=== PATIENT | male | born 1975 | race African-American/Black ===

== ENCOUNTER 2023-02-14 12:12 | Emergency (ER) | payer OTHER, SELFPAY ==
--- NOTE | ~2023-02-14 | XR_ITS ---
STUDY: PA chest, left foot INDICATION: Shortness of breath and left foot pain TECHNIQUE: PA chest, 3 view left foot FINDINGS: Chest: Heart and mediastinum within normal limits. No vascular congestion, consolidations or effusions. Possible 4 mm lung nodule right midlung field. Bony structures are intact. Left foot: No fracture or dislocation. Alignment and articulations are maintained. No focal soft tissue swelling. XR/XR chest 1V IMPRESSION: No acute cardiopulmonary disease. 4 mm right midlung pulmonary nodule not excluded. Patient currently scheduled for CT angiography of the chest. No acute bony pathology left foot.
--- NOTE | ~2023-02-14 | XR_ITS ---
STUDY: PA chest, left foot INDICATION: Shortness of breath and left foot pain TECHNIQUE: PA chest, 3 view left foot FINDINGS: Chest: Heart and mediastinum within normal limits. No vascular congestion, consolidations or effusions. Possible 4 mm lung nodule right midlung field. Bony structures are intact. Left foot: No fracture or dislocation. Alignment and articulations are maintained. No focal soft tissue swelling. XR/XR foot LT 2V IMPRESSION: No acute cardiopulmonary disease. 4 mm right midlung pulmonary nodule not excluded. Patient currently scheduled for CT angiography of the chest. No acute bony pathology left foot.
--- NOTE | ~2023-02-14 | CT_ITS ---
EXAMINATION: CT ANGIOGRAM OF THE CHEST WITH AND WITHOUT CONTRAST (CT PULMONARY ANGIOGRAM FOR PE) CLINICAL INFORMATION: Positive D-dimer. Shortness of breath. COMPARISON: None available. TECHNIQUE: Prior to contrast administration, noncontrast localization images were obtained. Subsequently, multidetector volumetric imaging was performed from the thoracic inlet to below the diaphragms following the administration of 65 mL Omnipaque 350 intravenous contrast. No contrast reaction reported. Sagittal, coronal, and MIP oblique sagittal reformatted images were obtained on the CT workstation, uploaded to PACS, and reviewed. This CT examination was performed using dose optimization techniques as appropriate, variously including the following: *Automated exposure control *Adjustment of mA and/or kV according to patient size (this includes techniques or standardized protocols for targeted exams where dose is matched to indication/reason for exam; i.e. extremities or head) *Use of iterative reconstruction technique Total exam dose-length product 285 mGy-cm. FINDINGS: QUALITY OF STUDY/CONTRAST BOLUS: Satisfactory. PULMONARY ARTERIES: No pulmonary emboli. THORACIC AORTA: No aneurysm. LUNG: There are scattered calcific granulomata left lower lobe and right middle lobe. No focal consolidation, nodules or masses. PLEURA: No pleural effusion or pneumothorax. MEDIASTINUM: Normal heart size. No pericardial effusion. No hilar or mediastinal lymphadenopathy. No evidence of septal bowing or right heart strain. CORONARY ARTERY CALCIFICATION: None visualized on this study. CHEST WALL/AXILLA: No axillary or internal mammary lymphadenopathy. OSSEOUS STRUCTURES: No acute or suspicious osseous abnormality. UPPER ABDOMEN: Unremarkable. No reflux of contrast into the hepatic veins to suggest elevated right heart pressures. CT/CT angio chest PE protocol IMPRESSION: No evidence for pulmonary embolism. No active cardiopulmonary disease. VTE: Negative.
[2023-02-14 12:28] VITALS: BP 172/124; BP 210/110; PULSE 131; PULSE 132; RESP 20; TEMP 36.9; O2SAT 99; BMI 33.5
--- NOTE | 2023-02-14 12:38 | ECG_ITS ---
Test Reason : check for prolong QT Blood Pressure : / mmHG Vent. Rate : 130 BPM Atrial Rate : 130 BPM P-R Int : 160 ms QRS Dur : 076 ms QT Int : 294 ms P-R-T Axes : 054 012 053 degrees QTc Int : 432 ms Sinus tachycardia Septal infarct , age undetermined Abnormal ECG No previous ECGs available Referred By: Generic ED Physician Electronically Signed By:SHIVANI ZUNIGA
--- NOTE | 2023-02-14 13:02 | MHC.CARE ---
Pt was seen by [facility] at [facility], clinician reports he was not found to meet inpatient level of care, however he requested to go to [facility]. Pt was at [facility] for 22 days and then transferred to [facility] yesterday, he was reported by staff to be walking around outside bare foot. Pt has history of paranoia and audio hallucinations. [facility] can be called for additional information if needed or to request copy of assessment.
--- OUTSIDE RECORDS SUMMARY | 2023-02-14 13:18 | XMS_ITS | Continuity of Care Document ---
Author Name Unknown Organization [facility] Address [address] [place] [address]- Care Team Providers Care Counter Waiter Name Role Phone Nash HAND, Alice Primary Care Physician [phone] Encounter [facility] Date(s): 08/30/22 - 09/29/[address] [address]- Attending Physician: Gala Baum Admitting Physician: AdmtrGala Referring Physician: Admtr, ArKalyan Allergies, Adverse Reactions, Alerts No Known Allergies Immunizations Given and Recorded Vaccine Date Status Refusal Reason tetanus/diphtheria/pertussis, acel(Tdap) 02/22/22 Given SARS-CoV-2 mRNA (vddmoqf-opew-porus) vax 02/22/22 Given pneumococcal 20-valent conjugate vaccine 02/22/22 Given SARS-CoV-2 (COVID-19) mRNA BNT-162b2 vac 03/23/21 Recorded SARS-CoV-2 (COVID-19) mRNA BNT-162b2 vac 03/02/21 Recorded influenza virus vaccine, inactivated 09/20/15 Give n influenza virus vaccine, inactivated 05/18/14 Give n influenza virus vaccine, inactivated 1, 2 07/30/12 Given influenza virus vaccine, inactivated 3 05/31/12 Gi sejal tetanus-diphtheria toxoids (Td) 4 05/13/10 Given Influenza Inactive (IM) (oldterm) 5 05/13/10 Given Influenza Vaccine (oldterm) 6 03/17/09 Given Not Given Vaccine Date Status Refusal Reason pneumococcal 23-valent vaccine 12/02/13 Not Given Patient Refuses 1Result Comment: ENTERED IN ERROR 2Admin Note: VIS GIVEN 3Admin Note: VIS GIVEN 2011-05 4Admin Note: vis 07/12/07 5Admin Note: vis 6Admin Note: vis 02/02/09 Medications Alcohol Pads See Instructions, # 100 each, Refills 6, Tot. Refills 6, Maintenance, Rx: To check blood sugar 1 x per day Dx: Type 2 DM, 250.00, 07/12/22 9:25:00 EST, Compound, 177.8, cm, 07/12/22 8:41:00 EST, Height Start Date: 07/12/22 Status: Ordered atorvastatin 20 mg oral tablet 1 tablet = 20 mg, By Mouth, Daily, # 30 tablet, 5 Refills, Maintenance, 07/11/22 17:25:00 EST, Tablet, [facility] #[id number], Partial fill upon patient request if the prescription is for a schedule II opioid drug., 177.8, cm, 05/01/22 9:49:00 EST, Height Start Date: 07/11/22 Status: Ordered Blood pressure monitor and cuff Blood pressure monitor and cuff, See Instructions, # 1 units, Refills 6, Tot. Refills 6, Maintenance, Rx: To check blood pressure daily Dx: Hypertension, 12/29/13 16:52:50, Compound Start Date: 12/29/13 Status: Ordered CPAP CPAP, See Instructions, # 1 units, Refills 0, Tot. Refills 0, Maintenance, Rx: Auto CPAP 10-15 witha heated humidifier. Recommend ordering a machine with compliance data tracking capabilities and following residual AHI. Dx: Obstructive Sleep Apne... Start Date: 07/29/14 Status: Ordered CPAP equipment Mask, Headgear, Tubiing, Filters CPAP equipment Mask, Headgear, Tubiing, Filters, See Instructions, # 1 units, Refills 0, Tot. Refills 0, Maintenance, Dx: TARUN 327.23, 04/01/14 10:02:39, Compound Start Date: 04/01/14 Status: Ordered diclofenac 1% topical gel 1 application, Topically, 4 times a day, # 100 Gm, 0 Refills, Maintenance, 07/20/22 8:43:00 EST, Gel, [facility] #[id number], Partial fill upon patient request if the prescription is for a schedule II opioid drug., 177.8, cm, 07/20/22 8:31:00 EST... Start Date: 07/20/22 Status: Ordered docusate sodium 100 mg oral capsule 1 capsule = 100 mg, By Mouth, 2 times a day, PRN as needed for constipation, # 60 capsule, 0 Refills, Maintenance, 02/22/22 10:02:00 EDT, Capsule, [facility] #[id number], Partial fill upon patient request if the prescription is for a schedule II... Start Date: 02/22/22 Stop Date: 03/24/22 Status: Ordered Eucerin Plus topical lotion 1 application, Topically, 2 times a day, PRN for dry skin, # 354 mL, 3 Refills, Maintenance, 03/06/22 10:02:00 EDT, Lotion, [facility] #[id number], Partial fill upon patient request if the prescription is for a schedule II opioid drug., 1 applica... Start Date: 03/06/22 Status: Ordered Freestyle Lite Lancets See Instructions, # 100 each, Refills 6, Tot. Refills 6, Maintenance, Rx: To check blood sugar 1 x per day Dx: Type 2 DM, 250.00, 07/12/22 10:48:00 EST, Compound, 177.8, cm, 07/12/22 8:41:00 EST, Height Start Date: 07/12/22 Status: Ordered Freestyle Lite Monitor See Instructions, # 1 each, Refills 0, Tot. Refills 0, Maintenance, Rx: To check blood sugar 1 x per day Dx: Type 2 DM, 250.00, 07/12/22 9:22:00 EST, Compound, 177.8, cm, 07/12/22 8:41:00 EST, Height Start Date: 07/12/22 Status: Ordered Freestyle Lite Test Strips See Instructions, # 100 each, Refills 3, Tot. Refills 3, Maintenance, Rx: To check blood sugar 1 x per day Dx: Type 2 DM, E11.9, 07/12/22 9:22:00 EST, Compound, 177.8, cm, 07/12/22 8:41:00 EST, Height Start Date: 07/12/22 Status: Ordered metFORMIN 1000 mg oral tablet 1 tablet = 1,000 mg, By Mouth, 2 times a day, # 60 tablet, 5 Refills, Maintenance, 10/09/22 17:25:00 EDT, Tablet, [id number], 177.8, cm, 07/12/22 8:41:00 EST, Height Start Date: 10/09/22 Stop Date: 04/07/23 Status: Ordered Pen [place], 31 G x 8 mm BD Ultra Fine III See Instructions, # 100 each, Refills 3, Tot. Refills 3, Maintenance, Inject Trulicity QD, 239:23:00 EST, Supply, 177.8, cm, 07/12/22 8:41:00 EST, Height Start Date: 07/12/22 Status: Ordered Trulicity Pen 0.75 mg/0.5 mL subcutaneous solution 0.5 mL = 0.75 mg, Subcutaneous Injection, Every week, rotate injection sites, # 2 mL, 5 Refills, Maintenance, 07/12/22 9:23:00 EST, Solution, [id number], Partial fill upon patient request if the prescription is for a schedule II opioid drug.,... Start Date: 07/12/22 Status: Ordered Problem List Condition Confirmation Course Effective Dates Status H ealth Status Informant History of Alcohol abuse Confirmed Active Benign essential hypertension Confirmed Active Cannabis abuse Confirmed Active Chronic back pain greater than 3 months duration Confirmed Active Type II Diabetes (Uncontrolled) Confirmed Active Obese class I Confirmed Active TARUN (obstructive sleep apnea) Confirmed Active [facility] [place] [phone] Confirmed Active Schizophrenia Confirmed Active Social History Social History Type Response Smoking Status Former smoker entered on: 11/23/14 Sex Patient Care team information Care Team Personnel Name: Esteban Donohue RN Position: S RN Member Role: Primary Care Nurse Name: Robin Recio RN Position: S RN Member Role: Primary Care Nurse Name: Alice Cao MD Position: [facility] Primary Care Physician Member Role: PCP Address: Address: [address] [place] [address]- Care Team Related Persons Name: MONICA JULIEN Address: [place] [address]
--- OUTSIDE RECORDS SUMMARY | 2023-02-14 13:18 | XMS_ITS | Continuity of Care Document ---
Author Name Unknown Organization [facility] Address [address] [place] [address]- Care Team Providers Care Structural Steel Worker Apprentice Name Role Phone Nash HAND, Alice Primary Care Physician Encounter [facility] Date(s): 03/06/22 - 04/08/[address] [address]- Attending Physician: Not on Staff, Attending MD Allergies, Adverse Reactions, Alerts No Known Allergies Immunizations Given and Recorded Vaccine Date Status Refusal Reason tetanus/diphtheria/pertussis, acel(Tdap) 02/22/22 Given SARS-CoV-2 mRNA (vrzluuk-vzgh-qknxa) vax 02/22/22 Given pneumococcal 20-valent conjugate vaccine [...] Note: vis 6Admin Note: vis 02/02/09 Medications acetaminophen 500 mg oral tablet 2 tablet = 1,000 mg, By Mouth, Every 8 hours, for 30 days, PRN Pain, # 180 tablet, 1 Refills, Acute05/05/22 10:02:00 EST, 03/06/22 10:02:00 EDT, [facility] #[id number], Partial fill upon patient request if the prescription is for a schedule II o... Start Date: 03/06/22 Stop Date: 05/05/22 Status: Ordered Alcohol Pads See Instructions, # 100 each, Refills 6, Tot. Refills 6, Maintenance, Rx: To check blood sugar 1 x per day Dx: Type 2 DM, 250.00, 02/22/22 9:55:00 EDT, Compound, 177.8, cm, 02/22/22 9:41:00 EDT, Height Start Date: 02/22/22 Status: Ordered atorvastatin 20 mg oral tablet 1 tablet = 20 mg, By Mouth, Daily, # 30 tablet, 5 Refills, Maintenance, 03/06/22 10:12:00 EDT, Tablet, [facility] #[id number], Partial fill upon patient request if the prescription is for a schedule II opioid drug., 177.8, cm, 03/06/22 9:49:00 ED... Start Date: 03/06/22 Status: Ordered Blood pressure monitor and cuff [...] 10:02:39, Compound Start Date: 04/01/14 Status: Ordered docusate sodium 100 mg oral capsule 1 capsule = 100 mg, By Mouth, 2 times a day, PRN as needed for constipation, # 60 capsule, 0 Refills, Maintenance, 02/22/22 10:02:00 EDT, Capsule, [facility] #[id number], Partial fill upon patient request if the prescription is for a schedule II... Start Date: 02/22/22 Stop Date: 03/24/22 Status: Ordered Eucerin Plus topical lotion 1 application, Topically, 2 times a day, PRN for dry skin, # 354 mL, 3 Refills, Maintenance, 03/06/22 10:02:00 EDT, Lotion, [facility] #[id number], Partial fill upon patient request if the prescription is for a schedule II opioid drug., 1 applica... Start Date: 03/06/22 Status: Ordered Freestyle Lite Lancets See Instructions, # 100 each, Refills 6, Tot. Refills 6, Maintenance, Rx: To check blood sugar 1 x per day Dx: Type 2 DM, 250.00, 02/22/22 9:55:00 EDT, Compound, 177.8, cm, 02/22/22 9:41:00 EDT, Height Start Date: 02/22/22 Status: Ordered Freestyle Lite Monitor See Instructions, # 100 each, Refills 6, Tot. Refills 6, Maintenance, Rx: To check blood sugar 1 x per day Dx: Type 2 DM, 250.00, 02/22/22 9:55:00 EDT, Compound, 177.8, cm, 02/22/22 9:41:00 EDT, Height Start Date: 02/22/22 Status: Ordered Freestyle Lite Test Strips See Instructions, # 100 each, Refills 3, Tot. Refills 3, Maintenance, Rx: To check blood sugar 1 x per day Dx: Type 2 DM, E11.9, 02/22/22 9:55:00 EDT, Compound, 177.8, cm, 02/22/22 9:41:00 EDT, Height Start Date: 02/22/22 Status: Ordered metFORMIN 1000 mg oral tablet 1 tablet = 1,000 mg, By Mouth, 2 times a day, # 60 tablet, 2 Refills, Maintenance, 02/22/22 9:56:00EDT, Tablet, [facility] #[id number], 177.8, cm, 02/22/22 9:41:00 EDT, Height Start Date: 02/22/22 Stop Date: 05/23/22 Status: Ordered Pen [place], 31 G x 8 mm BD Ultra Fine III See Instructions, # 100 each, Refills 3, Tot. Refills 3, Maintenance, Inject Trulicity QD, 03/06/2210:11:00 EDT, Supply, 177.8, cm, 03/06/22 9:49:00 EDT, Height Start Date: 03/06/22 Status: Ordered Trulicity Pen 0.75 mg/0.5 mL subcutaneous solution 0.5 mL = 0.75 mg, Subcutaneous Injection, Every week, rotate injection sites, # 2 mL, 5 Refills, Maintenance, 04/03/22 17:25:00 EDT, Solution, [facility] #[id number], Partial fill upon patient request if the prescription is for a schedule II opio... Start Date: 04/03/22 Status: Ordered Problem List Condition Confirmation Course Effective Dates Status H ealth Status Informant History of Alcohol abuse Confirmed Active Benign essential hypertension Confirmed Active Cannabis abuse Confirmed Active Chronic back pain greater than 3 months duration Confirmed Active Type II Diabetes (Uncontrolled) Confirmed Active Obese class II Confirmed Active TARUN (obstructive sleep apnea) Confirmed Active [facility] Care [facility] [phone] Confirmed Active Schizophrenia Confirmed Active Social History Social History Type Response Smoking Status Former smoker entered on: 11/23/14 Sex Patient Care team information Personnel Name: Alice Cao MD Address: Address: [address] [place] [address]
--- OUTSIDE RECORDS SUMMARY | 2023-02-14 13:18 | XMS_ITS | Continuity of Care Document ---
Author Name Unknown Organization [facility] Address [address] [place] [address]- Care Team Providers Care Director Of Corporate Real Estate Name Role Phone Nash HAND, Alice Primary Care Physician [phone] Encounter [facility] Date(s): 05/01/22 - 05/31/[address] [address]- Attending Physician: Admbabatunde, Madhu8 Admitting Physician: Admtr, Ar8 Referring Physician: Admtr, Ar8 Allergies, Adverse Reactions, Alerts No Known Allergies Immunizations Given and Recorded Vaccine Date Status Refusal Reason tetanus/diphtheria/pertussis, acel(Tdap) 02/22/22 Given SARS-CoV-2 mRNA (drrrnrl-juvn-tdhkp) vax 02/22/22 Given pneumococcal 20-valent conjugate vaccine [...] 5 Refills, Maintenance, 03/06/22 10:12:00 EDT, Tablet, [facility][id number], Partial fill upon patient request if the [...] 0 Refills, Maintenance, 02/22/22 10:02:00 EDT, Capsule, [facility] #[id number], Partial fill upon patient request if the prescription is for a schedule II... Start Date: 02/22/22 Stop Date: 03/24/22 Status: Ordered Eucerin Plus topical lotion 1 application, Topically, 2 times a day, PRN for dry skin, # 354 mL, 3 Refills, Maintenance, 03/06/22 10:02:00 EDT, Lotion, [facility] #[id number], Partial fill upon patient request if the [...] tablet, 2 Refills, Maintenance, 02/22/22 9:56:00EDT, Tablet, [facility] #[id number], 177.8, cm, 02/22/22 9:41:00 EDT, Height Start Date: 02/22/22 Stop Date: 05/23/22 Status: Ordered Pen [place], 31 G x 8 mm BD Ultra [...] 5 Refills, Maintenance, 04/03/22 17:25:00 EDT, Solution, [facility] #[id number], Partial fill upon patient request if the [...] TARUN (obstructive sleep apnea) Confirmed Active [facility] [phone] Confirmed Active Schizophrenia Confirmed Active Social History Social History Type Response Smoking Status Former smoker entered on: 11/23/14 Sex Patient Care team information Care Team Personnel Name: Esteban Donohue RN Position: [facility] RN Member Role: Primary Care Nurse Name: Robin Recio RN Position: S RN Member Role: Primary Care Nurse Name: Alice Cao MD Position: [facility] Primary Care Physician Member Role: PCP Address: Address: [address] [place] [address] Care Team Related Persons Name: MONICA JULIEN Address: [place] [address]
--- OUTSIDE RECORDS SUMMARY | 2023-02-14 13:18 | XMS_ITS | Continuity of Care Document ---
Author Name Unknown Organization [facility] Address [address] [place] [address]- Care Team Providers Care Buncher Machine Name Role Phone Nash HAND, Alice Primary Care Physician Encounter [facility] Date(s): 04/17/22 - 05/17/[address] [address]- Allergies, Adverse Reactions, Alerts No Known Allergies Immunizations Given and Recorded Vaccine Date Status Refusal Reason tetanus/diphtheria/pertussis, acel(Tdap) 02/22/22 Given SARS-CoV-2 mRNA (alpcwgb-uece-irbsz) vax 02/22/22 Given pneumococcal 20-valent conjugate vaccine [...] 5 Refills, Maintenance, 03/06/22 10:12:00 EDT, Tablet, [facility] #[id number], Partial fill upon patient request if the [...] 0 Refills, Maintenance, 02/22/22 10:02:00 EDT, Capsule, [facility] #[id number], Partial fill upon patient request if the prescription is for a schedule II... Start Date: 02/22/22 Stop Date: 03/24/22 Status: Ordered Eucerin Plus topical lotion 1 application, Topically, 2 times a day, PRN for dry skin, # 354 mL, 3 Refills, Maintenance, 03/06/22 10:02:00 EDT, Lotion, [facility] #[id number], Partial fill upon patient request if the [...] tablet, 2 Refills, Maintenance, 02/22/22 9:56:00EDT, Tablet, [facility] #[id number], 177.8, cm, 02/22/22 9:41:00 EDT, Height Start Date: 02/22/22 Stop Date: 05/23/22 Status: Ordered Pen [place], 31 G x 8 mm BD Ultra [...] 5 Refills, Maintenance, 04/03/22 17:25:00 EDT, Solution, [facility] #[id number], Partial fill upon patient request if the [...] Active TARUN (obstructive sleep apnea) Confirmed Active [facility] Care Management [facility] [place] [phone] Confirmed Active Schizophrenia Confirmed Active Social History Social History Type Response Smoking Status Former smoker entered on: 11/23/14 Sex Patient Care team information Care Team Personnel Name: Esteabn Donohue RN Position: [facility] RN Member Role: Primary Care Nurse Name: Robin Recio RN Position: S RN Member Role: Primary Care Nurse Name: Alcie Cao MD Position: [facility] Primary Care Physician Member Role: PCP Address: Address: [address] [place] [address] Care Team Related Persons Name: WILY MONICA Address: [place] [address]
--- OUTSIDE RECORDS SUMMARY | 2023-02-14 13:18 | XMS_ITS | Continuity of Care Document ---
Author Name Unknown Organization [facility] Address [address] [place] [address]- Care Team Providers Care Director Of Contracts Name Role Phone Alice Cao MD Primary Care Physician Encounter [facility] Date(s): 02/22/22 - 03/31/[address] [address]- Attending Physician: Alice Cao MD Admitting Physician: Alice Cao MD Allergies, Adverse Reactions, Alerts No Known Allergies Immunizations Given and Recorded Vaccine Date Status Refusal Reason tetanus/diphtheria/pertussis, acel(Tdap) 02/22/22 Given SARS-CoV-2 mRNA (nadxfqq-[id number]-[id number]) vax 02/22/22 Given pneumococcal 20-valent conjugate vaccine [...] Refills, Acute05/05/22 10:02:00 EST, 03/06/22 10:02:00 EDT, [facility] #[id number], Partial fill upon patient request if the [...] 5 Refills, Maintenance, 03/06/22 10:12:00 EDT, Tablet, [facility] #[id number], Partial fill upon patient request if the [...] 0 Refills, Maintenance, 02/22/22 10:02:00 EDT, Capsule, [facility] #[id number], Partial fill upon patient request if the prescription is for a schedule II... Start Date: 02/22/22 Stop Date: 03/24/22 Status: Ordered Eucerin Plus topical lotion 1 application, Topically, 2 times a day, PRN for dry skin, # 354 mL, 3 Refills, Maintenance, 03/06/22 10:02:00 EDT, Lotion, [facility] #[id number], Partial fill upon patient request if the [...] tablet, 2 Refills, Maintenance, 02/22/22 9:56:00EDT, Tablet, [facility] #[id number], 177.8, cm, 02/22/22 9:41:00 EDT, Height Start Date: 02/22/22 Stop Date: 05/23/22 Status: Ordered Pen [place], 31 G x 8 mm BD Ultra Fine III See Instructions, # 100 each, Refills 3, Tot. Refills 3, Maintenance, Inject Trulicity QD, 03/06/2210:11:00 EDT, Supply, 177.8, cm, 03/06/22 9:49:00 EDT, Height Start Date: 03/06/22 Status: Ordered triamcinolone 0.1% topical cream 1 application, Topically, 2 times a day, for 14 days, # 60 Gm, 1 Refills, Acute 04/03/22 10:02:00 EDT, 03/06/22 10:02:00 EDT, Cream, [facility] #[id number], Partial fill upon patient request if the prescription is for a schedule II opioid drug.,... Start Date: 03/06/22 Stop Date: 04/03/22 Status: Ordered Trulicity Pen 0.75 mg/0.5 mL subcutaneous solution 0.5 mL = 0.75 mg, Subcutaneous Injection, Every week, rotate injection sites, # 2 mL, 0 Refills, Maintenance, 03/06/22 10:11:00 EDT, Solution, [facility] #[id number], Partial fill upon patient request if the prescription is for a schedule II opio... Start Date: 03/06/22 Status: Ordered Problem List Condition Confirmation Course Effective Dates Status H ealth Status Informant History of Alcohol abuse Confirmed Active Benign essential hypertension Confirmed Active Cannabis abuse Confirmed Active Chronic back pain greater than 3 months duration Confirmed Active Type II Diabetes (Uncontrolled) Confirmed Active Obese class II Confirmed Active TARUN (obstructive sleep apnea) Confirmed Active [facility] [phone] Confirmed Active Schizophrenia Confirmed Active Social History Social History Type Response Smoking Status Former smoker entered on: 11/23/14 Sex Patient Care team information Personnel Name: Alice Cao MD Address: Address: [address] [place] [id number]
--- OUTSIDE RECORDS SUMMARY | 2023-02-14 13:18 | XMS_ITS | Continuity of Care Document ---
Author Name Unknown Organization [facility] Address [address] [place] [address]- Care Team Providers Care Smoking Tobacco Packer Hand Name Role Phone Nash HAND, Alice Primary Care Physician Encounter [facility] Date(s): 02/10/21 - 03/12/[address] [address]- Allergies, Adverse Reactions, Alerts Substance Reaction Severity Status NKA Active Immunizations Given and Recorded Vaccine Date Status Refusal Reason influenza virus vaccine, inactivated 09/20/15 Give n [...] ENTERED IN ERROR 2Admin Note: VIS GIVEN 2011- 3Admin Note: VIS GIVEN 2010- 4Admin Note: vis 07/12/07 5Admin Note: vis 6Admin Note: vis 02/02/09 Medications Adustable Quad Cane Adustable Quad Cane, See Instructions, # 1 each, Refills 0, Tot. Refills 0, Maintenance, Use to prevent fall. Diagnosis: Osteoarthritis, ICD10 M19. Fax to [facility], 03/15/17 16:48:50, Compound Start Date: 03/15/17 Status: Ordered Alcohol Pads See Instructions, # 100 units, Refills 6, Tot. Refills 6, Maintenance, Rx: To check blood sugar 1 Dx: Type 2 DM, 250.00, 08/14/16 13:31:48, Compound Start Date: 08/14/16 Status: Ordered amLODIPine 5 mg oral tablet 1 tablet, By Mouth, Daily, # 30 tablet, 5 Refills, Maintenance, 10/28/19 16:44:00 EDT, [facility] #[id number], 177.8, cm, 03/25/19 15:29:00 EDT, Height Start Date: 10/28/19 Status: Ordered benztropine 0.5 mg oral tablet See Instructions, TAKE 1 TABLET BY MOUTH EVERY NIGHT AT BEDTIME, # 30 tablet, Refills 5, Tot. Refills 5, Soft Stop, 10/22/20 11:51:00 EDT, Instructions Replace Required Details, Route to Pharmacy Electronically, [facility] #[id number], 177.8, cm,... Start Date: 10/22/20 Status: Ordered Blood pressure monitor and cuff [...] 10:02:39, Compound Start Date: 04/01/14 Status: Ordered divalproex sodium 500 mg oral enteric coated tablet See Instructions, # 120 tablet, Refills 6 Tot. Refills 6, TAKE 2 TABLETS BY MOUTH TWICE DAILY, [facility] #[id number] Start Date: 05/12/19 Status: Ordered Freestyle Lite Lancets See Instructions, # 100 units, Refills 6, Tot. Refills 6, Maintenance, Rx: To check blood sugar 1 xper day Dx: Type 2 DM, 250.00, 03/21/18 9:52:39 EDT, Compound Start Date: 03/21/18 Status: Ordered Freestyle Lite Monitor See Instructions, # 1 units, Refills 6, Tot. Refills 6, Maintenance, Rx: To check blood sugar 1 x per day Dx: Type 2 DM, 250.00, 12/29/13 16:53:03, Compound Start Date: 12/29/13 Status: Ordered Freestyle Lite Test Strips See Instructions, # 100 each, Refills 3, Tot. Refills 3, Maintenance, Rx: To check blood sugar 1 x per day Dx: Type 2 DM, E11.9, 10/09/19 9:33:00 EDT, [facility], 177.8, cm, 03/25/19 15:29:00 EDT, Height Start Date: 10/09/19 Status: Ordered glipiZIDE 5 mg oral tablet 5 mg, 1, tablet, By Mouth, Daily, # 30 tablet, Refills 5, Tot. Refills 5, Maintenance, 08/07/19 8:49:00 EST, Route to Pharmacy Electronically, [facility] #[id number], 177.8, cm, 03/25/19 15:29:00 EDT, Height Start Date: 08/07/19 Status: Ordered hydrochlorothiazide 25 mg oral tablet 25 mg, 1, tablet, By Mouth, Daily, # 90 tablet, Refills 3, Tot. Refills 3, Soft Stop, 03/25/20 13:09:00 EDT, Route to Pharmacy Electronically, [facility] #[id number], 177.8, cm, 03/25/19 15:29:00 EDT, Height Start Date: 03/25/20 Stop Date: 03/20/21 Status: Ordered Lac-Hydrin 12% lotion 1 application, Topically, Daily, # 400 Gm, 3 Refills, Maintenance, 07/05/16 15:02:17, Lotion, 1 application Topically Daily,x30 days Start Date: 07/05/16 Stop Date: 11/02/16 Status: Ordered lisinopril 40 mg oral tablet 1 tablet = 40 mg, By Mouth, Daily, # 90 tablet, 1 Refills, Maintenance, 07/07/19 10:35:00 EST, Tablet, [facility] #[id number], 177.8, cm, 03/25/19 15:29:00 EDT, Height Start Date: 07/07/19 Status: Ordered Medication Change Medication Change, See Instructions, # 1 each, Refills 0, Tot. Refills 0, Maintenance, Discontinue Metformin, 11/09/16 10:48:56, Compound Start Date: 11/09/16 Status: Ordered metFORMIN 1000 mg oral tablet 1 tablet = 1,000 mg, By Mouth, 2 times a day, # 60 tablet, 2 Refills, Maintenance, 11/26/19 15:35:00 EDT, Tablet, [facility] #[id number], 177.8, cm, 03/25/19 15:29:00 EDT, Height Start Date: 11/26/19 Stop Date: 02/24/20 Status: Ordered pantoprazole 40 mg oral delayed release tablet 1 tablet = 40 mg, By Mouth, Daily, # 30 tablet, 2 Refills, Soft Stop, 08/07/19 8:50:00 EST, 177.8, cm, 03/25/19 15:29:00 EDT, Height Start Date: 08/07/19 Status: Ordered risperiDONE 2 mg oral tablet 1, tablet, By Mouth, Daily, # 30 tablet, Refills 5, Tot. Refills 0, Maintenance, 07/24/19 11:03:00 EST, Route to Pharmacy Electronically, [facility] #[id number], 177.8, cm, 03/25/19 15:29:00 EDT, Height Start Date: 07/24/19 Status: Ordered Problem List Condition Effective Dates Status Health Status Inform ant History of Alcohol abuse(Confirmed) Active Benign essential hypertension(Confirmed) Active Cannabis abuse(Confirmed) Active Chronic back pain greater th an 3 months duration(Confirmed) Active Type II Diabetes (Uncontrolled)(Confirmed) Active TARUN (obstructive sleep apnea)(Confirmed) Active [facility] Care Management [facility] Desirae [phone](Confirmed) Active Schizophrenia(Confirmed) Active Social History Social History Type Response Smoking Status Former smoker entered on: 11/23/14 Sex
--- OUTSIDE RECORDS SUMMARY | 2023-02-14 13:18 | XMS_ITS | Continuity of Care Document ---
Author Name Unknown Organization [facility] Address [address] [place] [address]- Care Team Providers Care Administrator Name Role Phone Alice Cao MD Primary Care Physician [phone] [id number] Date(s): 10/19/22 - 01/03/[address] [address]- Attending Physician: Alice Cao MD Admitting Physician: Alice Cao MD Allergies, Adverse Reactions, Alerts No Known Allergies Immunizations Given and Recorded Vaccine Date Status Refusal Reason tetanus/diphtheria/pertussis, acel(Tdap) 02/22/22 Given SARS-CoV-2 mRNA ([id number]) vax 02/22/22 Given pneumococcal 20-valent conjugate vaccine [...] VIS GIVEN 2011- 3Admin Note: VIS GIVEN 2011-05 4Admin Note: [...] 5 Refills, Maintenance, 07/11/22 17:25:00 EST, Tablet, [facility]/pharmacy #[id number], Partial fill upon patient request if the [...] 0 Refills, Maintenance, 07/20/22 8:43:00 EST, Gel, [facility] #[id number], Partial fill upon patient request if the prescription is for a schedule II opioid drug., 177.8, cm, 07/20/22 8:31:00 EST... Start Date: 07/20/22 Status: Ordered docusate sodium 100 mg oral capsule 1 capsule = 100 mg, By Mouth, 2 times a day, PRN as needed for constipation, # 60 capsule, 0 Refills, Maintenance, 02/22/22 10:02:00 EDT, Capsule, [facility] #[id number], Partial fill upon patient request if the prescription is for a schedule II... Start Date: 02/22/22 Stop Date: 03/24/22 Status: Ordered Eucerin Plus topical lotion 1 application, Topically, 2 times a day, PRN for dry skin, # 354 mL, 3 Refills, Maintenance, 03/06/22 10:02:00 EDT, Lotion, [facility] #[id number], Partial fill upon patient request if the [...] 5 Refills, Maintenance, 10/09/22 17:25:00 EDT, Tablet, [facility]/pharmacy #[id number], 177.8, cm, 07/12/22 8:41:00 EST, Height Start Date: 10/09/22 Stop Date: 04/07/23 Status: Ordered Pen [place], 31 G x 8 mm BD Ultra [...] 5 Refills, Maintenance, 07/12/22 9:23:00 EST, Solution, [facility]/pharmacy #[id number], Partial fill upon patient request if [...] Active TARUN (obstructive sleep apnea) Confirmed Active [facility] [phone] Confirmed Active Schizophrenia Confirmed Active Social History Social History Type Response Smoking Status Former smoker entered on: 11/23/14 Sex Patient Care team information Care Team Personnel Name: Esteban Donohue RN Position: S RN Member Role: Primary Care Nurse Name: Robin Recio RN Position: S RN Member Role: Primary Care Nurse Name: Alice Cao MD Position: S Physician - Primary Care Member Role: PCP Address: Address: [address] [place] [address]- Care Team Related Persons Name: MONICA JULIEN Address: [place] [address]
--- OUTSIDE RECORDS SUMMARY | 2023-02-14 13:18 | XMS_ITS | Continuity of Care Document ---
Author Name Unknown Organization [facility] Address [address] [place] [address]- Care Team Providers Care Improvement Advisor Name Role Phone Nash HAND, Alice Primary Care Physician [phone] [place] [facility] [place]/21/22 - 09/29/[address] [address] Attending Physician: Mariah Justice NP Admitting Physician: Mariah Justice NP Referring Physician: Mariah Justice NP Allergies, Adverse Reactions, Alerts No Known Allergies Immunizations Given and Recorded Vaccine Date Status Refusal Reason tetanus/diphtheria/pertussis, acel(Tdap) 02/22/22 Given SARS-CoV-2 mRNA ([id number]-ulol-gszaa) vax 02/22/22 Given pneumococcal 20-valent conjugate vaccine [...] Refills, Maintenance, 07/11/22 17:25:00 EST, Tablet, [facility]/pharmacy #[id number], Partial fill upon patient request if the [...] 0 Refills, Maintenance, 07/20/22 8:43:00 EST, Gel, [facility] #[id number], Partial fill upon patient request if the prescription is for a schedule II opioid drug., 177.8, cm, 07/20/22 8:31:00 EST... Start Date: 07/20/22 Status: Ordered docusate sodium 100 mg oral capsule 1 capsule = 100 mg, By Mouth, 2 times a day, PRN as needed for constipation, # 60 capsule, 0 Refills, Maintenance, 02/22/22 10:02:00 EDT, Capsule, [facility] #[id number], Partial fill upon patient request if the prescription is for a schedule II... Start Date: 02/22/22 Stop Date: 03/24/22 Status: Ordered Eucerin Plus topical lotion 1 application, Topically, 2 times a day, PRN for dry skin, # 354 mL, 3 Refills, Maintenance, 03/06/22 10:02:00 EDT, Lotion, [facility] #[id number], Partial fill upon patient request if the [...] 10/09/22 Stop Date: 04/07/23 Status: Ordered Pen [place], 31 G x 8 mm BD Ultra [...] Active TARUN (obstructive sleep apnea) Confirmed Active [facility] [phone] Confirmed Active Schizophrenia Confirmed Active Social History Social History Type Response Smoking Status Former smoker entered on: 11/23/14 Sex Patient Care team information Care Team Personnel Name: Esteban Donohue RN Position: [facility] RN Member Role: Primary Care Nurse Name: Robin Recio RN Position: S RN Member Role: Primary Care Nurse Name: Alice Cao MD Position: [facility] Primary Care Physician Member Role: PCP Address: Address: [address] [place] [address]- Care Team Related Persons Name: MONICA JULIEN Address: [place] [address]
--- OUTSIDE RECORDS SUMMARY | 2023-02-14 13:18 | XMS_ITS | Continuity of Care Document ---
Author Name Unknown Organization [facility] Address [address] [place] [address]- Care Team Providers Care First Assistant Manager Name Role Phone Nash HAND, Alice Primary Care Physician [phone] [place] [facility] [place] Date(s): 07/20/22 - 08/19/[address] [address]- Attending Physician: Admbabatunde, Gala Admitting Physician: Admtr, Ar8 Referring Physician: Admtr, Ar8 Allergies, Adverse Reactions, Alerts No Known Allergies Immunizations Given and Recorded Vaccine Date Status Refusal Reason tetanus/diphtheria/pertussis, acel(Tdap) 02/22/22 Given SARS-CoV-2 mRNA ([id number]-ekfe-lxvik) vax 02/22/22 Given pneumococcal 20-valent conjugate vaccine [...] 5 Refills, Maintenance, 07/11/22 17:25:00 EST, Tablet, [facility]/pharmacy #[id number], Partial fill upon patient request if the [...] 0 Refills, Maintenance, 07/20/22 8:43:00 EST, Gel, [facility] #[id number], Partial fill upon patient request if the prescription is for a schedule II opioid drug., 177.8, cm, 07/20/22 8:31:00 EST... Start Date: 07/20/22 Status: Ordered docusate sodium 100 mg oral capsule 1 capsule = 100 mg, By Mouth, 2 times a day, PRN as needed for constipation, # 60 capsule, 0 Refills, Maintenance, 02/22/22 10:02:00 EDT, Capsule, [facility] #[id number], Partial fill upon patient request if the prescription is for a schedule II... Start Date: 02/22/22 Stop Date: 03/24/22 Status: Ordered Eucerin Plus topical lotion 1 application, Topically, 2 times a day, PRN for dry skin, # 354 mL, 3 Refills, Maintenance, 03/06/22 10:02:00 EDT, Lotion, [facility] #[id number], Partial fill upon patient request if the [...] 10/09/22 Stop Date: 04/07/23 Status: Ordered Pen [place], 31 G x 8 mm BD Ultra Fine III See Instructions, # 100 each, Refills 3, Tot. Refills 3, Maintenance, Inject Trulicity QD, :23:00 EST, Supply, 177.8, cm, 07/12/22 8:41:00 EST, [...] Active TARUN (obstructive sleep apnea) Confirmed Active [facility]z [phone] Confirmed Active Schizophrenia Confirmed Active Social History Social History Type Response Smoking Status Former smoker entered on: 11/23/14 Sex Patient Care team information Care Team Personnel Name: Esteban Donohue RN Position: [facility] RN Member Role: Primary Care Nurse Name: Robin Recio RN Position: S RN Member Role: Primary Care Nurse Name: Alice Cao MD Position: [facility] Primary Care Physician Member Role: PCP Address: Address: [address] [place] [address]- Care Team Related Persons Name: BERNADETTE JULIENENE Address: [place] [address]
--- OUTSIDE RECORDS SUMMARY | 2023-02-14 13:18 | XMS_ITS | Continuity of Care Document ---
Author Name Unknown Organization [facility] Address [address] [place] [address]- Care Team Providers Care Wharf Hand Name Role Phone Nash HAND, Alice Primary Care Physician [phone] En[place] [facility] [place] [facility] [place] [id number] Date(s): 03/09/22 - 04/08/[address] [address]- Attending Physician: Gala Baum Admitting Physician: Gala Baum Referring Physician: AdmtrGala Allergies, Adverse Reactions, Alerts No Known Allergies Immunizations Given and Recorded Vaccine Date Status Refusal Reason tetanus/diphtheria/pertussis, acel(Tdap) 02/22/22 Given SARS-CoV-2 mRNA ([id number]-[id number]-iowiy) vax 02/22/22 Given pneumococcal 20-valent conjugate vaccine [...] ENTERED IN ERROR 2Admin Note: VIS GIVEN 2012-13 3Admin Note: VIS GIVEN 2011-05 4Admin Note: vis 07/12/07 5Admin Note: vis 6Admin Note: vis 02/02/09 Medications acetaminophen 500 mg oral tablet 2 tablet = 1,000 mg, By Mouth, Every 8 hours, for 30 days, PRN Pain, # 180 tablet, 1 Refills, Acute05/05/22 10:02:00 EST, 03/06/22 10:02:00 EDT, [facility] #[id number], Partial fill upon patient request if the [...] 5 Refills, Maintenance, 03/06/22 10:12:00 EDT, Tablet, [facility] #[id number], Partial fill upon patient request if the [...] 0 Refills, Maintenance, 02/22/22 10:02:00 EDT, Capsule, [facility] #[id number], Partial fill upon patient request if the prescription is for a schedule II... Start Date: 02/22/22 Stop Date: 03/24/22 Status: Ordered Eucerin Plus topical lotion 1 application, Topically, 2 times a day, PRN for dry skin, # 354 mL, 3 Refills, Maintenance, 03/06/22 10:02:00 EDT, Lotion, [facility] #[id number], Partial fill upon patient request if the [...] tablet, 2 Refills, Maintenance, 02/22/22 9:56:00EDT, Tablet, [facility] #[id number], 177.8, cm, 02/22/22 9:41:00 EDT, Height Start Date: 02/22/22 Stop Date: 05/23/22 Status: Ordered Pen [place], 31 G x 8 mm BD Ultra [...] 5 Refills, Maintenance, 04/03/22 17:25:00 EDT, Solution, [facility] #[id number], Partial fill upon patient request if the [...] Active TARUN (obstructive sleep apnea) Confirmed Active [facility] [phone] Confirmed Active Schizophrenia Confirmed Active Social History Social History Type Response Smoking Status Former smoker entered on: 11/23/14 Sex Patient Care team information Personnel Name: Alice Cao MD Address: Address: [address] [place] [address]
--- OUTSIDE RECORDS SUMMARY | 2023-02-14 13:18 | XMS_ITS | Continuity of Care Document ---
Author Name Unknown Organization [facility] Address [address] [place] [address]- Care Team Providers Care Director Agricultural Services Name Role Phone Nash HAND, Alice Primary Care Physician [phone] Encounter [facility] Date(s): 05/01/22 - 05/31/[address] [address]- Allergies, Adverse Reactions, Alerts No Known Allergies Immunizations Given and Recorded Vaccine Date Status Refusal Reason tetanus/diphtheria/pertussis, acel(Tdap) 02/22/22 Given SARS-CoV-2 mRNA ([id number]-niovy) vax 02/22/22 Given pneumococcal 20-valent conjugate vaccine 02/22/22 Given SARS-CoV-2 (COVID-19) mRNA BNT-162b2 vac 03/23/21 Recorded SARS-CoV-2 (COVID-19) mRNA BNT-162b2 vac 03/02/21 Recorded influenza virus vaccine, inactivated 09/20/15 Give n influenza virus vaccine, inactivated 05/18/14 Give n influenza virus vaccine, inactivated 1, 2 07/30/12 Given influenza virus vaccine, inactivated 3 05/31/12 Gi seajl tetanus-diphtheria toxoids (Td) 4 05/13/10 Given Influenza [...] 5 Refills, Maintenance, 03/06/22 10:12:00 EDT, Tablet, [facility] #[id number], Partial fill upon patient request if the [...] 0 Refills, Maintenance, 02/22/22 10:02:00 EDT, Capsule, [facility] #[id number], Partial fill upon patient request if the prescription is for a schedule II... Start Date: 02/22/22 Stop Date: 03/24/22 Status: Ordered Eucerin Plus topical lotion 1 application, Topically, 2 times a day, PRN for dry skin, # 354 mL, 3 Refills, Maintenance, 03/06/22 10:02:00 EDT, Lotion, [facility] #[id number], Partial fill upon patient request if the [...] tablet, 2 Refills, Maintenance, 02/22/22 9:56:00EDT, Tablet, [facility] #[id number], 177.8, cm, 02/22/22 9:41:00 EDT, Height Start Date: 02/22/22 Stop Date: 05/23/22 Status: Ordered Pen [place], 31 G x 8 mm BD Ultra [...] 5 Refills, Maintenance, 04/03/22 17:25:00 EDT, Solution, [facility] #[id number], Partial fill upon patient request if the [...] Active TARUN (obstructive sleep apnea) Confirmed Active [facility] Care Management [facility] Jesusflorencio Benz [phone] Confirmed Active Schizophrenia Confirmed Active Social History Social History Type Response Smoking Status Former smoker entered on: 11/23/14 Sex Patient Care team information Care Team Personnel Name: Esteban Donohue RN Position: [facility] RN Member Role: Primary Care Nurse Name: Robin Recio RN Position: S RN Member Role: Primary Care Nurse Name: Alice Cao MD Position: [facility] Primary Care Physician Member Role: PCP Address: Address: [address] [place] [address] Care Team Related Persons Name: WILY MONICA Address: [place] [address]
--- OUTSIDE RECORDS SUMMARY | 2023-02-14 13:18 | XMS_ITS | Continuity of Care Document ---
Author Name Unknown Organization [facility] Address [address] [place] [address]- Care Team Providers Care Sales Process Manager Name Role Phone Alice Cao MD Primary Care Physician Encounter [facility] [place] [place] Date(s): 11/21/22 - 11/21/[address] [address]- Encounter Diagnosis Suicidal ideation(Final) - 11/21/22 Discharge Disposition: A-D/C Home Attending Physician: Brian Curtis MD Admitting Physician: Brian Curtis MD Referring Physician: Not on Staff, Referring MD Allergies, Adverse Reactions, Alerts No Known Allergies Immunizations Given and Recorded Vaccine Date Status Refusal Reason tetanus/diphtheria/pertussis, acel(Tdap) 02/22/22 Given SARS-CoV-2 mRNA (lmllvkf-dwrq-xrmvu) vax 02/22/22 Given pneumococcal 20-valent conjugate vaccine [...] Note: VIS GIVEN 2011-05 4Admin Note: vis 1/18/08 5Admin Note: vis 6Admin Note: vis 02/02/09 [...] 5 Refills, Maintenance, 07/11/22 17:25:00 EST, Tablet, [facility]/pharmacy #[id number], Partial fill upon patient request if the [...] 0 Refills, Maintenance, 07/20/22 8:43:00 EST, Gel, [facility] #[id number], Partial fill upon patient request if the prescription is for a schedule II opioid drug., 177.8, cm, 07/20/22 8:31:00 EST... Start Date: 07/20/22 Status: Ordered docusate sodium 100 mg oral capsule 1 capsule = 100 mg, By Mouth, 2 times a day, PRN as needed for constipation, # 60 capsule, 0 Refills, Maintenance, 02/22/22 10:02:00 EDT, Capsule, [facility] #[id number], Partial fill upon patient request if the prescription is for a schedule II... Start Date: 02/22/22 Stop Date: 03/24/22 Status: Ordered Eucerin Plus topical lotion 1 application, Topically, 2 times a day, PRN for dry skin, # 354 mL, 3 Refills, Maintenance, 03/06/22 10:02:00 EDT, Lotion, [facility] #[id number], Partial fill upon patient request if the [...] 10/09/22 Stop Date: 04/07/23 Status: Ordered Pen [place], 31 G x 8 mm BD Ultra [...] sleep apnea) Confirmed Active [facility] [phone] Confirmed Active Schizophrenia Confirmed Active Vital Signs Most recent to oldest [Reference Range]: 1 2 3 Height 180 cm (11/21/22 5:25 PM) 180 cm (11/21/22 1:38 PM) 180 cm (11/21/22 5:56 AM) Weight 109 kg (11/21/22 5:25 PM) 109 kg (11/21/22 1:38 PM) 109 kg (11/21/22 5:56 AM) Oxygen Saturation [94-100 %] 100 % (11/21/22 5:25 PM) 99 % (11/21/22 1:38 PM) 99 % (11/21/22 9:08 AM) Pulse Rate [55-90 bpm] 71 bpm (11/21/22 5:25 PM) 65 bpm (11/21/22 1:38 PM) 72 bpm (11/21/22 9:08 AM) Body Mass Index [18.5-24.99 kg/m2] 33.64 kg/m2 *>HHI* (11/21/22 5:25 PM) 33.64 kg/m2 *>HHI* (11/21/22 1:38 PM) 33.64 kg/m2 *>HHI* (11/21/22 5:56 AM) Blood Pressure [90-138/55-84 mm Hg] 165/104mm Hg *H* (11/21/22 5:25 PM) 158/100mm Hg *H* (11/21/22 1:38 PM) 153/102mm Hg *H* (11/21/22 9:08 AM) Respiratory Rate [16-30 br/min] 16 br/min (11/21/22 5:25 PM) 18 br/min (11/21/22 1:38 PM) 18 br/min (11/21/22 9:08 AM) Temperature [96.8-100.4 DegF] 99.4 DegF (11/21/22 5:25 PM) 99.4 DegF (11/21/22 1:38 PM) 99 DegF (11/21/22 9:08 AM) Mode of Delivery (Oxygen) Room air (11/21/22 5:25 PM) Room air (11/21/22 1:38 PM) Room air (11/21/22 9:08 AM) Blood pressure sites Arm, left (11/21/22 5:25 PM) Arm, left (11/21/22 1:38 PM) Arm, right (11/21/22 2:26 AM) Temperature Route Oral (11/21/22 5:25 PM) Oral (11/21/22 1:38 PM) Oral (11/21/22 9:08 AM) Dry Weight 109 kg (11/21/22 5:25 PM) 109 kg (11/21/22 1:38 PM) 109 kg (11/21/22 5:56 AM) Social History Social History Type Response Smoking Status Former smoker entered on: 11/23/14 Sex Patient Care team information Care Team Personnel Name: Esteban Donohue RN Position: [facility] RN Member Role: Primary Care Nurse Name: Robin Recio RN Position: [facility] RN Member Role: Primary Care Nurse Name: Alice Cao MD Position: [facility] Physician - Primary Care Member Role: PCP Address: Address: [address] [place] [address]- Name: *[facility], ED Attending Position: [facility] ED Attendings Patient Name: Brian Curtis MD Position: [facility] ED Medicine MD Member Role: Admitting Physician Address: Address: [address] [place] [address]- Name: Aspen Mario RN Position: [facility] ED RN W/OE and Tasks Member Role: Patient Care Provider Name: Radha Cormier Position: [facility] ED TA [facility] Care Team Related Persons Name: MONICA JULIEN Address: [address] [address]
--- OUTSIDE RECORDS SUMMARY | 2023-02-14 13:18 | XMS_ITS | Continuity of Care Document ---
Author Name Unknown Organization [facility] ter Address [address] [place] [address]- Care Team Providers Care Adoption Counselor Name Role Phone Alice Cao MD Primary Care Physician Encounter [facility] Date(s): 06/27/22 - 06/27/[address] [address]- Encounter Diagnosis Obstructive sleep apnea(Final) - 06/27/22 Drowsy(Final) - 06/27/22 Lethargy(Final) - 06/27/22 Discharge Disposition: A-D/C Home Attending Physician: Og Pompa MD Admitting Physician: Og Pompa MD Referring Physician: Not on Staff, Referring MD Allergies, Adverse Reactions, Alerts No Known Allergies Immunizations Given and Recorded Vaccine Date Status Refusal Reason tetanus/diphtheria/pertussis, acel(Tdap) 02/22/22 Given SARS-CoV-2 mRNA ([id number]) vax 02/22/22 Given pneumococcal 20-valent conjugate vaccine [...] Note: VIS GIVEN 3Admin Note: VIS GIVEN 2010- 4Admin Note: [...] 5 Refills, Maintenance, 03/06/22 10:12:00 EDT, Tablet, [facility] #[id number], Partial fill upon patient request if the [...] 0 Refills, Maintenance, 02/22/22 10:02:00 EDT, Capsule, [facility] #[id number], Partial fill upon patient request if the prescription is for a schedule II... Start Date: 02/22/22 Stop Date: 03/24/22 Status: Ordered Eucerin Plus topical lotion 1 application, Topically, 2 times a day, PRN for dry skin, # 354 mL, 3 Refills, Maintenance, 03/06/22 10:02:00 EDT, Lotion, [facility] #[id number], Partial fill upon patient request if the [...] tablet, 2 Refills, Maintenance, 02/22/22 9:56:00EDT, Tablet, [facility] #[id number], 177.8, cm, 02/22/22 9:41:00 EDT, Height Start Date: 02/22/22 Stop Date: 05/23/22 Status: Ordered Pen [place], 31 G x 8 mm BD Ultra [...] 5 Refills, Maintenance, 04/03/22 17:25:00 EDT, Solution, [facility] #[id number], Partial fill upon patient request if the [...] Active TARUN (obstructive sleep apnea) Confirmed Active [facility] Care Management [facility], Katlin Benz [phone] Confirmed Active Schizophrenia Confirmed Active Results Radiology Reports * Exam Date Time Procedure Performing Provider Status 06/27/22 4:[address] Head/Brain W/O Contrast Dmitry Hilliard (Verified) Notes: (CT Head/Brain W/O Contrast) Reason For Exam: AMS;Other: RESULT: CT Head/Brain W/O Contrast CT Head/Brain W/O Contrast Hx of Present Illness: complaints of dizziness feeling faint. Denies alcohol drug use; Reason: Other:; AMS; Clinical Question(s): Hematoma; Order Comment: TECHNIQUE: Noncontrast head CT using axial technique and reconstructed in axial and coronal planes.Iterative reconstruction techniques are used to optimize dose and image quality. CTDIvol Head: 48.10 mGy, DLP Head: 772 mGy*cm. COMPARISON: None. FINDINGS: Veneer Department Manager view findings, lines and tubes: None. BRAIN AND EXTRA-AXIAL SPACES: No parenchymal hemorrhage, midline shift, or mass effect. Sanders-white matter differentiation is wellpreserved. No acute infarct. Negative insular ribbon sign. Atherosclerotic vascular calcification of the carotid arteries but negative hyperdense vessel sign. Ventricles, sulci, and basilar cisterns are normal. No white matter lesions. No subarachnoid hemorrhage. No subdural or epidural collection. CALVARIUM, SKULL BASE, AND SOFT TISSUES: No fractures or suspicious bony lesions. Mild mucosal thickening of the paranasal sinuses. The mastoid air cells are clear. Visualized orbits and globes are intact. The extracranial soft tissues are unremarkable. IMPRESSION: No acute intracranial pathology. I have personally reviewed the images and I agree with this report. WSN: [id number] Ordering Physician: Radha Ag Dictated By: Ruddy[Radiology] Marcia HAND Dictated Date/Time: 06/27/22 6:08 am Reviewed By: Hemalatha Saha MD Signed By: Hemalatha Saha MD Signed Date/Time: 06/27/22 6:13 am Transcribed By: GEORG[place] Transcribed Date/Time: 06/27/22 5:15 am Vital Signs Most recent to oldest [Reference Range]: 1 2 3 Oxygen Saturation [94-100 %] 100 % (06/27/22 5:38 AM) 84 % *L* (06/27/22 4:07 AM) 93 % *L* (06/27/22 3:18 AM) Pulse Rate [55-90 bpm] 80 bpm (06/27/22 5:38 AM) 36 bpm *L* (06/27/22 4:07 AM) 62 bpm (06/27/22 3:18 AM) Blood Pressure [90-138/55-84 mm Hg] 131/90mm Hg (06/27/22 5:38 AM) 140/73mm Hg *H* (06/27/22 4:07 AM) 118/59mm Hg (06/27/22 3:18 AM) Respiratory Rate [16-30 br/min] 11 br/min *L* (06/27/22 5:38 AM) 17 br/min (06/27/22 4:07 AM) 20 br/min (06/27/22 3:18 AM) Temperature [96.8-100.4 DegF] 98.1 DegF (06/27/22 5:38 AM) 98.1 DegF (06/27/22 3:18 AM) Liters per Minute 4 L/min (06/27/22 4:07 AM) 2 L/min (06/27/22 3:18 AM) Mode of Delivery (Oxygen) Room air (06/27/22 5:38 AM) Nasal cannula (06/27/22 4:07 AM) Nasal cannula (06/27/22 3:18 AM) Blood pressure sites Arm, right (06/27/22 5:38 AM) Arm, right (06/27/22 4:07 AM) Arm, right (06/27/22 3:18 AM) Temperature Route Oral (06/27/22 5:38 AM) Oral (06/27/22 3:18 AM) Social History Social History Type Response Smoking Status Former smoker entered on: 11/23/14 Sex Note * Radha Ag DO: PERFORM Event Display: Patient Education Leaflets Authored Date: [id number] Continuous Positive Airway Pressure (CPAP) ?? Continuous Positive Airway Pressure (CPAP) - Video Continuous positive airway pressure is a common treatment for obstructive sleep apnea. This video shows how CPAP works and how it helps you breathe better. To view the video go to this web address: [email or web address] Or, scan this QR code with your smart phone Last Reviewed Date: 2020 ?? 5199-0313 [employer]. All rights reserved. This information is not intended as a substitute for professional medical care. Always follow your healthcare professional's instructions. ?? CT Head WO contrast * BHSPowerscribe , CIS S: TRANSCRIBE Yifan HAND, Hemalatha M: VERIFY Ruddy[Radiology] , inder: SIGN Event Display: Result: Authored Date: [id number] CT Head/Brain W/O Contrast Hx of Present Illness: complaints of dizziness feeling faint. Denies alcohol drug use; Reason: Other:; AMS; Clinical Question(s): Hematoma; Order Comment: TECHNIQUE: Noncontrast head CT using axial technique and reconstructed in axial and coronal planes.Iterative reconstruction techniques are used to optimize dose and image quality. CTDIvol Head: 48.10 mGy, DLP Head: 772 mGy*cm. COMPARISON: None. FINDINGS: Veneer Department Manager view findings, lines and tubes: None. BRAIN AND EXTRA-AXIAL SPACES: No parenchymal hemorrhage, midline shift, or mass effect. Sanders-white matter differentiation is wellpreserved. No acute infarct. Negative insular ribbon sign. Atherosclerotic vascular calcification of the carotid arteries but negative hyperdense vessel sign. Ventricles, sulci, and basilar cisterns are normal. No white matter lesions. No subarachnoid hemorrhage. No subdural or epidural collection. CALVARIUM, SKULL BASE, AND SOFT TISSUES: No fractures or suspicious bony lesions. Mild mucosal thickening of the paranasal sinuses. The mastoid air cells are clear. Visualized orbits and globes are intact. The extracranial soft tissues are unremarkable. IMPRESSION: No acute intracranial pathology. I have personally reviewed the images and I agree with this report. WSN: [id number] Ordering Physician: Radha Ag Dictated By: Ruddy[Radiology] Marcia HAND Dictated Date/Time: 06/27/22 6:08 am Reviewed By: Hemalatha Saha MD Signed By: Hemalatha Saha MD Signed Date/Time: 06/27/22 6:13 am Transcribed By: GEORGIA Transcribed Date/Time: 06/27/22 5:15 am Patient Care team information Care Team Personnel Name: Esteban Donohue RN Position: [facility] RN Member Role: Primary Care Nurse Name: Robin Recio RN Position: [facility] RN Member Role: Primary Care Nurse Name: Alice Cao MD Position: [facility] Primary Care Physician Member Role: PCP Address: Address: [address] [place] [address] Name: Og Pompa MD Position: [facility] Resident Member Role: Admitting Physician Address: Address: [address] [place] [address]- Name: Kimberlee Hills RN Position: [facility] ED RN W/OE and Tasks Member Role: Patient Care Provider Name: Radha Ag DO Position: [facility] Resident Member Role: ED Resident Address: Address: [address] [place] [address]- Care Team Related Persons Name: MONICA JULIEN Address: [place] [address]
--- OUTSIDE RECORDS SUMMARY | 2023-02-14 13:18 | XMS_ITS | Continuity of Care Document ---
Author Name Unknown Organization [facility] Address [address] [place] [address]- Care Team Providers Care Hairspring Cutter Name Role Phone Alice Cao MD Primary Care Physician [phone] Encounter [id number] Date(s): 12/04/22 - 01/03/[address] [address]- Attending Physician: Gala Baum Admitting Physician: Gala Baum Referring Physician: AdmtrGala Allergies, Adverse Reactions, Alerts No Known Allergies Immunizations Given and Recorded Vaccine Date Status Refusal Reason tetanus/diphtheria/pertussis, acel(Tdap) 02/22/22 Given SARS-CoV-2 mRNA ([id number]-[id number]) vax 02/22/22 Given pneumococcal 20-valent conjugate vaccine [...] 5 Refills, Maintenance, 07/11/22 17:25:00 EST, Tablet, [facility]/pharmacy #[id number], Partial fill upon patient request if the [...] 0 Refills, Maintenance, 07/20/22 8:43:00 EST, Gel, [facility] #[id number], Partial fill upon patient request if the prescription is for a schedule II opioid drug., 177.8, cm, 07/20/22 8:31:00 EST... Start Date: 07/20/22 Status: Ordered docusate sodium 100 mg oral capsule 1 capsule = 100 mg, By Mouth, 2 times a day, PRN as needed for constipation, # 60 capsule, 0 Refills, Maintenance, 02/22/22 10:02:00 EDT, Capsule, [facility] #[id number], Partial fill upon patient request if the prescription is for a schedule II... Start Date: 02/22/22 Stop Date: 03/24/22 Status: Ordered Eucerin Plus topical lotion 1 application, Topically, 2 times a day, PRN for dry skin, # 354 mL, 3 Refills, Maintenance, 03/06/22 10:02:00 EDT, Lotion, [facility] #[id number], Partial fill upon patient request if the [...] 5 Refills, Maintenance, 10/09/22 17:25:00 EDT, Tablet, [facility]/pharmacy #[id number], 177.8, cm, 07/12/22 8:41:00 EST, Height Start Date: 10/09/22 Stop Date: 04/07/23 Status: Ordered Pen [place], 31 G x 8 mm BD Ultra [...] 5 Refills, Maintenance, 07/12/22 9:23:00 EST, Solution, [facility]/pharmacy #[id number], Partial fill upon patient request if [...] Active TARUN (obstructive sleep apnea) Confirmed Active [facility] Care Management [facility] [phone] Confirmed Active Schizophrenia Confirmed Active Social History Social History Type Response Smoking Status Former smoker entered on: 11/23/14 Sex Patient Care team information Care Team Personnel Name: Esteban Donohue RN Position: S RN Member Role: Primary Care Nurse Name: Robin Recio RN Position: S RN Member Role: Primary Care Nurse Name: Alice Cao MD Position: [facility] Physician - Primary Care Member Role: PCP Address: Address: [address] [place] [address]- Care Team Related Persons Name: MONICA JULIEN Address: [place] [address]
--- OUTSIDE RECORDS SUMMARY | 2023-02-14 13:18 | XMS_ITS | Continuity of Care Document ---
Author Name Unknown Organization [facility] ter Address [address] [place] [address]- Care Team Providers Care Sewing Machine Operator Zipper Name Role Phone Alice Cao MD Primary Care Physician En[place] [facility] Date(s): 07/13/22 - 08/13/[address] [address] Attending Physician: Alice Cao MD Admitting Physician: Alice Cao MD Referring Physician: Alice Cao MD Allergies, Adverse Reactions, Alerts No Known Allergies Immunizations Given and Recorded Vaccine Date Status Refusal Reason tetanus/diphtheria/pertussis, acel(Tdap) 02/22/22 Given SARS-CoV-2 mRNA ([id number]) vax 02/22/22 Given pneumococcal 20-valent conjugate vaccine [...] 5 Refills, Maintenance, 07/11/22 17:25:00 EST, Tablet, [facility]/pharmacy #[id number], Partial fill upon patient request if the [...] 0 Refills, Maintenance, 07/20/22 8:43:00 EST, Gel, [facility] #[id number], Partial fill upon patient request if the prescription is for a schedule II opioid drug., 177.8, cm, 07/20/22 8:31:00 EST... Start Date: 07/20/22 Status: Ordered docusate sodium 100 mg oral capsule 1 capsule = 100 mg, By Mouth, 2 times a day, PRN as needed for constipation, # 60 capsule, 0 Refills, Maintenance, 02/22/22 10:02:00 EDT, Capsule, [facility] #[id number], Partial fill upon patient request if the prescription is for a schedule II... Start Date: 02/22/22 Stop Date: 03/24/22 Status: Ordered Eucerin Plus topical lotion 1 application, Topically, 2 times a day, PRN for dry skin, # 354 mL, 3 Refills, Maintenance, 03/06/22 10:02:00 EDT, Lotion, [facility] #[id number], Partial fill upon patient request if the [...] 10/09/22 Stop Date: 04/07/23 Status: Ordered Pen [place], 31 G x 8 mm BD Ultra [...] Active TARUN (obstructive sleep apnea) Confirmed Active [facility] [phone] Confirmed Active Schizophrenia Confirmed Active Social History Social History Type Response Smoking Status Former smoker entered on: 11/23/14 Sex Patient Care team information Care Team Personnel Name: Esteban Donohue RN Position: [facility] RN Member Role: Primary Care Nurse Name: Robin Recio RN Position: S RN Member Role: Primary Care Nurse Name: Alice Cao MD Position: [facility] Primary Care Physician Member Role: PCP Address: Address: [address] [place] [address]- Care Team Related Persons Name: MONICA JULIEN Address: [place] [address]
--- OUTSIDE RECORDS SUMMARY | 2023-02-14 13:18 | XMS_ITS | Continuity of Care Document ---
Author Name Unknown Organization [facility] Address [address] [place] [address]- Care Team Providers Care Fancy Needleworker Name Role Phone Alice Cao MD Primary Care Physician Encounter [facility] Date(s): 05/01/22 - 07/01/[address] [address]- Attending Physician: Alice Cao MD Admitting Physician: Alice Cao MD Allergies, Adverse Reactions, Alerts No Known Allergies Immunizations Given and Recorded Vaccine Date Status Refusal Reason tetanus/diphtheria/pertussis, acel(Tdap) 02/22/22 Given SARS-CoV-2 mRNA ([id number]-[id number]-[id number]) vax 02/22/22 Given pneumococcal 20-valent conjugate vaccine [...] 5 Refills, Maintenance, 03/06/22 10:12:00 EDT, Tablet, [facility] #[id number], Partial fill upon patient request if the [...] 0 Refills, Maintenance, 02/22/22 10:02:00 EDT, Capsule, [facility] #[id number], Partial fill upon patient request if the prescription is for a schedule II... Start Date: 02/22/22 Stop Date: 03/24/22 Status: Ordered Eucerin Plus topical lotion 1 application, Topically, 2 times a day, PRN for dry skin, # 354 mL, 3 Refills, Maintenance, 03/06/22 10:02:00 EDT, Lotion, [facility] #[id number], Partial fill upon patient request if the [...] tablet, 2 Refills, Maintenance, 02/22/22 9:56:00EDT, Tablet, [facility] #[id number], 177.8, cm, 02/22/22 9:41:00 EDT, Height Start Date: 02/22/22 Stop Date: 05/23/22 Status: Ordered Pen [place], 31 G x 8 mm BD Ultra [...] 5 Refills, Maintenance, 04/03/22 17:25:00 EDT, Solution, [facility] #[id number], Partial fill upon patient request if the [...] Active TARUN (obstructive sleep apnea) Confirmed Active [facility] [phone] Confirmed Active Schizophrenia Confirmed Active Social History Social History Type Response Smoking Status Former smoker entered on: 11/23/14 Sex Patient Care team information Care Team Personnel Name: Esteban Donohue RN Position: S RN Member Role: Primary Care Nurse Name: Robin Recio RN Position: S RN Member Role: Primary Care Nurse Name: Alice Cao MD Position: [facility] Primary Care Physician Member Role: PCP Address: Address: [address] [place] [address]- Care Team Related Persons Name: MONICA JULIEN Address: [place] [address]
--- OUTSIDE RECORDS SUMMARY | 2023-02-14 13:18 | XMS_ITS | Continuity of Care Document ---
Author Name Unknown Organization [facility] Address [address] [place] [address]- Care Team Providers Care Owner/Photographer Name Role Phone Nash HAND, Alice Primary Care Physician Encounter [facility] Date(s): 05/08/22 - 06/07/[address] [address]- Allergies, Adverse Reactions, Alerts No Known Allergies Immunizations Given and Recorded Vaccine Date Status Refusal Reason tetanus/diphtheria/pertussis, acel(Tdap) 02/22/22 Given SARS-CoV-2 mRNA ([id number]) vax 02/22/22 Given pneumococcal 20-valent conjugate vaccine [...] 5 Refills, Maintenance, 03/06/22 10:12:00 EDT, Tablet, [facility] #[id number], Partial fill upon patient request if the [...] 0 Refills, Maintenance, 02/22/22 10:02:00 EDT, Capsule, [facility] #[id number], Partial fill upon patient request if the prescription is for a schedule II... Start Date: 02/22/22 Stop Date: 03/24/22 Status: Ordered Eucerin Plus topical lotion 1 application, Topically, 2 times a day, PRN for dry skin, # 354 mL, 3 Refills, Maintenance, 03/06/22 10:02:00 EDT, Lotion, [facility] #[id number], Partial fill upon patient request if the [...] tablet, 2 Refills, Maintenance, 02/22/22 9:56:00EDT, Tablet, [facility] #[id number], 177.8, cm, 02/22/22 9:41:00 EDT, Height Start Date: 02/22/22 Stop Date: 05/23/22 Status: Ordered Pen [place], 31 G x 8 mm BD Ultra [...] 5 Refills, Maintenance, 04/03/22 17:25:00 EDT, Solution, [facility] #[id number], Partial fill upon patient request if the [...] Active TARUN (obstructive sleep apnea) Confirmed Active [facility] [phone] Confirmed Active Schizophrenia Confirmed Active Social History Social History Type Response Smoking Status Former smoker entered on: 11/23/14 Sex Patient Care team information Care Team Personnel Name: Esteban Donohue RN Position: [facility] RN Member Role: Primary Care Nurse Name: Robin Recio RN Position: S RN Member Role: Primary Care Nurse Name: Alice Cao MD Position: [facility] Primary Care Physician Member Role: PCP Address: Address: [address] [place] [address] Care Team Related Persons Name: MONICA JULIEN Address: [place] [address]
[2023-02-14 13:36] LABS: Appearance Urine Clear; Color Urine Yellow; Glucose Urine UA Negative (Negative); Leukocyte Esterase Urine Small (1+) (Negative); Nitrite Urine Negative (Negative); Specific Gravity - Urine 1.025 (1.005-1.025); UMIC TRIGGER UACC YES; Urine Blood Negative (Negative); Urine Ketones Trace mg/dL (Negative); Urine Protein 100 (2+) mg/dL (Neg-Trace)
[2023-02-14 13:42] LABS: Amphetamine Screen Urine Not Detected (Not Detect); Barbiturates, Urine Not Detected (Not Detect); Benzodiazepines Screen Urine Not Detected (Not Detect); Cannabinoid Screen Urine Not Detected (Not Detect); Cocaine Screen Urine Not Detected (Not Detect); Fentanyl, urine Not Detected (Not Detect); Opiate Screen Urine Not Detected (Not Detect); Phencyclidine Screen Urine Not Detected (Not Detect)
[2023-02-14 13:48] LABS: MANUAL DIFF FLAG NO
[2023-02-14 13:49] LABS: Bacteria Urine None Seen (None Seen); Hyaline Casts Urine >20 /LPF (0-2); UACC Culture Trigger YES; WBC Urine 21-50 /HPF (0-5)
[2023-02-14 13:50] LABS: Basophils Percent Auto 0.4 % (0-2); Hematocrit 45.4 % (42.0-52.0); Hemoglobin 15.2 g/dl (14.0-18.0); Imm Gran Abs Auto 0.02 X10*3/uL (0.00-0.03); Imm Gran Pct Auto 0.3 % (0.0-0.4); Lymphocytes Absolute Auto 1.4 X10*3/uL (1.2-4.9); Lymphocytes Percent Auto 18.9 % (20-40); Mean Corpuscular HGB Conc 33.5 g/dl (31.0-36.0); Mean Corpuscular Hemoglobin 27.3 pg (27.0-33.0); Mean Corpuscular Volume 81.5 fL (80.0-98.0); Mean Platelet Volume 9.1 fL (9.4-12.4); Monocytes Absolute Auto 0.4 X10*3/uL (0.1-1.2); Monocytes Percent Auto 5.3 % (2-11); Neutrophils Absolute Auto 5.4 x10*3/uL (2.0-8.3); Neutrophils Percent Auto 75.1 % (45-73); Platelet Count 290 X10*3/uL (160-400); Red Blood Count 5.57 X10*6/uL (4.60-5.80); Red Cell Distribution Width 13.1 % (11.0-16.0); White Blood Count 7.2 X10*3/uL (4.8-10.8)
--- NOTE | 2023-02-14 14:03 | ED_ITS ---
HPI - General Adult General Chief complaint: Altered Mental Status Stated complaint: CRISIS FROM [facility],-SI/-HI PER EMS Time Seen by Provider: 02/14/23 12:28 Source: patient Mode of arrival: EMS Limitations: other (poor historian) History of Present Illness HPI narrative: Patient is a 47 year old male who presented from [facility] by EMS with concerns of auditory hallucinations. Patient denies auditory, visual or tactile hallucinations at this time. The only medical complaint endorsed was a painful left foot. Patient denies recent trauma or injury. Patient unable to expand on the details of his left foot pain, poor historian. Denies drug or alcohol use. Patient denies auditory or visual hallucinations. Denies CP, SOB, nausea, vomiting, abd pain, PERKINS, vision changes Related Data Home Medications Medication Instructions Recorded Confirmed amlodipine 5 mg tablet 5 mg PO DAILY 02/14/23 02/14/23 atorvastatin 20 mg tablet 20 mg PO DAILY 02/14/23 02/14/23 divalproex 500 mg tablet,extended 1,000 mg PO BEDTIME 02/14/23 02/14/23 release 24 hr dulaglutide 0.75 mg/0.5 mL 0.75 mg subcut QWEEK 02/14/23 02/14/23 subcutaneous pen injector (Trulicity) hydroxyzine HCl 50 mg tablet 50 mg PO BID PRN Anxiety 02/14/23 02/14/23 ibuprofen 600 mg tablet 600 mg PO BID PRN Pain (Scale 02/14/23 02/14/23 Score 4-6) metformin 1,000 mg tablet 1,000 mg PO BID 02/14/23 02/14/23 trazodone 50 mg tablet 50 mg PO BEDTIME 02/14/23 02/14/23 Allergies Allergy/AdvReac Type Severity Reaction Status Date / Time No Known Allergies Allergy Verified 02/14/23 12:37 Review of Systems Review of Systems: Constitutional : No Fever, No Chills ENT/Mouth : No Ear Pain, No Nasal Congestion, No sore throat Eyes: No Eye Pain, No Swelling, No Redness Cardiovascular : No Chest Pain, No SOB Respiratory : No Cough, No Sputum, No Dyspnea Gastrointestinal : No Nausea, No Vomiting, No Diarrhea, No Hematochezia, No Melena Genitourinary : No Dysuria, No Urinary Frequency, No Hematuria Musculoskeletal : +pain in the left foot Skin : No Skin Lesions, No rash Neuro : No Weakness, No Numbness, No Paresthesias, No Dizziness, No Headache Psych : No Anxiety, No Depression, No SI/HI All other systems reviewed and are negative Yes all other systems are reviewed and are negative [facility] Past Medical History Attestation statement: The following information was validated with the patient. Source: old records reviewed and nursing notes reviewed Social History Social History Alcohol intake: former Smoked in Last 30 Days: No Use of substances other than those prescribed or required for medical reasons: No Advance Directives: No Physical Exam ED Vital Signs: Vital Signs - 24 hr 02/14/23 12:28 02/14/23 15:31 02/14/23 16:22 Temperature 98.4 F 98.4 F Pulse Rate 131 H 132 H 119 H Respiratory Rate 20 22 H 14 Blood Pressure 172/124 H 189/131 H 155/103 H Pulse Oximetry 99 98 Oxygen Delivery Method Room Air Room Air 02/14/23 17:45 02/14/23 18:36 02/15/23 00:44 Temperature 98.1 F 97.1 F Pulse Rate 119 H 110 H 97 Respiratory Rate 20 20 18 Blood Pressure 152/85 H 118/79 176/105 H Pulse Oximetry 99 100 100 Oxygen Delivery Method Room Air Room Air Room Air BMI result Body Mass Index 33.5 VSS Appearance: Alert.? Oriented X3.? No acute distress.? Head: Normocephalic, atraumatic, no step-offs or deformities Eyes: Pupils equal, round and reactive to light.? CVS: Normal heart rate and rhythm.? Pulses normal.? Respiratory: No respiratory distress.? Breath sounds normal.? Abdomen: Soft and nontender.? Skin: Skin warm and dry.? Normal skin color.? Normal skin turgor.? Extremities: Left foot is calloused on the heel. No open wound, no discharge or drainage. Pulses 2+ Dp,AT b/l & symmetric. Motor and sensory function intact. No lower extremity edema.? No calf ttp. 5/5 strength to bilateral upper and lower extremities. Back: No midline tenderness, no C-spine tenderness, full range of motion, no CV A tenderness bilaterally Neuro: Oriented X 3.? No motor deficit.? No sensory deficit. CN 2-12 intact Course Reevaluation(s) Reevaluation #1: CBC appears to be within normal limits. Chemistry unremarkable. UA without infection. Urine toxicology negative. Salicylates, acetaminophen and ethanol negative. Ordered amlodipine as repeat blood pressure still elevated. Time: 15:10 Reevaluation #2: Patient tells me that he just forgot to fill his amlodipine and has not been taking ever since November/november. Patient reports that he is having some shortness of breath however this is usually present in he thinks he may have asthma. He is a poor historian. Will obtain chest x-ray Time: 15:50 Reevaluation #3: Patient with shortness of breath, positive D-dimer, will bring him out for CTA. Time: 16:05 Additional Reevaluation(s): Sign out to [facility] Received sign-out from prior provider. Resolution of chest pain improvement in hypertension tachycardia after indicated amlodipine. Delta troponin is negative. CTA without acute abnormality, recurrent. Patient placed back to the [facility] for care team evaluation Consultations Consultation #1: Physician observation continued. BP has been up but otherwise stable and doing okay. no acute events overnight. likely back to nursing home today. will ask that they increase his amlodipine to 10mg daily. Consultation #2: Physician observation ended at 936am. Patient seen and cleared by CARE team. Plan is to follow up with nursing home. at baseline. Disposition is for home. Medications Administered Discontinued Medications Generic Name Dose Route Start Last Admin Trade Name Noah PRN Reason Stop Dose Admin Acetaminophen 975 mg 02/14/23 18:43 02/14/23 18:52 Acetaminophen 325 Mg Tablet PO 02/14/23 18:44 975 mg ONCE ONE Administration Amlodipine Besylate 5 mg 02/14/23 15:05 02/14/23 15:11 Amlodipine Besylate 5 Mg Tablet PO 02/14/23 15:06 5 mg ONCE ONE Administration Protocol Amlodipine Besylate 5 mg 02/15/23 06:33 02/15/23 06:37 Amlodipine Besylate 5 Mg Tablet PO 02/15/23 06:34 5 mg ONCE ONE Administration Protocol Iohexol 100 ml 02/14/23 17:05 02/14/23 17:05 Iohexol 350 Mg/Ml 100 Ml Infus..Btl IV 02/14/23 17:06 65 ml ONCE ONE Administration Lorazepam 2 mg 02/14/23 15:50 02/14/23 15:51 Lorazepam 1 Mg Tablet PO 02/14/23 15:51 2 mg ONCE ONE Administration Medical Decision Making Medical Decision Making [facility] Narrative: 47 year old male presented by EMS with complaint of auditory hallucinations. Exam significant for callousing of the left heal. HTN noted and tachy This is likely pain secondary to callousing vs overuse injury vs sprain or strain. Neurovascularly intact no threat to limb, no signs of osteomyelitis. No signs of gangrene or necrotizing infection. Ent likely schizophrenia versus bipolar disorder versus polysubstance abuse. Hypertension and tachycardia likely secondary to anxiety unlikely ACS or PE. Upon med reconciliation patient was noted to have amlodipine 5 mg prescribed daily, last filled in November, has not picked a prescription upper patient since then. Unclear why. Will repeat blood pressure and give amlodipine is needed Plan: imaging, medical clearance Differential Diagnosis Differential Diagnoses: The differential diagnosis associated with the presentation includes This is likely pain secondary to callousing vs overuse injury vs sprain or strain. Neurovascularly intact no threat to limb, no signs of osteomyelitis. No signs of gangrene or necrotizing infection. Ent likely schizophrenia versus bipolar disorder versus polysubstance abuse. Hypertension and tachycardia likely secondary to anxiety unlikely ACS or PE. Admission/Observation Consideration of admission/observation: Escalation of care including admission/observation considered Not indicated. Lab Data [facility] Lab Attestation statement: I reviewed the patient's lab results. CBC and CMP unremarkable. Urine is significant for 2+ protein, small leukocyte esterase, 3-5 RBC, 21-50 WBC but negative for nitrites and bacteria. Urine drug screen, salicylates, ethyanol negative. 02/14/23 13:43 02/14/23 13:43 Labs: Lab Results 02/14/23 02/14/23 02/14/23 Range/Units 13:26 13:26 13:43 WBC 7.2 (4.8-10.8) X10*3/uL RBC 5.57 (4.60-5.80) X10*6/uL Hgb 15.2 (14.0-18.0) g/dl Hct 45.4 (42.0-52.0) % MCV 81.5 (80.0-98.0) fL MCH 27.3 (27.0-33.0) pg MCHC 33.5 (31.0-36.0) g/dl RDW 13.1 (11.0-16.0) % Plt Count 290 (160-400) X10*3/uL MPV 9.1 L (9.4-12.4) fL Immature Gran % (Auto) 0.3 (0.0-0.4) % Neut % (Auto) 75.1 H (45-73) % Lymph % (Auto) 18.9 L (20-40) % [place] % (Auto) 5.3 (2-11) % Eos % (Auto) 0.0 (0-4) % Baso % (Auto) 0.4 (0-2) % Lymph # (Auto) 1.4 (1.2-4.9) X10*3/uL [place] # (Auto) 0.4 (0.1-1.2) X10*3/uL Eos # (Auto) 0.0 (0.0-0.4) X10*3/uL Baso # (Auto) 0.0 (0.0-0.2) X10*3/uL Abs Immat Gran (auto) 0.02 (0.00-0.03) X10*3/uL Absolute Neuts (auto) 5.4 (2.0-8.3) x10*3/uL Absolute Nucleated RBC 0.000 (0.0-0.012) X10*3/uL Nucleated RBC % (auto) 0.0 (0.0-0.2) /100WBC D-Dimer High Sensitivty NG/ML Sodium (135-145) mmol/L Potassium (3.3-5.1) mmol/L Chloride (96-108) mmol/L Carbon Dioxide (22-29) mmol/L Anion Gap (12-20) BUN (9-16) mg/dL Creatinine (0.5-1.4) mg/dL Estim Creat Clear Calc Estimated GFR POC Glucose (60-115) mg/dL Random Glucose (60-115) mg/dL Calcium (8.4-10.2) mg/dL Total Bilirubin (0.0-1.0) mg/dL AST (5-37) U/L ALT (0-40) U/L Alkaline Phosphatase (39-117) U/L Troponin I High Sens (<3.5-35.0) ng/L B-Natriuretic Peptide (<100) pg/mL Total Protein (6.5-8.0) g/dL Albumin (3.5-5.0) g/dL Urine Color Yellow Urine Appearance Clear Urine pH 6.0 (5.0-9.0) Ur Specific [place] 1.025 (1.005-1.025) Urine Protein 100 (2+) H (Neg-Trace) mg/dL Urine Glucose (UA) Negative (Negative) mg/dL Urine Ketones Trace (Negative) mg/dL Urine Blood Negative (Negative) Urine Nitrite Negative (Negative) Ur Leukocyte Esterase Small (1+) H (Negative) Urine RBC 3-5 H (0-2) /HPF Urine WBC 21-50 H (0-5) /HPF Ur Squamous Epith Cells 3-5 (0-2) /HPF Urine Bacteria None Seen (None Seen) Hyaline Casts >20 (0-2) /LPF Salicylates (15-30) mg/dL Urine Opiates Screen Not Detected (Not Detect) Urine Fentanyl Screen Not Detected (Not Detect) Acetaminophen (<30) mcg/mL Ur Barbiturates Screen Not Detected (Not Detect) Valproic Acid (50.0-100.0) mcg/mL Ur Phencyclidine Scrn Not Detected (Not Detect) Ur Amphetamines Screen Not Detected (Not Detect) U Benzodiazepines Scrn Not Detected (Not Detect) Urine Cocaine Screen Not Detected (Not Detect) U Marijuana (THC) Screen Not Detected (Not Detect) Ethyl Alcohol mg/dL COVID-19 (KENJI) (Negative) COVID-19 Clin Com 02/14/23 02/14/23 02/14/23 Range/Units 13:43 13:43 13:43 WBC (4.8-10.8) X10*3/uL RBC (4.60-5.80) X10*6/uL Hgb (14.0-18.0) g/dl Hct (42.0-52.0) % MCV (80.0-98.0) fL MCH (27.0-33.0) pg MCHC (31.0-36.0) g/dl RDW (11.0-16.0) % Plt Count (160-400) X10*3/uL MPV (9.4-12.4) fL Immature Gran % (Auto) (0.0-0.4) % Neut % (Auto) (45-73) % Lymph % (Auto) (20-40) % [place] % (Auto) (2-11) % Eos % (Auto) (0-4) % Baso % (Auto) (0-2) % Lymph # (Auto) (1.2-4.9) X10*3/uL [place] # (Auto) (0.1-1.2) X10*3/uL Eos # (Auto) (0.0-0.4) X10*3/uL Baso # (Auto) (0.0-0.2) X10*3/uL Abs Immat Gran (auto) (0.00-0.03) X10*3/uL Absolute Neuts (auto) (2.0-8.3) x10*3/uL Absolute Nucleated RBC (0.0-0.012) X10*3/uL Nucleated RBC % (auto) (0.0-0.2) /100WBC D-Dimer High Sensitivty NG/ML Sodium 139 (135-145) mmol/L Potassium 3.7 (3.3-5.1) mmol/L Chloride 104 (96-108) mmol/L Carbon Dioxide 24 (22-29) mmol/L Anion Gap 15 (12-20) BUN 11 (9-16) mg/dL Creatinine 0.99 (0.5-1.4) mg/dL Estim Creat Clear Calc 117.0 Estimated GFR > 60 POC Glucose (60-115) mg/dL Random Glucose 184 H (60-115) mg/dL Calcium 10.4 H (8.4-10.2) mg/dL Total Bilirubin 0.5 (0.0-1.0) mg/dL AST 22 (5-37) U/L ALT 9 (0-40) U/L Alkaline Phosphatase 46 (39-117) U/L Troponin I High Sens (<3.5-35.0) ng/L B-Natriuretic Peptide (<100) pg/mL Total Protein 9.0 H (6.5-8.0) g/dL Albumin 4.8 (3.5-5.0) g/dL Urine Color Urine Appearance Urine pH (5.0-9.0) Ur Specific [place] (1.005-1.025) Urine Protein (Neg-Trace) mg/dL Urine Glucose (UA) (Negative) mg/dL Urine Ketones (Negative) mg/dL Urine Blood (Negative) Urine Nitrite (Negative) Ur Leukocyte Esterase (Negative) Urine RBC (0-2) /HPF Urine WBC (0-5) /HPF Ur Squamous Epith Cells (0-2) /HPF Urine Bacteria (None Seen) Hyaline Casts (0-2) /LPF Salicylates < 5.0 L (15-30) mg/dL Urine Opiates Screen (Not Detect) Urine Fentanyl Screen (Not Detect) Acetaminophen < 17 (<30) mcg/mL Ur Barbiturates Screen (Not Detect) Valproic Acid (50.0-100.0) mcg/mL Ur Phencyclidine Scrn (Not Detect) Ur Amphetamines Screen (Not Detect) U Benzodiazepines Scrn (Not Detect) Urine Cocaine Screen (Not Detect) U Marijuana (THC) Screen (Not Detect) Ethyl Alcohol < 10 mg/dL COVID-19 (KENJI) (Negative) COVID-19 Clin Com 02/14/23 02/14/23 02/14/23 Range/Units 13:43 15:34 15:34 WBC (4.8-10.8) X10*3/uL RBC (4.60-5.80) X10*6/uL Hgb (14.0-18.0) g/dl Hct (42.0-52.0) % MCV (80.0-98.0) fL MCH (27.0-33.0) pg MCHC (31.0-36.0) g/dl RDW (11.0-16.0) % Plt Count (160-400) X10*3/uL MPV (9.4-12.4) fL Immature Gran % (Auto) (0.0-0.4) % Neut % (Auto) (45-73) % Lymph % (Auto) (20-40) % [place] % (Auto) (2-11) % Eos % (Auto) (0-4) % Baso % (Auto) (0-2) % Lymph # (Auto) (1.2-4.9) X10*3/uL [place] # (Auto) (0.1-1.2) X10*3/uL Eos # (Auto) (0.0-0.4) X10*3/uL Baso # (Auto) (0.0-0.2) X10*3/uL Abs Immat Gran (auto) (0.00-0.03) X10*3/uL Absolute Neuts (auto) (2.0-8.3) x10*3/uL Absolute Nucleated RBC (0.0-0.012) X10*3/uL Nucleated RBC % (auto) (0.0-0.2) /100WBC D-Dimer High Sensitivty 430 NG/ML Sodium (135-145) mmol/L Potassium (3.3-5.1) mmol/L Chloride (96-108) mmol/L Carbon Dioxide (22-29) mmol/L Anion Gap (12-20) BUN (9-16) mg/dL Creatinine (0.5-1.4) mg/dL Estim Creat Clear Calc Estimated GFR POC Glucose (60-115) mg/dL Random Glucose (60-115) mg/dL Calcium (8.4-10.2) mg/dL Total Bilirubin (0.0-1.0) mg/dL AST (5-37) U/L ALT (0-40) U/L Alkaline Phosphatase (39-117) U/L Troponin I High Sens (<3.5-35.0) ng/L B-Natriuretic Peptide < 10 (<100) pg/mL Total Protein (6.5-8.0) g/dL Albumin (3.5-5.0) g/dL Urine Color Urine Appearance Urine pH (5.0-9.0) Ur Specific [place] (1.005-1.025) Urine Protein (Neg-Trace) mg/dL Urine Glucose (UA) (Negative) mg/dL Urine Ketones (Negative) mg/dL Urine Blood (Negative) Urine Nitrite (Negative) Ur Leukocyte Esterase (Negative) Urine RBC (0-2) /HPF Urine WBC (0-5) /HPF Ur Squamous Epith Cells (0-2) /HPF Urine Bacteria (None Seen) Hyaline Casts (0-2) /LPF Salicylates (15-30) mg/dL Urine Opiates Screen (Not Detect) Urine Fentanyl Screen (Not Detect) Acetaminophen (<30) mcg/mL Ur Barbiturates Screen (Not Detect) Valproic Acid (50.0-100.0) mcg/mL Ur Phencyclidine Scrn (Not Detect) Ur Amphetamines Screen (Not Detect) U Benzodiazepines Scrn (Not Detect) Urine Cocaine Screen (Not Detect) U Marijuana (THC) Screen (Not Detect) Ethyl Alcohol mg/dL COVID-19 (KENJI) Negative (Negative) COVID-19 Clin Com See Note 02/14/23 02/14/23 02/14/23 Range/Units 15:34 18:05 19:22 WBC (4.8-10.8) X10*3/uL RBC (4.60-5.80) X10*6/uL Hgb (14.0-18.0) g/dl Hct (42.0-52.0) % MCV (80.0-98.0) fL MCH (27.0-33.0) pg MCHC (31.0-36.0) g/dl RDW (11.0-16.0) % Plt Count (160-400) X10*3/uL MPV (9.4-12.4) fL Immature Gran % (Auto) (0.0-0.4) % Neut % (Auto) (45-73) % Lymph % (Auto) (20-40) % [place] % (Auto) (2-11) % Eos % (Auto) (0-4) % Baso % (Auto) (0-2) % Lymph # (Auto) (1.2-4.9) X10*3/uL [place] # (Auto) (0.1-1.2) X10*3/uL Eos # (Auto) (0.0-0.4) X10*3/uL Baso # (Auto) (0.0-0.2) X10*3/uL Abs Immat Gran (auto) (0.00-0.03) X10*3/uL Absolute Neuts (auto) (2.0-8.3) x10*3/uL Absolute Nucleated RBC (0.0-0.012) X10*3/uL Nucleated RBC % (auto) (0.0-0.2) /100WBC D-Dimer High Sensitivty NG/ML Sodium (135-145) mmol/L Potassium (3.3-5.1) mmol/L Chloride (96-108) mmol/L Carbon Dioxide (22-29) mmol/L Anion Gap (12-20) BUN (9-16) mg/dL Creatinine (0.5-1.4) mg/dL Estim Creat Clear Calc Estimated GFR POC Glucose 96 (60-115) mg/dL Random Glucose (60-115) mg/dL Calcium (8.4-10.2) mg/dL Total Bilirubin (0.0-1.0) mg/dL AST (5-37) U/L ALT (0-40) U/L Alkaline Phosphatase (39-117) U/L Troponin I High Sens 9.2 12.1 (<3.5-35.0) ng/L B-Natriuretic Peptide (<100) pg/mL Total Protein (6.5-8.0) g/dL Albumin (3.5-5.0) g/dL Urine Color Urine Appearance Urine pH (5.0-9.0) Ur Specific [place] (1.005-1.025) Urine Protein (Neg-Trace) mg/dL Urine Glucose (UA) (Negative) mg/dL Urine Ketones (Negative) mg/dL Urine Blood (Negative) Urine Nitrite (Negative) Ur Leukocyte Esterase (Negative) Urine RBC (0-2) /HPF Urine WBC (0-5) /HPF Ur Squamous Epith Cells (0-2) /HPF Urine Bacteria (None Seen) Hyaline Casts (0-2) /LPF Salicylates (15-30) mg/dL Urine Opiates Screen (Not Detect) Urine Fentanyl Screen (Not Detect) Acetaminophen (<30) mcg/mL Ur Barbiturates Screen (Not Detect) Valproic Acid (50.0-100.0) mcg/mL Ur Phencyclidine Scrn (Not Detect) Ur Amphetamines Screen (Not Detect) U Benzodiazepines Scrn (Not Detect) Urine Cocaine Screen (Not Detect) U Marijuana (THC) Screen (Not Detect) Ethyl Alcohol mg/dL COVID-19 (KENJI) (Negative) COVID-19 Clin Com 02/15/23 Range/Units 00:29 WBC (4.8-10.8) X10*3/uL RBC (4.60-5.80) X10*6/uL Hgb (14.0-18.0) g/dl Hct (42.0-52.0) % MCV (80.0-98.0) fL MCH (27.0-33.0) pg MCHC (31.0-36.0) g/dl RDW (11.0-16.0) % Plt Count (160-400) X10*3/uL MPV (9.4-12.4) fL Immature Gran % (Auto) (0.0-0.4) % Neut % (Auto) (45-73) % Lymph % (Auto) (20-40) % [place] % (Auto) (2-11) % Eos % (Auto) (0-4) % Baso % (Auto) (0-2) % Lymph # (Auto) (1.2-4.9) X10*3/uL [place] # (Auto) (0.1-1.2) X10*3/uL Eos # (Auto) (0.0-0.4) X10*3/uL Baso # (Auto) (0.0-0.2) X10*3/uL Abs Immat Gran (auto) (0.00-0.03) X10*3/uL Absolute Neuts (auto) (2.0-8.3) x10*3/uL Absolute Nucleated RBC (0.0-0.012) X10*3/uL Nucleated RBC % (auto) (0.0-0.2) /100WBC D-Dimer High Sensitivty NG/ML Sodium (135-145) mmol/L Potassium (3.3-5.1) mmol/L Chloride (96-108) mmol/L Carbon Dioxide (22-29) mmol/L Anion Gap (12-20) BUN (9-16) mg/dL Creatinine (0.5-1.4) mg/dL Estim Creat Clear Calc Estimated GFR POC Glucose (60-115) mg/dL Random Glucose (60-115) mg/dL Calcium (8.4-10.2) mg/dL Total Bilirubin (0.0-1.0) mg/dL AST (5-37) U/L ALT (0-40) U/L Alkaline Phosphatase (39-117) U/L Troponin I High Sens (<3.5-35.0) ng/L B-Natriuretic Peptide (<100) pg/mL Total Protein (6.5-8.0) g/dL Albumin (3.5-5.0) g/dL Urine Color Urine Appearance Urine pH (5.0-9.0) Ur Specific [place] (1.005-1.025) Urine Protein (Neg-Trace) mg/dL Urine Glucose (UA) (Negative) mg/dL Urine Ketones (Negative) mg/dL Urine Blood (Negative) Urine Nitrite (Negative) Ur Leukocyte Esterase (Negative) Urine RBC (0-2) /HPF Urine WBC (0-5) /HPF Ur Squamous Epith Cells (0-2) /HPF Urine Bacteria (None Seen) Hyaline Casts (0-2) /LPF Salicylates (15-30) mg/dL Urine Opiates Screen (Not Detect) Urine Fentanyl Screen (Not Detect) Acetaminophen (<30) mcg/mL Ur Barbiturates Screen (Not Detect) Valproic Acid < 12.5 L (50.0-100.0) mcg/mL Ur Phencyclidine Scrn (Not Detect) Ur Amphetamines Screen (Not Detect) U Benzodiazepines Scrn (Not Detect) Urine Cocaine Screen (Not Detect) U Marijuana (THC) Screen (Not Detect) Ethyl Alcohol mg/dL COVID-19 (KENJI) (Negative) COVID-19 Clin Com Core Measures AMI core measures followed: Yes Measure exclusions: not indicated Critical Care Time Critical Care Time Critical Care Time: No Discharge Plan Discharge Clinical Impression: Callus of foot, Hypertension, Hallucinations Patient Disposition: Still a Patient Additional Instructions: Take your medications as prescribed. If you were prescribed antibiotics today, it is important that you take your medication to their entirety, do not skip any doses, do not finish them early. Follow-up with your primary care provider this week. Return to the emergency department with new or worsening symptoms. Such as fevers, chills, chest pain, shortness of breath, nausea, vomiting, dizziness, headache, vision changes, lethargy In case of emergency call 911 Prescriptions: No Action atorvastatin 20 mg tablet 20 mg PO DAILY trazodone 50 mg tablet 50 mg PO BEDTIME hydroxyzine HCl 50 mg tablet 50 mg PO BID PRN (Reason: Anxiety) amlodipine 5 mg tablet 5 mg PO DAILY metformin 1,000 mg tablet 1,000 mg PO BID divalproex 500 mg tablet extended release 24 hr 1,000 mg PO BEDTIME ibuprofen 600 mg tablet 600 mg PO BID PRN (Reason: Pain (Scale Score 4-6)) Trulicity 0.75 mg/0.5 mL pen injector 0.75 mg subcut QWEEK
[2023-02-14 14:05] LABS: Ethanol < 10 mg/dL
[2023-02-14 14:06] LABS: Alanine Aminotransferase 9 U/L (0-40); Albumin Level 4.8 g/dL (3.5-5.0); Alkaline Phosphatase 46 U/L (39-117); Anion Gap 15 (12-20); Aspartate Amino Transferase 22 U/L (5-37); Bilirubin Total 0.5 mg/dL (0.0-1.0); Blood Urea Nitrogen 11 mg/dL (9-16); Calcium 10.4 mg/dL (8.4-10.2); Carbon Dioxide 24 mmol/L (22-29); Chloride 104 mmol/L (96-108); Estimated Glomerular Filt Rate > 60; Glucose Random 184 mg/dL (60-115); Potassium 3.7 mmol/L (3.3-5.1); Sodium 139 mmol/L (135-145)
[2023-02-14 14:08] LABS: Acetaminophen LAB < 17 mcg/mL (<30); Salicylate < 5.0 mg/dL (15-30)
[2023-02-14] MEDS: amLODIPine Besylate 5 MG TABLET PO (15:11)
[2023-02-14 15:31] VITALS: BP 189/131; PULSE 132; RESP 22; TEMP 36.9; O2SAT 98
[2023-02-14] MEDS: LORazepam 1 MG TABLET 2 MG PO (15:51)
--- NOTE | 2023-02-14 15:52 | PC.NURSE ---
Pt to [facility] via EMS from [facility]. Per EMS the patient was being brought for auditory hallucinations and AMS. Pt denies auditory hallucinations upon initial assessment. EMS vitals unstable BP 210/110, HR 132. Provider/Charge notified. Repeat BP was 172/124. Pt poor historian, denies antihypertensive use. Pt denies N/V/SOB/CP/PERKINS at this time. Pt A&Ox3, RR even and unlabored bilaterally on RA. Currently calm & cooperative. Plan for basic labs, medical clearance, care team evaluation.
--- NOTE | 2023-02-14 15:55 | PC.NURSE ---
Pt remains hypertensive and tachycardic, slight perspiration and shakiness observed. EKG shows ST, provided to attending (German). Managing provider notified of patients physical presentation/abnormal VSS. Provider assessed patient at bedside; additional lab testing & medication ordered. Will VSS. Pt continues to appear in NAD. Pt to x-ray for imaging. Behavior remains unproblematic. WCTA
[2023-02-14 15:56] LABS: D Dimer High Sensitivity 430 NG/ML
--- NOTE | 2023-02-14 16:05 | PC.NURSE ---
Pt found to have elevated d-dimer, CTA ordered - pt transitioning to main ED.
[2023-02-14 16:06] LABS: Troponin-I High Sensitivity 9.2 ng/L (<3.5-35.0)
[2023-02-14 16:22] VITALS: BP 155/103; PULSE 119; RESP 14
[2023-02-14 16:34] LABS: COVID-19 Test Negative (Negative); IDNOW Serial# 9DB6401D
[2023-02-14 16:57] LABS: B Type Natriuretic Peptide < 10 pg/mL (<100)
[2023-02-14] MEDS: iohexoL 350 MG/ML 100 ML INFUS..BTL IV (17:05)
[2023-02-14 17:45] VITALS: BP 152/85; PULSE 119; RESP 20; O2SAT 99
[2023-02-14 18:31] LABS: Troponin-I High Sensitivity 12.1 ng/L (<3.5-35.0)
[2023-02-14 18:36] VITALS: BP 118/79; PULSE 110; RESP 20; TEMP 36.7; O2SAT 100
[2023-02-14] MEDS: Acetaminophen 325 MG TABLET 975 MG PO (18:52)
[2023-02-14 19:26] LABS: Glucose, Whole Blood 96 mg/dL (60-115)
--- NOTE | 2023-02-14 22:38 | PHA.MEDREC ---
Pharmacy Consult ? Medication Reconciliation Pharmacy has reviewed the medication reconciliation completed by [facility].
[2023-02-15 00:44] VITALS: BP 176/105; PULSE 97; RESP 18; TEMP 36.2; O2SAT 100
--- NOTE | 2023-02-15 05:55 | MHC.CARE ---
Pt was assessed by [facility] earlier in the day and found to not be at hospital level care. Pt requested to come to the ER anyway because he reported that he wasn't feeling right. Pt reported to T/W that he hadn't taken his blood pressure meds in a few days. Pt currently denies SI/HI/AH/VH . He is cleared by the CARE team to return to his [facility] facility.
[2023-02-15 06:14] LABS: Valproate < 12.5 mcg/mL (50.0-100.0)
[2023-02-15] MEDS: amLODIPine Besylate 5 MG TABLET PO (06:37)
--- NOTE | 2023-02-15 06:40 | PC.NURSE ---
Patient slept whole evening until midnight then up since wandering, snacking, no distress observed/reported, hypertensive AM /Amlodipine 5 mg PO administered at 0637, patient was assessed by care team disposition current provider, care team coordinating discharge back to halfway, patient aware of the plan, behavior non concerning, will continue to monitor.
== END 2023-02-15 10:16 | disposition home or self-care (01) ==
PROVIDERS: Internal Medicine; Nurse Practitioner Family; Physician Assistant; Emergency Provider Emergency Medicine
DX: R44.0 Auditory hallucinations (principal); R00.0 Tachycardia, unspecified; L84 Corns and callosities; M79.672 Pain in left foot; I10 Essential (primary) hypertension; R41.82 Altered mental status, unspecified; R06.02 Shortness of breath; F41.1 Generalized anxiety disorder; Z20.822 Contact with and (suspected) exposure to COVID-19; Z20.828 Contact with and (suspected) exposure to other viral communicable diseases; Z79.899 Other long term (current) drug therapy
CPT/HCPCS: 36415; 71045; 71275; 73620; 80053; 80143; 80164; 80179; 80307; 81001; 82947; 83880; 84484; 85025; 85379; 87086; 87635; 93005; 99285; Q9967

== ENCOUNTER 2023-03-04 13:02 | Emergency (ER) | payer OTHER, SELFPAY ==
[2023-03-04 13:15] VITALS: BP 154/98; PULSE 83; O2SAT 97
[2023-03-04 13:20] VITALS: BMI 30.5
--- NOTE | 2023-03-04 13:24 | PC.NURSE ---
Patient from [facility] on [address] with complaints of right great toe pain and swelling. Upon inspection patient with large blisters to right great toe with swelling. No drainage noted. Patient stating toe is infected but is denying trauma or previous wound to toe. aydee sharma at 03/04/
[2023-03-04 13:56] LABS: MANUAL DIFF FLAG NO
--- NOTE | 2023-03-04 14:00 | ED.GENADULT ---
HPI - General Adult General Chief complaint: Extremity Problem Stated complaint: BLISTER R FOOT X2 WEEKS,FROM [facility] PER EMS Time Seen by Provider: 03/04/23 13:21 Source: patient and EMS Mode of arrival: EMS Limitations: no limitations History of Present Illness HPI narrative: This is 47 years old male with history of alcohol abuse, diabetes, depression was sent here by [facility] because the blister in the right foot x2 weeks, he denies any fever chills vomiting he denies any systemic symptoms. Onset (ago): week(s) (2) Location: lower extremity (rt foot) Radiation: non-radiation Severity: moderate Quality: burning Exacerbating factors: none Related Data Home Medications Medication Instructions Recorded Confirmed amlodipine 5 mg tablet 5 mg PO DAILY 02/14/23 02/14/23 atorvastatin 20 mg tablet 20 mg PO DAILY 02/14/23 02/14/23 divalproex 500 mg tablet,extended 1,000 mg PO BEDTIME 02/14/23 02/14/23 release 24 hr dulaglutide 0.75 mg/0.5 mL 0.75 mg subcut QWEEK 02/14/23 02/14/23 subcutaneous pen injector (Trulicity) hydroxyzine HCl 50 mg tablet 50 mg PO BID PRN Anxiety 02/14/23 02/14/23 ibuprofen 600 mg tablet 600 mg PO BID PRN Pain (Scale 02/14/23 02/14/23 Score 4-6) metformin 1,000 mg tablet 1,000 mg PO BID 02/14/23 02/14/23 trazodone 50 mg tablet 50 mg PO BEDTIME 02/14/23 02/14/23 Previous Rx's Medication Instructions Recorded cephalexin 500 mg capsule 500 mg PO Q8H #21 caps 03/04/23 Allergies Allergy/AdvReac Type Severity Reaction Status Date / Time No Known Allergies Allergy Verified 02/14/23 12:37 Review of Systems Constitutional: Constitutional: Denies fever(s) ENT: Reports system reviewed and no additional complaints, except as documented Cardiovascular: Cardiovascular: Reports no additional cardiovascular complaints Respiratory: Respiratory: Reports no additional respiratory complaints [facility] Social History Social History Alcohol intake: current Alcohol intake frequency: a few times a week Smoked in Last 30 Days: Yes Use of substances other than those prescribed or required for medical reasons: No Advance Directives: No Advance Directives Information Provided: Yes Physical Exam ED Vital Signs: BMI result Body Mass Index 30.5 Const General: comfortable, no acute distress, well developed, alert, awake and Physically active Nutritional Appearance: average body habitus Orientation/consciousness: patient oriented x3 Limitations: no limitations HENMT Head: Yes normal to inspection Face and sinus: Yes normal facial exam Mouth: Normal oral and palatal mucosa present Neck Neck: Yes normal visual inspection Chest Chest palpation & inspection: normal inspection of the chest Resp Effort & Inspection: normal respiratory effort Cardio Jugular venous distension: no JVD Rate: regular rate Rhythm: regular rhythm GI Inspection: Yes normal to inspection Palpation (GI): Soft to palpation, not firm, nontender and no guarding Neuro General: patient oriented x3 Extrem Other: Patient has 2 blisters in the right foot one in the big toe to the other one in the lateral aspect of the foot. He has good capillary refill in the foot he has good pulses in the foot. Course Reevaluation(s) Reevaluation #1: I discussed the case with the director of the wound clinic Dr Pepper,she recommended to drain the blister with needle she will see the pt in follow up at the wound clinic,WBC is normal inflammatory markers normal Time: 14:08 Medical Decision Making Medical Decision Making [facility] Narrative: 47 years old diabetic patient presented with blisters in the right foot will check baseline blood work inflammatory markers and reassess Differential Diagnosis Differential Diagnoses: The differential diagnosis associated with the presentation includes Diabetic foot infection/pressure wound Admission/Observation Consideration of admission/observation: Escalation of care including admission/observation considered Consult Healthcare Provider Management of the patient was discussed with: Online Publisher Dr Bertha Koehler wound clinic Lab Data [facility] Lab Attestation statement: I reviewed the patient's lab results. 03/04/23 13:47 03/04/23 13:47 Labs: Lab Results 03/04/23 Range/Units 13:47 WBC 5.4 (4.8-10.8) X10*3/uL RBC 4.53 L (4.60-5.80) X10*6/uL Hgb 12.5 L (14.0-18.0) g/dl Hct 37.4 L (42.0-52.0) % MCV 82.6 (80.0-98.0) fL MCH 27.6 (27.0-33.0) pg MCHC 33.4 (31.0-36.0) g/dl RDW 12.6 (11.0-16.0) % Plt Count 288 (160-400) X10*3/uL MPV 8.9 L (9.4-12.4) fL Immature Gran % (Auto) 0.2 (0.0-0.4) % Neut % (Auto) 63.1 (45-73) % Lymph % (Auto) 29.3 (20-40) % [place] % (Auto) 6.3 (2-11) % Eos % (Auto) 0.7 (0-4) % Baso % (Auto) 0.4 (0-2) % Lymph # (Auto) 1.6 (1.2-4.9) X10*3/uL [place] # (Auto) 0.3 (0.1-1.2) X10*3/uL Eos # (Auto) 0.0 (0.0-0.4) X10*3/uL Baso # (Auto) 0.0 (0.0-0.2) X10*3/uL Abs Immat Gran (auto) 0.01 (0.00-0.03) X10*3/uL Absolute Neuts (auto) 3.4 (2.0-8.3) x10*3/uL Absolute Nucleated RBC 0.000 (0.0-0.012) X10*3/uL Nucleated RBC % (auto) 0.0 (0.0-0.2) /100WBC ESR 6 (0-15) MM/HR Sodium 138 (135-145) mmol/L Potassium 3.6 (3.3-5.1) mmol/L Chloride 103 (96-108) mmol/L Carbon Dioxide 27 (22-29) mmol/L Anion Gap 12 (12-20) BUN 7 L (9-16) mg/dL Creatinine 0.80 (0.5-1.4) mg/dL Estim Creat Clear Calc 138.5 Estimated GFR > 60 Random Glucose 85 (60-115) mg/dL Calcium 9.9 (8.4-10.2) mg/dL Total Bilirubin 0.4 (0.0-1.0) mg/dL AST 28 (5-37) U/L ALT 12 (0-40) U/L Alkaline Phosphatase 36 L (39-117) U/L C-Reactive Protein < 0.10 (< or = 0.50) mg/dL Total Protein 7.4 (6.5-8.0) g/dL Albumin 4.3 (3.5-5.0) g/dL Chronic Conditions Patient?s care impacted by: Diabetes Discharge Plan Discharge Clinical Impression: Blister of foot Patient Disposition: Home, Self-Care Instructions: Blister (ED) Additional Instructions: Follow-up with the wound clinic we spoke with the director of the wound clinic the telephone [phone] take antibiotic as directed keep the you wound dry Prescriptions: New cephalexin 500 mg capsule 500 mg PO Q8H Qty: 21 0RF No Action atorvastatin 20 mg tablet 20 mg PO DAILY trazodone 50 mg tablet 50 mg PO BEDTIME hydroxyzine HCl 50 mg tablet 50 mg PO BID PRN (Reason: Anxiety) amlodipine 5 mg tablet 5 mg PO DAILY metformin 1,000 mg tablet 1,000 mg PO BID divalproex 500 mg tablet extended release 24 hr 1,000 mg PO BEDTIME ibuprofen 600 mg tablet 600 mg PO BID PRN (Reason: Pain (Scale Score 4-6)) Trulicity 0.75 mg/0.5 mL pen injector 0.75 mg subcut QWEEK Referrals: Physician,Nonstaff [Primary Care Provider] - 2 days Interventions: ED Discharge Assessment Last Done: 03/04/23 18:05 Discharge Date/Time: 03/04/23 18:05
[2023-03-04 14:01] LABS: Basophils Percent Auto 0.4 % (0-2); Eosinophils Percent Auto 0.7 % (0-4); Hematocrit 37.4 % (42.0-52.0); Hemoglobin 12.5 g/dl (14.0-18.0); Imm Gran Abs Auto 0.01 X10*3/uL (0.00-0.03); Imm Gran Pct Auto 0.2 % (0.0-0.4); Lymphocytes Absolute Auto 1.6 X10*3/uL (1.2-4.9); Lymphocytes Percent Auto 29.3 % (20-40); Mean Corpuscular HGB Conc 33.4 g/dl (31.0-36.0); Mean Corpuscular Hemoglobin 27.6 pg (27.0-33.0); Mean Corpuscular Volume 82.6 fL (80.0-98.0); Mean Platelet Volume 8.9 fL (9.4-12.4); Monocytes Absolute Auto 0.3 X10*3/uL (0.1-1.2); Monocytes Percent Auto 6.3 % (2-11); Neutrophils Absolute Auto 3.4 x10*3/uL (2.0-8.3); Neutrophils Percent Auto 63.1 % (45-73); Platelet Count 288 X10*3/uL (160-400); Red Blood Count 4.53 X10*6/uL (4.60-5.80); Red Cell Distribution Width 12.6 % (11.0-16.0); White Blood Count 5.4 X10*3/uL (4.8-10.8)
--- OUTSIDE RECORDS SUMMARY | 2023-03-04 14:06 | XMS_ITS | Continuity of Care Document ---
Author Name Unknown Organization [facility] Address [address] [place] [address]- Care Team Providers Care Licensing Officer Name Role Phone Alice Cao MD Primary Care Physician [phone] Encounter [facility] Date(s): 01/17/23 - 02/16/[address] [address]- Attending Physician: AdmGala fine Admitting Physician: Admtr, Ar8 Referring Physician: Admtr, Ar8 Allergies, Adverse Reactions, Alerts No Known Allergies Immunizations Given and Recorded Vaccine Date Status Refusal Reason tetanus/diphtheria/pertussis, acel(Tdap) 02/22/22 Given SARS-CoV-2 mRNA ([id number]) vax 02/22/22 Given pneumococcal 20-valent conjugate vaccine 02/22/22 Given SARS-CoV-2 (COVID-19) mRNA BNT-162b2 vac 03/23/21 Recorded SARS-CoV-2 (COVID-19) mRNA BNT-162b2 vac 03/02/21 Recorded influenza virus vaccine, inactivated 09/20/15 Give n influenza virus vaccine, inactivated 05/18/14 Give n influenza virus vaccine, inactivated 1 05/31/12 Gi sejal tetanus-diphtheria toxoids (Td) 2 05/13/10 Given Influenza Inactive (IM) (oldterm) 3 05/13/10 Given Influenza Vaccine (oldterm) 4 03/17/09 Given 1Admin Note: VIS GIVEN 2011-05 2Admin Note: vis 07/12/07 3Admin Note: vis 4Admin Note: vis 02/02/09 Medications Alcohol Pads See [...] Refills, Maintenance, 07/11/22 17:25:00 EST, Tablet, [facility]/pharmacy #[id number], Partial fill upon patient request if the [...] 0 Refills, Maintenance, 07/20/22 8:43:00 EST, Gel, [facility] #[id number], Partial fill upon patient request if the prescription is for a schedule II opioid drug., 177.8, cm, 07/20/22 8:31:00 EST... Start Date: 07/20/22 Status: Ordered docusate sodium 100 mg oral capsule 1 capsule = 100 mg, By Mouth, 2 times a day, PRN as needed for constipation, # 60 capsule, 0 Refills, Maintenance, 02/22/22 10:02:00 EDT, Capsule, [facility] #[id number], Partial fill upon patient request if the prescription is for a schedule II... Start Date: 02/22/22 Stop Date: 03/24/22 Status: Ordered Eucerin Plus topical lotion 1 application, Topically, 2 times a day, PRN for dry skin, # 354 mL, 3 Refills, Maintenance, 03/06/22 10:02:00 EDT, Lotion, [facility] #[id number], Partial fill upon patient request if the [...] Refills, Maintenance, 10/09/22 17:25:00 EDT, Tablet, [facility]/pharmacy #[id number], 177.8, cm, 07/12/22 8:41:00 EST, Height Start Date: 10/09/22 Stop Date: 04/07/23 Status: Ordered Pen Gorman, 31 G x 8 mm BD Ultra Fine III See Instructions, # 100 each, Refills 3, Tot. Refills 3, Maintenance, Inject Trulicity QD, 239:23:00 EST, Supply, 177.8, cm, 07/12/22 8:41:00 EST, Height Start Date: 07/12/22 Status: Ordered risperiDONE 1 mg oral tablet 1 mg, 1, tablet, By Mouth, 2 times a day, # 60 tablet, Refills 0, Tot. Refills 0, Maintenance, 02/16/23 12:00:00 EDT, Route to Pharmacy Electronically, [facility]/pharmacy #[id number], Partial fill upon patient request if the prescription is for a schedule II opio... Start Date: 02/16/23 Status: Ordered Trulicity Pen 0.75 mg/0.5 mL subcutaneous solution 0.5 mL = 0.75 mg, Subcutaneous Injection, Every week, rotate injection sites, # 2 mL, 5 Refills, Maintenance, 07/12/22 9:23:00 EST, Solution, [facility]/pharmacy #[id number], Partial fill upon patient request if [...] Active TARUN (obstructive sleep apnea) Confirmed Active [facility] [place] [phone] Confirmed Active Schizophrenia Confirmed Active Social History [...] Primary Care Member Role: PCP Address: Address: [address] [place] [address]- Care Team Related Persons Name: MONICA JULIEN Address: [place] [address]
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
--- OUTSIDE RECORDS SUMMARY | 2023-03-04 14:06 | XMS_ITS | Continuity of Care Document ---
Author Name Unknown Organization [facility] Address [address] [place] [address]- Care Team Providers Care Disability Insurance Hearing Officer Name Role Phone Nash HAND, Alice Primary Care Physician Encounter [facility] Date(s): 01/08/23 - 02/16/[address] [address]- Attending Physician: Kimberlee Hernandes MD Admitting Physician: Kimberlee Hernandes MD Allergies, Adverse Reactions, Alerts No Known Allergies Immunizations Given and Recorded Vaccine Date Status Refusal Reason tetanus/diphtheria/pertussis, acel(Tdap) 02/22/22 Given SARS-CoV-2 mRNA ([id number]) vax 02/22/22 Given pneumococcal 20-valent conjugate vaccine [...] 5 Refills, Maintenance, 07/11/22 17:25:00 EST, Tablet, [facility]/pharmacy #[id number], Partial fill upon patient request if the [...] 0 Refills, Maintenance, 07/20/22 8:43:00 EST, Gel, [id number], Partial fill upon patient request if the prescription is for a schedule II opioid drug., 177.8, cm, 07/20/22 8:31:00 EST... Start Date: 07/20/22 Status: Ordered docusate sodium 100 mg oral capsule 1 capsule = 100 mg, By Mouth, 2 times a day, PRN as needed for constipation, # 60 capsule, 0 Refills, Maintenance, 02/22/22 10:02:00 EDT, Capsule, [facility] #[id number], Partial fill upon patient request if the prescription is for a schedule II... Start Date: 02/22/22 Stop Date: 03/24/22 Status: Ordered Eucerin Plus topical lotion 1 application, Topically, 2 times a day, PRN for dry skin, # 354 mL, 3 Refills, Maintenance, 03/06/22 10:02:00 EDT, Lotion, [facility] #[id number], Partial fill upon patient request if the [...] 5 Refills, Maintenance, 10/09/22 17:25:00 EDT, Tablet, [facility]/pharmacy #[id number], 177.8, cm, 07/12/22 8:41:00 EST, Height Start Date: 10/09/22 Stop Date: 04/07/23 Status: Ordered Pen [place], 31 G x 8 mm BD Ultra [...] 02/16/23 12:00:00 EDT, Route to Pharmacy Electronically, [facility]/pharmacy #[id number], Partial fill upon patient request if the prescription is for a schedule II opio... Start Date: 02/16/23 Status: Ordered Trulicity Pen 0.75 mg/0.5 mL subcutaneous solution 0.5 mL = 0.75 mg, Subcutaneous Injection, Every week, rotate injection sites, # 2 mL, 5 Refills, Maintenance, 07/12/22 9:23:00 EST, Solution, [facility]/pharmacy #[id number], Partial fill upon patient request if [...] Active TARUN (obstructive sleep apnea) Confirmed Active [facility] Care Management [facility] [phone] Confirmed Active Schizophrenia Confirmed Active Social History [...] Primary Care Member Role: PCP Address: Address: [address] [place] [address]- Care Team Related Persons Name: MONICA JULIEN Address: [place] [address]
[2023-03-04 14:17] LABS: Alanine Aminotransferase 12 U/L (0-40); Albumin Level 4.3 g/dL (3.5-5.0); Alkaline Phosphatase 36 U/L (39-117); Anion Gap 12 (12-20); Aspartate Amino Transferase 28 U/L (5-37); Bilirubin Total 0.4 mg/dL (0.0-1.0); Blood Urea Nitrogen 7 mg/dL (9-16); C Reactive Protein < 0.10 mg/dL (< or = 0.50); Calcium 9.9 mg/dL (8.4-10.2); Carbon Dioxide 27 mmol/L (22-29); Chloride 103 mmol/L (96-108); Creatinine Clr Calc Pharmacy 138.5; Estimated Glomerular Filt Rate > 60; Glucose Random 85 mg/dL (60-115); Potassium 3.6 mmol/L (3.3-5.1); Sodium 138 mmol/L (135-145); Total Protein 7.4 g/dL (6.5-8.0)
--- NOTE | 2023-03-04 14:20 | PC.NURSE ---
Patient with large blister noted to right outer ankle. Provider notified, provider drained ankle and great right toe. Patient tolerated well
[2023-03-04 14:48] LABS: Erythrocyte Sedimentation Rate 6 MM/HR (0-15)
--- NOTE | 2023-03-04 16:36 | PC.NURSE ---
Discharge plan reviewed with patient who verbalized understanding, paper script given to bring to [facility] pharmacy, ambulance transport booked to bring patient back to [facility]
--- NOTE | 2023-03-04 18:04 | PC.NURSE ---
Report given to EMS, transported back to [facility] on section 12
== END 2023-03-04 18:05 | disposition home or self-care (01) ==
PROVIDERS: Emergency Provider Emergency Medicine
DX: S90.821A Blister (nonthermal), right foot, initial encounter (principal); X58.XXXA Exposure to other specified factors, initial encounter; Y93.9 Activity, unspecified; Y92.9 Unspecified place or not applicable; Y99.9 Unspecified external cause status; Z79.899 Other long term (current) drug therapy
CPT/HCPCS: 36415; 80053; 85025; 85652; 86140; 87040; 99284

== ENCOUNTER 2023-03-09 10:44 | Emergency (ER) | payer OTHER, SELFPAY ==
[2023-03-09 10:49] VITALS: BP 156/80; PULSE 76; O2SAT 99
[2023-03-09 10:55] VITALS: BP 134/78; PULSE 56; RESP 18; TEMP 37; O2SAT 99; BMI 29.9
--- NOTE | 2023-03-09 11:15 | ED.LOWEXIN ---
HPI - Extremity Injury (Lower) General Chief Complaint: Extremity Injury, Lower Stated Complaint: BILATERAL FOOT PAIN/SWELLING Time Seen by Provider: 03/09/23 11:03 Source: patient, EMS, RN notes reviewed and old records reviewed Mode of arrival: EMS History of Present Illness HPI Narrative: 47-year-old male with past medical history ETOH abuse, DM, depression, presenting to the ED via EMS from [facility] complaining of continued bilateral LE painful blisters x1 week. Patient was seen and treated in our ED on 03/04 for similar symptoms, Wound Care was consulted at that time who recommended drainage of blisters and follow-up in their clinic, patient was discharged with Keflex however denies taking antibiotics and or following up with Wound Care. Denies injury injury, fever/ chills, numbness/tingling Related Data Home Medications Medication Instructions Recorded Confirmed amlodipine 5 mg tablet 5 mg PO DAILY 02/14/23 02/14/23 atorvastatin 20 mg tablet 20 mg PO DAILY 02/14/23 02/14/23 divalproex 500 mg tablet,extended 1,000 mg PO BEDTIME 02/14/23 02/14/23 release 24 hr dulaglutide 0.75 mg/0.5 mL 0.75 mg subcut QWEEK 02/14/23 02/14/23 subcutaneous pen injector (Trulicity) hydroxyzine HCl 50 mg tablet 50 mg PO BID PRN Anxiety 02/14/23 02/14/23 ibuprofen 600 mg tablet 600 mg PO BID PRN Pain (Scale 02/14/23 02/14/23 Score 4-6) metformin 1,000 mg tablet 1,000 mg PO BID 02/14/23 02/14/23 trazodone 50 mg tablet 50 mg PO BEDTIME 02/14/23 02/14/23 Previous Rx's Medication Instructions Recorded cephalexin 500 mg capsule 500 mg PO Q8H #21 caps 03/04/23 Allergies Allergy/AdvReac Type Severity Reaction Status Date / Time No Known Allergies Allergy Verified 03/09/23 10:58 Review of Systems Review of Systems: Constitutional: No Weight loss, No Fever, No Chills, No Night Sweats, No Fatigue, No Malaise Eyes: No Eye Pain, No Swelling, No Redness, No Vision Changes Cardiovascular: No Chest Pain, No SOB, No Edema, No Palpitations Respiratory: No Cough, No Sputum, No Dyspnea Gastrointestinal: No Nausea, No Vomiting, No Diarrhea, No Constipation, No Abdominal pain Musculoskeletal: No joint pain, No Myalgias, No Joint Swelling Skin: + Skin Lesions, No rash Neuro: No Weakness, No Numbness, No Paresthesias Yes all other systems are reviewed and are negative Constitutional: Constitutional: Reports as per [facility] Past Medical History Attestation statement: The following information was validated with the patient. Source: old records reviewed Social History Social History Alcohol intake: current Alcohol intake frequency: a few times a week Smoked in Last 30 Days: Yes Use of substances other than those prescribed or required for medical reasons: No Advance Directives: No Physical Exam Vital Signs: Vital Signs: Last Vital Signs Temp 98.6 F 03/09/23 10:55 Pulse 56 03/09/23 14:12 Resp 14 03/09/23 14:12 BP 121/70 03/09/23 14:12 Pulse Ox 100 03/09/23 14:12 O2 Del Method Room Air 03/09/23 14:12 BMI result Body Mass Index 29.9 Const: Other: lethargic however easily arousable, appears under the influence General: cooperative, healthy appearing and no acute distress Orientation/consciousness: patient oriented x3 Limitations: no limitations HEENT: Head: Yes normal to inspection and Yes atraumatic Ears: hearing grossly normal bilaterally General nose exam: Normal external nose present Face and sinus: Yes normal facial exam Eyes: General: appearance normal, both eyes and all related structures EOM: EOMs intact bilaterally Neck: Neck: Yes normal visual inspection and Yes no meningeal signs Resp: Effort & Inspection: normal respiratory effort and no respiratory distress Cardio: Rate: regular rate Skin: Rashes: no rashes Neuro: General: patient oriented x3, tone normal and no meningeal signs Cranial nerves: Yes CN's II-XII intact bilaterally Gait exam (Neuro): Normal gait present Extrem: Other: Please refer to images above of 2 healing blisters to bilateral lower extremities. Right great toe blister mildly recollected. There is no overlying erythema / warmth or active drainage. Neurovascularly intact. Mildly tender. No LE pitting edema. Cap refill WNL Course Course Course Narrative: Case discussed with wound care nurse, picture shared with wound care SOLANGE who recommended draining blisters with needle and keeping skin overlying wound. Recommended calcium alginate or zinc with a dressing and empiric antibiotics as well as wound care follow-up. -1353-- patient lethargic/sleeping, arousable to voice/touch. no leukocytosis. Inflammatory markers WNL > Patient never initiated previous Keflex, will re-prescribed. Zinc applied in the ED > remaining bottle will be discharged w/patient. Discussed at length with patient importance of compliance with antibiotics and follow-up with wound care Results discussed with patient including worrisome signs and symptoms and strict return precautions, and when to return to the emergency department. They verbalized understanding and feel safe for discharge at this time. Medications Administered Discontinued Medications Generic Name Dose Route Start Last Admin Trade Name Noah PRN Reason Stop Dose Admin Zinc Oxide 1 appl 03/09/23 13:52 03/09/23 14:28 Zinc Oxide (Triple Paste) 56.7 Gm Oint TOPICAL 03/09/23 13:53 1 appl ONCE ONE Administration Protocol Medical Decision Making Medical Decision Making [facility] Narrative: 47-year-old male with past medical history ETOH abuse, DM, depression, presenting to the ED via EMS from [facility] complaining of continued bilateral LE painful blisters x1 week. on exam lethargic however easily arousable, appears under the influence, physical exam as above, please refer to images. Blisters appear appropriately healing. No evidence of cellulitis. Low suspicion for osteomyelitis, septic joint/arthritis or DVT. Plan: Labs including inflammatory markers, wound care consult, reassess Please refer to course for remaining clinical decision making, interpretation of labs/imaging results, and discussions with consultants and/or family members. Differential Diagnosis Differential Diagnoses: The differential diagnosis associated with the presentation includes As above Admission/Observation Consideration of admission/observation: Escalation of care including admission/observation considered Lab Data [facility] Lab Attestation statement: I reviewed the patient's lab results. 03/09/23 11:53 03/09/23 11:53 Labs: Lab Results 03/09/23 03/09/23 Range/Units 11:53 14:15 WBC 5.1 (4.8-10.8) X10*3/uL RBC 4.15 L (4.60-5.80) X10*6/uL Hgb 11.5 L (14.0-18.0) g/dl Hct 34.7 L (42.0-52.0) % MCV 83.6 (80.0-98.0) fL MCH 27.7 (27.0-33.0) pg MCHC 33.1 (31.0-36.0) g/dl RDW 12.7 (11.0-16.0) % Plt Count 220 (160-400) X10*3/uL MPV 9.4 (9.4-12.4) fL Immature Gran % (Auto) 0.2 (0.0-0.4) % Neut % (Auto) 40.9 L (45-73) % Lymph % (Auto) 48.9 H (20-40) % Emery % (Auto) 8.0 (2-11) % Eos % (Auto) 1.4 (0-4) % Baso % (Auto) 0.6 (0-2) % Lymph # (Auto) 2.5 (1.2-4.9) X10*3/uL Emery # (Auto) 0.4 (0.1-1.2) X10*3/uL Eos # (Auto) 0.1 (0.0-0.4) X10*3/uL Baso # (Auto) 0.0 (0.0-0.2) X10*3/uL Abs Immat Gran (auto) 0.01 (0.00-0.03) X10*3/uL Absolute Neuts (auto) 2.1 (2.0-8.3) x10*3/uL Absolute Nucleated RBC 0.000 (0.0-0.012) X10*3/uL Nucleated RBC % (auto) 0.0 (0.0-0.2) /100WBC ESR 3 (0-15) MM/HR Sodium 137 (135-145) mmol/L Potassium 3.8 (3.3-5.1) mmol/L Chloride 101 (96-108) mmol/L Carbon Dioxide 29 (22-29) mmol/L Anion Gap 11 L (12-20) BUN 11 (9-16) mg/dL Creatinine 0.82 (0.5-1.4) mg/dL Estim Creat Clear Calc 134.7 Estimated GFR > 60 Random Glucose 85 (60-115) mg/dL Calcium 9.4 (8.4-10.2) mg/dL C-Reactive Protein < 0.04 (< or = 0.50) mg/dL Urine Opiates Screen Not Detected (Not Detect) Urine Fentanyl Screen Not Detected (Not Detect) Ur Barbiturates Screen POSITIVE H (Not Detect) Ur Phencyclidine Scrn Not Detected (Not Detect) Ur Amphetamines Screen Not Detected (Not Detect) U Benzodiazepines Scrn Not Detected (Not Detect) Urine Cocaine Screen Not Detected (Not Detect) U Marijuana (THC) Screen Not Detected (Not Detect) Radiology Impression Discussion of test interpretation with radiology: I have reviewed the radiologist's reading. Independent Historian Clinical information obtained from an independent historian. History obtained from or confirmed by: EMS External Record Review External record reviewed: Inpatient record, Office record, Outpatient record, Prior outpatient labs, Prior outpatient radiology, Primary care record and Outside ED record Tests considered The following testing was considered but not selected: As above Prescription Management I considered prescription management with: Pain Medication and Antibiotic Social Determinants Patient?s care significantly limited by Social Determinants of Health including: Low income and Alcoholism and drug addiction in family Discharge Plan Discharge Clinical Impression: Blister of foot without infection Patient Disposition: Xfer Inpatient Rehab Fac Transfer Details: [facility] Instructions: Blister (ED) Additional Instructions: your blood work was reassuring YOU NEED TO TAKE KEFLEX WHICH IS AN ANTIBIOTIC YOU NEED TO FOLLOW-UP WITH WOUND CARE, CALL TO MAKE AN APPOINTMENT TODAY PLEASE APPLY CALCIUM ALGINATE AND OR ZINC TO HER BLISTERS AND KEEP DRY AND CLEAN. KEEP SKIN INTACT if areas begins look infected, are red, have pus drainage of fever or increasing/ unremitting pain return to the ED Prescriptions: No Action atorvastatin 20 mg tablet 20 mg PO DAILY trazodone 50 mg tablet 50 mg PO BEDTIME hydroxyzine HCl 50 mg tablet 50 mg PO BID PRN (Reason: Anxiety) amlodipine 5 mg tablet 5 mg PO DAILY metformin 1,000 mg tablet 1,000 mg PO BID divalproex 500 mg tablet extended release 24 hr 1,000 mg PO BEDTIME ibuprofen 600 mg tablet 600 mg PO BID PRN (Reason: Pain (Scale Score 4-6)) Trulicity 0.75 mg/0.5 mL pen injector 0.75 mg subcut QWEEK cephalexin 500 mg capsule 500 mg PO Q8H Qty: 21 0RF Referrals: [facility] [Provider Group] - 3 days
[2023-03-09 11:20] VITALS: BP 139/77; PULSE 59; RESP 12
[2023-03-09 11:59] LABS: MANUAL DIFF FLAG NO
[2023-03-09 12:02] LABS: Basophils Percent Auto 0.6 % (0-2); Eosinophils Absolute Auto 0.1 X10*3/uL (0.0-0.4); Eosinophils Percent Auto 1.4 % (0-4); Hematocrit 34.7 % (42.0-52.0); Hemoglobin 11.5 g/dl (14.0-18.0); Imm Gran Abs Auto 0.01 X10*3/uL (0.00-0.03); Imm Gran Pct Auto 0.2 % (0.0-0.4); Lymphocytes Absolute Auto 2.5 X10*3/uL (1.2-4.9); Lymphocytes Percent Auto 48.9 % (20-40); Mean Corpuscular HGB Conc 33.1 g/dl (31.0-36.0); Mean Corpuscular Hemoglobin 27.7 pg (27.0-33.0); Mean Corpuscular Volume 83.6 fL (80.0-98.0); Mean Platelet Volume 9.4 fL (9.4-12.4); Monocytes Absolute Auto 0.4 X10*3/uL (0.1-1.2); Neutrophils Absolute Auto 2.1 x10*3/uL (2.0-8.3); Neutrophils Percent Auto 40.9 % (45-73); Platelet Count 220 X10*3/uL (160-400); Red Blood Count 4.15 X10*6/uL (4.60-5.80); Red Cell Distribution Width 12.7 % (11.0-16.0); White Blood Count 5.1 X10*3/uL (4.8-10.8)
[2023-03-09 12:21] LABS: Anion Gap 11 (12-20); Blood Urea Nitrogen 11 mg/dL (9-16); C Reactive Protein < 0.04 mg/dL (< or = 0.50); Calcium 9.4 mg/dL (8.4-10.2); Carbon Dioxide 29 mmol/L (22-29); Chloride 101 mmol/L (96-108); Creatinine Clr Calc Pharmacy 134.7; Estimated Glomerular Filt Rate > 60; Glucose Random 85 mg/dL (60-115); Potassium 3.8 mmol/L (3.3-5.1); Sodium 137 mmol/L (135-145)
[2023-03-09 12:43] LABS: Erythrocyte Sedimentation Rate 3 MM/HR (0-15)
[2023-03-09 14:12] VITALS: BP 121/70; PULSE 56; RESP 14; O2SAT 100
[2023-03-09] MEDS: Zinc Oxide (Triple Paste) 56.7 GM OINT 1 APPL TOPICAL (14:28)
[2023-03-09 14:38] LABS: Amphetamine Screen Urine Not Detected (Not Detect); Barbiturates, Urine POSITIVE (Not Detect); Benzodiazepines Screen Urine Not Detected (Not Detect); Cannabinoid Screen Urine Not Detected (Not Detect); Cocaine Screen Urine Not Detected (Not Detect); Fentanyl, urine Not Detected (Not Detect); Opiate Screen Urine Not Detected (Not Detect); Phencyclidine Screen Urine Not Detected (Not Detect)
--- NOTE | 2023-03-09 16:00 | PC.NURSE ---
attempted to give report multiple times but could not get through to anyone
--- NOTE | 2023-03-09 16:18 | PC.NURSE ---
spoke with candace ascencio call/switch board and still unable to get a hold of anybody to give report, the person took the [facility] [place] [place] phone number and will call me back for report
[2023-03-09 16:47] VITALS: BP 130/79; PULSE 50; RESP 15
== END 2023-03-09 18:11 ==
PROVIDERS: Physician Assistant; Emergency Provider Emergency Medicine Emergency Medical Services
DX: S90.822A Blister (nonthermal), left foot, initial encounter (principal); S90.821A Blister (nonthermal), right foot, initial encounter; X58.XXXA Exposure to other specified factors, initial encounter; F10.10 Alcohol abuse, uncomplicated; Y90.9 Presence of alcohol in blood, level not specified; F32.A Depression, unspecified; Y93.9 Activity, unspecified; Y92.9 Unspecified place or not applicable; Y99.9 Unspecified external cause status; Z79.899 Other long term (current) drug therapy
CPT/HCPCS: 36415; 80048; 80307; 85025; 85652; 86140; 99284

== ENCOUNTER 2024-11-16 06:46 | Emergency (ER) | payer OTHER, SELFPAY ==
[2024-11-16 07:06] VITALS: BP 196/105; PULSE 101; RESP 18; TEMP 36.2; O2SAT 97; BMI 27.4
[2024-11-16 07:08] VITALS: BP 176/102; PULSE 100; O2SAT 98
--- NOTE | 2024-11-16 07:09 | PC.NURSE ---
Pt cooperative with changeover. Large amount of Rx in plastic bag. None need to go to pharmacy.
--- OUTSIDE RECORDS SUMMARY | 2024-11-16 07:38 | XMS_ITS | Clinical Summary ---
Author Organization [facility] Address [address] [place] [address] Phone Care Team Providers Care Licensing Director Name Role Phone Physician, No Pcp Primary Care Provider Unavaila ble Allergies No known active allergies Medications amLODIPine (NORVASC) 10 mg tablet Take 1 tablet (10 mg total) by mouth 1 (one) time each day. 03/25/2024 Active atorvastatin (LIPITOR) 20 mg tablet Take 1 tablet (20 mg total) by mouth at bedtime. Active divalproex (DEPAKOTE ER) 500 mg 24 hr tablet Take 3 tablets (1,500 mg total) by mouth at bedtime. Active metFORMIN (GLUCOPHAGE) 500 mg tablet Take 1 tablet (500 mg total) by mouth 2 (two) times a day. Active OLANZapine (ZyPREXA) 5 mg tablet Take 1 tablet (5 mg total) by mouth 2 (two) times a day. 05/16/2024 Active pantoprazole (PROTONIX) 40 mg EC tablet Take 1 tablet (40 mg total) by mouth 1 (one) time each day. 05/16/2024 Active traZODone (DESYREL) 100 mg tablet Take 1 tablet (100 mg total) by mouth at bedtime. 05/16/2024 Active Medical History Medical History Date Comments Diabetes mellitus type 2, co ntrolled, with complications (CMS/HCC V24, CMS/HCC V28) DX:Diabetes mellitus type 2, controlled, with complications (HCC) Essential hypertension DX:Essent ial hypertension Anxiety state DX:Anxiety state Depressive disorder DX:Depressiv e disorder Bowel dysfunction DX:Bowel dysfu nction History of joint problems DX:His tory of joint problems Family History Medical History Relation Name Comments Diabetes Father Relation Name Status Comments Father Alive Mother Alive Social History Tobacco Use Types Packs/Day Years Used Date Smoking Tobacco: Never Smokeless Tobacco: Never Alcohol Use Standard Drinks/Week Comments Yes 0 (1 standard drink = 0.6 oz pur e alcohol) Sex and Gender Information Value Date Recorded Sex Assigned at Not on file Legal Sex Male 12:29 PM EST Gender Identity Not on file Sexual Orientation Not on file Obstetrics History Last Filed Vital Signs Vital Sign Reading Time Taken Comments Blood Pressure 156/97 07/30/2024 5:22 PM EST Pulse 104 07/30/2024 5:22 PM EST Temperature 36.8 ??C (98.2 ??F) 07/30/2024 5:22 PM ES T Respiratory Rate 18 07/30/2024 12:13 PM EST Oxygen Saturation 100% 07/30/2024 5:22 PM EST Inhaled Oxygen Concentration - - Weight 113 kg (250 lb) 07/30/2024 10:38 AM EST Height 182.9 cm (6') 07/30/2024 10:38 AM EST Body Mass Index 33.91 07/30/2024 10:38 AM EST Plan of Treatment Health Maintenance Due Date Last Done Comments Diabetes: Annual Foot Exam 1986 Diabetes: Annual Retina Eye Exam 1986 Hepatitis B Vaccines (1 of 3 - 19+ 3-dose series) 1995 Cholesterol Screening (Lipid Panel) 07/24/2023 Colorectal Cancer Screening: Colonoscopy 07/24/2023 Depression Screening 07/24/2023 Diabetes: Annual Urine Albumin-Creatinine Ratio (uACR) 07/24/2023 Diabetes: Blood Sugar Control Test (HGBA1C) 07/24/2023 HIV Screening 07/24/2023 Hepatitis C Screening 07/24/2023 Medicare Annual Wellness Visit 07/24/2023 Social Influencers of Health Screening 07/24/2023 Diabetes: Annual GFR (Glomerular Filtration Rate) 07/30/2025 07/30/2024, 05/04/2023 Hypertension/CHF/CAD Annual BMP Blood Test 07/30/2025 07/30/2024, 05/04/2023 DTaP,Tdap,and Td Vaccines (2 - Td or Tdap) 02/23/2032 02/22/2022 Pneumococcal Vaccine: Pediatrics (0 to 5 Years) and At-Risk Patients (6 to 64 Years) Aged Out 02/22/2022 No longer eligible based on patient's age to complete this topic COVID-19 Vaccine Completed 04/25/2024, , 02/22/2022, Additional history exists Influenza Vaccine Completed 04/25/2024, 03/29/2023 HIB Vaccines Aged Out No longer eligi ble based on patient's age to complete this topic HPV Vaccines Aged Out No longer eligi ble based on patient's age to complete this topic Hepatitis A Vaccines Aged Out No long er eligible based on patient's age to complete this topic IPV Vaccines Aged Out No longer eligi ble based on patient's age to complete this topic MMR Vaccines Aged Out No longer eligi ble based on patient's age to complete this topic Meningococcal ACWY Vaccine Aged Out N o longer eligible based on patient's age to complete this topic Meningococcal B Vaccine Aged Out No l onger eligible based on patient's age to complete this topic RSV Immunization Patients Under 20 months Aged Out No longer eligible based on patient's age to complete this topic Varicella Vaccines Aged Out No longer eligible based on patient's age to complete this topic Procedures Procedure Name Priority Date/Time Associated Diagnosis Comments COMPREHENSIVE METABOLIC PANEL STAT 07/30/2024 10:43 AM EST from Last 3 Months or Most Recently Relevant to Health Maintenance Results * (ABNORMAL) Comprehensive metabolic panel (07/30/2024 10:43 AM EST) Sodium 136 133 - 145 mmol/L LAB CHEMISTRY METHOD 07/30/2024 11:43 AM EST [facility] Potassium 3.3(L) 3.5 - 5.5 mmol/L LAB CHEMISTRY METHOD 07/30/2024 11:43 AM EST [facility] Chloride 102 96 - 110 mmol/L LAB CHEMISTRY METHOD 07/30/2024 11:43 AM EST [facility] CO2 28 21 - 32 mmol/L LAB CHEMISTRY METHOD 07/30/2024 11:43 AM EST [facility] Anion Gap 6 3 - 11 LAB CHEMISTRY METHOD 07/30/2024 11:43 AM [facility] Glucose 251(H) 70 - 100 mg/dL LAB CHEMISTRY METHOD 07/30/2024 11:43 AM [facility] BUN 15 5 - 25 mg/dL LAB CHEMISTRY METHOD 07/30/2024 11:43 AM [facility] Creatinine 1.17 0.70 - 1.30 mg/dL LAB CHEMISTRY METHOD 07/30/2024 11:43 AM [facility] eGFR 77 >=60 mL/min/1. 73m2 LAB CHEMISTRY METHOD 07/30/2024 11:43 AM [facility] Comment:Calculation based on the??Chronic Kidney Disease Epidemiology Collaboration (CKD-EPI) equation refit??without adjustment for race. BUN/Creatinine Ratio 12.8 LAB CHEMISTRY METHOD 07/30/2024 11:43 AM [facility] Calcium 9.0 8.5 - 10.5 mg/dL LAB CHEMISTRY METHOD 07/30/2024 11:43 AM [facility] AST (SGOT) 42 10 - 42 unit/L LAB CHEMISTRY METHOD 07/30/2024 11:43 AM [facility] ALT (SGPT) 31 10 - 60 unit/L LAB CHEMISTRY METHOD 07/30/2024 11:43 AM [facility] Alkaline Phosphatase 53 42 - 121 unit/L LAB CHEMISTRY METHOD 07/30/2024 11:43 AM [facility] Total Protein 7.8 6.0 - 8.0 g/dL LAB CHEMISTRY METHOD 07/30/2024 11:43 AM [facility] Albumin 3.9 3.2 - 5.0 g/dL LAB CHEMISTRY METHOD 07/30/2024 11:43 AM [facility] Total Bilirubin 0.7 0.0 - 1.4 mg/dL LAB CHEMISTRY METHOD 07/30/2024 11:43 AM [facility] Blood Venous blood specimen / Unknown Venipuncture / Unknown 07/30/2024 10:43 AM EST 07/30/2024 11:00 AM EST us Luis Fernando Broussard MD LAB BLOOD ORDERABLES Shaista dewey Result [facility] ([facility] [address] [place] [address], [place] [phone] from Last 3 Months or Most Recently Relevant to Health Maintenance Insurance [facility] MEDICARE Member Subscriber Plan / Payer (Ef fective 2015-Present) Name:Caryl Mccollum Relation to Subscriber:Self Name:Caryl Mccollum Payer ID:[id number] Group ID:[id number] Type:Not on file Address: [facility] [address] [id number] Care Teams Licensing Director Relationship Specialty Start Date End Date Physician, No Pcp PCP - General 07/30/24
--- NOTE | 2024-11-16 07:52 | PC.NURSE ---
RE: med rec This RN completed med rec with patient, med list obtained from medication reconciliation hx and verified verbally with patient
[2024-11-16 07:54] LABS: MANUAL DIFF FLAG NO
[2024-11-16 07:55] LABS: Basophils Percent Auto 0.8 % (0-2); Eosinophils Absolute Auto 0.1 X10*3/uL (0.0-0.4); Eosinophils Percent Auto 1.3 % (0-4); Hematocrit 41.2 % (42.0-52.0); Hemoglobin 14.1 g/dl (14.0-18.0); Imm Gran Abs Auto 0.01 X10*3/uL (0.00-0.03); Imm Gran Pct Auto 0.2 % (0.0-0.4); Lymphocytes Absolute Auto 2.4 X10*3/uL (1.2-4.9); Lymphocytes Percent Auto 45.8 % (20-40); Mean Corpuscular HGB Conc 34.2 g/dl (31.0-36.0); Mean Corpuscular Hemoglobin 27.3 pg (27.0-33.0); Mean Corpuscular Volume 79.8 fL (80.0-98.0); Mean Platelet Volume 9.6 fL (9.4-12.4); Monocytes Absolute Auto 0.4 X10*3/uL (0.1-1.2); Monocytes Percent Auto 7.5 % (2-11); Neutrophils Absolute Auto 2.4 x10*3/uL (2.0-8.3); Neutrophils Percent Auto 44.4 % (45-73); Platelet Count 244 X10*3/uL (160-400); Red Blood Count 5.16 X10*6/uL (4.60-5.80); Red Cell Distribution Width 12.1 % (11.0-16.0); White Blood Count 5.3 X10*3/uL (4.8-10.8)
[2024-11-16 08:06] LABS: Valproate < 12.5 mcg/mL (50.0-100.0)
[2024-11-16 08:08] LABS: Appearance Urine Clear; Color Urine Yellow; Glucose Urine UA >=1000 mg/dL (Negative); Leukocyte Esterase Urine Negative (Negative); Nitrite Urine Negative (Negative); PH 5.5 (5.0-9.0); Specific Gravity - Urine >= 1.030 (1.005-1.025); UMIC TRIGGER UACC YES; Urine Blood Trace (Negative); Urine Ketones Trace mg/dL (Negative); Urine Protein 100 (2+) mg/dL (Neg-Trace)
[2024-11-16 08:11] LABS: Bacteria Urine None Seen (None Seen); RBC Urine 0-2 /HPF (0-2); Squamous Epithelial Cell Urine 0-2 /HPF (0-2); WBC Urine 0-5 /HPF (0-5)
[2024-11-16 08:17] LABS: Amphetamine Screen Urine Not Detected (Not Detect); Barbiturates, Urine Not Detected (Not Detect); Benzodiazepines Screen Urine Not Detected (Not Detect); Buprenorphine Scr Not Detected (Not Detect); Cannabinoid Screen Urine Not Detected (Not Detect); Cocaine Screen Urine Not Detected (Not Detect); Fentanyl, urine Not Detected (Not Detect); Methadone Screen, Urine Not Detected (Not Detect); Opiate Screen Urine Not Detected (Not Detect); Oxycodone Screen Urine Not Detected (Not Detect); Phencyclidine Screen Urine Not Detected (Not Detect)
[2024-11-16 08:20] LABS: Alanine Aminotransferase 37 U/L (0-40); Albumin Level 4.3 g/dL (3.5-5.0); Alkaline Phosphatase 47 U/L (39-117); Anion Gap 15 (12-20); Aspartate Amino Transferase 35 U/L (5-37); Bilirubin Total 0.3 mg/dL (0.0-1.0); Blood Urea Nitrogen 16 mg/dL (9-16); Calcium 9.6 mg/dL (8.4-10.2); Carbon Dioxide 25 mmol/L (22-29); Chloride 102 mmol/L (96-108); Creatinine Clr Calc Pharmacy 89.1; Estimated Glomerular Filt Rate > 60; Ethanol < 10 mg/dL; Glucose Random 314 mg/dL (60-115); Potassium 3.5 mmol/L (3.3-5.1); Sodium 138 mmol/L (135-145); Total Protein 7.8 g/dL (6.5-8.0)
--- NOTE | 2024-11-16 08:50 | ED_ITS ---
HPI - Psych General Chief Complaint: Psychiatric Symptoms Stated Complaint: SI PER EMS Time Seen by Provider: 11/16/24 08:06 Source: patient, RN notes reviewed and old records reviewed Mode of arrival: ambulatory History of Present Illness ED Provider: Norah Dupree PA-C HPI Narrative: 49-year-old male with past medical history HTN, ETOH abuse, diabetes, depression, presenting to the ED via EMS complaining of SI without plan times a few days. Patient currently homeless. Denies ETOH/illicit substance use, HI, auditory or visual hallucinations. Reports compliance with prescribed medication. Denies CP/SOB, abdominal pain, nausea/vomiting. Related Data Home Medications ?Medication ?Instructions ?Recorded ?Confirmed acetaminophen 325 mg tablet 650 mg PO TID PRN pain 11/16/24 11/16/24 amlodipine 10 mg tablet 10 mg PO DAILY 11/16/24 11/16/24 atorvastatin 20 mg tablet 20 mg PO DAILY 11/16/24 11/16/24 benztropine 1 mg tablet 1 mg PO BEDTIME 11/16/24 11/16/24 clonidine HCl 0.1 mg tablet 0.1 mg PO TID PRN blood pressure 11/16/24 11/16/24 divalproex 500 mg tablet,delayed 500 mg PO BID depressive disorder 11/16/24 11/16/24 release escitalopram oxalate 10 mg tablet 10 mg PO DAILY depressive disorder 11/16/24 11/16/24 ferrous sulfate 325 mg (65 mg 325 mg PO DAILY 11/16/24 11/16/24 iron) tablet hydroxyzine pamoate 25 mg capsule 25 mg PO TID PRN anxiety 11/16/24 11/16/24 insulin glargine 100 unit/mL 15 unit subcut BEDTIME diabetes 11/16/24 11/16/24 subcutaneous solution (Lantus mellitus U-100 Insulin) lisinopril 10 mg tablet 10 mg PO DAILY blood pressure 11/16/24 11/16/24 metformin 500 mg tablet 500 mg PO BID 11/16/24 11/16/24 multivitamin with folic acid 400 1 tab PO DAILY 11/16/24 11/16/24 mcg tablet (Daily-Roxanne (with folic acid)) nicotine (polacrilex) 2 mg gum 2 mg PO QID PRN nicotine cravings 11/16/24 11/16/24 paliperidone 6 mg tablet,extended 6 mg PO DAILY psychosis 11/16/24 11/16/24 release 24 hr pantoprazole 40 mg tablet,delayed 40 mg PO DAILY 11/16/24 11/16/24 release trazodone 50 mg tablet 50 mg PO BEDTIME PRN insomnia 11/16/24 11/16/24 Allergies Allergy/AdvReac Type Severity Reaction Status Date / Time No Known Allergies Allergy Verified 11/16/24 07:23 Review of Systems 2 Review of Systems: Yes all other systems are reviewed and are negative Constitutional: Constitutional: Reports as per HPI Neurologic: Denies Abnormal speech present [facility] Past Medical History Attestation statement: The following information was validated with the patient. Source: old records reviewed Social History Social History Alcohol intake: current Alcohol intake frequency: a few times a week Smoked in Last 30 Days: Yes Use of substances other than those prescribed or required for medical reasons: No Advance Directives: Yes Advance Directives Information Provided: Yes Advance Directives on File: No Physical Exam 2 Vital Signs: Vital Signs: Last Vital Signs Temp 97.8 F 11/16/24 14:32 Pulse 104 H 11/16/24 14:32 Resp 14 11/16/24 14:32 BP 147/90 H 11/16/24 14:32 Pulse Ox 97 11/16/24 14:32 O2 Del Method Room Air 11/16/24 14:32 BMI result Body Mass Index 27.4 Const: General: cooperative, healthy appearing and no acute distress O rientation/consciousness: patient oriented x3 Limitations: no limitations HEENT: Head: Yes normal to inspection and Yes atraumatic Ears: hearing grossly normal bilaterally General nose exam: Normal external nose present Face and sinus: Yes normal facial exam Eyes: General: appearance normal, both eyes and all related structures EOM: EOMs intact bilaterally Neck: Neck: Yes normal visual inspection and Yes no meningeal signs Resp: Effort & Inspection: normal respiratory effort and no respiratory distress Cardio: Rate: regular rate Skin: Rashes: no rashes Wounds: no wounds Neuro: General: patient oriented x3, tone normal, no meningeal signs and CN's II-XI intact bilaterally Cranial nerves: Yes CN's II-XII intact bilaterally Cognition (Neuro): normal cognition Speech: No Abnormal speech present G ait exam (Neuro): Normal gait present Extrem: General: Yes normal to inspection Psych: Thought content: Suicidality present, no homicidality, no hallucinations and Depressive thoughts present Course Course Course Narrative: -08--labs reassuring. Glucose 314, no anion gap -UA not infected -tox screen negative. Valproic acid level low > patient medically cleared for CARE team evaluation. Physician observation initiated at 08:58 -1352--patient was cleared by CARE team for discharge. they will do 3 day [facility] follow-up Results discussed with patient including worrisome signs and symptoms and strict return precautions, and when to return to the emergency department. They verbalized understanding and feel safe for discharge at this time. Medications Administered Discontinued Medications Generic Name Dose Route Start Last Admin Trade Name Noah PRN Reason Stop Dose Admin Amlodipine Besylate 10 mg 11/16/24 08:53 11/16/24 09:30 Amlodipine Besylate 10 Mg Tablet PO 11/16/24 08:54 10 mg ONCE ONE Administration Protocol Atorvastatin Calcium 20 mg 11/16/24 09:00 11/16/24 09:30 Atorvastatin Calcium 20 Mg Tablet PO 20 mg DAILY YESSY Administration Divalproex Sodium 500 mg 11/16/24 09:00 11/16/24 09:30 Divalproex Sodium 500 Mg Tablet.Dr PO 500 mg BID YESSY Administration Escitalopram Oxalate 10 mg 11/16/24 09:00 11/16/24 09:30 Escitalopram Oxalate 10 Mg Tablet PO 10 mg DAILY YESSY Administration Lisinopril 10 mg 11/16/24 08:53 11/16/24 09:30 Lisinopril 10 Mg Tablet PO 11/16/24 08:54 10 mg ONCE ONE Administration Protocol Multivitamins/Vitamin C 1 tab 11/16/24 09:00 11/16/24 09:30 Multivitamin Tablet PO 1 tab DAILY YESSY Administration Paliperidone 6 mg 11/16/24 09:00 11/16/24 09:30 Paliperidone Er 6 Mg Tab.Er.24 PO 6 mg DAILY YESSY Administration Medical Decision Making Medical Decision Making [facility] Narrative: 49-year-old male with past medical history HTN, ETOH abuse, diabetes, depression, presenting to the ED via EMS complaining of SI without plan times a few days. Patient currently homeless. On exam hypertensive, mildly tachycardic, NAD, nontoxic appearing, depressed with suicidal ideations without plan. Denies taking blood pressure medications morning. Rule out organic causes. Lower suspicion for acute hypertensive urgency/emergency at this time Plan: Labs, tox screen, CARE team consult, home medication Please refer to course for remaining clinical decision making, interpretation of labs/imaging results, and discussions with consultants and/or family members. Differential Diagnosis Differential Diagnoses: The differential diagnosis associated with the presentation includes As above Admission/Observation Consideration of admission/observation: Escalation of care including admission/observation considered Consult Healthcare Provider Management of the patient was discussed with: Behavioral Health Provider Lab Data [facility] Lab Attestation statement: I reviewed the patient's lab results. 11/16/24 07:47 11/16/24 07:47 Labs: Lab Results 11/16/24 11/16/24 Range/Units 07:47 07:59 WBC 5.3 (4.8-10.8) X10*3/uL RBC 5.16 D (4.60-5.80) X10*6/uL Hgb 14.1 D (14.0-18.0) g/dl Hct 41.2 L (42.0-52.0) % MCV 79.8 L (80.0-98.0) fL MCH 27.3 (27.0-33.0) pg MCHC 34.2 (31.0-36.0) g/dl RDW 12.1 (11.0-16.0) % Plt Count 244 (160-400) X10*3/uL MPV 9.6 (9.4-12.4) fL Immature Gran % (Auto) 0.2 (0.0-0.4) % Neut % (Auto) 44.4 L (45-73) % Lymph % (Auto) 45.8 H (20-40) % Forrest % (Auto) 7.5 (2-11) % Eos % (Auto) 1.3 (0-4) % Baso % (Auto) 0.8 (0-2) % Lymph # (Auto) 2.4 (1.2-4.9) X10*3/uL Forrest # (Auto) 0.4 (0.1-1.2) X10*3/uL Eos # (Auto) 0.1 (0.0-0.4) X10*3/uL Baso # (Auto) 0.0 (0.0-0.2) X10*3/uL Abs Immat Gran (auto) 0.01 (0.00-0.03) X10*3/uL Absolute Neuts (auto) 2.4 (2.0-8.3) x10*3/uL Absolute Nucleated RBC 0.000 (0.0-0.012) X10*3/uL Nucleated RBC % (auto) 0.0 (0.0-0.2) /100WBC Sodium 138 (135-145) mmol/L Potassium 3.5 (3.3-5.1) mmol/L Chloride 102 (96-108) mmol/L Carbon Dioxide 25 (22-29) mmol/L Anion Gap 15 (12-20) BUN 16 (9-16) mg/dL Creatinine 0.98 (0.5-1.4) mg/dL Estim Creat Clear Calc 89.1 Estimated GFR > 60 Random Glucose 314 H (60-115) mg/dL Calcium 9.6 (8.4-10.2) mg/dL Total Bilirubin 0.3 (0.0-1.0) mg/dL AST 35 (5-37) U/L ALT 37 (0-40) U/L Alkaline Phosphatase 47 (39-117) U/L Total Protein 7.8 (6.5-8.0) g/dL Albumin 4.3 (3.5-5.0) g/dL Urine Color Yellow Urine Appearance Clear Urine pH 5.5 (5.0-9.0) Ur Specific Dumas >= 1.030 H (1.005-1.025) Urine Protein 100 (2+) H (Neg-Trace) mg/dL Urine Glucose (UA) >=1000 H (Negative) mg/dL Urine Ketones Trace (Negative) mg/dL Urine Blood Trace H (Negative) Urine Nitrite Negative (Negative) Ur Leukocyte Esterase Negative (Negative) Urine RBC 0-2 (0-2) /HPF Urine WBC 0-5 (0-5) /HPF Ur Squamous Epith Cells 0-2 (0-2) /HPF Urine Bacteria None Seen (None Seen) Hyaline Casts 3-5 (0-2) /LPF Urine Opiates Screen Not Detected (Not Detect) Ur Buprenorphine Scrn Not Detected (Not Detect) ng/mL Ur Oxycodone Screen Not Detected (Not Detect) ng/mL Urine Methadone Screen Not Detected (Not Detect) ng/mL Urine Fentanyl Screen Not Detected (Not Detect) Ur Barbiturates Screen Not Detected (Not Detect) Valproic Acid < 12.5 L (50.0-100.0) mcg/mL Ur Phencyclidine Scrn Not Detected (Not Detect) Ur Amphetamines Screen Not Detected (Not Detect) U Benzodiazepines Scrn Not Detected (Not Detect) Urine Cocaine Screen Not Detected (Not Detect) U Marijuana (THC) Screen Not Detected (Not Detect) Ethyl Alcohol < 10 mg/dL Independent Historian Clinical information obtained from an independent historian. History obtained from or confirmed by: EMS External Record Review External record reviewed: Inpatient record, Office record, Outpatient record, Prior outpatient labs, Prior outpatient radiology, Primary care record and Outside ED record Tests considered The following testing was considered but not selected: As above Prescription Management I considered prescription management with: Other Chronic Conditions Patient?s care impacted by: Diabetes and Hypertension Social Determinants Patient?s care significantly limited by Social Determinants of Health including: Inadequate housing, Low income, Alcoholism and drug addiction in family, Problems related to primary support group, Unemployment, Problems related to employment and Other Social Determinant of Health Discharge Plan Discharge Clinical Impression: Suicidal ideation Patient Disposition: Home, Self-Care Instructions: Suicide Prevention (ED) Additional Instructions: You were cleared by CARE team for discharge. You were seen in our Emergency Department today for treatment of a behavioral health issue. It is important after your visit that you follow up with either your behavioral health provider or a primary care doctor within 7 days.? If you have trouble finding a therapist you can reach out to [address] [phone] The National Suicide and Crisis Lifeline can be reached 7 days a week 24 hours a day.? Call 748 to speak with someone.? Return for any worsening symptoms or concerns such as thoughts of self harm or harm to others. Please call [phone] if you feel your mental health is worsening.? Prescriptions: No Action metformin 500 mg tablet 500 mg PO BID clonidine HCl 0.1 mg tablet 0.1 mg PO TID PRN (Reason: blood pressure) acetaminophen 325 mg tablet 650 mg PO TID PRN (Reason: pain) atorvastatin 20 mg tablet 20 mg PO DAILY insulin glargine [Lantus U-100 Insulin] 100 unit/mL solution 15 unit subcut BEDTIME trazodone 50 mg tablet 50 mg PO BEDTIME PRN (Reason: insomnia) nicotine (polacrilex) 2 mg gum 2 mg PO QID PRN (Reason: nicotine cravings) divalproex 500 mg tablet,delayed release (DR/EC) 500 mg PO BID amlodipine 10 mg tablet 10 mg PO DAILY pantoprazole 40 mg tablet,delayed release (DR/EC) 40 mg PO DAILY ferrous sulfate 325 mg (65 mg iron) tablet 325 mg PO DAILY lisinopril 10 mg tablet 10 mg PO DAILY benztropine 1 mg tablet 1 mg PO BEDTIME hydroxyzine pamoate 25 mg capsule 25 mg PO TID PRN (Reason: anxiety) escitalopram oxalate 10 mg tablet 10 mg PO DAILY paliperidone 6 mg tablet extended release 24 hr 6 mg PO DAILY multivitamin with folic acid [Daily-Roxanne (with folic acid)] 400 mcg tablet 1 tab PO DAILY [place] [facility] [place] [facility] [place]Provider Group] Alice Cao MD [Primary Care Provider] - Interventions: Barrett-Suicide Risk Severity Scale Last Done: 11/16/24 07:25 ED Discharge Assessment Last Done: 11/16/24 14:31 Discharge Date/Time: 11/16/24 14:50 Print Language: Swiss
--- NOTE | 2024-11-16 09:13 | PC.NURSE ---
Pt requesting to leave, LAMAR Almazan aware, talked with patient. Pt still pending CARE team
[2024-11-16] MEDS: Escitalopram Oxalate 10 MG TABLET PO (09:30)
[2024-11-16] MEDS: Multivitamin TABLET 1 TAB PO (09:30)
[2024-11-16] MEDS: lisinopriL 10 MG TABLET PO (09:30)
[2024-11-16] MEDS: amLODIPine Besylate 10 MG TABLET PO (09:30)
[2024-11-16] MEDS: Atorvastatin Calcium 20 MG TABLET PO (09:30)
[2024-11-16] MEDS: Paliperidone ER 6 MG TAB.ER.24 PO (09:30)
[2024-11-16] MEDS: Divalproex Sodium 500 MG TABLET.DR PO (09:30)
[2024-11-16 14:31] VITALS: BP 147/94; PULSE 94; RESP 16; TEMP 36.9; O2SAT 98
[2024-11-16 14:32] VITALS: BP 147/90; PULSE 104; RESP 14; TEMP 36.6; O2SAT 97
== END 2024-11-16 14:50 | disposition home or self-care (01) ==
PROVIDERS: Emergency Provider Emergency Medicine; PCP Pediatrics
DX: F33.1 Major depressive disorder, recurrent, moderate (principal); R45.851 Suicidal ideations; Z79.899 Other long term (current) drug therapy; Z59.00 Homelessness unspecified; Z51.81 Encounter for therapeutic drug level monitoring
CPT/HCPCS: 36415; 80053; 80164; 80307; 81001; 85025; 99284; 99285; S9485

== ENCOUNTER 2024-12-17 10:29 | Inpatient (IN) | payer OTHER, SELFPAY ==
--- NOTE | 2024-12-17 | ECG_ITS ---
Test Reason : HTN Blood Pressure : */* mmHG Vent. Rate : 84 BPM Atrial Rate : 84 BPM P-R Int : 154 ms QRS Dur : 84 ms QT Int : 380 ms P-R-T Axes : 33 9 11 degrees QTcB Int : 449 ms Normal sinus rhythm Normal ECG When compared with ECG of 14-Feb-2023 12:43, Vent. rate has decreased by 46 bpm Referred By: Generic ED Physician Electronically Signed By: JOAO LADD
[2024-12-17 10:36] VITALS: BP 172/98; PULSE 85; O2SAT 96
[2024-12-17 10:44] VITALS: BP 158/110; PULSE 89; RESP 18; O2SAT 97; BMI 35.9
--- NOTE | 2024-12-17 10:59 | ED_ITS ---
HPI - Psych General Chief Complaint: Psychiatric Symptoms Stated Complaint: SI PER EMS Time Seen by Provider: 12/17/24 10:58 Source: patient and EMS Mode of arrival: EMS Limitations: no limitations History of Present Illness ED Provider: YANDY BARONE PA-C HPI Narrative: 49 year old male with past medical history significant for depression, type 2 diabetes, GERD, hypertension, insomnia presents to the ED today via EMS for evaluation of depression and suicidal ideation. Admits to increasing depression x2-3 days secondary to increased life stressors. Does not wish to go into detail. He has had thoughts of harming himself however has no plan to do so. Denies history of prior attempts. Denies HI. Admits to increased EtOH consumption over the last few days secondary to depression. Can not quantify the amount. His last drink was 2 days ago. States he does not drink daily. No history of ETOH withdrawals or withdrawal seizures. Denies AH/VH/TH. He states he has not taken his Depakote or metformin in approximately 1 week. Can not provide me with a reason as to why he is not taking his medications. At present he endorses intermittent left-sided chest discomfort x days. Denies any injury or trauma to the chest. Not exertional, not relieved with rest, no radiation. Denies fever, chills, shortness of breath, wheezing, cough, hemoptysis, lower extremity pain or swelling. Related Data Home Medications ?Medication ?Instructions ?Recorded ?Confirmed acetaminophen 325 mg tablet 650 mg PO TID PRN pain 12/18/24 amlodipine 10 mg tablet 10 mg PO DAILY 11/16/2411/24 atorvastatin 20 mg tablet 20 mg PO DAILY 11/16/2411/24 benztropine 1 mg tablet 1 mg PO BEDTIME 11/16/24 clonidine HCl 0.1 mg tablet 0.1 mg PO TID PRN blood pr essure 11/16/24 12/18/24 divalproex 500 mg tablet,delayed 500 mg PO BID depress solo disorder 11/16/24 12/18/24 release escitalopram oxalate 10 mg tablet 10 mg PO DAILY depre ssive disorder 11/16/24 12/18/24 hydroxyzine pamoate 25 mg capsule 25 mg PO TID PRN anx iety 11/16/24 12/18/24 insulin glargine 100 unit/mL 15 unit subcut BEDTIME di abetes 11/16/24 12/18/24 subcutaneous solution (Lantus mellitus U-100 Insulin) lisinopril 10 mg tablet 10 mg PO DAILY blood pressur e 11/16/24 12/18/24 metformin 500 mg tablet 500 mg PO BID 11/16/2412/18 nicotine (polacrilex) 2 mg gum 2 mg PO QID PRN nicotin e cravings 11/16/24 12/18/24 paliperidone 6 mg tablet,extended 6 mg PO DAILY psycho sis 11/16/24 12/18/24 release 24 hr pantoprazole 40 mg tablet,delayed 40 mg PO DAILY 11/1612/18/24 release trazodone 50 mg tablet 50 mg PO BEDTIME PRN insomni a 11/16/24 12/18/24 Allergies Allergy/AdvReac Type Severity Reaction Status Date / Time No Known Allergies Allergy Verified 12/17/24 10:46 Review of Systems 2 Review of Systems: Constitutional: No fever, chills, fatigue, night sweats, weight changes ENT/Mouth: No ear pain, hearing loss, nasal congestion, sinus pain, rhinorrhea, sore throat Eyes: No eye pain, swelling, redness, vision changes, discharge Cardio: No palpitations, DU, orthopnea, peripheral edema, +chest pain Pulm: No SOB, cough, sputum, wheezing, dyspnea, hemoptysis GI: No nausea, vomiting, hematemesis, abdominal pain, diarrhea, constipation, hematochezia, melena : No irregular bleeding, dysuria, frequency, urgency, hesitancy, hematuria, flank pain, urinary flow changes, urinary incontinence or retention MSK: No back pain, neck pain, joint pain, myalgias Skin: No lesions, rashes Neuro: No weakness, numbness, paresthesias, LOC, dizziness, headache Psych: No anxiety/panic, HI, AH/VH, +SI, +depression All other systems reviewed and are negative. [facility], [facility] Past Medical History Attestation statement: The following information was validated with the patient. Source: old records reviewed and nursing notes reviewed Social History Social History Household Members: Family Housing: House Do you presently have visiting nurse or other home services: No Alcohol intake: current Alcohol intake frequency: a few times a week Patient Tobacco Use Status: Current someday Tobacco user Tobacco use type: Cigarette Smoked in Last 30 Days: Yes e-Cigarette/Vaping Use: Never Used Patient Interested in Nicotine Replacement: No Use of substances other than those prescribed or required for medical reasons: Yes Substance Use Type: Marijuana Last Used Substance: Unknown Advance Directives: No Advance Directives Information Provided: Yes Do you have a plan to hurt others: No Plan Recently lost weight without trying: No Nutrition Risks: No Nutritional Risk service: No Sexual orientation: Straight/Heterosexual Physical Exam 2 Vital Signs: Vital Signs: Last Vital Signs Temp 98.2 F 12/18/24 13:40 Pulse 106 H 12/18/24 13:40 Resp 18 12/18/24 13:40 BP 174/115 H 12/18/24 13:40 Pulse Ox 96 12/18/24 13:40 O2 Del Method Room Air 12/18/24 13:40 BMI result Body Mass Index 35.9 hypertensive, vitals are otherwise wnl General: in NAD. Skin: Warm, dry, intact. No rashes or lesions. Head: Normocephalic, atraumatic. EENT: Hearing is intact b/l. Conjunctiva clear. Sclera is anicteric. PERRLA. EOM intact. Moist mucous membranes.? Cardiac: Chest wall symmetric. RRR Lungs: Normal respiratory effort without accessory muscle use. CTA bilaterally. Abdomen: Soft, non-tender, non-distended. No rebound tenderness or guarding. Positive BS x4. Back: No midline spinous or paraspinal tenderness. No step off deformity. Ext: Upper and lower extremities atraumatic, without tenderness, deformity, swelling or erythema Neuro: AOx3. Normal speech. CN 2-12 grossly intact. Ambulating with steady gait. Psych: flat affect, avoids eye contact Course Course Course Narrative: 1424 -- CBC without leukocytosis or left shift. Normocytic anemia, H and H stable when compared to priors, above transfusion threshold. Chemistry without acute electrolyte abnormality requiring intervention. No ANALISA. Fasting glucose elevated to 303, treated with 1 L of IV fluids with improvement. Troponin undetectable. EKG showing normal sinus rhythm, rate of 84 beats per minute, no acute ischemic changes or ST elevations. Liver function WNL. Salicylates, acetaminophen undetectable. Ethanol 12. Patient does admit to drinking recently however reported that he last consumed alcohol 2-3 days ago. > at this time, patient is medically cleared. He will be brought over to the behavioral health pod. Pending care team evaluation. Placed in physician observation. Reevaluation(s) Reevaluation #1: DR. Jiménez's Progress note:12/18/2024 8;40. No events overnight, home medication reconciliation was done, VSS, no event reported by nursing overnight, inpatient bed search is underway, Continue with physician observation. Time: 08:40 Medications Administered Generic Name Dose Route Start Last Admin Trade Name Freq PRN Reason Stop Dose Admin Amlodipine Besylate 10 mg 12/18/24 09:00 12/18/24 12:04 Amlodipine Besylate 10 Mg Tablet PO Not Given DAILY YESSY Protocol Atorvastatin Calcium 20 mg 12/18/24 09:00 12/18/24 12:04 Atorvastatin Calcium 20 Mg Tablet PO 20 mg DAILY YESSY Administration Benztropine Mesylate 1 mg 12/18/24 09:00 12/18/24 12:05 Benztropine Mesylate 1 Mg Tablet PO 1 mg BEDTIME YESSY Administration Divalproex Sodium 500 mg 12/18/24 09:00 12/18/24 12:05 Divalproex Sodium 500 Mg Tablet.Dr PO 500 mg BID YESSY Administration Escitalopram Oxalate 10 mg 12/18/24 09:00 12/18/24 12:04 Escitalopram Oxalate 10 Mg Tablet PO 10 mg DAILY YESSY Administration Insulin Glargine 15 unit 12/18/24 09:00 12/18/24 11:41 Insulin Glargine,Hum.Rec.Anlog 100 Unit/Ml 10 Ml Vial SUBCUT Not Given BEDTIME YESSY Lisinopril 10 mg 12/18/24 09:00 12/18/24 12:05 Lisinopril 10 Mg Tablet PO 10 mg DAILY YESSY Administration Protocol Metformin HCl 500 mg 12/18/24 09:00 12/18/24 12:05 Metformin Hcl 500 Mg Tablet PO 500 mg BID YESSY Administration Paliperidone 6 mg 12/18/24 09:00 12/18/24 12:04 Paliperidone Er 6 Mg Tab.Er.24 PO 6 mg DAILY YESSY Administration Discontinued Medications Generic Name Dose Route Start Last Admin Trade Name Freq PRN Reason Stop Dose Admin Amlodipine Besylate 10 mg 12/18/24 06:24 12/18/24 06:27 Amlodipine Besylate 10 Mg Tablet PO 12/18/24 06:25 10 mg ONCE ONE Administration Protocol Sodium Chloride 1,000 mls @ 999 mls/hr 12/17/24 11:30 12/17/24 14:56 Ns IV 12/17/24 12:30 Infused .Q1H1M YESSY Infusion Ibuprofen 600 mg 12/17/24 11:10 12/17/24 13:18 Ibuprofen 600 Mg Tablet PO 12/17/24 11:11 600 mg ONCE ONE Administration Medical Decision Making Medical Decision Making [facility] Narrative: 49 year old male with past medical history significant for depression, type 2 diabetes, GERD, hypertension, insomnia presents to the ED today via EMS for evaluation of depression and suicidal ideation. Differential diagnosis includes anemia, electrolyte abnormality, mood disorder, anxiety, depression, SI, polysubstance abuse Presentation not consistent with acute organic causes to include delirium, dementia or drug induced disorders (acute ingestions or withdrawal; no evidence of toxidrome).? Given the H&P, I suspect this patient is suicidal and will require observation. Will consult care team to evaluate the patient. Will also obtain labs for medical clearance. Plan: labs, EKG, ASA/APAP levels, ETOH level, UDS, care team consultation, reassessment Differential Diagnosis Differential Diagnoses: The differential diagnosis associated with the presentation includes as above. Admission/Observation Consideration of admission/observation: Escalation of care including admission/observation considered Lab Data [facility] Lab Attestation statement: I reviewed the patient's lab results. as above. 12/17/24 11:02 12/17/24 11:02 Labs: Lab Results 12/17/24 12/17/24 12/17/24 Range/Units 11:02 11:44 13:30 WBC 5.1 (4.8-10.8) X10*3/uL RBC 4.71 (4.60-5.80) X10*6/uL Hgb 12.8 L (14.0-18.0) g/dl Hct 37.8 L (42.0-52.0) % MCV 80.3 (80.0-98.0) fL MCH 27.2 (27.0-33.0) pg MCHC 33.9 (31.0-36.0) g/dl RDW 12.2 (11.0-16.0) % Plt Count 214 (160-400) X10*3/uL MPV 9.6 (9.4-12.4) fL Immature Gran % (Auto) 0.2 (0.0-0.4) % Neut % (Auto) 49.7 (45-73) % Lymph % (Auto) 40.0 (20-40) % [place] % (Auto) 8.1 (2-11) % Eos % (Auto) 1.6 (0-4) % Baso % (Auto) 0.4 (0-2) % Lymph # (Auto) 2.0 (1.2-4.9) X10*3/uL [place] # (Auto) 0.4 (0.1-1.2) X10*3/uL Eos # (Auto) 0.1 (0.0-0.4) X10*3/uL Baso # (Auto) 0.0 (0.0-0.2) X10*3/uL Abs Immat Gran (auto) 0.01 (0.00-0.03) X10*3/uL Absolute Neuts (auto) 2.5 (2.0-8.3) x10*3/uL Absolute Nucleated RBC 0.000 (0.0-0.012) X10*3/uL Nucleated RBC % (auto) 0.0 (0.0-0.2) /100WBC Sodium 139 (135-145) mmol/L Potassium 3.6 (3.3-5.1) mmol/L Chloride 105 (96-108) mmol/L Carbon Dioxide 25 (22-29) mmol/L Anion Gap 13 (12-20) BUN 15 (9-16) mg/dL Creatinine 1.07 (0.5-1.4) mg/dL Estim Creat Clear Calc 106.4 Estimated GFR > 60 POC Glucose (60-115) mg/dL Fasting Glucose 303 H (60-99) mg/dL Calcium 9.1 (8.4-10.2) mg/dL Total Bilirubin 0.6 (0.0-1.0) mg/dL Direct Bilirubin 0.3 (0.0-0.5) mg/dL AST 36 (5-37) U/L ALT 30 (0-40) U/L Alkaline Phosphatase 44 (39-117) U/L Troponin I High Sens < 2.7 D (<3.5-35.0) ng/L Total Protein 7.1 (6.5-8.0) g/dL Albumin 4.2 (3.5-5.0) g/dL Urine Color Yellow Urine Appearance Clear Urine pH 6.0 (5.0-9.0) Ur Specific Mays 1.020 (1.005-1.025) Urine Protein Negative (Neg-Trace) mg/dL Urine Glucose (UA) >=1000 H (Negative) mg/dL Urine Ketones Trace (Negative) mg/dL Urine Blood Trace (Negative) Urine Nitrite Negative (Negative) Ur Leukocyte Esterase Negative (Negative) Urine RBC 0-2 (0-2) /HPF Urine WBC 0-5 (0-5) /HPF Ur Squamous Epith Cells 3-5 (0-2) /HPF Urine Bacteria None Seen (None Seen) Hyaline Casts 0-2 (0-2) /LPF Salicylates < 5.0 L (15-30) mg/dL Urine Opiates Screen Not Detected (Not Detect) Ur Buprenorphine Scrn Not Detected (Not Detect) ng/mL Ur Oxycodone Screen Not Detected (Not Detect) ng/mL Urine Methadone Screen Not Detected (Not Detect) ng/mL Urine Fentanyl Screen Not Detected (Not Detect) Acetaminophen < 3 (<30) mcg/mL Ur Barbiturates Screen Not Detected (Not Detect) Ur Phencyclidine Scrn Not Detected (Not Detect) Ur Amphetamines Screen Not Detected (Not Detect) U Benzodiazepines Scrn Not Detected (Not Detect) Urine Cocaine Screen Not Detected (Not Detect) U Marijuana (THC) Screen Not Detected (Not Detect) Ethyl Alcohol 12 mg/dL 12/17/24 Range/Units 14:17 WBC (4.8-10.8) X10*3/uL RBC (4.60-5.80) X10*6/uL Hgb (14.0-18.0) g/dl Hct (42.0-52.0) % MCV (80.0-98.0) fL MCH (27.0-33.0) pg MCHC (31.0-36.0) g/dl RDW (11.0-16.0) % Plt Count (160-400) X10*3/uL MPV (9.4-12.4) fL Immature Gran % (Auto) (0.0-0.4) % Neut % (Auto) (45-73) % Lymph % (Auto) (20-40) % [place] % (Auto) (2-11) % Eos % (Auto) (0-4) % Baso % (Auto) (0-2) % Lymph # (Auto) (1.2-4.9) X10*3/uL [place] # (Auto) (0.1-1.2) X10*3/uL Eos # (Auto) (0.0-0.4) X10*3/uL Baso # (Auto) (0.0-0.2) X10*3/uL Abs Immat Gran (auto) (0.00-0.03) X10*3/uL Absolute Neuts (auto) (2.0-8.3) x10*3/uL Absolute Nucleated RBC (0.0-0.012) X10*3/uL Nucleated RBC % (auto) (0.0-0.2) /100WBC Sodium (135-145) mmol/L Potassium (3.3-5.1) mmol/L Chloride (96-108) mmol/L Carbon Dioxide (22-29) mmol/L Anion Gap (12-20) BUN (9-16) mg/dL Creatinine (0.5-1.4) mg/dL Estim Creat Clear Calc Estimated GFR POC Glucose 247 H (60-115) mg/dL Fasting Glucose (60-99) mg/dL Calcium (8.4-10.2) mg/dL Total Bilirubin (0.0-1.0) mg/dL Direct Bilirubin (0.0-0.5) mg/dL AST (5-37) U/L ALT (0-40) U/L Alkaline Phosphatase (39-117) U/L Troponin I High Sens (<3.5-35.0) ng/L Total Protein (6.5-8.0) g/dL Albumin (3.5-5.0) g/dL Urine Color Urine Appearance Urine pH (5.0-9.0) Ur Specific Mays (1.005-1.025) Urine Protein (Neg-Trace) mg/dL Urine Glucose (UA) (Negative) mg/dL Urine Ketones (Negative) mg/dL Urine Blood (Negative) Urine Nitrite (Negative) Ur Leukocyte Esterase (Negative) Urine RBC (0-2) /HPF Urine WBC (0-5) /HPF Ur Squamous Epith Cells (0-2) /HPF Urine Bacteria (None Seen) Hyaline Casts (0-2) /LPF Salicylates (15-30) mg/dL Urine Opiates Screen (Not Detect) Ur Buprenorphine Scrn (Not Detect) ng/mL Ur Oxycodone Screen (Not Detect) ng/mL Urine Methadone Screen (Not Detect) ng/mL Urine Fentanyl Screen (Not Detect) Acetaminophen (<30) mcg/mL Ur Barbiturates Screen (Not Detect) Ur Phencyclidine Scrn (Not Detect) Ur Amphetamines Screen (Not Detect) U Benzodiazepines Scrn (Not Detect) Urine Cocaine Screen (Not Detect) U Marijuana (THC) Screen (Not Detect) Ethyl Alcohol mg/dL Independent Interpretation I performed an independent interpretation of an: EKG Interpretation: ekg showing NSR with rate of 84 bpm, QT 380, QTC 449, no acute ishemic change or st elevations Radiology Impression Discussion of test interpretation with radiology: I have reviewed the radiologist's reading. Radiologist Impression: Date of Service: 12/17/24 Procedure(s): ECG 12 lead EKG Accession Number(s): [id number] cc: ~ Test Reason : HTN Blood Pressure : */* mmHG Vent. Rate : 84 BPM Atrial Rate : 84 BPM P-R Int : 154 ms QRS Dur : 84 ms QT Int : 380 ms P-R-T Axes : 33 9 11 degrees QTcB Int : 449 ms Normal sinus rhythm Normal ECG When compared with ECG of 14-Feb-2023 12:43, Vent. rate has decreased by 46 bpm Referred By: Generic ED Physician Electronically Signed By: External Record Review External record reviewed: Inpatient record Chronic Conditions Patient?s care impacted by: Diabetes and Hypertension Social Determinants Patient?s care significantly limited by Social Determinants of Health including: Other Social Determinant of Health Critical Care Time Critical Care Time Critical Care Time: No Discharge Plan Discharge Clinical Impression: Depression, Suicidal ideation, Atypical chest pain Patient Disposition: Admitted As Inpatient Interventions: Admission Worksheet (ED) Last Done: 12/18/24 13:26 Discharge Date/Time: 12/18/24 13:26
[2024-12-17 11:07] LABS: MANUAL DIFF FLAG NO
[2024-12-17 11:08] LABS: Hematocrit 37.8 % (42.0-52.0); Hemoglobin 12.8 g/dl (14.0-18.0); Imm Gran Abs Auto 0.01 X10*3/uL (0.00-0.03); Imm Gran Pct Auto 0.2 % (0.0-0.4); Lymphocytes Absolute Auto 2.0 X10*3/uL (1.2-4.9); Mean Corpuscular HGB Conc 33.9 g/dl (31.0-36.0); Mean Corpuscular Hemoglobin 27.2 pg (27.0-33.0); Mean Corpuscular Volume 80.3 fL (80.0-98.0); NRBC Abs Auto 0.000 X10*3/uL (0.0-0.012); NRBC Pct Auto 0.0 /100WBC (0.0-0.2); Platelet Count 214 X10*3/uL (160-400); Red Blood Count 4.71 X10*6/uL (4.60-5.80); White Blood Count 5.1 X10*3/uL (4.8-10.8)
[2024-12-17 11:21] LABS: Anion Gap 13 (12-20); Blood Urea Nitrogen 15 mg/dL (9-16); Calcium 9.1 mg/dL (8.4-10.2); Carbon Dioxide 25 mmol/L (22-29); Chloride 105 mmol/L (96-108); Creatinine Clr Calc Pharmacy 106.4; Estimated Glomerular Filt Rate > 60; Potassium 3.6 mmol/L (3.3-5.1); Sodium 139 mmol/L (135-145)
[2024-12-17 11:32] LABS: Troponin-I High Sensitivity < 2.7 ng/L (<3.5-35.0)
[2024-12-17 12:10] LABS: Alanine Aminotransferase 30 U/L (0-40); Albumin Level 4.2 g/dL (3.5-5.0); Alkaline Phosphatase 44 U/L (39-117); Aspartate Amino Transferase 36 U/L (5-37); Total Protein 7.1 g/dL (6.5-8.0)
[2024-12-17 12:57] LABS: Acetaminophen LAB < 3 mcg/mL (<30); Salicylate < 5.0 mg/dL (15-30)
--- OUTSIDE RECORDS SUMMARY | 2024-12-17 13:01 | XMS_ITS | Clinical Summary ---
Author Organization [facility] Address [address] [place] [address] Phone Care Team Providers Care Senior Cost Estimator Name Role Phone Physician, No Pcp Primary [...] 104 07/30/2024 5:22 PM EST Temperature 36.8 C (98.2 F) 07/30/2024 5:22 PM EST Respiratory Rate 18 07/30/2024 12:13 PM EST [...] LAB CHEMISTRY METHOD 07/30/2024 11:43 AM EST [facility] Potassium 3.3(L) 3.5 - 5.5 mmol/L LAB CHEMISTRY METHOD 07/30/2024 11:43 AM EST [facility] Chloride 102 96 - 110 mmol/L LAB CHEMISTRY METHOD 07/30/2024 11:43 AM [facility] CO2 28 21 - 32 mmol/L LAB CHEMISTRY METHOD 07/30/2024 11:43 AM EST [facility] Anion Gap 6 3 - 11 LAB CHEMISTRY METHOD 07/30/2024 11:43 AM [facility] Glucose 251(H) 70 - 100 mg/dL LAB CHEMISTRY METHOD 07/30/2024 11:43 AM [facility] BUN 15 5 - 25 mg/dL LAB CHEMISTRY METHOD 07/30/2024 11:43 AM [facility] Creatinine 1.17 0.70 - 1.30 mg/dL LAB CHEMISTRY METHOD 07/30/2024 11:43 AM [facility] eGFR 77 >=60 mL/min/1. 73m2 LAB CHEMISTRY METHOD 07/30/2024 11:43 AM [facility] Comment:Calculation based on the Chronic Kidney Disease Epidemiology Collaboration (CKD-EPI) equation refit without adjustment for race. BUN/Creatinine Ratio 12.8 LAB CHEMISTRY METHOD 07/30/2024 11:43 AM [facility] Calcium 9.0 8.5 - 10.5 mg/dL LAB CHEMISTRY METHOD 07/30/2024 11:43 AM [facility] AST (SGOT) 42 10 - 42 unit/L LAB CHEMISTRY METHOD 07/30/2024 11:43 AM [facility] ALT (SGPT) 31 10 - 60 unit/L LAB CHEMISTRY METHOD 07/30/2024 11:43 AM [facility] Alkaline Phosphatase 53 42 - 121 unit/L LAB CHEMISTRY METHOD 07/30/2024 11:43 AM [facility] Total Protein 7.8 6.0 - 8.0 g/dL LAB CHEMISTRY METHOD 07/30/2024 11:43 AM [facility] Albumin 3.9 3.2 - 5.0 g/dL LAB CHEMISTRY METHOD 07/30/2024 11:43 AM [facility] Total Bilirubin 0.7 0.0 - 1.4 mg/dL LAB CHEMISTRY METHOD 07/30/2024 11:43 AM [facility] Blood Venous blood specimen / Unknown Venipuncture / Unknown 07/30/2024 10:43 AM EST 07/30/2024 11:00 AM EST us Luis Fernando Broussard MD LAB BLOOD ORDERABLES Shaista dewey Result [facility] [address] [place] [address], [place] [phone] from Last 3 Months or Most Recently Relevant to Health Maintenance Insurance [facility] MEDICARE Member Subscriber Plan / Payer (Ef fective 2015-Present) Name:Caryl Mccollum Relation to Subscriber:Self Name:Caryl Mccollum Payer ID:[id number] Group ID:[id number] Type:Not on file Address: [address] [id number] Care Teams Senior Cost Estimator Relationship Specialty Start Date End Date Physician, No Pcp PCP - General 07/30/24
[2024-12-17 13:40] LABS: Appearance Urine Clear; Glucose Urine UA >=1000 mg/dL (Negative); PH 6.0 (5.0-9.0); Specific Gravity - Urine 1.020 (1.005-1.025); UMIC TRIGGER UACC YES
[2024-12-17 13:51] LABS: Cannabinoid Screen Urine Not Detected (Not Detect)
[2024-12-17 14:21] LABS: Glucose, Whole Blood 247 mg/dL (60-115)
--- NOTE | 2024-12-17 14:21 | PC.NURSE ---
Pt calm, cooperative with care; pt with poor eye contact and one-word answers to questions at this time; IVF's infused per orders
--- NOTE | 2024-12-17 17:31 | PC.NURSE ---
Care Team staff at bedside for eval
[2024-12-17 18:17] VITALS: BP 142/88; PULSE 84; RESP 16; TEMP 36.7; O2SAT 97
[2024-12-18 06:27] VITALS: BP 185/106
[2024-12-18 06:29] VITALS: BP 185/106; PULSE 70; RESP 18; TEMP 36.7; O2SAT 100
--- NOTE | 2024-12-18 11:19 | PC.NURSE ---
patient appears to be sleeping with even and unlabored respirations. previously up to use restroom and promptly went back to sleep.
[2024-12-18 12:03] VITALS: BP 166/97; PULSE 90; RESP 16; TEMP 36.6; O2SAT 95
--- NOTE | 2024-12-18 12:17 | PHA.MEDREC ---
Addendum entered by Kilo Ballard RP 12/18/24 12:21: Reviewed by [facility] Original Note: Pharmacy Consult ? Medication Reconciliation Pharmacy reviewed med rec done by nursing. Spoke with pt and he confirmed he is not compliant with taking his medications but confirmed the medications he has been taking up until about 1 weeks ago. Pt confirmed he was taking Lantus at night (pt states he stopped ~1 week ago) but couldn't remember how many units he was injecting.
[2024-12-18 13:40] VITALS: BP 174/115; PULSE 106; RESP 18; TEMP 36.8; O2SAT 96
--- NOTE | 2024-12-18 13:56 | HO.PSYADMNOT ---
[facility] Date of Service: 12/18/24 Chief Complaint: SI Sources of Information: patient interviewed, chart reviewed and crisis/core team assessment reviewed HPI Subjective Notes: Dowell Warning and Conditional Voluntary Narrative: Patient is a 49-year-old male with history of schizoaffective disorder and alcohol use disorder who presented to ER via EMS due to suicidal ideation with no plan secondary to increased depression and alcohol use. Per crisis report, patient reports he has been noncompliant with his prescribed Depakote and metformin for the last week. Patient reports he was spending time with the son but when he returned to the hotel he did not feel safe. He also reports his sister recently. Patient reports vague SI with no plan, however he reports he would harm himself if discharged. Patient reports both visual and auditory hallucinations and declines to provide further details. Denies HI. Patient denies having outpatient psychiatric providers. He has a PCP who he obtains his medications from. History of multiple inpatient psychiatric hospitalizations. History of aggression, paranoia and hallucinations; history of decompensation secondary to medication noncompliance. No reported history of suicide attempts or SIB. During admission assessment, patient presents alert and oriented x3. Calm and cooperative. Patient reports feeling depressed; patient stated, I have not taken my Depakote in a month. It makes me feel too sedated. It makes me feel like I don't want to do anything. I feel like my high blood pressure and metformin are the only meds I need . Patient reports that he has been taking Depakote since 1996. pt educated regarding importance of medication compliance. Patient reports daily marijuana use and drinking a beer a day; however Utox only positive for alcohol. Patient reports he does not have outpatient psychiatric providers and receives his medications from his PCP. He reports sleep and appetite are good. Patient currently denies SI/HI/VH/AH. Patient reports he is interested in being referred to a substance abuse program for treatment for alcohol use. Past Psychiatric History: History of multiple inpatient psychiatric hospitalizations. He reports he does not have outpatient psychiatric providers at this time. History of detox admissions. Denies history of SA/SIB. Medical Evaluation Reviewed: Yes [facility] Family History: Mother and sister: Schizophrenia Social History: Patient reports he lives between his dad and living at [facility]. Single. One adult son. Disability. Highest level of education completed high school diploma. Substance History: Patient reports daily marijuana use. He reports drinking 1 beer a day for the last year. Denies any other substance use. Utox positive for alcohol BAL on arrival to ER was 12. Trauma History: Denies Diagnostics Vital Signs (24Hr): Vital Signs - 24 hr 12/17/24 18:17 12/18/24 06:27 12/18/24 06:29 Temperature 98.0 F 98.1 F Pulse Rate 84 70 Respiratory Rate 16 18 Blood Pressure 142/88 H 185/106 H 185/106 H Pulse Oximetry 97 100 Oxygen Delivery Method Room Air Room Air 12/18/24 12:03 Temperature 97.8 F Pulse Rate 90 Respiratory Rate 16 Blood Pressure 166/97 H Pulse Oximetry 95 Oxygen Delivery Method Room Air BMI result Body Mass Index 35.9 Labs 12/17/24 11:02 12/17/24 11:02 Labs: Laboratory Results - last 48 hr 12/17/24 12/17/24 12/17/24 11:02 11:44 13:30 WBC 5.1 RBC 4.71 Hgb 12.8 L Hct 37.8 L MCV 80.3 MCH 27.2 MCHC 33.9 RDW 12.2 Plt Count 214 MPV 9.6 Immature Gran % (Auto) 0.2 Neut % (Auto) 49.7 Lymph % (Auto) 40.0 [place] % (Auto) 8.1 Eos % (Auto) 1.6 Baso % (Auto) 0.4 Lymph # (Auto) 2.0 [place] # (Auto) 0.4 Eos # (Auto) 0.1 Baso # (Auto) 0.0 Abs Immat Gran (auto) 0.01 Absolute Neuts (auto) 2.5 Absolute Nucleated RBC 0.000 Nucleated RBC % (auto) 0.0 Sodium 139 Potassium 3.6 Chloride 105 Carbon Dioxide 25 Anion Gap 13 BUN 15 Creatinine 1.07 Estim Creat Clear Calc 106.4 Estimated GFR > 60 POC Glucose Fasting Glucose 303 H Calcium 9.1 Total Bilirubin 0.6 Direct Bilirubin 0.3 AST 36 ALT 30 Alkaline Phosphatase 44 Troponin I High Sens < 2.7 D Total Protein 7.1 Albumin 4.2 Urine Color Yellow Urine Appearance Clear Urine pH 6.0 Ur Specific [place] 1.020 Urine Protein Negative Urine Glucose (UA) >=1000 H Urine Ketones Trace Urine Blood Trace Urine Nitrite Negative Ur Leukocyte Esterase Negative Urine RBC 0-2 Urine WBC 0-5 Ur Squamous Epith Cells 3-5 Urine Bacteria None Seen Hyaline Casts 0-2 Salicylates < 5.0 L Urine Opiates Screen Not Detected Ur Buprenorphine Scrn Not Detected Ur Oxycodone Screen Not Detected Urine Methadone Screen Not Detected Urine Fentanyl Screen Not Detected Acetaminophen < 3 Ur Barbiturates Screen Not Detected Ur Phencyclidine Scrn Not Detected Ur Amphetamines Screen Not Detected U Benzodiazepines Scrn Not Detected Urine Cocaine Screen Not Detected U Marijuana (THC) Screen Not Detected Ethyl Alcohol 12 12/17/24 14:17 WBC RBC Hgb Hct MCV MCH MCHC RDW Plt Count MPV Immature Gran % (Auto) Neut % (Auto) Lymph % (Auto) [place] % (Auto) Eos % (Auto) Baso % (Auto) Lymph # (Auto) [place] # (Auto) Eos # (Auto) Baso # (Auto) Abs Immat Gran (auto) Absolute Neuts (auto) Absolute Nucleated RBC Nucleated RBC % (auto) Sodium Potassium Chloride Carbon Dioxide Anion Gap BUN Creatinine Estim Creat Clear Calc Estimated GFR POC Glucose 247 H Fasting Glucose Calcium Total Bilirubin Direct Bilirubin AST ALT Alkaline Phosphatase Troponin I High Sens Total Protein Albumin Urine Color Urine Appearance Urine pH Ur Specific [place] Urine Protein Urine Glucose (UA) Urine Ketones Urine Blood Urine Nitrite Ur Leukocyte Esterase Urine RBC Urine WBC Ur Squamous Epith Cells Urine Bacteria Hyaline Casts Salicylates Urine Opiates Screen Ur Buprenorphine Scrn Ur Oxycodone Screen Urine Methadone Screen Urine Fentanyl Screen Acetaminophen Ur Barbiturates Screen Ur Phencyclidine Scrn Ur Amphetamines Screen U Benzodiazepines Scrn Urine Cocaine Screen U Marijuana (THC) Screen Ethyl Alcohol Meds/Allergies Meds Home Medications ?Medication ?Instructions ?Recorded ?Confirmed ?Type acetaminophen 325 mg tablet 650 mg PO TID PRN pain 11/16/24 12/18/24 History amlodipine 10 mg tablet 10 mg PO DAILY 11/16/24 12/17/24 History atorvastatin 20 mg tablet 20 mg PO DAILY 11/16/24 12/17/24 History benztropine 1 mg tablet 1 mg PO BEDTIME 11/16/24 12/18/24 History clonidine HCl 0.1 mg tablet 0.1 mg PO TID PRN blood pressure 11/16/24 12/18/24 History divalproex 500 mg tablet,delayed 500 mg PO BID depressive disorder 11/16/24 12/18/24 History release escitalopram oxalate 10 mg tablet 10 mg PO DAILY depressive disorder 11/16/24 12/18/24 History hydroxyzine pamoate 25 mg capsule 25 mg PO TID PRN anxiety 11/16/24 12/18/24 History insulin glargine 100 unit/mL 15 unit subcut BEDTIME diabetes 11/16/24 12/18/24 History subcutaneous solution (Lantus mellitus U-100 Insulin) lisinopril 10 mg tablet 10 mg PO DAILY blood pressure 11/16/24 12/18/24 History metformin 500 mg tablet 500 mg PO BID 11/16/24 12/18/24 History nicotine (polacrilex) 2 mg gum 2 mg PO QID PRN nicotine cravings 11/16/24 12/18/24 History paliperidone 6 mg tablet,extended 6 mg PO DAILY psychosis 11/16/24 12/18/24 History release 24 hr pantoprazole 40 mg tablet,delayed 40 mg PO DAILY 11/16/24 12/18/24 History release trazodone 50 mg tablet 50 mg PO BEDTIME PRN insomnia 11/16/24 12/18/24 History Allergies Allergies Allergy/AdvReac Type Severity Reaction Status Date / Time No Known Allergies Allergy Verified 12/17/24 10:46 Mental Status Exam Mental Status Exam Patient Appearance: Appropriate Patient Orientation: Person, Place, Time and Situation Level of Consciousness: Awake and Alert Patient Behavior: Appropriate, Guarded and Cooperative Mood Description: Depressed Affect Description: Depressed Ability to Follow Directions: Good Speech Pattern: Clear Memory Description: Intact Hallucinations: None Delusions: Not Present Thought Process: Intact and Goal Oriented Thought Content: positive for Intact Assessment & Plan Assessment & Plan (1) Schizoaffective disorder: Status: Acute Code(s): F25.9 - Schizoaffective disorder, unspecified (2) Alcohol use disorder: Status: Acute Code(s): F10.90 - Alcohol use, unspecified, uncomplicated Plan Patient is a 49-year-old male with history of schizoaffective disorder and alcohol use disorder who presented to ER via EMS due to suicidal ideation with no plan secondary to increased depression and alcohol use. Plan: CV 15 minute safety checks Continue home medications [facility] protocol Obtain collateral Referral to outpatient psychiatric providers Referral to substance abuse program Encourage groups Discharge planning Patient educated on: diagnosis and medication risk/benefits Reason for continued inpatient stay Substantial Risk for: med/psych decompensation Statement Statement: I have reviewed the history and physical and performed a pertinent examination on my patient. No changes have occurred unless specified. If the History and Physical was not performed prior to admission, the Hospitalist's service will be consulted for completing the admission physical. Time Spent With Patient Time: Total time managing care of this patient today _60___ minutes.
[2024-12-18 14:03] VITALS: BMI 38.5
--- NOTE | 2024-12-18 14:47 | PC.ADMIT ---
49 y/o male admitted to at 1328 from [facility] for depression, SI, and ETOH use. Pt reported he stopped taking Depakote about a month ago because It makes me feel too sedated. It makes me feel like I don't want to do anything.? I feel like my high blood pressure and Metformin are the only meds I need , however pt reported to ED that he had not taken any of his medications for the past week. Pt noted to have elevated BP and POCs in ED.? Pt reported hx of multiple psych admissions, as well as past substance use treatment programs. Pt reported daily longstanding ETOH use, estimated around 1-2 beers per day, as well as daily marijuana use. Pt reported past Cocaine use, but denied recent use. Utox positive for alcohol only, with BAL 12. Pt denied outpatient psychiatric providers, and stated his PCP currently prescribes all of his medications. Pt denied active thoughts to hurt self or others, and denied AVH. However pt endorsed high depression. Pt calm and cooperative with admission process. Pt reported he technically lives with his father, but ?we don?t get along? and stated that he alternates staying at his son?s home or at a hotel. Pt reported a desire to stop drinking alcohol and requested a consult with Addictions Medicine. Pt also reported interest in substance abuse treatment, and reported past admissions to [facility], and [facility]. Pt is an occasional nicotine user but declined NRT. Pt reported he was interested in meeting with the hospital quality assurance qa lab analyst this admission. Pt oriented to the unit, placed on CIWA protocol and 15 minute checks for safety.
[2024-12-18 17:26] LABS: Glucose, Whole Blood 242 mg/dL (60-115)
[2024-12-18 20:00] VITALS: BP 161/96; PULSE 88; TEMP 37.1; O2SAT 97
[2024-12-18 21:30] LABS: Glucose, Whole Blood 293 mg/dL (60-115)
[2024-12-18] MEDS: Insulin Glargine,Hum.rec.anlog 100 UNIT/ML 10 ML VIAL 15 UNIT SUBCUT (21:49)
[2024-12-18 21:55] VITALS: BP 161/96
[2024-12-19 08:10] LABS: Glucose, Whole Blood 214 mg/dL (60-115)
[2024-12-19 08:12] VITALS: BP 136/80; PULSE 103; RESP 16; TEMP 36.4; O2SAT 97
[2024-12-19 08:32] LABS: Hemoglobin A1C 361.1694 umol/L; Total Hemoglobin (HGBA1C) 3434.5383 umol/L
[2024-12-19 08:41] LABS: Alanine Aminotransferase 21 U/L (0-40); Albumin Level 3.9 g/dL (3.5-5.0); Alkaline Phosphatase 40 U/L (39-117); Anion Gap 14 (12-20); Aspartate Amino Transferase 26 U/L (5-37); Blood Urea Nitrogen 13 mg/dL (9-16); Calcium 9.1 mg/dL (8.4-10.2); Carbon Dioxide 24 mmol/L (22-29); Chloride 105 mmol/L (96-108); Cholesterol 156 mg/dL (<200); Creatinine Clr Calc Pharmacy 135.8; Estimated Glomerular Filt Rate > 60; HDL Cholesterol 35 mg/dL (>40); Potassium 3.7 mmol/L (3.3-5.1); Sodium 139 mmol/L (135-145); Total Protein 6.9 g/dL (6.5-8.0); Triglycerides 101 mg/dL (<150)
--- NOTE | 2024-12-19 10:55 | HO.PSYADMNOT ---
HPI Date of Service: 12/19/24 Chief Complaint: SI Sources of Information: patient interviewed, chart reviewed and crisis/core team assessment reviewed HPI Subjective Notes: Dowell Warning and Conditional Voluntary Healthcare Proxy: No Guardianship: No Medical Problems Affecting Mental Status: No Narrative: 49 yo male, hx of schizoaffective disorder, homeless, to ER with EMS, reporting increase in depression, alcohol abuse and SI. Reports non compliance with medication for a few weeks he reports to tw and a week to ER. Pt reports he is living with his 29 yo son in a hotel- I did not feel really safe there. As a result, he called for help. Reports the passing of his sister recently and other family members which has been on his mind as well. Pt reports his son will be his [employer]PERVIS[employer]. Pt reports I have got to get stable, I want to be there for my son. We need to find secure housing. Something always happens when I am in the intermediate, it just never goes OK. I can and want to work, whatever is available. Past Psychiatric History: History of multiple inpatient psychiatric hospitalizations. He reports he does not have outpatient psychiatric providers at this time. History of detox admissions. Denies history of SA/SIB. Medical Evaluation Reviewed: Yes [facility] Family History: Mother and sister: Schizophrenia Social History: Patient reports he lives between his dad and living at [facility]. Single. One adult son. Disability. Highest level of education completed high school diploma. Substance History: alcohol, BAL 12 Reports 2 nips and a beer, daily Trauma History: Denies Diagnostics Vital Signs (24Hr): Vital Signs - 24 hr 12/18/24 12:03 12/18/24 13:40 12/18/24 20:00 Temperature 97.8 F 98.2 F 98.8 F Pulse Rate 90 106 H 88 Respiratory Rate 16 18 Blood Pressure 166/97 H 174/115 H 161/96 H Pulse Oximetry 95 96 97 Oxygen Delivery Method Room Air Room Air Room Air 12/18/24 21:55 12/19/24 08:12 Temperature 97.6 F Pulse Rate 103 H Respiratory Rate 16 Blood Pressure 161/96 H 136/80 Pulse Oximetry 97 Oxygen Delivery Method Room Air BMI result Body Mass Index 38.5 Labs 12/17/24 11:02 12/19/24 08:02 Labs: Laboratory Results - last 48 hr 12/17/24 12/17/24 12/17/24 11:02 11:44 13:30 WBC 5.1 RBC 4.71 Hgb 12.8 L Hct 37.8 L MCV 80.3 MCH 27.2 MCHC 33.9 RDW 12.2 Plt Count 214 MPV 9.6 Immature Gran % (Auto) 0.2 Neut % (Auto) 49.7 Lymph % (Auto) 40.0 [place] % (Auto) 8.1 Eos % (Auto) 1.6 Baso % (Auto) 0.4 Lymph # (Auto) 2.0 [place] # (Auto) 0.4 Eos # (Auto) 0.1 Baso # (Auto) 0.0 Abs Immat Gran (auto) 0.01 Absolute Neuts (auto) 2.5 Absolute Nucleated RBC 0.000 Nucleated RBC % (auto) 0.0 Sodium 139 Potassium 3.6 Chloride 105 Carbon Dioxide 25 Anion Gap 13 BUN 15 Creatinine 1.07 Estim Creat Clear Calc 106.4 Estimated GFR > 60 POC Glucose Random Glucose Fasting Glucose 303 H Estimat Average Glucose Hemoglobin A1c % Calcium 9.1 Total Bilirubin 0.6 Direct Bilirubin 0.3 AST 36 ALT 30 Alkaline Phosphatase 44 Troponin I High Sens < 2.7 D Total Protein 7.1 Albumin 4.2 Triglycerides Cholesterol LDL Cholesterol, Calc HDL Cholesterol Urine Color Yellow Urine Appearance Clear Urine pH 6.0 Ur Specific [place] 1.020 Urine Protein Negative Urine Glucose (UA) >=1000 H Urine Ketones Trace Urine Blood Trace Urine Nitrite Negative Ur Leukocyte Esterase Negative Urine RBC 0-2 Urine WBC 0-5 Ur Squamous Epith Cells 3-5 Urine Bacteria None Seen Hyaline Casts 0-2 Salicylates < 5.0 L Urine Opiates Screen Not Detected Ur Buprenorphine Scrn Not Detected Ur Oxycodone Screen Not Detected Urine Methadone Screen Not Detected Urine Fentanyl Screen Not Detected Acetaminophen < 3 Ur Barbiturates Screen Not Detected Ur Phencyclidine Scrn Not Detected Ur Amphetamines Screen Not Detected U Benzodiazepines Scrn Not Detected Urine Cocaine Screen Not Detected U Marijuana (THC) Screen Not Detected Ethyl Alcohol 12 12/17/24 12/18/24 12/18/24 14:17 17:19 21:11 WBC RBC Hgb Hct MCV MCH MCHC RDW Plt Count MPV Immature Gran % (Auto) Neut % (Auto) Lymph % (Auto) [place] % (Auto) Eos % (Auto) Baso % (Auto) Lymph # (Auto) [place] # (Auto) Eos # (Auto) Baso # (Auto) Abs Immat Gran (auto) Absolute Neuts (auto) Absolute Nucleated RBC Nucleated RBC % (auto) Sodium Potassium Chloride Carbon Dioxide Anion Gap BUN Creatinine Estim Creat Clear Calc Estimated GFR POC Glucose 247 H 242 H 293 H Random Glucose Fasting Glucose Estimat Average Glucose Hemoglobin A1c % Calcium Total Bilirubin Direct Bilirubin AST ALT Alkaline Phosphatase Troponin I High Sens Total Protein Albumin Triglycerides Cholesterol LDL Cholesterol, Calc HDL Cholesterol Urine Color Urine Appearance Urine pH Ur Specific [place] Urine Protein Urine Glucose (UA) Urine Ketones Urine Blood Urine Nitrite Ur Leukocyte Esterase Urine RBC Urine WBC Ur Squamous Epith Cells Urine Bacteria Hyaline Casts Salicylates Urine Opiates Screen Ur Buprenorphine Scrn Ur Oxycodone Screen Urine Methadone Screen Urine Fentanyl Screen Acetaminophen Ur Barbiturates Screen Ur Phencyclidine Scrn Ur Amphetamines Screen U Benzodiazepines Scrn Urine Cocaine Screen U Marijuana (THC) Screen Ethyl Alcohol 12/19/24 12/19/24 08:02 08:07 WBC RBC Hgb Hct MCV MCH MCHC RDW Plt Count MPV Immature Gran % (Auto) Neut % (Auto) Lymph % (Auto) [place] % (Auto) Eos % (Auto) Baso % (Auto) Lymph # (Auto) [place] # (Auto) Eos # (Auto) Baso # (Auto) Abs Immat Gran (auto) Absolute Neuts (auto) Absolute Nucleated RBC Nucleated RBC % (auto) Sodium 139 Potassium 3.7 Chloride 105 Carbon Dioxide 24 Anion Gap 14 BUN 13 Creatinine 0.87 Estim Creat Clear Calc 135.8 Estimated GFR > 60 POC Glucose 214 H Random Glucose 240 H Fasting Glucose Estimat Average Glucose 292 Hemoglobin A1c % 11.8 H Calcium 9.1 Total Bilirubin 0.5 Direct Bilirubin AST 26 ALT 21 Alkaline Phosphatase 40 Troponin I High Sens Total Protein 6.9 Albumin 3.9 Triglycerides 101 Cholesterol 156 LDL Cholesterol, Calc 101 H HDL Cholesterol 35 L Urine Color Urine Appearance Urine pH Ur Specific [place] Urine Protein Urine Glucose (UA) Urine Ketones Urine Blood Urine Nitrite Ur Leukocyte Esterase Urine RBC Urine WBC Ur Squamous Epith Cells Urine Bacteria Hyaline Casts Salicylates Urine Opiates Screen Ur Buprenorphine Scrn Ur Oxycodone Screen Urine Methadone Screen Urine Fentanyl Screen Acetaminophen Ur Barbiturates Screen Ur Phencyclidine Scrn Ur Amphetamines Screen U Benzodiazepines Scrn Urine Cocaine Screen U Marijuana (THC) Screen Ethyl Alcohol Meds/Allergies Meds Home Medications ?Medication ?Instructions ?Recorded ?Confirmed ?Type acetaminophen 325 mg tablet 650 mg PO TID PRN pain 11/16/24 12/18/24 History amlodipine 10 mg tablet 10 mg PO DAILY 11/16/24 12/17/24 History atorvastatin 20 mg tablet 20 mg PO DAILY 11/16/24 12/17/24 History benztropine 1 mg tablet 1 mg PO BEDTIME 11/16/24 12/18/24 History clonidine HCl 0.1 mg tablet 0.1 mg PO TID PRN blood pressure 11/16/24 12/18/24 History divalproex 500 mg tablet,delayed 500 mg PO BID depressive disorder 11/16/24 12/18/24 History release escitalopram oxalate 10 mg tablet 10 mg PO DAILY depressive disorder 11/16/24 12/18/24 History hydroxyzine pamoate 25 mg capsule 25 mg PO TID PRN anxiety 11/16/24 12/18/24 History insulin glargine 100 unit/mL 15 unit subcut BEDTIME diabetes 11/16/24 12/18/24 History subcutaneous solution (Lantus mellitus U-100 Insulin) lisinopril 10 mg tablet 10 mg PO DAILY blood pressure 11/16/24 12/18/24 History metformin 500 mg tablet 500 mg PO BID 11/16/24 12/18/24 History nicotine (polacrilex) 2 mg gum 2 mg PO QID PRN nicotine cravings 11/16/24 12/18/24 History paliperidone 6 mg tablet,extended 6 mg PO DAILY psychosis 11/16/24 12/18/24 History release 24 hr pantoprazole 40 mg tablet,delayed 40 mg PO DAILY 11/16/24 12/18/24 History release trazodone 50 mg tablet 50 mg PO BEDTIME PRN insomnia 11/16/24 12/18/24 History Allergies Allergies Allergy/AdvReac Type Severity Reaction Status Date / Time No Known Allergies Allergy Verified 12/17/24 10:46 Mental Status Exam Mental Status Exam Patient Appearance: Fatigued and Appropriate Patient Orientation: Person, Place, Time and Situation Level of Consciousness: Alert Patient Behavior: Talkative Mood Description: Withdrawn and Depressed Affect Description: Withdrawn and Flat Patient Cognition Impaired: No Ability to Follow Directions: Good Speech Pattern: Spontaneous Speech Hallucinations: None Delusions: Not Present Thought Process: Rumination and Goal Oriented Thought Content: positive for Preoccupation, positive for Thought Blocking and positive for Suicidal Ideation (Denies, wants help to get back on track) Judgement: Fair Assessment & Plan Assessment & Plan (1) Schizoaffective disorder: Status: Acute Code(s): F25.9 - Schizoaffective disorder, unspecified (2) Alcohol use disorder: Status: Acute Code(s): F10.90 - Alcohol use, unspecified, uncomplicated (3) Suicidal ideation: Status: Acute Code(s): R45.851 - Suicidal ideations (4) Depression: Status: Acute Code(s): F32.A - Depression, unspecified Plan Admit, CV, 15 minute checks Collateral contacts Diagnostics as needed Re-start previous regime, pt reports it to be effective and he wants to restabilize Encourage full milieu DC planning Pt is interested in [facility], Out pt referrals, and community resources that could help him look for housing Patient educated on: medication risk/benefits, substance abuse, therapeutic strategies and medical condition Reason for continued inpatient stay Substantial Risk for: rapid decompensation Statement Statement: I have reviewed the history and physical and performed a pertinent examination on my patient. No changes have occurred unless specified. If the History and Physical was not performed prior to admission, the Hospitalist's service will be consulted for completing the admission physical. Time Spent With Patient Time: Total time managing care of this patient today ____ minutes.
[2024-12-19 12:33] LABS: Glucose, Whole Blood 252 mg/dL (60-115)
[2024-12-19 17:06] LABS: Glucose, Whole Blood 229 mg/dL (60-115)
[2024-12-19 20:00] VITALS: BP 155/85; PULSE 87; RESP 16; TEMP 37.4; O2SAT 98
[2024-12-19 20:38] LABS: Glucose, Whole Blood 247 mg/dL (60-115)
[2024-12-19] MEDS: Insulin Glargine,Hum.rec.anlog 100 UNIT/ML 10 ML VIAL 15 UNIT SUBCUT (22:13)
[2024-12-20 08:00] VITALS: BP 172/98; PULSE 76; TEMP 36.9; O2SAT 99
[2024-12-20 08:16] LABS: Glucose, Whole Blood 219 mg/dL (60-115)
[2024-12-20] MEDS: Nicotine 21 MG PATCH.TD24 TRANSDERMA (08:24)
[2024-12-20 11:46] VITALS: BP 145/95; PULSE 91
[2024-12-20 12:04] LABS: Glucose, Whole Blood 289 mg/dL (60-115)
[2024-12-20 16:00] VITALS: BP 174/92; PULSE 91; RESP 18; TEMP 36.6; O2SAT 97
[2024-12-20 17:08] LABS: Glucose, Whole Blood 250 mg/dL (60-115)
--- NOTE | 2024-12-20 17:24 | HO.PSYCHPN ---
Subjective Subjective Date of Service: 12/20/24 Reason For Visit: SI Interim History: Patient is calm and cooperative. He is adherent to medications and is tolerating them well. He denies any side effects. He is somewhat guarded. Denies AVH. Denies SI. Review of Systems Review of Systems Pt denies sx of detox Mental Status Exam Mental Status Exam Patient Appearance: Fatigued and Appropriate Patient Orientation: Person, Place, Time and Situation Level of Consciousness: Alert Patient Behavior: Talkative Mood Description: Withdrawn and Depressed Affect Description: Withdrawn and Flat Patient Cognition Impaired: No Ability to Follow Directions: Good Speech Pattern: Spontaneous Speech Memory Description: Intact Diagnostics Vital Signs (24Hr): Vital Signs - 24 hr 12/19/24 20:00 12/20/24 08:00 12/20/24 11:46 Temperature 99.3 F 98.4 F Pulse Rate 87 76 91 Respiratory Rate 16 Blood Pressure 155/85 H 172/98 H 145/95 H Pulse Oximetry 98 99 Oxygen Delivery Method Room Air Room Air 12/20/24 16:00 Temperature 98 F Pulse Rate 91 Respiratory Rate 18 Blood Pressure 174/92 H Pulse Oximetry 97 Oxygen Delivery Method Room Air BMI result Body Mass Index 38.5 Labs 12/17/24 11:02 12/19/24 08:02 Labs: Laboratory Results - last 48 hr 12/18/24 12/18/24 12/19/24 17:19 21:11 08:02 Sodium 139 Potassium 3.7 Chloride 105 Carbon Dioxide 24 Anion Gap 14 BUN 13 Creatinine 0.87 Estim Creat Clear Calc 135.8 Estimated GFR > 60 POC Glucose 242 H 293 H Random Glucose 240 H Estimat Average Glucose 292 Hemoglobin A1c % 11.8 H Calcium 9.1 Total Bilirubin 0.5 AST 26 ALT 21 Alkaline Phosphatase 40 Total Protein 6.9 Albumin 3.9 Triglycerides 101 Cholesterol 156 LDL Cholesterol, Calc 101 H HDL Cholesterol 35 L 12/19/24 12/19/24 12/19/24 08:07 12:29 17:01 Sodium Potassium Chloride Carbon Dioxide Anion Gap BUN Creatinine Estim Creat Clear Calc Estimated GFR POC Glucose 214 H 252 H 229 H Random Glucose Estimat Average Glucose Hemoglobin A1c % Calcium Total Bilirubin AST ALT Alkaline Phosphatase Total Protein Albumin Triglycerides Cholesterol LDL Cholesterol, Calc HDL Cholesterol 12/19/24 12/20/24 12/20/24 20:33 08:10 12:00 Sodium Potassium Chloride Carbon Dioxide Anion Gap BUN Creatinine Estim Creat Clear Calc Estimated GFR POC Glucose 247 H 219 H 289 H Random Glucose Estimat Average Glucose Hemoglobin A1c % Calcium Total Bilirubin AST ALT Alkaline Phosphatase Total Protein Albumin Triglycerides Cholesterol LDL Cholesterol, Calc HDL Cholesterol 12/20/24 17:04 Sodium Potassium Chloride Carbon Dioxide Anion Gap BUN Creatinine Estim Creat Clear Calc Estimated GFR POC Glucose 250 H Random Glucose Estimat Average Glucose Hemoglobin A1c % Calcium Total Bilirubin AST ALT Alkaline Phosphatase Total Protein Albumin Triglycerides Cholesterol LDL Cholesterol, Calc HDL Cholesterol Medications Medications Current Medications Acetaminophen (Acetaminophen 325 Mg Tablet) 650 mg PO Q6H PRN PRN Reason: Headache/Pain, Scale 1-10 Last Admin: 12/20/24 11:41 Dose: 650 mg Al Hydroxide/Mg Hydroxide (Magnesium Hydrox/Alum Hydrox 30 Ml Oral.Susp) 30 ml PO Q6H PRN PRN Reason: Heartburn/Nausea Amlodipine Besylate (Amlodipine Besylate 10 Mg Tablet) 10 mg PO DAILY [facility]; Protocol Last Admin: 12/20/24 08:25 Dose: 10 mg Atorvastatin Calcium (Atorvastatin Calcium 20 Mg Tablet) 20 mg PO DAILY [facility] Last Admin: 12/20/24 08:25 Dose: 20 mg Benztropine Mesylate (Benztropine Mesylate 1 Mg Tablet) 1 mg PO BEDTIME [facility] Last Admin: 12/19/24 22:12 Dose: 1 mg Clonidine HCl (Clonidine Hcl 0.1 Mg Tablet) 0.1 mg PO TID PRN; Protocol PRN Reason: blood pressure Last Admin: 12/18/24 21:55 Dose: 0.1 mg Dextrose (Dextrose 50 % 25 Gm/50 Ml Syringe) 25 gm IVPUSH Q15M PRN; Protocol PRN Reason: per Hypoglycemia Standing Ord. Divalproex Sodium (Divalproex Sodium 500 Mg Tablet.Dr) 500 mg PO BID [facility] Last Admin: 12/20/24 08:26 Dose: 500 mg Escitalopram Oxalate (Escitalopram Oxalate 10 Mg Tablet) 10 mg PO DAILY [facility] Last Admin: 12/20/24 08:26 Dose: 10 mg Folic Acid (Folic Acid 1 Mg Tablet) 1 mg PO DAILY [facility] Last Admin: 12/20/24 08:26 Dose: 1 mg Glucose (Glucose Gel 15 Gm Gel..Gram.) 15 gm PO Q15M PRN; Protocol PRN Reason: per Hypoglycemia Standing Ord. Hydroxyzine HCl (Hydroxyzine Hcl 25 Mg Tablet) 25 mg PO TID PRN PRN Reason: Anxiety Insulin Glargine (Insulin Glargine,Hum.Rec.Anlog 100 Unit/Ml 10 Ml Vial) 15 unit SUBCUT BEDTIME [facility] Last Admin: 12/19/24 22:13 Dose: 15 unit Insulin Human Lispro (Insulin Lispro 100 Unit/Ml 3 Ml Vial) 0 unit SUBCUT QIDACHS [facility]; Protocol Last Admin: 12/20/24 12:22 Dose: 6 unit Lisinopril (Lisinopril 10 Mg Tablet) 10 mg PO DAILY [facility]; Protocol Last Admin: 12/20/24 08:25 Dose: 10 mg Lorazepam (Lorazepam 1 Mg Tablet) 1 mg PO Q2H PRN PRN Reason: CIWA 8-11 Lorazepam (Lorazepam 1 Mg Tablet) 2 mg PO Q2H PRN PRN Reason: CIWA 12-15 Lorazepam (Lorazepam 1 Mg Tablet) 3 mg PO Q2H PRN PRN Reason: CIWA > 15, and call MD Magnesium Hydroxide (Milk Of Magnesia 30 Ml Oral.Susp) 30 ml PO DAILY PRN PRN Reason: Constipation Metformin HCl (Metformin Hcl 500 Mg Tablet) 500 mg PO BID [facility] Last Admin: 12/20/24 08:26 Dose: 500 mg Multivitamins/Vitamin C (Multivitamin Tablet) 1 tab PO DAILY [facility] Last Admin: 12/20/24 08:26 Dose: 1 tab Nicotine (Nicotine 21 Mg Patch.Td24) 21 mg TRANSDERMA DAILY [facility] Last Admin: 12/20/24 08:24 Dose: 21 mg Nicotine Polacrilex (Nicotine Polacrilex 2 Mg Gum) 2 mg BUCCAL QID PRN PRN Reason: Nicotine Cravings Omeprazole (Omeprazole 20 Mg Capsule.Dr) 20 mg PO DAILY@0630 [facility] Last Admin: 12/20/24 08:26 Dose: 20 mg Paliperidone (Paliperidone Er 6 Mg Tab.Er.24) 6 mg PO DAILY [facility] Last Admin: 12/20/24 08:25 Dose: 6 mg Thiamine HCl (Thiamine Hcl 100 Mg Tablet) 100 mg PO DAILY [facility] Last Admin: 12/20/24 08:26 Dose: 100 mg Trazodone HCl (Trazodone Hcl 50 Mg Tablet) 50 mg PO BEDTIME PRN PRN Reason: Insomnia Allergies Allergies Allergy/AdvReac Type Severity Reaction Status Date / Time No Known Allergies Allergy Verified 12/17/24 10:46 Assessment & Plan Assessment & Plan (1) Schizoaffective disorder: Status: Acute Code(s): F25.9 - Schizoaffective disorder, unspecified (2) Alcohol use disorder: Status: Acute Code(s): F10.90 - Alcohol use, unspecified, uncomplicated (3) Suicidal ideation: Status: Acute Code(s): R45.851 - Suicidal ideations (4) Depression: Status: Acute Code(s): F32.A - Depression, unspecified Plan Admit, CV, 15 minute checks Collateral contacts Diagnostics as needed Re-start previous regime, pt reports it to be effective and he wants to restabilize Encourage full milieu DC planning Pt is interested in [facility], Out pt referrals, and community resources that could help him look for housing 12/20: continue current management and treatment plan. Reason for continued inpatient stay Substantial Risk for: rapid decompensation Time Spent With Patient Time: Total time managing care of this patient today ____ minutes.
[2024-12-20 19:51] VITALS: BP 153/95; PULSE 98; RESP 18; TEMP 37.4; O2SAT 99
[2024-12-20 19:59] LABS: Glucose, Whole Blood 225 mg/dL (60-115)
[2024-12-20] MEDS: Insulin Glargine,Hum.rec.anlog 100 UNIT/ML 10 ML VIAL 15 UNIT SUBCUT (21:56)
[2024-12-21 07:47] VITALS: BP 157/94; PULSE 84; TEMP 36.9; O2SAT 97
[2024-12-21 08:04] LABS: Glucose, Whole Blood 210 mg/dL (60-115)
--- NOTE | 2024-12-21 09:44 | HO.PSYCHPN ---
Subjective Subjective Date of Service: 12/21/24 Reason For Visit: SI Interim History: Patient reports he is doing well. He is tolerating and adherent to the medications. He denies side effects. He is visible on the unit but keeps to himself mostly. He is somewhat guarded. Depression persists but improving and he denies SI or AVH. Review of Systems Review of Systems Pt denies sx of detox Mental Status Exam Mental Status Exam Patient Appearance: Fatigued and Appropriate Patient Orientation: Person, Place, Time and Situation Level of Consciousness: Alert Patient Behavior: Talkative Mood Description: Withdrawn and Depressed Affect Description: Withdrawn and Flat Patient Cognition Impaired: No Ability to Follow Directions: Good Speech Pattern: Spontaneous Speech Memory Description: Intact Diagnostics Vital Signs (24Hr): Vital Signs - 24 hr 12/20/24 11:46 12/20/24 16:00 12/20/24 19:51 Temperature 98 F 99.3 F Pulse Rate 91 91 98 Respiratory Rate 18 18 Blood Pressure 145/95 H 174/92 H 153/95 H Pulse Oximetry 97 99 Oxygen Delivery Method Room Air Room Air 12/21/24 07:47 Temperature 98.4 F Pulse Rate 84 Respiratory Rate Blood Pressure 157/94 H Pulse Oximetry 97 Oxygen Delivery Method Room Air BMI result Body Mass Index 38.5 Labs 12/17/24 11:02 12/19/24 08:02 Labs: Laboratory Results - last 48 hr 12/19/24 12/19/24 12/19/24 12:29 17:01 20:33 POC Glucose 252 H 229 H 247 H 12/20/24 12/20/24 12/20/24 08:10 12:00 17:04 POC Glucose 219 H 289 H 250 H 12/20/24 12/21/24 19:49 07:56 POC Glucose 225 H 210 H Medications Medications Current Medications Acetaminophen (Acetaminophen 325 Mg Tablet) 650 mg PO Q6H PRN PRN Reason: Headache/Pain, Scale 1-10 Last Admin: 12/20/24 11:41 Dose: 650 mg Al Hydroxide/Mg Hydroxide (Magnesium Hydrox/Alum Hydrox 30 Ml Oral.Susp) 30 ml PO Q6H PRN PRN Reason: Heartburn/Nausea Amlodipine Besylate (Amlodipine Besylate 10 Mg Tablet) 10 mg PO DAILY [facility]; Protocol Last Admin: 12/21/24 08:27 Dose: 10 mg Atorvastatin Calcium (Atorvastatin Calcium 20 Mg Tablet) 20 mg PO DAILY [facility] Last Admin: 12/21/24 08:26 Dose: 20 mg Benztropine Mesylate (Benztropine Mesylate 1 Mg Tablet) 1 mg PO BEDTIME [facility] Last Admin: 12/20/24 21:56 Dose: 1 mg Clonidine HCl (Clonidine Hcl 0.1 Mg Tablet) 0.1 mg PO TID PRN; Protocol PRN Reason: blood pressure Last Admin: 12/18/24 21:55 Dose: 0.1 mg Dextrose (Dextrose 50 % 25 Gm/50 Ml Syringe) 25 gm IVPUSH Q15M PRN; Protocol PRN Reason: per Hypoglycemia Standing Ord. Divalproex Sodium (Divalproex Sodium 500 Mg Tablet.Dr) 500 mg PO BID [facility] Last Admin: 12/21/24 08:26 Dose: 500 mg Escitalopram Oxalate (Escitalopram Oxalate 10 Mg Tablet) 10 mg PO DAILY [facility] Last Admin: 12/21/24 08:26 Dose: 10 mg Folic Acid (Folic Acid 1 Mg Tablet) 1 mg PO DAILY [facility] Last Admin: 12/21/24 08:27 Dose: 1 mg Glucose (Glucose Gel 15 Gm Gel..Gram.) 15 gm PO Q15M PRN; Protocol PRN Reason: per Hypoglycemia Standing Ord. Hydroxyzine HCl (Hydroxyzine Hcl 25 Mg Tablet) 25 mg PO TID PRN PRN Reason: Anxiety Insulin Glargine (Insulin Glargine,Hum.Rec.Anlog 100 Unit/Ml 10 Ml Vial) 15 unit SUBCUT BEDTIME [facility] Last Admin: 12/20/24 21:56 Dose: 15 unit Insulin Human Lispro (Insulin Lispro 100 Unit/Ml 3 Ml Vial) 0 unit SUBCUT QIDACHS [facility]; Protocol Last Admin: 12/21/24 08:25 Dose: 4 unit Lisinopril (Lisinopril 10 Mg Tablet) 10 mg PO DAILY [facility]; Protocol Last Admin: 12/21/24 08:27 Dose: 10 mg Lorazepam (Lorazepam 1 Mg Tablet) 1 mg PO Q2H PRN PRN Reason: CIWA 8-11 Lorazepam (Lorazepam 1 Mg Tablet) 2 mg PO Q2H PRN PRN Reason: CIWA 12-15 Lorazepam (Lorazepam 1 Mg Tablet) 3 mg PO Q2H PRN PRN Reason: CIWA > 15, and call Magnesium Hydroxide (Milk Of Magnesia 30 Ml Oral.Susp) 30 ml PO DAILY PRN PRN Reason: Constipation Metformin HCl (Metformin Hcl 500 Mg Tablet) 500 mg PO BID [facility] Last Admin: 12/21/24 08:26 Dose: 500 mg Multivitamins/Vitamin C (Multivitamin Tablet) 1 tab PO DAILY [facility] Last Admin: 12/21/24 08:26 Dose: 1 tab Nicotine (Nicotine 21 Mg Patch.Td24) 21 mg TRANSDERMA DAILY [facility] Last Admin: 12/21/24 08:29 Dose: Not Given Nicotine Polacrilex (Nicotine Polacrilex 2 Mg Gum) 2 mg BUCCAL QID PRN PRN Reason: Nicotine Cravings Omeprazole (Omeprazole 20 Mg Capsule.Dr) 20 mg PO DAILY@06 [facility] Last Admin: 12/21/24 07:22 Dose: Not Given Paliperidone (Paliperidone Er 6 Mg Tab.Er.24) 6 mg PO DAILY [facility] Last Admin: 12/21/24 08:26 Dose: 6 mg Thiamine HCl (Thiamine Hcl 100 Mg Tablet) 100 mg PO DAILY [facility] Last Admin: 12/21/24 08:27 Dose: 100 mg Trazodone HCl (Trazodone Hcl 50 Mg Tablet) 50 mg PO BEDTIME PRN PRN Reason: Insomnia Allergies Allergies Allergy/AdvReac Type Severity Reaction Status Date / Time No Known Allergies Allergy Verified 12/17/24 10:46 Assessment & Plan Assessment & Plan (1) Schizoaffective disorder: Status: Acute Code(s): F25.9 - Schizoaffective disorder, unspecified (2) Alcohol use disorder: Status: Acute Code(s): F10.90 - Alcohol use, unspecified, uncomplicated (3) Suicidal ideation: Status: Acute Code(s): R45.851 - Suicidal ideations (4) Depression: Status: Acute Code(s): F32.A - Depression, unspecified Plan Admit, CV, 15 minute checks Collateral contacts Diagnostics as needed Re-start previous regime, pt reports it to be effective and he wants to restabilize Encourage full milieu DC planning Pt is interested in [facility], Out pt referrals, and community resources that could help him look for housing 12/20: continue current management and treatment plan. 12/21: Continue current management and treatment plan. Reason for continued inpatient stay Substantial Risk for: harm to self, inability to function and rapid decompensation Time Spent With Patient Time: Total time managing care of this patient today ____ minutes.
[2024-12-21 12:17] LABS: Glucose, Whole Blood 213 mg/dL (60-115)
--- NOTE | 2024-12-21 16:04 | MHC.RECOVRN ---
Addiction Consult: Met with Caryl in [id number] after receiving addiction consult to discuss substance use, recovery supports, and other resources. Pt stated he is interested in speaking with the Addiction Medicine provider in regards to LUIS initiation. Pt woud like an outpatient appointment for MADAN tx at the [facility]. - Will coordinate this with outpatient [employer]. Pt also interested in recovery coaching and agreed for referral to be made on his behalf - referral has been made with [facility] recovery [facility]. Pt provided with written materials on harm reduction, LUIS, and recovery support programs such as CSS and IOPs. No further questions or concerns offered at this time. Discussed with Shayy Sharma NP.
[2024-12-21 17:06] LABS: Glucose, Whole Blood 209 mg/dL (60-115)
[2024-12-21 19:57] VITALS: BP 137/76; PULSE 91; RESP 15; TEMP 36.9; O2SAT 97
[2024-12-21 20:21] LABS: Glucose, Whole Blood 236 mg/dL (60-115)
[2024-12-21] MEDS: Insulin Glargine,Hum.rec.anlog 100 UNIT/ML 10 ML VIAL 15 UNIT SUBCUT (20:28)
[2024-12-22 07:55] LABS: Glucose, Whole Blood 213 mg/dL (60-115)
[2024-12-22] MEDS: Nicotine 21 MG PATCH.TD24 TRANSDERMA (08:09)
[2024-12-22 08:50] VITALS: BP 147/100; PULSE 100; RESP 16; TEMP 36.2; O2SAT 97
[2024-12-22 08:55] VITALS: BP 143/100
[2024-12-22 12:17] LABS: Glucose, Whole Blood 216 mg/dL (60-115)
--- NOTE | 2024-12-22 12:34 | HO.PSYCHPN ---
Subjective Subjective Date of Service: 12/22/24 Reason For Visit: SI Interim History: Pt denies SI,HI, AH,VH Hospitalist consult ordered for HTN eval. Encouraged full milieu. Discharge planning for 12/24/24 Medication Compliance: Yes Side effects from medications: No Review of Systems Acute medical concerns: Yes Medical Review of Systems: unchanged Review of Systems Review of Systems Denies, HTN Mental Status Exam Mental Status Exam Patient Appearance: Fatigued and Appropriate Patient Orientation: Person, Place, Time and Situation Level of Consciousness: Alert Patient Behavior: Talkative Mood Description: Withdrawn and Depressed Affect Description: Withdrawn and Flat Patient Cognition Impaired: No Ability to Follow Directions: Good Speech Pattern: Spontaneous Speech Memory Description: Intact Diagnostics Vital Signs (24Hr): Vital Signs - 24 hr 12/21/24 19:57 12/22/24 08:50 12/22/24 08:55 Temperature 98.4 F 97.1 F Pulse Rate 91 100 Respiratory Rate 15 16 Blood Pressure 137/76 147/100 H 143/100 H Pulse Oximetry 97 97 Oxygen Delivery Method Room Air 12/22/24 08:55 Temperature Pulse Rate Respiratory Rate Blood Pressure 143/100 H Pulse Oximetry Oxygen Delivery Method BMI result Body Mass Index 38.5 Labs 12/17/24 11:02 12/24/24 07:36 Labs: Laboratory Results - last 48 hr 12/20/24 12/20/24 12/21/24 17:04 19:49 07:56 POC Glucose 250 H 225 H 210 H 12/21/24 12/21/24 12/21/24 12:13 17:01 20:16 POC Glucose 213 H 209 H 236 H 12/22/24 12/22/24 07:51 12:13 POC Glucose 213 H 216 H Medications Medications Current Medications Acetaminophen (Acetaminophen 325 Mg Tablet) 650 mg PO Q6H PRN PRN Reason: Headache/Pain, Scale 1-10 Last Admin: 12/20/24 11:41 Dose: 650 mg Al Hydroxide/Mg Hydroxide (Magnesium Hydrox/Alum Hydrox 30 Ml Oral.Susp) 30 ml PO Q6H PRN PRN Reason: Heartburn/Nausea Amlodipine Besylate (Amlodipine Besylate 10 Mg Tablet) 10 mg PO DAILY [facility]; Protocol Last Admin: 12/22/24 08:55 Dose: 10 mg Atorvastatin Calcium (Atorvastatin Calcium 20 Mg Tablet) 20 mg PO DAILY [facility] Last Admin: 12/22/24 08:11 Dose: 20 mg Benztropine Mesylate (Benztropine Mesylate 1 Mg Tablet) 1 mg PO BEDTIME [facility] Last Admin: 12/21/24 22:15 Dose: 1 mg Clonidine HCl (Clonidine Hcl 0.1 Mg Tablet) 0.1 mg PO TID PRN; Protocol PRN Reason: blood pressure Last Admin: 12/18/24 21:55 Dose: 0.1 mg Dextrose (Dextrose 50 % 25 Gm/50 Ml Syringe) 25 gm IVPUSH Q15M PRN; Protocol PRN Reason: per Hypoglycemia Standing Ord. Divalproex Sodium (Divalproex Sodium 500 Mg Tablet.Dr) 500 mg PO BID [facility] Last Admin: 12/22/24 08:11 Dose: 500 mg Escitalopram Oxalate (Escitalopram Oxalate 10 Mg Tablet) 10 mg PO DAILY [facility] Last Admin: 12/22/24 08:11 Dose: 10 mg Folic Acid (Folic Acid 1 Mg Tablet) 1 mg PO DAILY [facility] Last Admin: 12/22/24 08:11 Dose: 1 mg Glucose (Glucose Gel 15 Gm Gel..Gram.) 15 gm PO Q15M PRN; Protocol PRN Reason: per Hypoglycemia Standing Ord. Hydroxyzine HCl (Hydroxyzine Hcl 25 Mg Tablet) 25 mg PO TID PRN PRN Reason: Anxiety Insulin Glargine (Insulin Glargine,Hum.Rec.Anlog 100 Unit/Ml 10 Ml Vial) 15 unit SUBCUT BEDTIME [facility] Last Admin: 12/21/24 20:28 Dose: 15 unit Insulin Human Lispro (Insulin Lispro 100 Unit/Ml 3 Ml Vial) 0 unit SUBCUT QIDACHS [facility]; Protocol Last Admin: 12/22/24 08:13 Dose: 4 unit Lisinopril (Lisinopril 10 Mg Tablet) 10 mg PO DAILY [facility]; Protocol Last Admin: 12/22/24 08:55 Dose: 10 mg Lorazepam (Lorazepam 1 Mg Tablet) 1 mg PO Q2H PRN PRN Reason: CIWA 8-11 Lorazepam (Lorazepam 1 Mg Tablet) 2 mg PO Q2H PRN PRN Reason: CIWA 12-15 Lorazepam (Lorazepam 1 Mg Tablet) 3 mg PO Q2H PRN PRN Reason: CIWA > 15, and call Magnesium Hydroxide (Milk Of Magnesia 30 Ml Oral.Susp) 30 ml PO DAILY PRN PRN Reason: Constipation Metformin HCl (Metformin Hcl 500 Mg Tablet) 500 mg PO BID [facility] Last Admin: 12/22/24 08:11 Dose: 500 mg Multivitamins/Vitamin C (Multivitamin Tablet) 1 tab PO DAILY [facility] Last Admin: 12/22/24 08:11 Dose: 1 tab Nicotine (Nicotine 21 Mg Patch.Td24) 21 mg TRANSDERMA DAILY [facility] Last Admin: 12/22/24 08:09 Dose: 21 mg Nicotine Polacrilex (Nicotine Polacrilex 2 Mg Gum) 2 mg BUCCAL QID PRN PRN Reason: Nicotine Cravings Omeprazole (Omeprazole 20 Mg Capsule.Dr) 20 mg PO DAILY@629 [facility] Last Admin: 12/22/24 08:11 Dose: 20 mg Paliperidone (Paliperidone Er 6 Mg Tab.Er.24) 6 mg PO DAILY [facility] Last Admin: 12/22/24 08:11 Dose: 6 mg Thiamine HCl (Thiamine Hcl 100 Mg Tablet) 100 mg PO DAILY [facility] Last Admin: 12/22/24 08:11 Dose: 100 mg Trazodone HCl (Trazodone Hcl 50 Mg Tablet) 50 mg PO BEDTIME PRN PRN Reason: Insomnia Allergies Allergies Allergy/AdvReac Type Severity Reaction Status Date / Time No Known Allergies Allergy Verified 12/17/24 10:46 Assessment & Plan Assessment & Plan (1) Schizoaffective disorder: Status: Acute Code(s): F25.9 - Schizoaffective disorder, unspecified (2) Alcohol use disorder: Status: Acute Code(s): F10.90 - Alcohol use, unspecified, uncomplicated (3) Suicidal ideation: Status: Resolved Code(s): R45.851 - Suicidal ideations (4) Depression: Status: Deleted Code(s): F32.A - Depression, unspecified Plan Admit, CV, 15 minute checks Collateral contacts Diagnostics as needed Re-start previous regime, pt reports it to be effective and he wants to restabilize Encourage full milieu DC planning Pt is interested in [facility], Out pt referrals, and community resources that could help him look for housing 12/20: continue current management and treatment plan. 12/21: Continue current management and treatment plan. 12/22: Continue plan of care Reason for continued inpatient stay Substantial Risk for: rapid decompensation and med/psych decompensation Time Spent With Patient Time: Total time managing care of this patient today ____ minutes.
--- NOTE | 2024-12-22 13:01 | HO.PM.IMCN ---
History of Present Illness Data of Consult Service Date: 12/22/24 Primary Care Provider: Unknown Physician HPI Reason for consult: HTN Patient is a 49-year-old male with PMH of TYpe 2 DM, HTN, HLD, Depression, Reflux, Schizoaffective disorder and alcohol use disorder who presented to ER via EMS due to suicidal ideation with no plan secondary to increased depression and alcohol use. Patient is seen for elenated blood pressure readings. On review blood pressure readings randing 150's-170's/90's-100. Patient had been taking medications as ordered. On exam he denies any shortness of breath, chest pain, dizziness, lightheadedness, double vision, or headaches. He is out of bed sitting in dining room with peers. Quiet and cooperative. Physical exam is benign. Does not have any questions or concerns. Review of Systems Review of Systems: Denies any shortness of breath, chest pain, dizziness, lightheadedness, abdominal pain or discomfort, nausea vomiting or diarrhea PMFSH Medical History (Updated 12/22/24 @ 13:53 by Kelly Serrano DNP) Hypertension Social History Household Members: Family Housing: House Do you presently have visiting nurse or other home services: No Alcohol intake: current Alcohol intake frequency: a few times a week Patient Tobacco Use Status: Current someday Tobacco user Tobacco use type: Cigarette Smoked in Last 30 Days: Yes e-Cigarette/Vaping Use: Never Used Patient Interested in Nicotine Replacement: No Use of substances other than those prescribed or required for medical reasons: Yes Substance Use Type: Marijuana Last Used Substance: Unknown Currently Displaying Signs/Symptoms of Drug Intoxication Withdrawal: No Advance Directives: No Advance Directives Information Provided: Yes Do you have thoughts of harming others: None Do you have a plan to hurt others: No Plan Recently lost weight without trying: No Nutrition Risks: No Nutritional Risk service: No Sexual orientation: Straight/Heterosexual Meds Allergies Allergy/AdvReac Type Severity Reaction Status Date / Time No Known Allergies Allergy Verified 12/17/24 10:46 Active Medications: Current Medications Acetaminophen (Acetaminophen 325 Mg Tablet) 650 mg PO Q6H PRN PRN Reason: Headache/Pain, Scale 1-10 Last Admin: 12/20/24 11:41 Dose: 650 mg Al Hydroxide/Mg Hydroxide (Magnesium Hydrox/Alum Hydrox 30 Ml Oral.Susp) 30 ml PO Q6H PRN PRN Reason: Heartburn/Nausea Amlodipine Besylate (Amlodipine Besylate 10 Mg Tablet) 10 mg PO DAILY ON LICENSE OF [facility]; Protocol Last Admin: 12/22/24 08:55 Dose: 10 mg Atorvastatin Calcium (Atorvastatin Calcium 20 Mg Tablet) 20 mg PO DAILY ON LICENSE OF [facility] Last Admin: 12/22/24 08:11 Dose: 20 mg Benztropine Mesylate (Benztropine Mesylate 1 Mg Tablet) 1 mg PO BEDTIME ON LICENSE OF [facility] Last Admin: 12/21/24 22:15 Dose: 1 mg Clonidine HCl (Clonidine Hcl 0.1 Mg Tablet) 0.1 mg PO TID PRN; Protocol PRN Reason: blood pressure Last Admin: 12/18/24 21:55 Dose: 0.1 mg Dextrose (Dextrose 50 % 25 Gm/50 Ml Syringe) 25 gm IVPUSH Q15M PRN; Protocol PRN Reason: per Hypoglycemia Standing Ord. Divalproex Sodium (Divalproex Sodium 500 Mg Tablet.Dr) 500 mg PO BID ON LICENSE OF [facility] Last Admin: 12/22/24 08:11 Dose: 500 mg Escitalopram Oxalate (Escitalopram Oxalate 10 Mg Tablet) 10 mg PO DAILY ON LICENSE OF [facility] Last Admin: 12/22/24 08:11 Dose: 10 mg Folic Acid (Folic Acid 1 Mg Tablet) 1 mg PO DAILY ON LICENSE OF [facility] Last Admin: 12/22/24 08:11 Dose: 1 mg Glucose (Glucose Gel 15 Gm Gel..Gram.) 15 gm PO Q15M PRN; Protocol PRN Reason: per Hypoglycemia Standing Ord. Hydroxyzine HCl (Hydroxyzine Hcl 25 Mg Tablet) 25 mg PO TID PRN PRN Reason: Anxiety Insulin Glargine (Insulin Glargine,Hum.Rec.Anlog 100 Unit/Ml 10 Ml Vial) 15 unit SUBCUT BEDTIME ON LICENSE OF [facility] Last Admin: 12/21/24 20:28 Dose: 15 unit Insulin Human Lispro (Insulin Lispro 100 Unit/Ml 3 Ml Vial) 0 unit SUBCUT QIDACHS ON LICENSE OF [facility]; Protocol Last Admin: 12/22/24 12:39 Dose: 4 unit Lisinopril (Lisinopril 5 Mg Tablet) 15 mg PO DAILY ON LICENSE OF [facility]; Protocol Lorazepam (Lorazepam 1 Mg Tablet) 1 mg PO Q2H PRN PRN Reason: CIWA 8-11 Lorazepam (Lorazepam 1 Mg Tablet) 2 mg PO Q2H PRN PRN Reason: CIWA 12-15 Lorazepam (Lorazepam 1 Mg Tablet) 3 mg PO Q2H PRN PRN Reason: CIWA > 15, and call Magnesium Hydroxide (Milk Of Magnesia 30 Ml Oral.Susp) 30 ml PO DAILY PRN PRN Reason: Constipation Metformin HCl (Metformin Hcl 500 Mg Tablet) 500 mg PO BID ON LICENSE OF [facility] Last Admin: 12/22/24 08:11 Dose: 500 mg Multivitamins/Vitamin C (Multivitamin Tablet) 1 tab PO DAILY ON LICENSE OF [facility] Last Admin: 12/22/24 08:11 Dose: 1 tab Nicotine (Nicotine 21 Mg Patch.Td24) 21 mg TRANSDERMA DAILY ON LICENSE OF [facility] Last Admin: 12/22/24 08:09 Dose: 21 mg Nicotine Polacrilex (Nicotine Polacrilex 2 Mg Gum) 2 mg BUCCAL QID PRN PRN Reason: Nicotine Cravings Omeprazole (Omeprazole 20 Mg Capsule.Dr) 20 mg PO DAILY@0630 ON LICENSE OF [facility] Last Admin: 12/22/24 08:11 Dose: 20 mg Paliperidone (Paliperidone Er 6 Mg Tab.Er.24) 6 mg PO DAILY ON LICENSE OF [facility] Last Admin: 12/22/24 08:11 Dose: 6 mg Thiamine HCl (Thiamine Hcl 100 Mg Tablet) 100 mg PO DAILY ON LICENSE OF [facility] Last Admin: 12/22/24 08:11 Dose: 100 mg Trazodone HCl (Trazodone Hcl 50 Mg Tablet) 50 mg PO BEDTIME PRN PRN Reason: Insomnia Home Medications ?Medication ?Instructions ?Recorded ?Confirmed ?Last Taken ?Type acetaminophen 325 mg tablet 650 mg PO TID PRN pain 11/16/24 12/18/24 11/15/24 History amlodipine 10 mg tablet 10 mg PO DAILY 11/16/24 12/17/24 12/10/24 History atorvastatin 20 mg tablet 20 mg PO DAILY 11/16/24 12/17/24 12/10/24 History benztropine 1 mg tablet 1 mg PO BEDTIME 11/16/24 12/18/24 11/15/24 History clonidine HCl 0.1 mg tablet 0.1 mg PO TID PRN blood pressure 11/16/24 12/18/24 11/15/24 History divalproex 500 mg tablet,delayed 500 mg PO BID depressive disorder 11/16/24 12/18/24 11/15/24 History release escitalopram oxalate 10 mg tablet 10 mg PO DAILY depressive disorder 11/16/24 12/18/24 11/15/24 History hydroxyzine pamoate 25 mg capsule 25 mg PO TID PRN anxiety 11/16/24 12/18/24 11/15/24 History insulin glargine 100 unit/mL 15 unit subcut BEDTIME diabetes 11/16/24 12/18/24 11/15/24 History subcutaneous solution (Lantus mellitus U-100 Insulin) lisinopril 10 mg tablet 10 mg PO DAILY blood pressure 11/16/24 12/18/24 11/15/24 History metformin 500 mg tablet 500 mg PO BID 11/16/24 12/18/24 11/15/24 History nicotine (polacrilex) 2 mg gum 2 mg PO QID PRN nicotine cravings 11/16/24 12/18/24 11/15/24 History paliperidone 6 mg tablet,extended 6 mg PO DAILY psychosis 11/16/24 12/18/24 11/15/24 History release 24 hr pantoprazole 40 mg tablet,delayed 40 mg PO DAILY 11/16/24 12/18/24 11/15/24 History release trazodone 50 mg tablet 50 mg PO BEDTIME PRN insomnia 11/16/24 12/18/24 11/15/24 History Physical Exam Vital Signs and Narrative: Vital Signs: Last Vital Signs Temp 97.1 F 12/22/24 08:50 Pulse 100 12/22/24 08:50 Resp 16 12/22/24 08:50 BP 143/100 H 12/22/24 08:55 Pulse Ox 97 12/22/24 08:50 O2 Del Method Room Air 12/22/24 08:50 BMI result Body Mass Index 38.5 CONST: Alert and oriented, in NAD. Well nourished HEENT: Normocephalic, atraumatic, MMM, Eyes clear, Neck supple RESP: Lungs clear, RRR even and regular HEART:,RRR, S1, S2. No edema GI:Abdomen Soft NT, ND. + BS times four :Deferred SKIN: Warm dry and intact, no visible lesions or rashes NEURO:CN II-XII Intact bilaterally, Sensation intact. Speech clear PSYCH: Normal affect Results Labs 12/17/24 11:02 12/19/24 08:02 Labs: Laboratory Results - last 24 hr 12/21/24 12/21/24 12/22/24 17:01 20:16 07:51 POC Glucose 209 H 236 H 213 H 12/22/24 12:13 POC Glucose 216 H Assessment and Plan (1) HTN (hypertension): Status: Acute Plan Schizoaffective disorder, EtOH disorder/SI/depression Plan per psychiatric team Hypertension/HLD Patient taking Norvasc 10, lisinopril 10, and clonidine as needed We will increase lisinopril to 15 mg daily, given extra dose of 5 mg today If no improvement consider scheduled dose of clonidine in a.m. Physical exam benign Discussed importance of diet and exercise with patient Thank you for allowing me to participate in the care of this patient. Will follow as needed. Please reconsult of any acute concerns or issues arise
[2024-12-22 13:29] VITALS: BP 177/108
[2024-12-22 17:03] LABS: Glucose, Whole Blood 268 mg/dL (60-115)
[2024-12-22 20:00] VITALS: BP 156/87; PULSE 102; RESP 16; TEMP 36.9; O2SAT 98
[2024-12-22 20:09] LABS: Glucose, Whole Blood 214 mg/dL (60-115)
[2024-12-22 23:29] LABS: Glucose, Whole Blood 171 mg/dL (60-115)
[2024-12-22] MEDS: Insulin Glargine,Hum.rec.anlog 100 UNIT/ML 10 ML VIAL 15 UNIT SUBCUT (23:39)
[2024-12-23 07:54] LABS: Glucose, Whole Blood 225 mg/dL (60-115)
[2024-12-23 08:00] VITALS: BP 148/88; PULSE 110; RESP 19; TEMP 36.7; O2SAT 99
[2024-12-23] MEDS: Nicotine 21 MG PATCH.TD24 TRANSDERMA (08:52)
[2024-12-23 08:53] VITALS: BP 148/88
[2024-12-23 08:54] VITALS: BP 148/88
--- NOTE | 2024-12-23 11:29 | HO.PSYCHPN ---
Subjective Subjective Date of Service: 12/23/24 Reason For Visit: SI Interim History: Pt denies SI,HI, AH,VH Discussed going to [facility] for evaluation post DC Full milieu encouraged Review of medications. Pt requests prescriptions be sent to [facility] Review of Systems Review of Systems Denies Mental Status Exam Mental Status Exam Patient Appearance: Appropriate Patient Orientation: Person, Place, Time and Situation Level of Consciousness: Alert Patient Behavior: Talkative Mood Description: Withdrawn Affect Description: Flat Patient Cognition Impaired: No Ability to Follow Directions: Good Speech Pattern: Spontaneous Speech Memory Description: Intact Hallucinations: None Delusions: Not Present Thought Process: Distracted Thought Content: positive for Intact Judgement: Good Diagnostics Vital Signs (24Hr): Vital Signs - 24 hr 12/22/24 13:29 12/22/24 20:00 12/23/24 08:00 Temperature 98.5 F 98.1 F Pulse Rate 102 H 110 H Respiratory Rate 16 19 Blood Pressure 177/108 H 156/87 H 148/88 H Pulse Oximetry 98 99 Oxygen Delivery Method Room Air Room Air 12/23/24 08:53 12/23/24 08:54 Temperature Pulse Rate Respiratory Rate Blood Pressure 148/88 H 148/88 H Pulse Oximetry Oxygen Delivery Method BMI result Body Mass Index 38.5 Labs 12/17/24 11:02 12/24/24 07:36 Labs: Laboratory Results - last 48 hr 12/21/24 12/21/24 12/21/24 12:13 17:01 20:16 POC Glucose 213 H 209 H 236 H 12/22/24 12/22/24 12/22/24 07:51 12:13 16:59 POC Glucose 213 H 216 H 268 H 12/22/24 12/22/24 12/23/24 20:04 23:24 07:42 POC Glucose 214 H 171 H 225 H Medications Medications Current Medications Acetaminophen (Acetaminophen 325 Mg Tablet) 650 mg PO Q6H PRN PRN Reason: Headache/Pain, Scale 1-10 Last Admin: 12/20/24 11:41 Dose: 650 mg Al Hydroxide/Mg Hydroxide (Magnesium Hydrox/Alum Hydrox 30 Ml Oral.Susp) 30 ml PO Q6H PRN PRN Reason: Heartburn/Nausea Amlodipine Besylate (Amlodipine Besylate 10 Mg Tablet) 10 mg PO DAILY [facility]; Protocol Last Admin: 12/23/24 08:53 Dose: 10 mg Atorvastatin Calcium (Atorvastatin Calcium 20 Mg Tablet) 20 mg PO DAILY [facility] Last Admin: 12/23/24 08:55 Dose: 20 mg Benztropine Mesylate (Benztropine Mesylate 1 Mg Tablet) 1 mg PO BEDTIME [facility] Last Admin: 12/22/24 23:34 Dose: 1 mg Clonidine HCl (Clonidine Hcl 0.1 Mg Tablet) 0.1 mg PO TID PRN; Protocol PRN Reason: blood pressure Last Admin: 12/18/24 21:55 Dose: 0.1 mg Dextrose (Dextrose 50 % 25 Gm/50 Ml Syringe) 25 gm IVPUSH Q15M PRN; Protocol PRN Reason: per Hypoglycemia Standing Ord. Divalproex Sodium (Divalproex Sodium 500 Mg Tablet.Dr) 500 mg PO BID [facility] Last Admin: 12/23/24 08:53 Dose: 500 mg Escitalopram Oxalate (Escitalopram Oxalate 10 Mg Tablet) 10 mg PO DAILY [facility] Last Admin: 12/23/24 08:55 Dose: 10 mg Folic Acid (Folic Acid 1 Mg Tablet) 1 mg PO DAILY [facility] Last Admin: 12/23/24 08:55 Dose: 1 mg Glucose (Glucose Gel 15 Gm Gel..Gram.) 15 gm PO Q15M PRN; Protocol PRN Reason: per Hypoglycemia Standing Ord. Hydroxyzine HCl (Hydroxyzine Hcl 25 Mg Tablet) 25 mg PO TID PRN PRN Reason: Anxiety Insulin Glargine (Insulin Glargine,Hum.Rec.Anlog 100 Unit/Ml 10 Ml Vial) 15 unit SUBCUT BEDTIME [facility] Last Admin: 12/22/24 23:39 Dose: 15 unit Insulin Human Lispro (Insulin Lispro 100 Unit/Ml 3 Ml Vial) 0 unit SUBCUT QIDACHS [facility]; Protocol Last Admin: 12/23/24 08:20 Dose: 4 unit Lisinopril (Lisinopril 5 Mg Tablet) 15 mg PO DAILY [facility]; Protocol Last Admin: 12/23/24 08:54 Dose: 15 mg Lorazepam (Lorazepam 1 Mg Tablet) 1 mg PO Q2H PRN PRN Reason: CIWA 8-11 Lorazepam (Lorazepam 1 Mg Tablet) 2 mg PO Q2H PRN PRN Reason: CIWA 12-15 Lorazepam (Lorazepam 1 Mg Tablet) 3 mg PO Q2H PRN PRN Reason: CIWA > 15, and call Magnesium Hydroxide (Milk Of Magnesia 30 Ml Oral.Susp) 30 ml PO DAILY PRN PRN Reason: Constipation Metformin HCl (Metformin Hcl 500 Mg Tablet) 500 mg PO BID [facility] Last Admin: 12/23/24 08:53 Dose: 500 mg Multivitamins/Vitamin C (Multivitamin Tablet) 1 tab PO DAILY [facility] Last Admin: 12/23/24 08:55 Dose: 1 tab Nicotine (Nicotine 21 Mg Patch.Td24) 21 mg TRANSDERMA DAILY [facility] Last Admin: 12/23/24 08:52 Dose: 21 mg Nicotine Polacrilex (Nicotine Polacrilex 2 Mg Gum) 2 mg BUCCAL QID PRN PRN Reason: Nicotine Cravings Omeprazole (Omeprazole 20 Mg Capsule.Dr) 20 mg PO DAILY@0630 [facility] Last Admin: 12/23/24 06:55 Dose: Not Given Paliperidone (Paliperidone Er 6 Mg Tab.Er.24) 6 mg PO DAILY [facility] Last Admin: 12/23/24 08:55 Dose: 6 mg Thiamine HCl (Thiamine Hcl 100 Mg Tablet) 100 mg PO DAILY [facility] Last Admin: 12/23/24 08:53 Dose: 100 mg Trazodone HCl (Trazodone Hcl 50 Mg Tablet) 50 mg PO BEDTIME PRN PRN Reason: Insomnia Allergies Allergies Allergy/AdvReac Type Severity Reaction Status Date / Time No Known Allergies Allergy Verified 12/17/24 10:46 Assessment & Plan Assessment & Plan (1) HTN (hypertension): Status: Acute Code(s): I10 - Essential (primary) hypertension Plan Schizoaffective disorder, EtOH disorder/SI/depression Plan per psychiatric team Hypertension/HLD Patient taking Norvasc 10, lisinopril 10, and clonidine as needed We will increase lisinopril to 15 mg daily, given extra dose of 5 mg today If no improvement consider scheduled dose of clonidine in a.m. Physical exam benign Discussed importance of diet and exercise with patient Thank you for allowing me to participate in the care of this patient. Will follow as needed. Please reconsult of any acute concerns or issues arise 12/23/24: Continue tx DC 12/24 Reason for continued inpatient stay Substantial Risk for: stable for discharge Time Spent With Patient Time: Total time managing care of this patient today ____ minutes.
[2024-12-23 11:31] LABS: Glucose, Whole Blood 250 mg/dL (60-115)
[2024-12-23 17:14] LABS: Glucose, Whole Blood 170 mg/dL (60-115)
[2024-12-23 19:58] LABS: Glucose, Whole Blood 246 mg/dL (60-115)
[2024-12-23 20:00] VITALS: BP 139/81; PULSE 99; RESP 16; TEMP 36.8; O2SAT 98
[2024-12-23] MEDS: Insulin Glargine,Hum.rec.anlog 100 UNIT/ML 10 ML VIAL 15 UNIT SUBCUT (22:38)
[2024-12-24 08:00] VITALS: BP 155/105; PULSE 100; TEMP 37.6; O2SAT 97
[2024-12-24 08:05] LABS: Glucose, Whole Blood 194 mg/dL (60-115)
[2024-12-24 08:23] VITALS: BP 188/106
[2024-12-24 08:28] LABS: Anion Gap 15 (12-20); Blood Urea Nitrogen 11 mg/dL (9-16); Calcium 9.6 mg/dL (8.4-10.2); Carbon Dioxide 27 mmol/L (22-29); Chloride 101 mmol/L (96-108); Creatinine Clr Calc Pharmacy 135.8; Estimated Glomerular Filt Rate > 60; Potassium 3.6 mmol/L (3.3-5.1); Sodium 139 mmol/L (135-145)
[2024-12-24] MEDS: Nicotine 21 MG PATCH.TD24 TRANSDERMA (09:26)
--- NOTE | 2024-12-24 10:05 | PM.EVENT ---
Event Note Date of Service: 12/24/24 Event Note: Patient with persistently high blood pressures despite increasing lisinopril, noted to be 188/106 today. We will add a 3rd agent hydrochlorothiazide, we will check labs on Sunday. Continue to follow up blood pressure and adjust as needed. Time Spent With Patient Time: Total time managing care of this patient today ____ minutes.
[2024-12-24 10:46] VITALS: BP 155/105
--- NOTE | 2025-01-21 13:18 | PM.PSYDC ---
DS: Providers Provider Date of Service: 12/24/24 Date of admission: 12/18/24 12:04 Date of discharge: 12/24/24 Primary care physician: Unknown Physician Admitting clinician: Wendy Wood Attending physician on admission: Wendy Wood Consults: 12/18/24 14:17 Addiction Medicine Provider Routine Consulting Provider: Addiction Covering Reason for consultation: ETOH use - Pt requests consult with Addiction Medicine 12/22/24 12:39 Consult to Hospitalist Routine Comment: Consulting Provider: [facility] Reason For Exam: HTN 12/24/24 09:35 Consult to Hospitalist Routine Comment: Consulting Provider: [facility] Reason For Exam: ongoing HTN Attending physician on discharge: Alcon Lucas Discharging clinician: Wendy Wood DS: Diagnosis Discharge Diagnosis (1) HTN (hypertension): Status: Acute (2) Schizoaffective disorder: Status: Acute (3) Alcohol use disorder: Status: Acute DS: Medications Discharge Medications Home Medications: Home Medications ?Medication ?Instructions ?Recorded ?Confirmed acetaminophen 325 mg tablet 650 mg PO TID PRN pain 11/16/24 12/18/24 metformin 500 mg tablet 500 mg PO BID 11/16/24 12/18/24 Previous Rx's ?Medication ?Instructions ?Recorded amlodipine 10 mg tablet 10 mg PO DAILY #30 tabs 12/24/24 atorvastatin 20 mg tablet 20 mg PO DAILY #30 tabs 12/24/24 benztropine 1 mg tablet 1 mg PO BEDTIME #30 tabs 12/24/24 clonidine HCl 0.1 mg tablet 0.1 mg PO TID PRN blood pressure 12/24/24 #90 tabs divalproex 500 mg tablet,delayed 500 mg PO BID depressive disorder 12/24/24 release #60 tabs escitalopram oxalate 10 mg tablet 10 mg PO DAILY depressive disorder 12/24/24 #10 tabs folic acid 1 mg tablet 1 mg PO DAILY #30 tabs 12/24/24 hydroxyzine pamoate 25 mg capsule 25 mg PO TID PRN anxiety #90 caps 12/24/24 insulin glargine 100 unit/mL 15 unit (0.15 mL) subcut BEDTIME 12/24/24 subcutaneous solution (Lantus diabetes mellitus #4 kits U-100 Insulin) lisinopril 5 mg tablet 15 mg PO DAILY #90 tabs 12/24/24 multivitamin (Daily-Roxanne tablet) 1 tab PO DAILY #30 tabs 12/24/24 nicotine 21 mg/24 hr daily 21 mg transdermal DAILY #30 ea 12/24/24 transdermal patch paliperidone 6 mg tablet,extended 6 mg PO DAILY psychosis #30 tabs 12/24/24 release 24 hr pantoprazole 40 mg tablet,delayed 40 mg PO DAILY #30 tabs 12/24/24 release thiamine mononitrate (vit B1) 100 100 mg PO DAILY #30 tabs 12/24/24 mg tablet trazodone 50 mg tablet 50 mg PO BEDTIME PRN insomnia #30 12/24/24 tabs Mental Status Exam Mental Status Exam Patient Appearance: Appropriate Patient Orientation: Person, Place, Time and Situation Level of Consciousness: Alert Patient Behavior: Talkative Mood Description: Withdrawn Affect Description: Flat Patient Cognition Impaired: No Ability to Follow Directions: Good Speech Pattern: Spontaneous Speech Memory Description: Intact Hallucinations: None Delusions: Not Present Thought Process: Distracted Thought Content: positive for Intact Judgement: Good DS: Summary Hospital Course Hospital Course: Admission to adult psychiatry for exacerbation of schizoaffective disorder, alcohol use disorder. Medications were evaluated and adjusted. Sx of hypertension were evaluated and treated by the hospitalist team.Pt was offered full milieu therapy. Pt will discharge to halfway care and will follow up with [facility] for out patient services. Status at Discharge Functional status at discharge: independent ambulation Overall status at discharge: patient is progressing back to baseline Time Spent with Patient Time attestation: Total time managing care of this patient today ____ minutes. Time spent: Less than 30 minutes Discharge Plan Discharge Anticipated Discharge Date/Time: 12/24/24 12:00 Patient Disposition: Longterm Discharge Diagnosis: Schizoaffective Disorder Alcohol Use Disorder Hypertension Referrals: [facility]: Psychiatry and Therapy [Other] - 1 Week Referral Note: Patient should self present to [facility] for diagnostic/psychiatric evaluation to be connected with outpatient medication management and therapy services. You will need to self present Sunday Through Sunday between the hours of 9am-11am or 1-4 pm [facility]: Community Support Program [Other] - 1 Week Referral Note: patient will need to self present to [facility]. Hours of evaluation are Sunday-Sunday 9am-11am and 1pm-4pm. You will need to ask them to be connected to their community support program. [facility] [Other] - 1 Week Referral Note: Patient referred to [facility] for Vocational Rehabilitation/Career services A counselor will reach out to you after discharge to schedule initial appointment. Check your telephone as they may have reached out to you following submitting your application for services behavioral Health network: Crisis Services [Other] - 1 Week Referral Note: Crisis Services Telephone Number Physician,Unknown J [Primary Care Provider, Medical] - 1 Week Discharge Medications: New nicotine 21 mg/24 hr Patch 24 Hour 21 mg transdermal DAILY Qty: 30 0RF lisinopril 5 mg Tablet 15 mg PO DAILY Qty: 90 0RF Protocol: Hold for SBP< HOLD for SBP < : 90 multivitamin [Daily-Roxanne] Tablet 1 tab PO DAILY Qty: 30 0RF folic acid 1 mg Tablet 1 mg PO DAILY Qty: 30 0RF thiamine mononitrate (vit B1) 100 mg Tablet 100 mg PO DAILY Qty: 30 0RF Continued metformin 500 mg tablet 500 mg PO BID acetaminophen 325 mg tablet 650 mg PO TID PRN (Reason: pain) clonidine HCl 0.1 mg tablet 0.1 mg PO TID PRN (Reason: blood pressure) Qty: 90 0RF atorvastatin 20 mg tablet 20 mg PO DAILY Qty: 30 0RF insulin glargine [Lantus U-100 Insulin] 100 unit/mL solution 15 unit subcut BEDTIME Qty: 4 0RF trazodone 50 mg tablet 50 mg PO BEDTIME PRN (Reason: insomnia) Qty: 30 0RF divalproex 500 mg tablet,delayed release (DR/EC) 500 mg PO BID Qty: 60 0RF amlodipine 10 mg tablet 10 mg PO DAILY Qty: 30 0RF pantoprazole 40 mg tablet,delayed release (DR/EC) 40 mg PO DAILY Qty: 30 0RF benztropine 1 mg tablet 1 mg PO BEDTIME Qty: 30 0RF hydroxyzine pamoate 25 mg capsule 25 mg PO TID PRN (Reason: anxiety) Qty: 90 0RF escitalopram oxalate 10 mg tablet 10 mg PO DAILY Qty: 10 0RF paliperidone 6 mg tablet extended release 24 hr 6 mg PO DAILY Qty: 30 0RF Discontinued nicotine (polacrilex) 2 mg gum 2 mg PO QID PRN (Reason: nicotine cravings) lisinopril 10 mg tablet 10 mg PO DAILY Discharge Orders: Discharge Order (Routine); Ordered 12/24/24 Ordered By: Wendy Wood Diet: Advance to usual diet Activity on Discharge: As tolerated Stand Alone Forms: Patient Portal Discharge page, Community Support Print Language: Guinean Care Plan Goals: Abstinence from substances Mood and Behavioral Stabilization Health Concerns: Abstinence from substances Mood and Behavioral Stabilization Plan of Treatment: Attend scheduled appointments Take medications as directed Call/Return as needed Assessment: No SI,HI,AH,VH No sx of acute rigo or psychosis Pt agrees with plan of care Discharge Date/Time: 12/24/24 11:45
== END 2024-12-24 11:45 | disposition home or self-care (01) | DRG 885 ==
LOC: HO.ED 17:59 → HO.PM5 12-18 12:11
PROVIDERS: Nurse Practitioner Family; Physician Assistant Medical; Admitting Provider Registered Nurse; Emergency Provider Emergency Medicine; Visit Provider Clinical Nurse Specialist Psychiatric/Mental Health, Adult
DX: F25.9 Schizoaffective disorder, unspecified (principal); R45.851 Suicidal ideations; Z59.01 Sheltered homelessness; F17.210 Nicotine dependence, cigarettes, uncomplicated; F10.90 Alcohol use, unspecified, uncomplicated; Y90.0 Blood alcohol level of less than 20 mg/100 ml; I10 Essential (primary) hypertension; E78.5 Hyperlipidemia, unspecified; F32.A Depression, unspecified; E11.9 Type 2 diabetes mellitus without complications; Z71.6 Tobacco abuse counseling; Z79.84 Long term (current) use of oral hypoglycemic drugs; Z79.899 Other long term (current) drug therapy
CPT/HCPCS: 36415; 80048; 80053; 80061; 80076; 80143; 80179; 80307; 81001; 82947; 83036; 84443; 84484; 85025; 93005; 99285; S9485

== ENCOUNTER → 2024-12-17 10:43 | Outpatient (BNV) | payer OTHER, MEDICAID, SELFPAY | PROVIDERS: Emergency Provider Emergency Medicine; Visit Provider Internal Medicine | DX: I10 Essential (primary) hypertension (principal) | CPT/HCPCS: 93010 ==

== ENCOUNTER → 2024-12-18 12:04 | Outpatient (BNV) | payer OTHER, SELFPAY | PROVIDERS: Admitting Provider Registered Nurse; Emergency Provider Emergency Medicine; Visit Provider Nurse Practitioner Family | DX: I10 Essential (primary) hypertension (principal) | CPT/HCPCS: 99221; 99499 ==

== ENCOUNTER → 2024-12-18 12:04 | Outpatient (BNV) | payer OTHER, MEDICAID, SELFPAY | PROVIDERS: Admitting Provider Registered Nurse; Emergency Provider Emergency Medicine; Visit Provider Registered Nurse | DX: F25.9 Schizoaffective disorder, unspecified (principal); F10.90 Alcohol use, unspecified, uncomplicated | CPT/HCPCS: 90792 ==

== ENCOUNTER 2025-03-31 12:39 | Emergency (ER) | payer OTHER, SELFPAY ==
[2025-03-31 12:50] VITALS: BP 152/92; PULSE 83; O2SAT 97; BMI 30.4
--- NOTE | 2025-03-31 12:52 | ED.PSYCH ---
HPI - Psych General Chief Complaint: Psychiatric Symptoms Stated Complaint: Depression, SI with no plan Time Seen by Provider: 03/31/25 12:40 Source: patient, EMS, RN notes reviewed and old records reviewed Mode of arrival: EMS Limitations: no limitations History of Present Illness ED Provider: Mariah HPI Narrative: Patient is a 49-year-old male with history of hypertension, schizoaffective disorder, alcohol use disorder currently experiencing homelessness presenting to the emergency department complaining of increased depression and vague suicidal ideation over the past few days. States that he recently stopped taking all of his medications, but did not specify why. He states that he has refills available to him at [facility]. States that he does not have a plan of how he would kill himself. Denies homicidal ideation, auditory or visual hallucinations. Denies any current physical complaints. Reports that his homelessness is a contributing factor to his depression and suicidal ideation. MD complaint: suicidal ideation and feels depressed Related Data Home Medications ?Medication ?Instructions ?Recorded ?Confirmed acetaminophen 325 mg tablet 650 mg PO TID PRN pain 11/16/24 03/31/25 metformin 500 mg tablet 500 mg PO BID 11/16/24 03/31/25 fluticasone propionate 50 50 mcg intranasal BID PRN 03/31/25 03/31/25 mcg/actuation nasal Congestion spray,suspension hydrochlorothiazide 25 mg tablet 25 mg PO DAILY 03/31/25 03/31/25 lisinopril 30 mg tablet 30 mg PO DAILY 03/31/25 03/31/25 paliperidone 3 mg tablet,extended 3 mg PO BEDTIME 03/31/25 03/31/25 release 24 hr trazodone 100 mg tablet 100 mg PO BEDTIME 03/31/25 03/31/25 Previous Rx's ?Medication ?Instructions ?Recorded amlodipine 10 mg tablet 10 mg PO DAILY #30 tabs 12/24/24 atorvastatin 20 mg tablet 20 mg PO DAILY #30 tabs 12/24/24 benztropine 1 mg tablet 1 mg PO BEDTIME #30 tabs 12/24/24 clonidine HCl 0.1 mg tablet 0.1 mg PO TID PRN blood pressure 12/24/24 #90 tabs divalproex 500 mg tablet,delayed 500 mg PO BID depressive disorder 12/24/24 release #60 tabs folic acid 1 mg tablet 1 mg PO DAILY #30 tabs 12/24/24 hydroxyzine pamoate 25 mg capsule 25 mg PO TID PRN anxiety #90 caps 12/24/24 insulin glargine 100 unit/mL 15 unit (0.15 mL) subcut BEDTIME 12/24/24 subcutaneous solution (Lantus diabetes mellitus #4 kits U-100 Insulin) multivitamin (Daily-Roxanne tablet) 1 tab PO DAILY #30 tabs 12/24/24 nicotine 21 mg/24 hr daily 21 mg transdermal DAILY #30 ea 12/24/24 transdermal patch pantoprazole 40 mg tablet,delayed 40 mg PO DAILY #30 tabs 12/24/24 release thiamine mononitrate (vit B1) 100 100 mg PO DAILY #30 tabs 12/24/24 mg tablet amlodipine 10 mg tablet 10 mg PO DAILY #30 tabs 04/02/25 atorvastatin 20 mg tablet (Lipitor) 20 mg PO DAILY #30 tabs 04/02/25 insulin glargine 100 unit/mL (3 15 unit (0.15 mL) subcut BEDTIME 04/02/25 mL) subcutaneous pen (Lantus 30 days #4.5 mL Solostar U-100 Insulin) metformin 500 mg tablet 500 mg PO BID #60 tabs 04/02/25 Allergies Allergy/AdvReac Type Severity Reaction Status Date / Time No Known Allergies Allergy Verified 03/31/25 12:55 Review of Systems Review of Systems: As per HPI Yes all other systems are reviewed and are negative Constitutional: Constitutional: Reports as per HPI [facility] Past Medical History Medical History (Updated 04/04/25 @ 00:00 by Olayinka Koch) Hypertension Social History Social History Household Members: Family Housing: House Do you presently have visiting nurse or other home services: No Unable to assess alcohol history related to: Unknown Alcohol intake: current Alcohol intake frequency: a few times a week Patient Tobacco Use Status: Current someday Tobacco user Tobacco use type: Cigarette e-Cigarette/Vaping Use: Never Used Substance Use Type: Marijuana Advance Directives: No Advance Directives Information Provided: No Do you have a plan to hurt others: No Plan service: No Sexual orientation: Straight/Heterosexual Physical Exam Vital Signs: Vital Signs: Last Vital Signs Temp 97.7 F 04/03/25 09:59 Pulse 88 04/03/25 09:59 Resp 15 04/03/25 09:59 BP 120/79 04/03/25 09:59 Pulse Ox 98 04/03/25 09:59 O2 Del Method Room Air 04/03/25 09:59 BMI result Body Mass Index 30.4 Const: General: cooperative, healthy appearing and no acute distress Orientation/consciousness: oriented to person, oriented to place, oriented to time and patient oriented x3 Limitations: no limitations HEENT: Head: Yes normocephalic and Yes atraumatic Ears: external ears normal General nose exam: Normal external nose present Face and sinus: Yes face symmetric Mouth: oropharynx normal and moist mucous membranes Throat: Yes uvula midline Eyes: Pupils: Equal, round and reactive pupils present Neck: Neck: Yes normal visual inspection and Yes supple Resp: Effort & Inspection: normal respiratory effort and able to speak in complete sentences Auscultation: clear to auscultation bilaterally Cardio: Rate: regular rate Rhythm: regular rhythm Heart sounds: S1 normal heart sound present and S2 normal heart sound present GI: Palpation (GI): Soft to palpation and nontender Auscultation: normoactive bowel sounds : General: Yes no CVA tenderness Back/Spine/Pelvis: Back: no CVA tenderness Skin: General skin exam: elasticity normal and turgor normal Neuro: General: oriented to person, oriented to place, oriented to time, patient oriented x3, moves all extremities, no focal motor deficits and CN's II-XI intact bilaterally Cranial nerves: Yes Equal, round and reactive pupils present Cognition (Neuro): normal cognition Extrem: General: Yes full ROM, Yes no pedal edema and Yes no calf tenderness Psych: Appearance: grossly normal Mental Status: mental status grossly normal Speech and movement: Clear speech present Affect: Blunted affect present Attitude: cooperative Thought process: Normal thought process present Thought content: Suicidality present, no homicidality, no hallucinations and Depressive thoughts present Insight: Fair insight present (Psych) Judgement: Fair judgement present (Psych) Course Reevaluation(s) Reevaluation #1: 7:25 AM 04/01/2025 (Dr. Luis Fernando Broussard): I, Dr. Broussard have take over the care of this patient, I reviewed pertinent blood work and imaging, re-evaluated the patient when appropriate. will order sliding scale insulin Time: Reevaluation #2: Time: 05:21 Date: 04/03/25 Provider: Esequiel Tracy MD Patient in physician observation for psychiatric evaluation.? No acute events reported overnight. No current complaints. VS stable.? Patient is scheduled for a respite bed this morning. Will continue to monitor. Reevaluation #3: 04/03/25 951am physician observation ended. patient dischaged home MATT Medications Administered Discontinued Medications Generic Name Dose Route Start Last Admin Trade Name Noah PRN Reason Stop Dose Admin Amlodipine Besylate 10 mg 04/01/25 09:00 04/03/25 09:47 Amlodipine Besylate 10 Mg Tablet PO 10 mg DAILY YESSY Administration Protocol Atorvastatin Calcium 20 mg 04/01/25 09:00 04/03/25 09:47 Atorvastatin Calcium 20 Mg Tablet PO 20 mg DAILY YESSY Administration Benztropine Mesylate 1 mg 03/31/25 21:00 04/02/25 21:46 Benztropine Mesylate 1 Mg Tablet PO 1 mg BEDTIME YESSY Administration Divalproex Sodium 500 mg 03/31/25 21:00 04/03/25 09:46 Divalproex Sodium 500 Mg Tablet.Dr PO 500 mg BID YESSY Administration Folic Acid 1 mg 04/01/25 09:00 04/03/25 09:47 Folic Acid 1 Mg Tablet PO 1 mg DAILY YESSY Administration Hydrochlorothiazide 25 mg 04/01/25 09:00 04/03/25 09:47 Hydrochlorothiazide 25 Mg Tablet PO 25 mg DAILY YESSY Administration Protocol Insulin Glargine 15 unit 03/31/25 21:00 04/02/25 21:44 Insulin Glargine,Hum.Rec.Anlog 100 Unit/Ml 10 Ml Vial SUBCUT 15 unit BEDTIME YESSY Administration Insulin Human Lispro 0 unit 04/01/25 07:30 04/01/25 20:53 Insulin Lispro 100 Unit/Ml 3 Ml Vial SUBCUT 04/02/25 07:26 4 unit QIDACHS YESSY Administration Protocol Lisinopril 30 mg 04/01/25 09:00 04/03/25 09:46 Lisinopril 10 Mg Tablet PO 30 mg DAILY YESSY Administration Protocol Metformin HCl 500 mg 03/31/25 21:00 04/03/25 09:47 Metformin Hcl 500 Mg Tablet PO 500 mg BID YESSY Administration Multivitamins/Vitamin C 1 tab 04/01/25 09:00 04/03/25 09:46 Multivitamin Tablet PO 1 tab DAILY YESSY Administration Nicotine 21 mg 04/01/25 09:00 04/03/25 09:47 Nicotine 21 Mg Patch.Td24 TRANSDERMA Not Given DAILY YESSY Omeprazole 20 mg 04/01/25 06:30 04/03/25 05:58 Omeprazole 20 Mg Capsule. PO 20 mg DAILY@0630 YESSY Administration Paliperidone 3 mg 03/31/25 21:00 04/02/25 23:04 Paliperidone Er 3 Mg Tab.Er.24 PO 3 mg BEDTIME YESSY Administration Thiamine HCl 100 mg 04/01/25 09:00 04/03/25 09:47 Thiamine Hcl 100 Mg Tablet PO 100 mg DAILY YESSY Administration Trazodone HCl 100 mg 03/31/25 21:00 04/02/25 21:45 Trazodone Hcl 100 Mg Tablet PO 100 mg BEDTIME YESSY Administration Medical Decision Making Medical Decision Making [facility] Narrative: Patient is a 49-year-old male with history of hypertension, schizoaffective disorder, alcohol use disorder currently experiencing homelessness presenting to the emergency department complaining of increased depression and vague suicidal ideation over the past few days. On exam patient is awake, A+Ox3, VS WNL, afebrile, normal neurological exam without focal deficits, physical exam findings as above. Given reported symptoms and physical exam findings, initial differential includes but is not limited to schizoaffective disorder, depression, suicidal ideation. Plan for medical clearance then care team evaluation. Labs unremarkable. UA is without evidence of infection. Urine drug screen and ethanol negative. COVID negative. Patient medically cleared for care team evaluation and placed on physician observation at this time. Differential Diagnosis Differential Diagnoses: The differential diagnosis associated with the presentation includes As per [facility] Admission/Observation Consideration of admission/observation: Escalation of care including admission/observation considered Patient would have been admitted to the hospital and transferred to appropriate facility had their clinical presentation warranted hospital admission. Consult Healthcare Provider Management of the patient was discussed with: Behavioral Health Provider Lab Data [facility] Lab Attestation statement: I reviewed the patient's lab results. as per [facility] 03/31/25 13:16 03/31/25 13:16 Labs: Lab Results 03/31/25 03/31/25 03/31/25 Range/Units 13:00 13:16 14:06 WBC 5.6 (4.8-10.8) X10*3/uL RBC 4.70 (4.60-5.80) X10*6/uL Hgb 12.8 L (14.0-18.0) g/dl Hct 38.4 L (42.0-52.0) % MCV 81.7 (80.0-98.0) fL MCH 27.2 (27.0-33.0) pg MCHC 33.3 (31.0-36.0) g/dl RDW 12.6 (11.0-16.0) % Plt Count 233 (160-400) X10*3/uL MPV 9.7 (9.4-12.4) fL Immature Gran % (Auto) 0.2 (0.0-0.4) % Neut % (Auto) 50.9 (45-73) % Lymph % (Auto) 37.1 (20-40) % Blanco % (Auto) 9.8 (2-11) % Eos % (Auto) 1.1 (0-4) % Baso % (Auto) 0.9 (0-2) % Lymph # (Auto) 2.1 (1.2-4.9) X10*3/uL Blanco # (Auto) 0.6 (0.1-1.2) X10*3/uL Eos # (Auto) 0.1 (0.0-0.4) X10*3/uL Baso # (Auto) 0.1 (0.0-0.2) X10*3/uL Abs Immat Gran (auto) 0.01 (0.00-0.03) X10*3/uL Absolute Neuts (auto) 2.9 (2.0-8.3) x10*3/uL Absolute Nucleated RBC 0.000 (0.0-0.012) X10*3/uL Nucleated RBC % (auto) 0.0 (0.0-0.2) /100WBC Sodium 136 (135-145) mmol/L Potassium 3.8 (3.3-5.1) mmol/L Chloride 102 (96-108) mmol/L Carbon Dioxide 27 (22-29) mmol/L Anion Gap 11 L (12-20) BUN 14 (9-16) mg/dL Creatinine 0.81 (0.5-1.4) mg/dL Estim Creat Clear Calc 121.9 Estimated GFR > 60 POC Glucose (60-115) mg/dL Random Glucose 292 H (60-115) mg/dL Calcium 8.5 D (8.4-10.2) mg/dL Total Bilirubin 0.4 (0.0-1.0) mg/dL AST 28 (5-37) U/L ALT 23 (0-40) U/L Alkaline Phosphatase 44 (39-117) U/L Total Protein 7.5 (6.5-8.0) g/dL Albumin 4.0 (3.5-5.0) g/dL Urine Color Dark Yellow Urine Appearance Clear Urine pH 6.0 (5.0-9.0) Ur Specific Knox >= 1.030 H (1.005-1.025) Urine Protein Trace (Neg-Trace) mg/dL Urine Glucose (UA) 500 H (Negative) mg/dL Urine Ketones Trace (Negative) mg/dL Urine Blood Negative (Negative) Urine Nitrite Negative (Negative) Ur Leukocyte Esterase Negative (Negative) Urine Opiates Screen Not Detected (Not Detect) Ur Buprenorphine Scrn Not Detected (Not Detect) ng/mL Ur Oxycodone Screen Not Detected (Not Detect) ng/mL Urine Methadone Screen Not Detected (Not Detect) ng/mL Urine Fentanyl Screen Not Detected (Not Detect) Ur Barbiturates Screen Not Detected (Not Detect) Valproic Acid < 12.5 L (50.0-100.0) mcg/mL Ur Phencyclidine Scrn Not Detected (Not Detect) Ur Amphetamines Screen Not Detected (Not Detect) U Benzodiazepines Scrn Not Detected (Not Detect) Urine Cocaine Screen Not Detected (Not Detect) U Marijuana (THC) Screen Not Detected (Not Detect) Ethyl Alcohol < 10 mg/dL COVID-19 (KENJI) Negative (Negative) COVID-19 Clin Com See Note 04/01/25 04/01/25 04/01/25 Range/Units 07:08 12:00 18:01 WBC (4.8-10.8) X10*3/uL RBC (4.60-5.80) X10*6/uL Hgb (14.0-18.0) g/dl Hct (42.0-52.0) % MCV (80.0-98.0) fL MCH (27.0-33.0) pg MCHC (31.0-36.0) g/dl RDW (11.0-16.0) % Plt Count (160-400) X10*3/uL MPV (9.4-12.4) fL Immature Gran % (Auto) (0.0-0.4) % Neut % (Auto) (45-73) % Lymph % (Auto) (20-40) % Blanco % (Auto) (2-11) % Eos % (Auto) (0-4) % Baso % (Auto) (0-2) % Lymph # (Auto) (1.2-4.9) X10*3/uL Blanco # (Auto) (0.1-1.2) X10*3/uL Eos # (Auto) (0.0-0.4) X10*3/uL Baso # (Auto) (0.0-0.2) X10*3/uL Abs Immat Gran (auto) (0.00-0.03) X10*3/uL Absolute Neuts (auto) (2.0-8.3) x10*3/uL Absolute Nucleated RBC (0.0-0.012) X10*3/uL Nucleated RBC % (auto) (0.0-0.2) /100WBC Sodium (135-145) mmol/L Potassium (3.3-5.1) mmol/L Chloride (96-108) mmol/L Carbon Dioxide (22-29) mmol/L Anion Gap (12-20) BUN (9-16) mg/dL Creatinine (0.5-1.4) mg/dL Estim Creat Clear Calc Estimated GFR POC Glucose 263 H 216 H 207 H (60-115) mg/dL Random Glucose (60-115) mg/dL Calcium (8.4-10.2) mg/dL Total Bilirubin (0.0-1.0) mg/dL AST (5-37) U/L ALT (0-40) U/L Alkaline Phosphatase (39-117) U/L Total Protein (6.5-8.0) g/dL Albumin (3.5-5.0) g/dL Urine Color Urine Appearance Urine pH (5.0-9.0) Ur Specific Knox (1.005-1.025) Urine Protein (Neg-Trace) mg/dL Urine Glucose (UA) (Negative) mg/dL Urine Ketones (Negative) mg/dL Urine Blood (Negative) Urine Nitrite (Negative) Ur Leukocyte Esterase (Negative) Urine Opiates Screen (Not Detect) Ur Buprenorphine Scrn (Not Detect) ng/mL Ur Oxycodone Screen (Not Detect) ng/mL Urine Methadone Screen (Not Detect) ng/mL Urine Fentanyl Screen (Not Detect) Ur Barbiturates Screen (Not Detect) Valproic Acid (50.0-100.0) mcg/mL Ur Phencyclidine Scrn (Not Detect) Ur Amphetamines Screen (Not Detect) U Benzodiazepines Scrn (Not Detect) Urine Cocaine Screen (Not Detect) U Marijuana (THC) Screen (Not Detect) Ethyl Alcohol mg/dL COVID-19 (KENJI) (Negative) COVID-19 Clin Com 04/01/25 04/02/25 Range/Units 20:32 20:18 WBC (4.8-10.8) X10*3/uL RBC (4.60-5.80) X10*6/uL Hgb (14.0-18.0) g/dl Hct (42.0-52.0) % MCV (80.0-98.0) fL MCH (27.0-33.0) pg MCHC (31.0-36.0) g/dl RDW (11.0-16.0) % Plt Count (160-400) X10*3/uL MPV (9.4-12.4) fL Immature Gran % (Auto) (0.0-0.4) % Neut % (Auto) (45-73) % Lymph % (Auto) (20-40) % Blanco % (Auto) (2-11) % Eos % (Auto) (0-4) % Baso % (Auto) (0-2) % Lymph # (Auto) (1.2-4.9) X10*3/uL Blanco # (Auto) (0.1-1.2) X10*3/uL Eos # (Auto) (0.0-0.4) X10*3/uL Baso # (Auto) (0.0-0.2) X10*3/uL Abs Immat Gran (auto) (0.00-0.03) X10*3/uL Absolute Neuts (auto) (2.0-8.3) x10*3/uL Absolute Nucleated RBC (0.0-0.012) X10*3/uL Nucleated RBC % (auto) (0.0-0.2) /100WBC Sodium (135-145) mmol/L Potassium (3.3-5.1) mmol/L Chloride (96-108) mmol/L Carbon Dioxide (22-29) mmol/L Anion Gap (12-20) BUN (9-16) mg/dL Creatinine (0.5-1.4) mg/dL Estim Creat Clear Calc Estimated GFR POC Glucose 213 H 268 H (60-115) mg/dL Random Glucose (60-115) mg/dL Calcium (8.4-10.2) mg/dL Total Bilirubin (0.0-1.0) mg/dL AST (5-37) U/L ALT (0-40) U/L Alkaline Phosphatase (39-117) U/L Total Protein (6.5-8.0) g/dL Albumin (3.5-5.0) g/dL Urine Color Urine Appearance Urine pH (5.0-9.0) Ur Specific Knox (1.005-1.025) Urine Protein (Neg-Trace) mg/dL Urine Glucose (UA) (Negative) mg/dL Urine Ketones (Negative) mg/dL Urine Blood (Negative) Urine Nitrite (Negative) Ur Leukocyte Esterase (Negative) Urine Opiates Screen (Not Detect) Ur Buprenorphine Scrn (Not Detect) ng/mL Ur Oxycodone Screen (Not Detect) ng/mL Urine Methadone Screen (Not Detect) ng/mL Urine Fentanyl Screen (Not Detect) Ur Barbiturates Screen (Not Detect) Valproic Acid (50.0-100.0) mcg/mL Ur Phencyclidine Scrn (Not Detect) Ur Amphetamines Screen (Not Detect) U Benzodiazepines Scrn (Not Detect) Urine Cocaine Screen (Not Detect) U Marijuana (THC) Screen (Not Detect) Ethyl Alcohol mg/dL COVID-19 (KENJI) (Negative) COVID-19 Clin Com External Record Review External record reviewed: Inpatient record, Office record and Outpatient record Discharge Plan Discharge Clinical Impression: Depression, Suicidal ideation Patient Disposition: Home, Self-Care Prescriptions: New metformin 500 mg tablet 500 mg PO BID Qty: 60 0RF atorvastatin [Lipitor] 20 mg tablet 20 mg PO DAILY Qty: 30 0RF amlodipine 10 mg tablet 10 mg PO DAILY Qty: 30 0RF insulin glargine [Lantus Solostar U-100 Insulin] 100 unit/mL (3 mL) insulin pen 15 unit subcut BEDTIME 30 Days Qty: 4.5 0RF No Action metformin 500 mg tablet 500 mg PO BID acetaminophen 325 mg tablet 650 mg PO TID PRN (Reason: pain) nicotine 21 mg/24 hr Patch 24 Hour 21 mg transdermal DAILY Qty: 30 0RF multivitamin [Daily-Roxanne] Tablet 1 tab PO DAILY Qty: 30 0RF folic acid 1 mg Tablet 1 mg PO DAILY Qty: 30 0RF thiamine mononitrate (vit B1) 100 mg Tablet 100 mg PO DAILY Qty: 30 0RF clonidine HCl 0.1 mg tablet 0.1 mg PO TID PRN (Reason: blood pressure) Qty: 90 0RF atorvastatin 20 mg tablet 20 mg PO DAILY Qty: 30 0RF insulin glargine [Lantus U-100 Insulin] 100 unit/mL solution 15 unit subcut BEDTIME Qty: 4 0RF divalproex 500 mg tablet,delayed release (DR/EC) 500 mg PO BID Qty: 60 0RF amlodipine 10 mg tablet 10 mg PO DAILY Qty: 30 0RF pantoprazole 40 mg tablet,delayed release (DR/EC) 40 mg PO DAILY Qty: 30 0RF benztropine 1 mg tablet 1 mg PO BEDTIME Qty: 30 0RF hydroxyzine pamoate 25 mg capsule 25 mg PO TID PRN (Reason: anxiety) Qty: 90 0RF trazodone 100 mg tablet 100 mg PO BEDTIME lisinopril 30 mg tablet 30 mg PO DAILY paliperidone 3 mg tablet extended release 24hr 3 mg PO BEDTIME hydrochlorothiazide 25 mg tablet 25 mg PO DAILY fluticasone propionate 50 mcg/actuation spray,suspension 50 mcg intranasal BID PRN (Reason: Congestion) Interventions: Dalton-Suicide Risk Severity Scale Last Done: 04/02/25 19:25 ED Discharge Assessment Last Done: 04/03/25 09:59 Discharge Date/Time: 04/03/25 09:59 Print Language: Uzbek
--- NOTE | 2025-03-31 13:13 | MHC.EDTECH ---
This tech assisted with changeover, patient calm and cooperative, hair tie removed locks shaken out and hair tie given back to patient.
[2025-03-31 13:24] LABS: MANUAL DIFF FLAG NO
[2025-03-31 13:27] LABS: Hematocrit 38.4 % (42.0-52.0); Hemoglobin 12.8 g/dl (14.0-18.0); Imm Gran Abs Auto 0.01 X10*3/uL (0.00-0.03); Imm Gran Pct Auto 0.2 % (0.0-0.4); Lymphocytes Absolute Auto 2.1 X10*3/uL (1.2-4.9); Mean Corpuscular HGB Conc 33.3 g/dl (31.0-36.0); Mean Corpuscular Hemoglobin 27.2 pg (27.0-33.0); Mean Corpuscular Volume 81.7 fL (80.0-98.0); NRBC Abs Auto 0.000 X10*3/uL (0.0-0.012); NRBC Pct Auto 0.0 /100WBC (0.0-0.2); Platelet Count 233 X10*3/uL (160-400); Red Blood Count 4.70 X10*6/uL (4.60-5.80); White Blood Count 5.6 X10*3/uL (4.8-10.8)
[2025-03-31 13:28] LABS: Appearance Urine Clear; Glucose Urine UA 500 mg/dL (Negative); PH 6.0 (5.0-9.0); Specific Gravity - Urine >= 1.030 (1.005-1.025)
[2025-03-31 13:37] VITALS: BP 119/80; PULSE 84; RESP 18; TEMP 36.7; O2SAT 98
[2025-03-31 13:41] LABS: COVID-19 Test Negative (Negative); IDNOW Serial# 55D5AD1C
[2025-03-31 13:41] LABS: Cannabinoid Screen Urine Not Detected (Not Detect)
[2025-03-31 13:50] LABS: Alanine Aminotransferase 23 U/L (0-40); Albumin Level 4.0 g/dL (3.5-5.0); Alkaline Phosphatase 44 U/L (39-117); Anion Gap 11 (12-20); Aspartate Amino Transferase 28 U/L (5-37); Blood Urea Nitrogen 14 mg/dL (9-16); Calcium 8.5 mg/dL (8.4-10.2); Carbon Dioxide 27 mmol/L (22-29); Chloride 102 mmol/L (96-108); Creatinine Clr Calc Pharmacy 121.9; Estimated Glomerular Filt Rate > 60; Potassium 3.8 mmol/L (3.3-5.1); Sodium 136 mmol/L (135-145); Total Protein 7.5 g/dL (6.5-8.0)
--- NOTE | 2025-03-31 15:32 | PHA.MEDREC ---
Pharmacy Consult ? Medication Reconciliation Pharmacy has completed the medication reconciliation. Med rec completed by Sabi Gutierrez, noted all new rx's were not picked up, list matches prior claims
--- OUTSIDE RECORDS SUMMARY | 2025-03-31 17:41 | XMS_ITS | Clinical Summary ---
Author Organization [facility] Address [address] [place] [address] Phone Care Team Providers Care Vasc Tech Name Role Phone Physician, No Pcp Primary [...] Health Maintenance Due Date Last Done Comments Colorectal Cancer Screening: Colonoscopy 1976 Diabetes: Annual Foot Exam 1986 Diabetes: Annual Retina Eye Exam 1986 Hepatitis B Vaccines (1 of 3 - 19+ 3-dose series) 1995 Cholesterol Screening (Lipid Panel) 07/24/2023 Diabetes: Annual Urine Albumin-Creatinine Ratio (uACR) 07/24/2023 Diabetes: Blood Sugar Control Test (HGBA1C) 07/24/2023 HIV Screening 07/24/2023 Hepatitis C Screening 07/24/2023 Medicare Annual Wellness Visit 07/24/2023 Social Influencers of Health Screening 07/24/2023 Depression Screening 06/25/2024 Influenza Vaccine (#1) 2025 04/25/2024, 2022 Diabetes: Annual GFR (Glomerular Filtration Rate) 07/30/2025 07/30/2024, 05/04/2023 Hypertension/CHF/CAD Annual BMP Blood Test 07/30/2025 07/30/2024, 05/04/2023 DTaP,Tdap,and Td Vaccines (2 - Td or Tdap) 02/23/2032 02/22/2022 RSV Immunization Adult Patients (1 - 1-dose 75+ series) 2051 Pneumococcal Vaccine: Pediatrics (0 to 5 Years) and At-Risk Patients (6 to 49 Years) Aged Out 02/22/2022 No longer eligible based on patient's age to complete this topic COVID-19 Vaccine Completed 04/25/2024, , 02/22/2022, Additional history exists HIB Vaccines Aged Out No longer eligi [...] LAB CHEMISTRY METHOD 07/30/2024 11:43 AM EST [facility] Potassium 3.3(L) 3.5 - 5.5 mmol/L LAB CHEMISTRY METHOD 07/30/2024 11:43 AM EST [facility] Chloride 102 96 - 110 mmol/L LAB CHEMISTRY METHOD 07/30/2024 11:43 AM EST [facility] CO2 28 21 - 32 mmol/L LAB CHEMISTRY METHOD 07/30/2024 11:43 AM EST [facility] Anion Gap 6 3 [...] [facility] Comment:Calculation based on the Chronic [...] MD LAB BLOOD ORDERABLES Shaista dewey Result [facility] [address] [place] [address], from Last 3 Months or Most Recently Relevant to Health Maintenance Insurance [employer] Member Subscriber Plan / Payer (Ef fective 2015-Present) Name:Caryl Mccollum Relation to Subscriber:Self Name:Caryl Mccollum Payer ID:[id number] Group ID:[id number] Type:Not on file Address: [place] [address] [address] [id number] Care Teams Vasc Tech Relationship Specialty Start Date End Date Physician, No Pcp PCP - General 07/30/24
--- OUTSIDE RECORDS SUMMARY | 2025-03-31 17:41 | XMS_ITS | Clinical Summary ---
Author Organization [facility] Address [address] [facility] [address] [place] [address] Care Team Providers Care Visual Education Teacher Name Role Phone No Pcp, Per Patient Primary Care Provider Swetha lewis Allergies No known active allergies Medications divalproex (Depakote ER) 500 mg 24 hr tablet Take by mouth. 3 Active hydrOXYzine HCL (Atarax) 50 mg tablet Take 1 tablet by mouth twice daily. 3 Active Trulicity 0.75 mg/0.5 mL pen injector Inject 0.75 mg under the skin 1 (one) time per week. 3 Active metFORMIN (Glucophage) 500 mg tablet Take 1,000 mg by mouth twice daily. 3 Active atorvastatin (Lipitor) 20 mg tablet Take 20 mg by mouth at bedtime. 3 Active cloNIDine (Catapres) 0.1 mg tablet Take 0.1 mg by mouth twice daily. 3 Active benztropine (Cogentin) 1 mg tablet Take 1 mg by mouth twice daily. 3 Active risperiDONE (RisperDAL) 1 mg tablet Take 1 mg by mouth twice daily. 3 Active ARIPiprazole (Abilify) 15 mg tablet Take 15 mg by mouth once daily. 3 Active FreeStyle Lite Strips strips SMARTSIG:Via Meter 3 Active alcohol swabs pads, medicated Apply topically. 3 Active amLODIPine (Norvasc) 5 mg tablet Take 5 mg by mouth once daily. 3 Active docusate sodium (Colace) 100 mg capsule Take 100 mg by mouth twice daily. 3 Active sertraline (Zoloft) 50 mg tablet Take 50 mg by mouth once daily. 3 Active triamcinolone (Kenalog) 0.1 % cream Apply topically twice daily. 2 Active Active Problems No known active problems Social History Tobacco Use Types Packs/Day Years Used Date Smoking Tobacco: Every Day Cigarettes Smokeless Tobacco: Never Tobacco Cessation:Ready to Q uit: Not Asked; Counseling Given: Not Answered Alcohol Use Standard Drinks/Week Comments Yes 0 (1 standard drink = 0.6 oz pur e alcohol) Sex and Gender Information Value Date Recorded Sex Assigned at Not on file Legal Sex Male 8:43 AM EST Gender Identity Not on file Sexual Orientation Not on file Last Filed Vital Signs Vital Sign Reading Time Taken Comments Blood Pressure 135/81 05/04/2023 8:31 PM EST Pulse 55 05/04/2023 8:31 PM EST Temperature 36.9 C (98.4 F) 05/04/2023 7:26 PM EST Respiratory Rate 16 05/04/2023 8:31 PM EST Oxygen Saturation 98% 05/04/2023 8:31 PM EST Inhaled Oxygen Concentration - - Weight 99.3 kg (218 lb 14.7 oz) 023 11:19 AM EST Height 180.3 cm (5' 10.98 ) 05/04/2023 11:19 AM EST Body Mass Index 30.55 05/04/2023 11:19 AM EST Plan of Treatment Health Maintenance Due Date Last Done Comments CT Colonography 1976 Colonoscopy 1976 Colorectal Cancer Screening 1976 FIT-DNA 1976 FIT 1976 FOBT 1976 HIV Screening 1976 Lipid Panel 1976 Sigmoidoscopy 1976 Tobacco Cessation Counseling 1976 MMR Vaccines (1 of 1 - Standard series) 1977 Hepatitis C Screening 1994 Hepatitis B Vaccines (1 of 3 - 19+ 3-dose series) 1995 Depression Screening 06/25/2024 COVID-19 Vaccine ( - 2024- season) 2025 06/10/2022, 02/22/2022, 03/23/2021, Additional history exists Influenza Vaccine (#1) 2025 03/29/2023 DTaP/Tdap/Td Vaccines (2 - Td or Tdap) 02/23/2032 02/22/2022 Pneumococcal Vaccine: Pediatrics (0 to 5 Years) and At-Risk Patients (6 to 49 Years) Completed 02/22/2022 HIB Vaccines Aged Out No longer eligi [...] patient's age to complete this topic Meningococcal Vaccine Aged Out No guerda maria del carmen eligible based on patient's age to complete this topic Rotavirus Vaccines Aged Out No longer eligible based on patient's age to complete this topic Insurance [employer] Care Teams Visual Education Teacher Relationship Specialty Start Date End Date No Pcp, Per Patient MARCELA PCP - General 05/04/23
--- NOTE | 2025-03-31 18:35 | MHC.EDTECH ---
Patient requesting phone to be charged, this tech obtained phone with patients permission from belongings. Currently charging at RN station, patient label applied to device.
--- NOTE | 2025-03-31 18:47 | MHC.CARE ---
Patient evaluated by the CARE Team, disposition referral to [facility], is under review. Dr. Long updated with plan.
[2025-03-31] MEDS: Insulin Glargine,Hum.rec.anlog 100 UNIT/ML 10 ML VIAL 15 UNIT SUBCUT (20:24)
--- NOTE | 2025-03-31 23:46 | PC.NURSE ---
This RN assumed pt care @ 2300. Pt a&ox4, no signs of distress. Pt ambulates with steady gait. Pt requested and given drink and food. Plan of care ongoing.
--- NOTE | 2025-04-01 04:47 | PC.NURSE ---
Addendum entered by Anu Amaya RN 04/01/25 05:06: Pt resting quietly, eyes closed, respirations even and unlabored. Original Note: Assumed care of pt at 0310. Report received from Amaya Garcia. Safety precautions in place- 15 minutes check remain, video monitoring on.
[2025-04-01 07:12] LABS: Glucose, Whole Blood 263 mg/dL (60-115)
[2025-04-01 08:28] VITALS: BP 119/80
[2025-04-01] MEDS: Nicotine 21 MG PATCH.TD24 TRANSDERMA (08:29)
[2025-04-01 08:41] VITALS: BP 119/80
[2025-04-01 08:57] VITALS: BP 134/60; PULSE 74; RESP 16; TEMP 37.1; O2SAT 95
[2025-04-01 12:03] LABS: Glucose, Whole Blood 216 mg/dL (60-115)
[2025-04-01 18:05] LABS: Glucose, Whole Blood 207 mg/dL (60-115)
--- NOTE | 2025-04-01 19:01 | PC.NURSE ---
Assumed care of patient at 1845, patient currently resting in bed, respirations even and unlabored, no apparent distress is noted at this time. Continue plan of care for respite bedsearch
[2025-04-01 20:35] LABS: Glucose, Whole Blood 213 mg/dL (60-115)
[2025-04-01] MEDS: Insulin Glargine,Hum.rec.anlog 100 UNIT/ML 10 ML VIAL 15 UNIT SUBCUT (20:53)
[2025-04-01 23:28] VITALS: RESP 14
[2025-04-02 06:41] VITALS: BP 119/61; PULSE 72; RESP 14; TEMP 36.7; O2SAT 95
[2025-04-02 08:34] VITALS: BP 127/75; PULSE 66; RESP 18; TEMP 36.4; O2SAT 97
[2025-04-02 08:35] VITALS: BP 127/75
[2025-04-02 08:36] VITALS: BP 127/75
[2025-04-02 08:37] VITALS: BP 127/75
[2025-04-02] MEDS: Nicotine 21 MG PATCH.TD24 TRANSDERMA (08:38)
--- NOTE | 2025-04-02 10:58 | PC.NURSE ---
Assumed care, report received. Pt is resting in his room, safety maintained.
--- NOTE | 2025-04-02 18:18 | PC.NURSE ---
Pt has remains calm and cooperative. he is aware of the barrier for Respite transfer is his medications and lack of access to them. He denies SI/HI/AVH
--- NOTE | 2025-04-02 19:26 | PC.NURSE ---
Assumed care of patient at 1845, patient calm and cooperative, resting in bed, offering no complaints to this RN. Continue plan of care for respite bedsearch
[2025-04-02 20:22] LABS: Glucose, Whole Blood 268 mg/dL (60-115)
[2025-04-02 20:45] VITALS: BP 112/57; PULSE 89; RESP 16; TEMP 36.6; O2SAT 96
[2025-04-02] MEDS: Insulin Glargine,Hum.rec.anlog 100 UNIT/ML 10 ML VIAL 15 UNIT SUBCUT (21:44)
--- NOTE | 2025-04-02 22:03 | PC.NURSE ---
awaiting Invega medication from pharmacy at this time
--- NOTE | 2025-04-02 23:45 | MHC.CARE ---
Pt was accepted to [facility] initially on 04/01 and at that time [facility] indicated that they would follow up in the morning and provide an ETA. Per [facility], the nurse at [facility] contacted the pharmacy to confirm that all of pt's medications were waiting to be picked up at the pharmacy prior to his arrival to the program and indicated that he was missing several of his medications as well as appeared to have some inconsistencies with the medications waiting to be picked up at the pharmacy and the medications being administered in the ED. [facility] RN indicated that pt would need to obtain new scripts for the missing medications or be able to obtain his previous script from the community prior to arrival as it is required for all prescribed medications to be in pts possession upon arrival to [facility]. This song writer contacted [facility] on [facility] to confirm the medications that were needed at this time and determine if a short term script is able to be filled if the pt filled a 90 day script in the community that is not due for a refill at this time. [facility] stated that due to having almost another month of his previous prescription prior to being appropriate for a refill that he would have to pay out of pocket if a short term script was provided as he is not in need of a refill at this time.This song writer contacted [facility] RN back at this time to inform her that it does not appear that he will be able to obtain two of his prescribed medications as he is not in need of a refill at this time due to recently being provided a 90 day script and not knowing where his medications are located in the community at this time. Lilli from [facility] indicated that she would contact the [facility] provider and inquire if pt is able to still present to his planned [facility] admission with all of his currently prescribed medications. She contacted back the Care Team and indicated that he was still able to present to [facility] without those two medications however, voiced that he needed to have all of his other medications as well as access to his Insulin at this time. It was confirmed that pt did not have Insulin in his belongings upon arrival and [facility] reported that he does have an active script waiting to be filled however, noted that his type of insulin is currently out of stock. [facility] on [facility] was able to provide a different brand of Insulin as his desired brand has been out of stock for an extended period of time at which time this song writer called back [facility] to confirm that he was able to access all of his prescribed medications besides the two that were previously discussed that he does not need to bring for his admission. She indicated that his medications can be dropped of at [facility] this evening so the nurse is able to confirm that all required medications are accessible prior to him arriving to [facility]. Medications were obtained and transported to [facility] and nurse verified at that time that all of his medications are present and confirmed that they could confirm an acceptance time of 11am on 04/03/25. Pt was informed that he was accepted to [facility] for 11AM on 04/03 at which time he reported that he would need a lyft to the program tomorrow morning. This song writer informed pt that we are able to assist with transportation to his placement tomorrow morning and information was passed to first shift care team staff as pt will need to be discharged and arrive at [facility] for 11AM. Information was also passed to the current attending physician Dr. Cassandra Escobar who is in agreement with the disposition at this time. Pt will remain in the ED overnight and be discharged and lyfted to [facility] tomorrow, 04/03/25, for 11AM.
[2025-04-03 01:11] VITALS: BP 120/79; PULSE 88; RESP 15; TEMP 36.5; O2SAT 98
--- NOTE | 2025-04-03 01:22 | PC.NURSE ---
Pt awake, calm and cooperative, offering no complaints to this RN
--- NOTE | 2025-04-03 09:58 | PC.NURSE ---
pt dressed and given AM medications. CARE team ordered lyft to respite.
[2025-04-03 09:59] VITALS: BP 120/79; PULSE 88; RESP 15; TEMP 36.5; O2SAT 98
== END 2025-04-03 09:59 | disposition home or self-care (01) ==
PROVIDERS: Registered Nurse Emergency; Emergency Provider Emergency Medicine
DX: F32.A Depression, unspecified (principal); R45.851 Suicidal ideations; F25.9 Schizoaffective disorder, unspecified; I10 Essential (primary) hypertension; Z59.02 Unsheltered homelessness
CPT/HCPCS: 36415; 80053; 80164; 80307; 81003; 82947; 85025; 87635; 99285; S9485

== ENCOUNTER 2025-04-11 19:05 | Inpatient (IN) | payer OTHER, SELFPAY ==
--- NOTE | 2025-04-11 19:25 | ECG_ITS ---
Test Reason : substance use Blood Pressure : */* mmHG Vent. Rate : 72 BPM Atrial Rate : 72 BPM P-R Int : 170 ms QRS Dur : 76 ms QT Int : 386 ms P-R-T Axes : 35 3 18 degrees QTcB Int : 422 ms Normal sinus rhythm Normal ECG When compared with ECG of 17-Dec-2024 10:43, No significant change was found Referred By: Maria Ines Palmer Electronically Signed By: Harpreet Reddy
[2025-04-11 19:33] VITALS: BP 171/103; BP 172/120; PULSE 81; RESP 18; TEMP 36.9; O2SAT 98; BMI 33.9
--- NOTE | 2025-04-11 19:38 | PC.NURSE ---
Pt is calm and cooperative. Presents via EMS reporting SI with plan to slice wrist. Being triggered by sisters earlier in the year. Changed over completed by this nurse and security. Changed into hospital attire. Pts belongings (2 bags) placed in olivier port shelf 2. 1:1 Sitter at bedside for safety.
--- NOTE | 2025-04-11 19:44 | ED.PSYCH ---
HPI - Psych General Chief Complaint: Psychiatric Symptoms Stated Complaint: SI,VOLUNTARY,CRISIS, WANTS [facility] PER EMS Time Seen by Provider: 04/11/25 19:39 Source: patient and RN notes reviewed Mode of arrival: ambulatory Limitations: no limitations History of Present Illness ED Provider: Maria Ines Palmer PA-C HPI Narrative: This is a 49-year-old male, with a past medical history of schizoaffective disorder, alcohol use disorder, and hypertension, who presents emergency department via EMS with concerns of suicidal ideation with plan to slit his wrist. He states that he has been triggered with the of his sister earlier this year. He has been looking into getting into [facility] for services as he has been there before and found it beneficial. Patient does report alcohol use, last drank yesterday. No history of alcohol withdrawal. He endorses marijuana use, denies any illicit drug use. Patient does report some abdominal discomfort however describes this as cramping. He has been eating normally. No changes in bowel or bladder habits. He denies any fevers, chills, chest pain, shortness of breath, nausea or vomiting. No changes to urination status. He has been compliant on all of his medications. No other complaints or concerns at this time. MD complaint: suicidal ideation and feels depressed History of same: Yes Associated psychiatric symptoms: none Associated symptoms: denies other symptoms Treatments prior to arrival: none If self harm: admits thoughts of self harm and has plan Related Data Home Medications ?Medication ?Instructions ?Recorded ?Confirmed acetaminophen 325 mg tablet 650 mg PO TID PRN pain 11/16/24 04/13/25 metformin 500 mg tablet 500 mg PO BID 11/16/24 04/12/25 fluticasone propionate 50 2 spray intranasal BID Congestion 03/31/25 04/13/25 mcg/actuation nasal spray,suspension hydrochlorothiazide 25 mg tablet 25 mg PO DAILY 03/31/25 04/12/25 lisinopril 30 mg tablet 30 mg PO DAILY 03/31/25 04/12/25 paliperidone 3 mg tablet,extended 3 mg PO BEDTIME 03/31/25 04/12/25 release 24 hr trazodone 100 mg tablet 100 mg PO BEDTIME 03/31/25 04/12/25 benztropine 0.5 mg tablet 0.5 mg PO BID 04/12/25 04/12/25 clonidine HCl 0.2 mg tablet 0.2 mg PO BID 04/12/25 04/12/25 hydroxyzine pamoate 50 mg capsule 50 mg PO Q4H PRN anxiety 04/12/25 04/12/25 paliperidone palmitate 156 mg/mL 156 mg IM QMONTH 04/12/25 04/12/25 intramuscular syringe (Invega Sustenna) divalproex 500 mg tablet,extended 1,000 mg PO BEDTIME 04/13/25 04/13/25 release 24 hr divalproex 500 mg tablet,extended 500 mg PO DAILY@0900 04/13/25 04/13/25 release 24 hr insulin glargine 100 unit/mL (3 2 - 8 unit subcut BEDTIME 04/13/25 04/13/25 mL) subcutaneous pen (Basaglar KwikPen U-100 Insulin) Previous Rx's ?Medication ?Instructions ?Recorded amlodipine 10 mg tablet 10 mg PO DAILY #30 tabs 12/24/24 atorvastatin 20 mg tablet 20 mg PO DAILY #30 tabs 12/24/24 folic acid 1 mg tablet 1 mg PO DAILY #30 tabs 12/24/24 multivitamin (Daily-Roxanne tablet) 1 tab PO DAILY #30 tabs 12/24/24 nicotine 21 mg/24 hr daily 21 mg transdermal DAILY #30 ea 12/24/24 transdermal patch pantoprazole 40 mg tablet,delayed 40 mg PO DAILY #30 tabs 12/24/24 release Allergies Allergy/AdvReac Type Severity Reaction Status Date / Time No Known Allergies Allergy Verified 04/11/25 19:37 Review of Systems Review of Systems: Constitutional : No Fever, No Chills ENT/Mouth : No sore throat, No Rhinorrhea Eyes: No Eye Pain, No Swelling, No Redness Cardiovascular : No Chest Pain, No SOB Respiratory : No Cough, No Sputum Gastrointestinal : No Nausea, No Vomiting, No Diarrhea, No abdominal Pain Genitourinary : No Dysuria, No Hematuria Musculoskeletal : No joint pain, No Myalgias, No Joint Swelling Skin : No Skin Lesions Neuro : No Weakness, No Numbness, No Headache All other systems reviewed and are negative Yes all other systems are reviewed and are negative Constitutional: Constitutional: Reports as per [facility] Past Medical History Attestation statement: The following information was validated with the patient. Medical History Hypertension Social History Social History Household Members: Family Housing: House Housing Other:: in between houses Do you presently have visiting nurse or other home services: No Alcohol intake: current Alcohol intake frequency: a few times a week Alcohol type: hard liquor Patient Tobacco Use Status: Never used Tobacco Tobacco use type: Cigarette Smoked in Last 30 Days: No e-Cigarette/Vaping Use: Never Used Patient Interested in Nicotine Replacement: No Use of substances other than those prescribed or required for medical reasons: Yes Substance Use Type: Marijuana Substance Use Frequency: Chronic Longstanding Currently Displaying Signs/Symptoms of Drug Intoxication Withdrawal: No Have you been hit, kicked, punched, or otherwise hurt by someone within the past year? If so, by whom?: No Do you feel safe in your current relationship?: No Current Relationship Is there a partner from a previous relationship who is making you feel unsafe now?: No Are you made to feel afraid or neglected: No Advance Directives: No Advance Directives Information Provided: No Do you have thoughts of harming others: None Do you have a plan to hurt others: No Plan Recently lost weight without trying: No How much weight loss: Not applicable Eating poorly because of decreased appetite: No Nutrition screen score: 0 Nutrition Risks: No Nutritional Risk Poor oral hygiene: No service: No Sexual orientation: Straight/Heterosexual Physical Exam Vital Signs: Vital Signs: Last Vital Signs Temp 98.1 F 04/13/25 19:10 Pulse 80 04/13/25 19:10 Resp 16 04/13/25 19:10 BP 130/86 04/13/25 22:23 Pulse Ox 99 04/13/25 19:10 O2 Del Method Room Air 04/13/25 19:10 BMI result Body Mass Index 33.9 Const: General: cooperative, comfortable and no acute distress Orientation/consciousness: patient oriented x3 Limitations: no limitations HEENT: Head: Yes normal to inspection, Yes normocephalic and Yes atraumatic Ears: hearing grossly normal bilaterally General nose exam: Normal external nose present Face and sinus: Yes normal facial exam Mouth: Normal oral and palatal mucosa present, oropharynx normal and moist mucous membranes Throat: Yes posterior oropharynx normal Eyes: General: appearance normal, both eyes and all related structures Eyelids: Yes eyelids normal Conjunctivae: conjunctivae normal Sclerae: sclerae normal Pupils: Equal, round and reactive pupils present EOM: EOMs intact bilaterally Neck: Neck: Yes normal visual inspection, Yes full ROM and Yes no lymphadenopathy Lymphatic: no lymphadenopathy noted Chest: Chest palpation & inspection: normal inspection of the chest Resp: Effort & Inspection: normal respiratory effort and able to speak in complete sentences Auscultation: clear to auscultation bilaterally, no crackles, no rales, no rhonchi and no wheezes Cardio: Rate: regular rate Rhythm: regular rhythm Heart sounds: S1 normal heart sound present and S2 normal heart sound present GI: Other: Abdomen is soft, nontender, nondistended, normoactive bowel sounds present in all 4 quadrants. Inspection: Yes normal to inspection Skin: General skin exam: no rashes or lesions noted Trauma: no lacerations or abrasions Wounds: no wounds Neuro: General: patient oriented x3 and moves all extremities Cranial nerves: Yes Equal, round and reactive pupils present Extrem: General: Yes normal to inspection Right upper extremity: normal to inspection Left upper extremity: normal to inspection Right lower extremity: normal to inspection Left lower extremity: normal to inspection Course Course Course Narrative: Time: 06:18 Date: 04/13/25 Provider: Cassandra Escobar, DO Patient in physician observation for psychiatric evaluation.? No acute events reported overnight. No current complaints. VS stable.? Patient is in bed search status.. Will continue to monitor. Medications Administered Generic Name Dose Route Start Last Admin Trade Name Freq PRN Reason Stop Dose Admin Atorvastatin Calcium 20 mg 04/12/25 09:00 04/13/25 09:25 Atorvastatin Calcium 20 Mg Tablet PO 20 mg DAILY YESSY Administration Benztropine Mesylate 0.5 mg 04/12/25 02:15 04/13/25 22:22 Benztropine Mesylate 0.5 Mg Tablet PO 0.5 mg BID YESSY Administration Clonidine HCl 0.2 mg 04/12/25 02:15 04/13/25 22:23 Clonidine Hcl 0.2 Mg Tablet PO 0.2 mg BID YESSY Administration Protocol Divalproex Sodium 1,000 mg 04/13/25 21:00 04/13/25 22:22 Divalproex Sodium Er 500 Mg Tab.Er.24h PO 1,000 mg BEDTIME YESSY Administration Fluticasone Propionate 1 spray 04/12/25 02:08 04/12/25 09:07 Fluticasone Propionate Nasal 16 Gm [place] NOSTRIL-B 1 spray BID PRN Administration Congestion Folic Acid 1 mg 04/12/25 09:00 04/13/25 08:36 Folic Acid 1 Mg Tablet PO 1 mg DAILY YESSY Administration Hydrochlorothiazide 25 mg 04/12/25 09:00 04/13/25 09:25 Hydrochlorothiazide 25 Mg Tablet PO 25 mg DAILY YESSY Administration Protocol Hydroxyzine HCl 50 mg 04/12/25 02:08 04/14/25 02:19 Hydroxyzine Hcl 50 Mg Tablet PO 50 mg Q4H PRN Administration Anxiety Insulin Glargine 15 unit 04/12/25 02:15 04/13/25 22:23 Insulin Glargine,Hum.Rec.Anlog 100 Unit/Ml 10 Ml Vial SUBCUT 15 unit BEDTIME YESSY Administration Lisinopril 30 mg 04/12/25 09:00 04/13/25 08:36 Lisinopril 10 Mg Tablet PO 30 mg DAILY YESSY Administration Protocol Metformin HCl 500 mg 04/12/25 02:15 04/13/25 22:23 Metformin Hcl 500 Mg Tablet PO 500 mg BID YESSY Administration Multivitamins/Vitamin C 1 tab 04/13/25 09:00 04/13/25 08:35 Multivitamin Tablet PO 1 tab DAILY YESSY Administration Nicotine 21 mg 04/12/25 09:00 04/13/25 08:36 Nicotine 21 Mg Patch.Td24 TRANSDERMA 21 mg DAILY YESSY Administration Nicotine Polacrilex 4 mg 04/13/25 14:12 04/13/25 17:41 Nicotine Polacrilex 2 Mg Gum BUCCAL 4 mg Q2H PRN Administration Nicotine Cravings Paliperidone 3 mg 04/12/25 02:15 04/13/25 22:23 Paliperidone Er 3 Mg Tab.Er.24 PO 3 mg BEDTIME YESSY Administration Pantoprazole Sodium 40 mg 04/12/25 09:00 04/13/25 09:26 Pantoprazole Sodium 20 Mg Tablet.Dr PO 40 mg DAILY YESSY Administration Trazodone HCl 100 mg 04/12/25 02:15 04/13/25 22:23 Trazodone Hcl 100 Mg Tablet PO 100 mg BEDTIME YESSY Administration Discontinued Medications Generic Name Dose Route Start Last Admin Trade Name Freq PRN Reason Stop Dose Admin Amlodipine Besylate 10 mg 04/12/25 09:00 04/13/25 08:35 Amlodipine Besylate 10 Mg Tablet PO 10 mg DAILY YESSY Administration Protocol Divalproex Sodium 500 mg 04/12/25 02:15 04/13/25 08:36 Divalproex Sodium 500 Mg Tablet. PO 500 mg BID YESSY Administration Influenza Virus Vaccine 0.5 ml 04/13/25 16:59 04/13/25 18:15 Flu Vacc [id number](6mo Up)/Pf 0.5 Ml Syringe IM 04/13/25 17:00 0.5 ml .ONCE ONE Administration Medical Decision Making Medical Decision Making [facility] Narrative: This is a 49-year-old male who presents emergency department with concerns of suicidal ideation with plan to slit his wrist. On arrival, vital signs reveal that he is hypertensive at 171/103, denies any chest pain or shortness for breath. No lightheadedness or dizziness. No blurred vision or double vision. He does report some abdominal discomfort however abdomen is soft, nontender, nondistended. No nausea, vomiting, or diarrhea. No constipation. No urinary symptoms. Will obtain labs. Deferring imaging at this time as abdomen is nonacute, and patient has no tenderness throughout. We will also be seen by the care team. We will continue to closely monitor. 8:45 PM 04/11/2025 (Maria Ines Palmer PA-C): Labs returned, patient has no leukocytosis, stable H&H, chemistry with no electrolyte derangement. Urine with high specific gravity, noninfectious. Ethyl alcohol negative. Negative U tox. At this time, patient is medically cleared, awaiting care team consultation. Patient placed in physician observation pending this. Care team recommended inpatient psychiatric assistance for the patient at this time. Patient will be placed in observation for bed search for inpatient psychiatric bed. Differential Diagnosis Differential Diagnoses: The differential diagnosis associated with the presentation includes Suicidal ideation, homicidal ideation, depression, anxiety Lab Data [facility] Lab Attestation statement: I reviewed the patient's lab results. See MDM 04/11/25 19:45 04/12/25 16:20 Labs: Lab Results 04/11/25 04/11/25 04/12/25 Range/Units 19:44 19:45 02:52 WBC 5.3 (4.8-10.8) X10*3/uL RBC 4.78 (4.60-5.80) X10*6/uL Hgb 12.9 L (14.0-18.0) g/dl Hct 39.2 L (42.0-52.0) % MCV 82.0 (80.0-98.0) fL MCH 27.0 (27.0-33.0) pg MCHC 32.9 (31.0-36.0) g/dl RDW 12.3 (11.0-16.0) % Plt Count 219 (160-400) X10*3/uL MPV 9.6 (9.4-12.4) fL Immature Gran % (Auto) 0.2 (0.0-0.4) % Neut % (Auto) 49.4 (45-73) % Lymph % (Auto) 38.2 (20-40) % [place] % (Auto) 9.5 (2-11) % Eos % (Auto) 2.1 (0-4) % Baso % (Auto) 0.6 (0-2) % Lymph # (Auto) 2.0 (1.2-4.9) X10*3/uL [place] # (Auto) 0.5 (0.1-1.2) X10*3/uL Eos # (Auto) 0.1 (0.0-0.4) X10*3/uL Baso # (Auto) 0.0 (0.0-0.2) X10*3/uL Abs Immat Gran (auto) 0.01 (0.00-0.03) X10*3/uL Absolute Neuts (auto) 2.6 (2.0-8.3) x10*3/uL Absolute Nucleated RBC 0.000 (0.0-0.012) X10*3/uL Nucleated RBC % (auto) 0.0 (0.0-0.2) /100WBC Sodium 139 (135-145) mmol/L Potassium 3.4 (3.3-5.1) mmol/L Chloride 105 (96-108) mmol/L Carbon Dioxide 23 (22-29) mmol/L Anion Gap 14 (12-20) BUN 15 (9-16) mg/dL Creatinine 1.01 (0.5-1.4) mg/dL Estim Creat Clear Calc 116.2 Estimated GFR > 60 POC Glucose 211 H (60-115) mg/dL Random Glucose 233 H (60-115) mg/dL Calcium 8.7 (8.4-10.2) mg/dL Total Bilirubin 0.2 (0.0-1.0) mg/dL AST 26 (5-37) U/L ALT 16 (0-40) U/L Alkaline Phosphatase 44 (39-117) U/L Total Protein 7.6 (6.5-8.0) g/dL Albumin 4.2 (3.5-5.0) g/dL Urine Color Yellow Urine Appearance Clear Urine pH 5.5 (5.0-9.0) Ur Specific [place] >= 1.030 H (1.005-1.025) Urine Protein Negative (Neg-Trace) mg/dL Urine Glucose (UA) >=1000 H (Negative) mg/dL Urine Ketones Trace (Negative) mg/dL Urine Blood Trace H (Negative) Urine Nitrite Negative (Negative) Ur Leukocyte Esterase Negative (Negative) Urine RBC 0-2 (0-2) /HPF Urine WBC 0-5 (0-5) /HPF Ur Squamous Epith Cells 0-2 (0-2) /HPF Urine Bacteria None Seen (None Seen) Hyaline Casts 0-2 (0-2) /LPF Salicylates < 5.0 L (15-30) mg/dL Urine Opiates Screen Not Detected (Not Detect) Ur Buprenorphine Scrn Not Detected (Not Detect) ng/mL Ur Oxycodone Screen Not Detected (Not Detect) ng/mL Urine Methadone Screen Not Detected (Not Detect) ng/mL Urine Fentanyl Screen Not Detected (Not Detect) Acetaminophen < 3 (<30) mcg/mL Ur Barbiturates Screen Not Detected (Not Detect) Ur Phencyclidine Scrn Not Detected (Not Detect) Ur Amphetamines Screen Not Detected (Not Detect) U Benzodiazepines Scrn Not Detected (Not Detect) Urine Cocaine Screen Not Detected (Not Detect) U Marijuana (THC) Screen Not Detected (Not Detect) Ethyl Alcohol < 10 mg/dL COVID-19 (KENJI) Negative (Negative) COVID-19 Clin Com See Note 04/12/25 04/12/25 Range/Units 16:20 20:07 WBC (4.8-10.8) X10*3/uL RBC (4.60-5.80) X10*6/uL Hgb (14.0-18.0) g/dl Hct (42.0-52.0) % MCV (80.0-98.0) fL MCH (27.0-33.0) pg MCHC (31.0-36.0) g/dl RDW (11.0-16.0) % Plt Count (160-400) X10*3/uL MPV (9.4-12.4) fL Immature Gran % (Auto) (0.0-0.4) % Neut % (Auto) (45-73) % Lymph % (Auto) (20-40) % [place] % (Auto) (2-11) % Eos % (Auto) (0-4) % Baso % (Auto) (0-2) % Lymph # (Auto) (1.2-4.9) X10*3/uL [place] # (Auto) (0.1-1.2) X10*3/uL Eos # (Auto) (0.0-0.4) X10*3/uL Baso # (Auto) (0.0-0.2) X10*3/uL Abs Immat Gran (auto) (0.00-0.03) X10*3/uL Absolute Neuts (auto) (2.0-8.3) x10*3/uL Absolute Nucleated RBC (0.0-0.012) X10*3/uL Nucleated RBC % (auto) (0.0-0.2) /100WBC Sodium (135-145) mmol/L Potassium (3.3-5.1) mmol/L Chloride (96-108) mmol/L Carbon Dioxide (22-29) mmol/L Anion Gap (12-20) BUN (9-16) mg/dL Creatinine 1.02 (0.5-1.4) mg/dL Estim Creat Clear Calc 115.1 Estimated GFR > 60 POC Glucose 308 H (60-115) mg/dL Random Glucose (60-115) mg/dL Calcium (8.4-10.2) mg/dL Total Bilirubin (0.0-1.0) mg/dL AST (5-37) U/L ALT (0-40) U/L Alkaline Phosphatase (39-117) U/L Total Protein (6.5-8.0) g/dL Albumin (3.5-5.0) g/dL Urine Color Urine Appearance Urine pH (5.0-9.0) Ur Specific [place] (1.005-1.025) Urine Protein (Neg-Trace) mg/dL Urine Glucose (UA) (Negative) mg/dL Urine Ketones (Negative) mg/dL Urine Blood (Negative) Urine Nitrite (Negative) Ur Leukocyte Esterase (Negative) Urine RBC (0-2) /HPF Urine WBC (0-5) /HPF Ur Squamous Epith Cells (0-2) /HPF Urine Bacteria (None Seen) Hyaline Casts (0-2) /LPF Salicylates (15-30) mg/dL Urine Opiates Screen (Not Detect) Ur Buprenorphine Scrn (Not Detect) ng/mL Ur Oxycodone Screen (Not Detect) ng/mL Urine Methadone Screen (Not Detect) ng/mL Urine Fentanyl Screen (Not Detect) Acetaminophen (<30) mcg/mL Ur Barbiturates Screen (Not Detect) Ur Phencyclidine Scrn (Not Detect) Ur Amphetamines Screen (Not Detect) U Benzodiazepines Scrn (Not Detect) Urine Cocaine Screen (Not Detect) U Marijuana (THC) Screen (Not Detect) Ethyl Alcohol mg/dL COVID-19 (KENJI) (Negative) COVID-19 Clin Com Discharge Plan Discharge Clinical Impression: Suicide ideation Patient Disposition: Admitted As Inpatient Interventions: Admission Worksheet (ED) Last Done: 04/13/25 13:04 Discharge Date/Time: 04/13/25 13:51
--- OUTSIDE RECORDS SUMMARY | 2025-04-11 19:48 | XMS_ITS | Clinical Summary ---
Author Organization [facility] Address [address] [place] [address] Phone Care Team Providers Care Finish Photographer Name Role Phone Physician, No Pcp Primary [...] LAB CHEMISTRY METHOD 07/30/2024 11:43 AM EST [facility] Potassium 3.3(L) 3.5 - 5.5 mmol/L LAB CHEMISTRY METHOD 07/30/2024 11:43 AM EST [facility] Chloride 102 96 - 110 mmol/L LAB CHEMISTRY METHOD 07/30/2024 11:43 AM EST [facility] CO2 28 21 - 32 mmol/L LAB CHEMISTRY METHOD 07/30/2024 11:43 AM EST [facility] Anion Gap 6 3 - 11 LAB CHEMISTRY METHOD 07/30/2024 11:43 AM [facility] Glucose 251(H) 70 - 100 mg/dL LAB CHEMISTRY METHOD 07/30/2024 11:43 AM [facility] BUN 15 5 - 25 mg/dL LAB CHEMISTRY METHOD 07/30/2024 11:43 AM [facility] Creatinine 1.17 0.70 - 1.30 mg/dL LAB CHEMISTRY METHOD 07/30/2024 11:43 AM [facility] eGFR 77 >=60 mL/min/1. 73m2 LAB CHEMISTRY METHOD 07/30/2024 11:43 AM [facility] Comment:Calculation based on the Chronic Kidney Disease Epidemiology Collaboration (CKD-EPI) equation refit without adjustment for race. BUN/Creatinine Ratio 12.8 LAB CHEMISTRY METHOD 07/30/2024 11:43 AM [facility] Calcium 9.0 8.5 - 10.5 mg/dL LAB CHEMISTRY METHOD 07/30/2024 11:43 AM [facility] AST (SGOT) 42 10 - 42 unit/L LAB CHEMISTRY METHOD 07/30/2024 11:43 AM [facility] ALT (SGPT) 31 10 - 60 unit/L LAB CHEMISTRY METHOD 07/30/2024 11:43 AM [facility] Alkaline Phosphatase 53 42 - 121 unit/L LAB CHEMISTRY METHOD 07/30/2024 11:43 AM [facility] Total Protein 7.8 6.0 - 8.0 g/dL LAB CHEMISTRY METHOD 07/30/2024 11:43 AM [facility] Albumin 3.9 3.2 - 5.0 g/dL LAB CHEMISTRY METHOD 07/30/2024 11:43 AM [facility] Total Bilirubin 0.7 0.0 - 1.4 mg/dL LAB CHEMISTRY METHOD 07/30/2024 11:43 AM [facility] Blood Venous blood specimen / Unknown Venipuncture / Unknown 07/30/2024 10:43 AM EST 07/30/2024 11:00 AM EST us Luis Fernando Broussard MD LAB BLOOD ORDERABLES Shaista dewey Result [facility]) [facility] [address] [place] [address], from Last 3 Months or Most Recently Relevant to Health Maintenance Insurance [employer] Member Subscriber Plan / Payer (Ef fective 2015-Present) Name:Caryl Mccollum Relation to Subscriber:Self Name:Caryl Mccollum Payer ID:[id number] Group ID:[id number] Type:Not on file Address: [place] [address] [address] [id number] Care Teams Finish Photographer Relationship Specialty Start Date End Date Physician, No Pcp PCP - General 07/30/24
--- OUTSIDE RECORDS SUMMARY | 2025-04-11 19:48 | XMS_ITS | Clinical Summary ---
Author Organization [facility] Address [address] [place] [address] Care Team Providers Care Sharepoint Application Developer Name Role Phone No Pcp, Per Patient [...] [employer] Care Teams Sharepoint Application Developer Relationship Specialty Start Date End Date No Pcp, Per Patient MARCELA PCP - General 05/04/23
[2025-04-11 19:52] LABS: MANUAL DIFF FLAG NO
[2025-04-11 19:53] LABS: Hematocrit 39.2 % (42.0-52.0); Hemoglobin 12.9 g/dl (14.0-18.0); Imm Gran Abs Auto 0.01 X10*3/uL (0.00-0.03); Imm Gran Pct Auto 0.2 % (0.0-0.4); Lymphocytes Absolute Auto 2.0 X10*3/uL (1.2-4.9); Mean Corpuscular HGB Conc 32.9 g/dl (31.0-36.0); Mean Corpuscular Hemoglobin 27.0 pg (27.0-33.0); Mean Corpuscular Volume 82.0 fL (80.0-98.0); NRBC Abs Auto 0.000 X10*3/uL (0.0-0.012); NRBC Pct Auto 0.0 /100WBC (0.0-0.2); Platelet Count 219 X10*3/uL (160-400); Red Blood Count 4.78 X10*6/uL (4.60-5.80); White Blood Count 5.3 X10*3/uL (4.8-10.8)
[2025-04-11 19:55] LABS: Appearance Urine Clear; Glucose Urine UA >=1000 mg/dL (Negative); PH 5.5 (5.0-9.0); Specific Gravity - Urine >= 1.030 (1.005-1.025); UMIC TRIGGER UA YES
[2025-04-11 20:05] LABS: Cannabinoid Screen Urine Not Detected (Not Detect)
[2025-04-11 20:12] LABS: Alanine Aminotransferase 16 U/L (0-40); Albumin Level 4.2 g/dL (3.5-5.0); Alkaline Phosphatase 44 U/L (39-117); Anion Gap 14 (12-20); Aspartate Amino Transferase 26 U/L (5-37); Blood Urea Nitrogen 15 mg/dL (9-16); Calcium 8.7 mg/dL (8.4-10.2); Carbon Dioxide 23 mmol/L (22-29); Chloride 105 mmol/L (96-108); Creatinine Clr Calc Pharmacy 116.2; Estimated Glomerular Filt Rate > 60; Potassium 3.4 mmol/L (3.3-5.1); Sodium 139 mmol/L (135-145); Total Protein 7.6 g/dL (6.5-8.0)
[2025-04-11 20:14] LABS: COVID-19 Test Negative (Negative); IDNOW Serial# 152EDE1D
[2025-04-11 20:16] LABS: Acetaminophen LAB < 3 mcg/mL (<30); Salicylate < 5.0 mg/dL (15-30)
[2025-04-12] VITALS (7 sets, daily range): BP systolic 115–146; BP diastolic 71–101; PULSE 72–84; RESP 16–18; TEMP 36.1–37.1; O2SAT 97–100
[2025-04-12] MEDS: Insulin Glargine,Hum.rec.anlog 100 UNIT/ML 10 ML VIAL 15 UNIT SUBCUT ×2 (02:53→20:38)
[2025-04-12 03:02] LABS: Glucose, Whole Blood 211 mg/dL (60-115)
[2025-04-12] MEDS: Nicotine 21 MG PATCH.TD24 TRANSDERMA (09:05)
--- NOTE | 2025-04-12 10:17 | PC.NURSE ---
Assumed care of patient at 1015, patient calm and cooperative, walked over from 8H, offering no complaints to this RN at this time. Continue plan of care for IPLOC
--- NOTE | 2025-04-12 10:35 | PC.NURSE ---
Pt is moved to Pod. Pt changed over by security and overnight RN. Per Overnight RN notes, 2 bags of belongings (specifics not noted) were placed in the olivier port on shelf 2. Belongings list added at this time and bags moved to pod and givne to RN Catherine for placement in locker 6. Pt specific medication (Fluticasone Propionate nasal spray) also given to JOSE Alexander at this time.
[2025-04-12 16:51] LABS: Creatinine Clr Calc Pharmacy 115.1; Estimated Glomerular Filt Rate > 60
--- NOTE | 2025-04-12 19:03 | PC.NURSE ---
This RN assumed pt care @ 2963. Pt a&ox4, no signs of distress. Pt sitting in the community room watching TV. Pt attempted to use phone Plan of care ongoing.
[2025-04-12 20:11] LABS: Glucose, Whole Blood 308 mg/dL (60-115)
--- NOTE | 2025-04-12 20:42 | PC.NURSE ---
Pt med invega not in Pyxis. Medication request sent to pharmacy Plan of care ongoing.
--- NOTE | 2025-04-12 20:55 | PC.NURSE ---
Pt medicated per [facility] Plan of care ongoing.
--- NOTE | 2025-04-12 23:33 | PC.NURSE ---
took over care at 23:00, pt sleeping at this time.
--- NOTE | 2025-04-13 02:12 | PC.NURSE ---
pt oob to bathroom, crackers and drink given
--- NOTE | 2025-04-13 02:44 | PC.NURSE ---
pt given a sandwich and drink.
--- NOTE | 2025-04-13 04:42 | PC.NURSE ---
pt is sleeping, no sign of distress.
--- NOTE | 2025-04-13 07:11 | PC.NURSE ---
Assumed care, report received. Pt is awake and given breakfast, he is utilizing the headphones for coping.
[2025-04-13 08:00] VITALS: BP 140/79; PULSE 78; RESP 14; TEMP 36.1; O2SAT 100
--- NOTE | 2025-04-13 08:29 | ECG_ITS ---
Test Reason : PROLONG QTC Blood Pressure : */* mmHG Vent. Rate : 68 BPM Atrial Rate : 68 BPM P-R Int : 178 ms QRS Dur : 82 ms QT Int : 400 ms P-R-T Axes : 75 29 28 degrees QTcB Int : 425 ms Normal sinus rhythm Nonspecific T wave abnormality Abnormal ECG When compared with ECG of 11-Apr-2025 20:05, No significant change was found Referred By: Cassandra Escobar Electronically Signed By: SERENA STEINER MD
[2025-04-13] MEDS: Nicotine 21 MG PATCH.TD24 TRANSDERMA (08:36)
--- NOTE | 2025-04-13 09:14 | MHC.EDTECH ---
Current EKG ordered in error. Per RN disregard current order.
--- NOTE | 2025-04-13 11:00 | PHA.MEDREC ---
Pharmacy Consult ? Medication Reconciliation Pharmacy has completed the medication reconciliation. Reviewed med rec done by nursing. Spoke with patient to confirm depakote which he takes 500 mg ER tabs: 1 tablet in the morning and 2 tablets at bedtime (this matches claim history). He uses 2 sprays of flonase in the morning and at night scheduled. For insulin, he uses Basaglar 2-8 units at bedtime depending on his blood glucose levels. Patient was unable to remember the exact day he last received Invega however he confirmed last dose was in March.
--- NOTE | 2025-04-13 12:48 | PC.NURSE ---
Pt has remained calm and cooperative. He has eaten breakfast, taken his meds and is currently watching TV.
[2025-04-13 14:19] VITALS: BP 133/78; PULSE 75; RESP 16; TEMP 36.1; O2SAT 100; BMI 37.6
--- NOTE | 2025-04-13 15:21 | HO.PSYADMNOT ---
HPI Date of Service: 04/13/25 Chief Complaint: Crisis Sources of Information: patient interviewed, chart reviewed and crisis/core team assessment reviewed HPI Subjective Notes: Dowell Warning and Conditional Voluntary Narrative: Patient is a 49 year old male with hx of Schoizoaffective d/o and alcohol use d/o who presented to ER via ambulance d/t suicidal ideation with a plan to slip his wrist, secondary to increased depression. Per crisis report, patient reported worsening depression. Patient reported the of his sister earlier this year has been impacting him and making him depressed. Patient denied HI/VH/AH. He did not appear to be responding to internal stimuli. History of multiple inpatient psychiatric hospitalizations. History of decompensation secondary to medication noncompliance. Denies history of SA/SIB. Pt was recently at [facility]. Does not have outpatient psychiatric providers at this time. Utox negative for all substances. During admission assessment, pt presents alert and oriented x3. calm and cooperative. Patient reports feeling depressed ; pt stated, life hasn't been treating me good. I want to go to the [facility]. I've been there before . Patient reports he has not been taking his psychiatric medications for the past week. He reports drinking a pint of alcohol every other day; started CIWA protocol. Patient reports using cocaine occasionally and smoking marijuana daily. utox was negative for all substances. denies HI/VH/AH. +SI. Patient reports he would like a referral to outpatient psychiatric providers. Past Psychiatric History: History of multiple inpatient psychiatric hospitalizations. He reports he does not have outpatient psychiatric providers at this time. History of detox admissions. Denies history of SA/SIB. Medical Evaluation Reviewed: Yes [facility] Medical History Hypertension Family History: Mother and sister: Schizophrenia Social History: Patient reports he lives between his dad and living at [facility]. Single. One adult son. Disability. Highest level of education completed high school diploma. Substance History: Patient reports using cocaine occasionally and smoking marijuana daily. utox was negative for all substances Trauma History: Denies Diagnostics Vital Signs (24Hr): Vital Signs - 24 hr 04/12/25 16:33 04/12/25 20:49 04/12/25 21:02 Temperature 97 F 98.4 F Pulse Rate 82 72 Respiratory Rate 18 16 Blood Pressure 133/71 115/72 115/72 Pulse Oximetry 100 99 Oxygen Delivery Method Room Air Room Air 04/13/25 08:00 04/13/25 14:19 Temperature 97.0 F 96.9 F Pulse Rate 78 75 Respiratory Rate 14 16 Blood Pressure 140/79 H 133/78 Pulse Oximetry 100 100 Oxygen Delivery Method Room Air BMI result Body Mass Index 37.6 Labs 04/11/25 19:45 04/12/25 16:20 Labs: Laboratory Results - last 48 hr 04/11/25 04/11/25 04/12/25 19:44 19:45 02:52 WBC 5.3 RBC 4.78 Hgb 12.9 L Hct 39.2 L MCV 82.0 MCH 27.0 MCHC 32.9 RDW 12.3 Plt Count 219 MPV 9.6 Immature Gran % (Auto) 0.2 Neut % (Auto) 49.4 Lymph % (Auto) 38.2 Wallace % (Auto) 9.5 Eos % (Auto) 2.1 Baso % (Auto) 0.6 Lymph # (Auto) 2.0 Wallace # (Auto) 0.5 Eos # (Auto) 0.1 Baso # (Auto) 0.0 Abs Immat Gran (auto) 0.01 Absolute Neuts (auto) 2.6 Absolute Nucleated RBC 0.000 Nucleated RBC % (auto) 0.0 Sodium 139 Potassium 3.4 Chloride 105 Carbon Dioxide 23 Anion Gap 14 BUN 15 Creatinine 1.01 Estim Creat Clear Calc 116.2 Estimated GFR > 60 POC Glucose 211 H Random Glucose 233 H Calcium 8.7 Total Bilirubin 0.2 AST 26 ALT 16 Alkaline Phosphatase 44 Total Protein 7.6 Albumin 4.2 Urine Color Yellow Urine Appearance Clear Urine pH 5.5 Ur Specific [place] >= 1.030 H Urine Protein Negative Urine Glucose (UA) >=1000 H Urine Ketones Trace Urine Blood Trace H Urine Nitrite Negative Ur Leukocyte Esterase Negative Urine RBC 0-2 Urine WBC 0-5 Ur Squamous Epith Cells 0-2 Urine Bacteria None Seen Hyaline Casts 0-2 Salicylates < 5.0 L Urine Opiates Screen Not Detected Ur Buprenorphine Scrn Not Detected Ur Oxycodone Screen Not Detected Urine Methadone Screen Not Detected Urine Fentanyl Screen Not Detected Acetaminophen < 3 Ur Barbiturates Screen Not Detected Ur Phencyclidine Scrn Not Detected Ur Amphetamines Screen Not Detected U Benzodiazepines Scrn Not Detected Urine Cocaine Screen Not Detected U Marijuana (THC) Screen Not Detected Ethyl Alcohol < 10 COVID-19 ([facility]JI) Negative COVID-19 Clin Com See Note 04/12/25 04/12/25 16:20 20:07 WBC RBC Hgb Hct MCV MCH MCHC RDW Plt Count MPV Immature Gran % (Auto) Neut % (Auto) Lymph % (Auto) Wallace % (Auto) Eos % (Auto) Baso % (Auto) Lymph # (Auto) Wallace # (Auto) Eos # (Auto) Baso # (Auto) Abs Immat Gran (auto) Absolute Neuts (auto) Absolute Nucleated RBC Nucleated RBC % (auto) Sodium Potassium Chloride Carbon Dioxide Anion Gap BUN Creatinine 1.02 Estim Creat Clear Calc 115.1 Estimated GFR > 60 POC Glucose 308 H Random Glucose Calcium Total Bilirubin AST ALT Alkaline Phosphatase Total Protein Albumin Urine Color Urine Appearance Urine pH Ur Specific [place] Urine Protein Urine Glucose (UA) Urine Ketones Urine Blood Urine Nitrite Ur Leukocyte Esterase Urine RBC Urine WBC Ur Squamous Epith Cells Urine Bacteria Hyaline Casts Salicylates Urine Opiates Screen Ur Buprenorphine Scrn Ur Oxycodone Screen Urine Methadone Screen Urine Fentanyl Screen Acetaminophen Ur Barbiturates Screen Ur Phencyclidine Scrn Ur Amphetamines Screen U Benzodiazepines Scrn Urine Cocaine Screen U Marijuana (THC) Screen Ethyl Alcohol COVID-19 ([facility]JI) COVID-19 Clin Com Meds/Allergies Meds Home Medications ?Medication ?Instructions ?Recorded ?Confirmed ?Type acetaminophen 325 mg tablet 650 mg PO TID PRN pain 11/16/24 04/13/25 History metformin 500 mg tablet 500 mg PO BID 11/16/24 04/12/25 History fluticasone propionate 50 2 spray intranasal BID Congestion 03/31/25 04/13/25 History mcg/actuation nasal spray,suspension hydrochlorothiazide 25 mg tablet 25 mg PO DAILY 03/31/25 04/12/25 History lisinopril 30 mg tablet 30 mg PO DAILY 03/31/25 04/12/25 History paliperidone 3 mg tablet,extended 3 mg PO BEDTIME 03/31/25 04/12/25 History release 24 hr trazodone 100 mg tablet 100 mg PO BEDTIME 03/31/25 04/12/25 History benztropine 0.5 mg tablet 0.5 mg PO BID 04/12/25 04/12/25 History clonidine HCl 0.2 mg tablet 0.2 mg PO BID 04/12/25 04/12/25 History hydroxyzine pamoate 50 mg capsule 50 mg PO Q4H PRN anxiety 04/12/25 04/12/25 History paliperidone palmitate 156 mg/mL 156 mg IM QMONTH 04/12/25 04/12/25 History intramuscular syringe (Invega Sustenna) divalproex 500 mg tablet,extended 1,000 mg PO BEDTIME 04/13/25 04/13/25 History release 24 hr divalproex 500 mg tablet,extended 500 mg PO DAILY@0900 04/13/25 04/13/25 History release 24 hr insulin glargine 100 unit/mL (3 2 - 8 unit subcut BEDTIME 04/13/25 04/13/25 History mL) subcutaneous pen (Basaglar KwikPen U-100 Insulin) Allergies Allergies Allergy/AdvReac Type Severity Reaction Status Date / Time No Known Allergies Allergy Verified 04/11/25 19:37 Mental Status Exam Mental Status Exam Narrative: Pt is alert and oriented; behavior is cooperative and calm; dressed in casual attire; mood is described as depressed ; eye contact appropriate; Speech is normal rate, volume and not pressured; thought process is organized; Thought content is on tx; denies HI/VH/AH. +SI Assessment & Plan Assessment & Plan (1) Schizoaffective disorder: Status: Acute Code(s): F25.9 - Schizoaffective disorder, unspecified (2) Alcohol use disorder: Status: Acute Code(s): F10.90 - Alcohol use, unspecified, uncomplicated Plan Patient is a 49 year old male with hx of Schoizoaffective d/o and alcohol use d/o who presented to ER via ambulance d/t suicidal ideation with a plan to slip his wrist, secondary to increased depression. Plan: CV 15 minute safety checks obtain collateral CIWA protocol Restart home medications Referral to outpatient psychiatric providers Referral to substance abuse program Encourage groups Discharge planning Patient educated on: diagnosis and medication risk/benefits Reason for continued inpatient stay Substantial Risk for: harm to self and med/psych decompensation Statement Statement: I have reviewed the history and physical and performed a pertinent examination on my patient. No changes have occurred unless specified. If the History and Physical was not performed prior to admission, the Hospitalist's service will be consulted for completing the admission physical. Time Spent With Patient Time: Total time managing care of this patient today _60___ minutes.
--- NOTE | 2025-04-13 17:09 | PC.ADMIT ---
Caryl Leach , is a 49 year old male, admitted from the ED POD on a CV for tx of Schizoaffective Disorder Unspecified and Alcohol Use Unspecified. Patient was admitted to the hospital with reports of SI with a plan to slit his wrists, secondary to worsening depression. Patient is engaged and cooperative during admission assessment, eye contact is appropriate and thought process is clear/linear. Pt reporting worsening depression r/t recent stressors in his life (loss of his sister earlier this year and being in between homes with his father and his girlfriend). States I just want to be stable, I'm hoping to get into the [facility] when I leave here . He denies any current SI/HI/AVH, reports a hx of suicidal thoughts but denies any past attempts or hx of self harm. Tox negative for all substances, BAL <10, though pt report drinking a pint of alcohol every other day. (Believes his last drink was prior to admission), and provider placed him on CIWA Q4. He also reports using marijuana daily but declines use of any tobacco products. (Of note, pt's reports of substance use not congruent with care team eval). Per pt, both his sleep and appetite are okay , skin check was unremarkable and he has been placed on 15 minute checks.
--- NOTE | 2025-04-13 17:46 | PC.NURSE ---
According to pt, he does not remember the last time he received his Invega injection, but states it was at the last facility he had been at. Per Crisis eval, pt was last accepted to [facility] on 04/03/25. TW attempted to call the facility this evening in [place] with no response/answer.
[2025-04-13] MEDS: Flu Vacc TS2025-26(6mo up)/PF 0.5 ML SYRINGE IM (18:15)
[2025-04-13 19:10] VITALS: BP 160/84; PULSE 80; RESP 16; TEMP 36.7; O2SAT 99
[2025-04-13 22:23] VITALS: BP 130/86
[2025-04-13] MEDS: Insulin Glargine,Hum.rec.anlog 100 UNIT/ML 10 ML VIAL 15 UNIT SUBCUT (22:23)
[2025-04-13 22:35] LABS: Glucose, Whole Blood 252 mg/dL (60-115)
[2025-04-14 07:43] LABS: Glucose, Whole Blood 273 mg/dL (60-115)
[2025-04-14 07:52] VITALS: BP 127/92; PULSE 65; RESP 20; TEMP 36.7; O2SAT 97
--- NOTE | 2025-04-14 08:25 | HO.PM.IMCN ---
History of Present Illness Data of Consult Service Date: 04/14/25 Primary Care Provider: Unknown Physician HPI Reason for consult: Medical consult 49-year-old female with a past medical history of schizoaffective disorder and alcohol use disorder, hypertension, type 2 diabetes presented to the ED via EMS with suicide ideation with a plan to slit his wrist. In the ED patient's blood work was unrevealing, no leukocytosis, stable H&H, no electrolyte imbalances, urine without evidence of infection. Tox screen negative. On exam he has no medical concerns. Review of Systems Review of Systems: Denies any shortness of breath, chest pain, palpitations, dizziness, lightheadedness, headaches, dysuria, abdominal pain or discomfort, nausea, vomiting or diarrhea. Denies chills, body aches, muscle aches, fatigue. [facility] Medical History Hypertension Social History Household Members: Family Housing: House Housing Other:: in between houses Do you presently have visiting nurse or other home services: No Alcohol intake: current Alcohol intake frequency: a few times a week Alcohol type: hard liquor Patient Tobacco Use Status: Never used Tobacco Tobacco use type: Cigarette Smoked in Last 30 Days: No e-Cigarette/Vaping Use: Never Used Patient Interested in Nicotine Replacement: No Use of substances other than those prescribed or required for medical reasons: Yes Substance Use Type: Marijuana Substance Use Frequency: Chronic Longstanding Currently Displaying Signs/Symptoms of Drug Intoxication Withdrawal: No Have you been hit, kicked, punched, or otherwise hurt by someone within the past year? If so, by whom?: No Do you feel safe in your current relationship?: No Current Relationship Is there a partner from a previous relationship who is making you feel unsafe now?: No Are you made to feel afraid or neglected: No Advance Directives: No Advance Directives Information Provided: No Do you have thoughts of harming others: None Do you have a plan to hurt others: No Plan Recently lost weight without trying: No How much weight loss: Not applicable Eating poorly because of decreased appetite: No Nutrition screen score: 0 Nutrition Risks: No Nutritional Risk Poor oral hygiene: No service: No Sexual orientation: Straight/Heterosexual Meds Allergies Allergy/AdvReac Type Severity Reaction Status Date / Time No Known Allergies Allergy Verified 04/11/25 19:37 Active Medications: Current Medications Acetaminophen (Acetaminophen 325 Mg Tablet) 650 mg PO Q6H PRN PRN Reason: Headache/Pain, Scale 1-10 Al Hydroxide/Mg Hydroxide (Magnesium Hydrox/Alum Hydrox 30 Ml Oral.Susp) 30 ml PO Q6H PRN PRN Reason: Heartburn/Nausea Amlodipine Besylate (Amlodipine Besylate 10 Mg Tablet) 10 mg PO DAILY YESSY; Protocol Atorvastatin Calcium (Atorvastatin Calcium 20 Mg Tablet) 20 mg PO DAILY [facility] Last Admin: 04/13/25 09:25 Dose: 20 mg Benztropine Mesylate (Benztropine Mesylate 0.5 Mg Tablet) 0.5 mg PO BID [facility] Last Admin: 04/13/25 22:22 Dose: 0.5 mg Clonidine HCl (Clonidine Hcl 0.2 Mg Tablet) 0.2 mg PO BID YESSY; Protocol Last Admin: 04/13/25 22:23 Dose: 0.2 mg Divalproex Sodium (Divalproex Sodium Er 500 Mg Tab.Er.24h) 500 mg PO DAILY@0900 [facility] Divalproex Sodium (Divalproex Sodium Er 500 Mg Tab.Er.24h) 1,000 mg PO BEDTIME YESSY Last Admin: 04/13/25 22:22 Dose: 1,000 mg Fluticasone Propionate (Fluticasone Propionate Nasal 16 Gm [place]) 1 spray NOSTRIL-B BID PRN PRN Reason: Congestion Last Admin: 04/12/25 09:07 Dose: 1 spray Folic Acid (Folic Acid 1 Mg Tablet) 1 mg PO DAILY YESSY Last Admin: 04/13/25 08:36 Dose: 1 mg Hydrochlorothiazide (Hydrochlorothiazide 25 Mg Tablet) 25 mg PO DAILY YESSY; Protocol Last Admin: 04/13/25 09:25 Dose: 25 mg Hydroxyzine HCl (Hydroxyzine Hcl 50 Mg Tablet) 50 mg PO Q4H PRN PRN Reason: Anxiety Last Admin: 04/14/25 02:19 Dose: 50 mg Insulin Glargine (Insulin Glargine,Hum.Rec.Anlog 100 Unit/Ml 10 Ml Vial) 15 unit SUBCUT BEDTIME YESSY Last Admin: 04/13/25 22:23 Dose: 15 unit Lisinopril (Lisinopril 10 Mg Tablet) 30 mg PO DAILY YESSY; Protocol Last Admin: 04/13/25 08:36 Dose: 30 mg Lorazepam (Lorazepam 1 Mg Tablet) 1 mg PO Q2H PRN PRN Reason: CIWA 8-11 Lorazepam (Lorazepam 1 Mg Tablet) 2 mg PO Q2H PRN PRN Reason: CIWA 12-15 Lorazepam (Lorazepam 1 Mg Tablet) 3 mg PO Q2H PRN PRN Reason: CIWA > 15, and call Magnesium Hydroxide (Milk Of Magnesia 30 Ml Oral.Susp) 30 ml PO DAILY PRN PRN Reason: Constipation Metformin HCl (Metformin Hcl 500 Mg Tablet) 500 mg PO BID YESSY Last Admin: 04/13/25 22:23 Dose: 500 mg Multivitamins/Vitamin C (Multivitamin Tablet) 1 tab PO DAILY YESSY Last Admin: 04/13/25 08:35 Dose: 1 tab Nicotine (Nicotine 21 Mg Patch.Td24) 21 mg TRANSDERMA DAILY YESSY Last Admin: 04/13/25 08:36 Dose: 21 mg Nicotine Polacrilex (Nicotine Polacrilex 2 Mg Gum) 4 mg BUCCAL Q2H PRN PRN Reason: Nicotine Cravings Last Admin: 04/13/25 17:41 Dose: 4 mg Paliperidone (Paliperidone Er 3 Mg Tab.Er.24) 3 mg PO BEDTIME YESSY Last Admin: 04/13/25 22:23 Dose: 3 mg Paliperidone Palmitate (Paliperidone Palmitate 156 Mg/Ml Syringe) 156 mg IM Q30D YESSY Pantoprazole Sodium (Pantoprazole Sodium 20 Mg Tablet.Dr) 40 mg PO DAILY YESSY Last Admin: 04/13/25 09:26 Dose: 40 mg Thiamine HCl (Thiamine Hcl 100 Mg Tablet) 100 mg PO DAILY YESSY Trazodone HCl (Trazodone Hcl 100 Mg Tablet) 100 mg PO BEDTIME YESSY Last Admin: 04/13/25 22:23 Dose: 100 mg Home Medications ?Medication ?Instructions ?Recorded ?Confirmed ?Last Taken ?Type acetaminophen 325 mg tablet 650 mg PO TID PRN pain 11/16/24 04/13/25 11/15/24 History metformin 500 mg tablet 500 mg PO BID 11/16/24 04/12/25 03/27/25 History fluticasone propionate 50 2 spray intranasal BID Congestion 03/31/25 04/13/25 Unknown History mcg/actuation nasal spray,suspension hydrochlorothiazide 25 mg tablet 25 mg PO DAILY 03/31/25 04/12/25 03/27/25 History lisinopril 30 mg tablet 30 mg PO DAILY 03/31/25 04/12/25 03/27/25 History paliperidone 3 mg tablet,extended 3 mg PO BEDTIME 03/31/25 04/12/25 03/27/25 History release 24 hr trazodone 100 mg tablet 100 mg PO BEDTIME 03/31/25 04/12/25 03/27/25 History benztropine 0.5 mg tablet 0.5 mg PO BID 04/12/25 04/12/25 Unknown History clonidine HCl 0.2 mg tablet 0.2 mg PO BID 04/12/25 04/12/25 Unknown History hydroxyzine pamoate 50 mg capsule 50 mg PO Q4H PRN anxiety 04/12/25 04/12/25 Unknown History paliperidone palmitate 156 mg/mL 156 mg IM QMONTH 04/12/25 04/12/25 Unknown History intramuscular syringe (Invega Sustenna) divalproex 500 mg tablet,extended 1,000 mg PO BEDTIME 04/13/25 04/13/25 Unknown History release 24 hr divalproex 500 mg tablet,extended 500 mg PO DAILY@0900 04/13/25 04/13/25 Unknown History release 24 hr insulin glargine 100 unit/mL (3 2 - 8 unit subcut BEDTIME 04/13/25 04/13/25 Unknown History mL) subcutaneous pen (Basaglar KwikPen U-100 Insulin) Physical Exam Vital Signs and Narrative: Vital Signs: Last Vital Signs Temp 98.1 F 04/14/25 07:52 Pulse 65 04/14/25 07:52 Resp 20 04/14/25 07:52 BP 127/92 H 04/14/25 07:52 Pulse Ox 97 04/14/25 07:52 O2 Del Method Room Air 04/14/25 07:52 BMI result Body Mass Index 37.6 Alert and oriented X3, able to give good history. Neuro: CN II-X11 intact, no deficits, visual acuity intact Cardiac: S1 S2 RRR, No ectopy Pulmonary: lungs clear to auscultation, No increased WOB. Abdominal: BS active in all 4 quadrants, no guarding or tenderness MSK: Strength 5/5 upper and lower extremities : Deferred Extremities: No edema in lower extremities Psych: Mood stable, Quiet and cooperative. Skin: Warm and dry, Intact Results Labs 04/11/25 19:45 04/14/25 09:04 Labs: Laboratory Results - last 24 hr 04/13/25 04/14/25 22:21 07:40 POC Glucose 252 H 273 H Assessment and Plan (1) HTN (hypertension): Status: Acute Plan 49-year-old male admitted to inpatient psych after presenting to the ED with suicidal ideation. Schizoaffective disorder, EtOH disorder/SI/depression Plan per psychiatric team Hypertension/HLD Patient taking Norvasc 10, lisinopril 30 mgs daily, HCTZ, and clonidine. Discussed importance of diet and exercise with patient Blood pressure stable Type 2 diabetes Increase Lantus to 20 units at bedtime, metformin 500 b.i.d. Recent A1c 9.5, improved from 11.8. Thank you for allowing me to participate in the care of this patient. Will follow as needed. Please reconsult of any acute concerns or issues arise
[2025-04-14] MEDS: Nicotine 21 MG PATCH.TD24 TRANSDERMA (08:40)
--- NOTE | 2025-04-14 09:01 | P.PNPSI_ITS ---
Subjective Subjective Date of Service: 04/14/25 Reason For Visit: Crisis Subjective Notes: Conditional Voluntary Interim History: Active on unit. attending groups. Patient reports feeling okay today; he reports having a hard time sleeping last night d/t being the first night in here . Patient requesting to be transferred to [place] since they let you use your cell phone . Patient reports he is still interested in going to a substance abuse program. denies SI/HI/VH/AH. Continue tx plan. Medication Compliance: Yes Side effects from medications: No Attending Groups: Yes Mental Status Exam Mental Status Exam Narrative: Pt is alert and oriented; behavior is cooperative and calm; dressed in casual attire; mood is described as depressed ; eye contact appropriate; Speech is normal rate, volume and not pressured; thought process is organized; Thought content is on tx; denies SI/HI/VH/AH. Diagnostics Vital Signs (24Hr): Vital Signs - 24 hr 04/13/25 14:19 04/13/25 19:10 04/13/25 22:23 Temperature 96.9 F 98.1 F Pulse Rate 75 80 Respiratory Rate 16 16 Blood Pressure 133/78 160/84 H 130/86 Pulse Oximetry 100 99 Oxygen Delivery Method Room Air Room Air 04/14/25 07:52 Temperature 98.1 F Pulse Rate 65 Respiratory Rate 20 Blood Pressure 127/92 H Pulse Oximetry 97 Oxygen Delivery Method Room Air BMI result Body Mass Index 37.6 Labs 04/11/25 19:45 04/14/25 09:04 Labs: Laboratory Results - last 48 hr 04/12/25 04/12/25 04/13/25 16:20 20:07 22:21 Creatinine 1.02 Estim Creat Clear Calc 115.1 Estimated GFR > 60 POC Glucose 308 H 252 H 04/14/25 07:40 Creatinine Estim Creat Clear Calc Estimated GFR POC Glucose 273 H Medications Medications Current Medications Acetaminophen (Acetaminophen 325 Mg Tablet) 650 mg PO Q6H PRN PRN Reason: Headache/Pain, Scale 1-10 Al Hydroxide/Mg Hydroxide (Magnesium Hydrox/Alum Hydrox 30 Ml Oral.Susp) 30 ml PO Q6H PRN PRN Reason: Heartburn/Nausea Amlodipine Besylate (Amlodipine Besylate 10 Mg Tablet) 10 mg PO DAILY [facility]; Protocol Last Admin: 04/14/25 08:42 Dose: 10 mg Atorvastatin Calcium (Atorvastatin Calcium 20 Mg Tablet) 20 mg PO DAILY [facility] Last Admin: 04/14/25 08:42 Dose: 20 mg Benztropine Mesylate (Benztropine Mesylate 0.5 Mg Tablet) 0.5 mg PO BID [facility] Last Admin: 04/14/25 08:41 Dose: 0.5 mg Clonidine HCl (Clonidine Hcl 0.2 Mg Tablet) 0.2 mg PO BID [facility]; Protocol Last Admin: 04/14/25 08:42 Dose: 0.2 mg Divalproex Sodium (Divalproex Sodium Er 500 Mg Tab.Er.24h) 500 mg PO DAILY@0900 [facility] Last Admin: 04/14/25 08:42 Dose: 500 mg Divalproex Sodium (Divalproex Sodium Er 500 Mg Tab.Er.24h) 1,000 mg PO BEDTIME [facility] Last Admin: 04/13/25 22:22 Dose: 1,000 mg Fluticasone Propionate (Fluticasone Propionate Nasal 16 Gm [place]) 1 spray NOSTRIL-B BID PRN PRN Reason: Congestion Last Admin: 04/12/25 09:07 Dose: 1 spray Folic Acid (Folic Acid 1 Mg Tablet) 1 mg PO DAILY [facility] Last Admin: 04/14/25 08:42 Dose: 1 mg Hydrochlorothiazide (Hydrochlorothiazide 25 Mg Tablet) 25 mg PO DAILY [facility]; Protocol Last Admin: 04/14/25 08:42 Dose: 25 mg Hydroxyzine HCl (Hydroxyzine Hcl 50 Mg Tablet) 50 mg PO Q4H PRN PRN Reason: Anxiety Last Admin: 04/14/25 02:19 Dose: 50 mg Insulin Glargine (Insulin Glargine,Hum.Rec.Anlog 100 Unit/Ml 10 Ml Vial) 15 unit SUBCUT BEDTIME [facility] Last Admin: 04/13/25 22:23 Dose: 15 unit Lisinopril (Lisinopril 10 Mg Tablet) 30 mg PO DAILY [facility]; Protocol Last Admin: 04/14/25 08:41 Dose: 30 mg Lorazepam (Lorazepam 1 Mg Tablet) 1 mg PO Q2H PRN PRN Reason: CIWA 8-11 Lorazepam (Lorazepam 1 Mg Tablet) 2 mg PO Q2H PRN PRN Reason: CIWA 12-15 Lorazepam (Lorazepam 1 Mg Tablet) 3 mg PO Q2H PRN PRN Reason: CIWA > 15, and call Magnesium Hydroxide (Milk Of Magnesia 30 Ml Oral.Susp) 30 ml PO DAILY PRN PRN Reason: Constipation Metformin HCl (Metformin Hcl 500 Mg Tablet) 500 mg PO BID [facility] Last Admin: 04/14/25 08:41 Dose: 500 mg Multivitamins/Vitamin C (Multivitamin Tablet) 1 tab PO DAILY [facility] Last Admin: 04/14/25 08:43 Dose: 1 tab Nicotine (Nicotine 21 Mg Patch.Td24) 21 mg TRANSDERMA DAILY [facility] Last Admin: 04/14/25 08:40 Dose: 21 mg Nicotine Polacrilex (Nicotine Polacrilex 2 Mg Gum) 4 mg BUCCAL Q2H PRN PRN Reason: Nicotine Cravings Last Admin: 04/13/25 17:41 Dose: 4 mg Paliperidone (Paliperidone Er 3 Mg Tab.Er.24) 3 mg PO BEDTIME [facility] Last Admin: 04/13/25 22:23 Dose: 3 mg Paliperidone Palmitate (Paliperidone Palmitate 156 Mg/Ml Syringe) 156 mg IM Q30D [facility] Pantoprazole Sodium (Pantoprazole Sodium 20 Mg Tablet.Dr) 40 mg PO DAILY [facility] Last Admin: 04/14/25 08:42 Dose: 40 mg Thiamine HCl (Thiamine Hcl 100 Mg Tablet) 100 mg PO DAILY [facility] Last Admin: 04/14/25 08:41 Dose: 100 mg Trazodone HCl (Trazodone Hcl 100 Mg Tablet) 100 mg PO BEDTIME [facility] Last Admin: 04/13/25 22:23 Dose: 100 mg Allergies Allergies Allergy/AdvReac Type Severity Reaction Status Date / Time No Known Allergies Allergy Verified 04/11/25 19:37 Assessment & Plan Assessment & Plan (1) Schizoaffective disorder: Status: Acute Code(s): F25.9 - Schizoaffective disorder, unspecified (2) Alcohol use disorder: Status: Acute Code(s): F10.90 - Alcohol use, unspecified, uncomplicated Plan Patient is a 49 year old male with hx of Schoizoaffective d/o and alcohol use d/o who presented to ER via ambulance d/t suicidal ideation with a plan to slip his wrist, secondary to increased depression. Plan: CV 15 minute safety checks obtain collateral CIWA protocol Restart home medications Referral to outpatient psychiatric providers Referral to substance abuse program Encourage groups Discharge planning 04/14: Active on unit. attending groups. Patient reports feeling okay today; he reports having a hard time sleeping last night d/t being the first night in here . Patient requesting to be transferred to [place] since they let you use your cell phone . Patient reports he is still interested in going to a substance abuse program. denies SI/HI/VH/AH. Continue tx plan. Patient educated on: diagnosis, medication risk/benefits and therapeutic strategies Reason for continued inpatient stay Substantial Risk for: med/psych decompensation Time Spent With Patient Time: Total time managing care of this patient today _20___ minutes.
[2025-04-14 10:09] LABS: Alanine Aminotransferase 25 U/L (0-40); Albumin Level 4.0 g/dL (3.5-5.0); Alkaline Phosphatase 42 U/L (39-117); Anion Gap 13 (12-20); Aspartate Amino Transferase 26 U/L (5-37); Blood Urea Nitrogen 11 mg/dL (9-16); Calcium 9.7 mg/dL (8.4-10.2); Carbon Dioxide 27 mmol/L (22-29); Chloride 103 mmol/L (96-108); Cholesterol 128 mg/dL (<200); Creatinine Clr Calc Pharmacy 140.6; Estimated Glomerular Filt Rate > 60; HDL Cholesterol 37 mg/dL (>40); Potassium 3.9 mmol/L (3.3-5.1); Sodium 139 mmol/L (135-145); Total Protein 7.3 g/dL (6.5-8.0); Triglycerides 141 mg/dL (<150)
--- NOTE | 2025-04-14 14:58 | MHC.RECOVRN ---
Pt is a 49-y/o Black male with a history of AUD and Schizoaffective who presented to the ED initially with thoughts of SI and hopelessness. Pt was assessed by the CARE team and found to be IPLOC. Subsequently pt was admitted to for tx.? Met with pt in group room of after receiving an addiction consult to discuss alcohol use and discuss recovery options and supports.? Upon approach pt is calm, oriented and cooperative. Speech is coherent & thought process is logical. Pt receptive to conversing with this conventional underwriter.??Mood is described as ?so and so? and affect is congruent. Insight and judgment appear fair at this time.? Pt reported consuming 1 pint of Librado or other cognac daily for the past couple of months.? Pt has a history of ATS and CSS admissions as well as several inpatient psychiatric hospitalizations. Last CSS admission was at the [facility] and he was last admitted psychiatrically on M5 back in December 2024. Pt identified triggers such as unstable housing and poor support system.? When asked about withdrawal symptoms pt denied a hx of seizures or delirium tremens. He stated ?I don?t know why but I never get withdrawal symptoms.? During the assessment low-risk drinking guidelines were reviewed. Pt was counseled on specific harm-reduction strategies including setting a personal limit of no more than 2-3 drinks per occasion, alternating alcohol with water, pacing intake, and eating food prior to and during drinking.?Reviewed w/ pt the medical risks of heavy or daily use and the dangers of abrupt withdrawal in dependent individuals.?Pt was advised on nutrition, hydration, and vitamin supplementation, including the potential benefit of daily thiamine and multivitamins if use continues at higher levels. Pt responded well to motivational interviewing and is open to recommendations. Treatment options were discussed, including [facility], and inpatient & outpatient treatment (ATS, CSS, TSS, IOPs).? Written educational resources on harm reduction and list of treatment facilities were provided and reviewed with pt.?Pt verbalized understanding of the information. Pt is ambivalent to starting [facility] at this time but is considering it. He stated he is working with SW to go to a CSS program following discharge. Pt would specifically like to go to the [facility] where he had a positive experience in the past.? No other questions or concerns offered at this time. Pt has t/w contact info should any questions arise.?
[2025-04-14] MEDS: Throat Lozenge, Medicated LOZENGE 1 LOZENGE MUCOUS MEM (16:19)
[2025-04-14 21:47] VITALS: BP 145/82; PULSE 88; RESP 17; TEMP 36.8; O2SAT 96
[2025-04-14 21:54] LABS: Glucose, Whole Blood 309 mg/dL (60-115)
[2025-04-14] MEDS: Insulin Glargine,Hum.rec.anlog 100 UNIT/ML 10 ML VIAL 20 UNIT SUBCUT (22:01)
[2025-04-15 07:27] VITALS: BP 121/81; PULSE 70; RESP 18; TEMP 36.2; O2SAT 96
[2025-04-15 07:28] LABS: Glucose, Whole Blood 230 mg/dL (60-115)
[2025-04-15] MEDS: Nicotine 21 MG PATCH.TD24 TRANSDERMA (08:19)
--- NOTE | 2025-04-15 08:23 | P.PNPSI_ITS ---
Subjective Subjective Date of Service: 04/15/25 Reason For Visit: Crisis Subjective Notes: Conditional Voluntary Interim History: Patient reports feeling better but having some depression ; denies SI/HI/VH/AH. Per marriage and family social worker, pt on wait list for [facility]. Active on unit. attending groups. DC CIWA; denies withdrawal symptoms. Continue tx plan. Medication Compliance: Yes Side effects from medications: No Attending Groups: Yes Mental Status Exam Mental Status Exam Narrative: Pt is alert and oriented; behavior is cooperative and calm; dressed in casual attire; mood is described as depressed ; eye contact appropriate; Speech is normal rate, volume and not pressured; thought process is organized; Thought content is on tx/discharge; denies SI/HI/VH/AH. Diagnostics Vital Signs (24Hr): Vital Signs - 24 hr 04/14/25 21:47 04/15/25 07:27 Temperature 98.3 F 97.2 F Pulse Rate 88 70 Respiratory Rate 17 18 Blood Pressure 145/82 H 121/81 Pulse Oximetry 96 96 Oxygen Delivery Method Room Air Room Air BMI result Body Mass Index 37.6 Labs 04/11/25 19:45 04/14/25 09:04 Labs: Laboratory Results - last 48 hr 04/13/25 04/14/25 04/14/25 22:21 07:40 09:04 Sodium 139 Potassium 3.9 Chloride 103 Carbon Dioxide 27 Anion Gap 13 BUN 11 Creatinine 0.88 Estim Creat Clear Calc 140.6 Estimated GFR > 60 POC Glucose 252 H 273 H Random Glucose 213 H Estimat Average Glucose 226 Hemoglobin A1c % 9.5 H Calcium 9.7 D Total Bilirubin 0.2 AST 26 ALT 25 Alkaline Phosphatase 42 Total Protein 7.3 Albumin 4.0 Triglycerides 141 Cholesterol 128 LDL Cholesterol, Calc 63 HDL Cholesterol 37 L 04/14/25 04/15/25 21:51 07:24 Sodium Potassium Chloride Carbon Dioxide Anion Gap BUN Creatinine Estim Creat Clear Calc Estimated GFR POC Glucose 309 H 230 H Random Glucose Estimat Average Glucose Hemoglobin A1c % Calcium Total Bilirubin AST ALT Alkaline Phosphatase Total Protein Albumin Triglycerides Cholesterol LDL Cholesterol, Calc HDL Cholesterol Medications Medications Current Medications Acetaminophen (Acetaminophen 325 Mg Tablet) 650 mg PO Q6H PRN PRN Reason: Headache/Pain, Scale 1-10 Last Admin: 04/14/25 19:56 Dose: 650 mg Al Hydroxide/Mg Hydroxide (Magnesium Hydrox/Alum Hydrox 30 Ml Oral.Susp) 30 ml PO Q6H PRN PRN Reason: Heartburn/Nausea Amlodipine Besylate (Amlodipine Besylate 10 Mg Tablet) 10 mg PO DAILY [facility]; Protocol Last Admin: 04/14/25 08:42 Dose: 10 mg Atorvastatin Calcium (Atorvastatin Calcium 20 Mg Tablet) 20 mg PO DAILY [facility] Last Admin: 04/14/25 08:42 Dose: 20 mg Benzocaine (Throat Lozenge, Medicated Lozenge) 1 lozenge MUCOUS MEM Q2H PRN PRN Reason: Sore Throat Last Admin: 04/14/25 16:19 Dose: 1 lozenge Benztropine Mesylate (Benztropine Mesylate 0.5 Mg Tablet) 0.5 mg PO BID [facility] Last Admin: 04/14/25 22:03 Dose: 0.5 mg Calcium Carbonate (Calcium Carbonate 750 Mg Tab.Chew) 750 mg PO Q6H PRN PRN Reason: Heartburn Last Admin: 04/14/25 16:18 Dose: 750 mg Clonidine HCl (Clonidine Hcl 0.2 Mg Tablet) 0.2 mg PO BID [facility]; Protocol Last Admin: 04/14/25 22:03 Dose: 0.2 mg Divalproex Sodium (Divalproex Sodium Er 500 Mg Tab.Er.24h) 500 mg PO DAILY@0900 [facility] Last Admin: 04/14/25 08:42 Dose: 500 mg Divalproex Sodium (Divalproex Sodium Er 500 Mg Tab.Er.24h) 1,000 mg PO BEDTIME [facility] Last Admin: 04/14/25 22:02 Dose: 1,000 mg Fluticasone Propionate (Fluticasone Propionate Nasal 16 [address] [place]) 1 spray NOSTRIL-B BID PRN PRN Reason: Congestion Last Admin: 04/12/25 09:07 Dose: 1 spray Folic Acid (Folic Acid 1 Mg Tablet) 1 mg PO DAILY [facility] Last Admin: 04/14/25 08:42 Dose: 1 mg Hydrochlorothiazide (Hydrochlorothiazide 25 Mg Tablet) 25 mg PO DAILY [facility]; Protocol Last Admin: 04/14/25 08:42 Dose: 25 mg Hydroxyzine HCl (Hydroxyzine Hcl 50 Mg Tablet) 50 mg PO Q4H PRN PRN Reason: Anxiety Last Admin: 04/15/25 03:09 Dose: 50 mg Insulin Glargine (Insulin Glargine,Hum.Rec.Anlog 100 Unit/Ml 10 Ml Vial) 20 unit SUBCUT BEDTIME [facility] Last Admin: 04/14/25 22:01 Dose: 20 unit Insulin Human Lispro (Insulin Lispro 100 Unit/Ml 3 Ml Vial) 0 unit SUBCUT DAILY [facility]; Protocol PRN Reason: for hyperglycemia Last Admin: 04/14/25 22:24 Dose: 8 unit Lisinopril (Lisinopril 10 Mg Tablet) 30 mg PO DAILY [facility]; Protocol Last Admin: 04/14/25 08:41 Dose: 30 mg Lorazepam (Lorazepam 1 Mg Tablet) 1 mg PO Q2H PRN PRN Reason: CIWA 8-11 Lorazepam (Lorazepam 1 Mg Tablet) 2 mg PO Q2H PRN PRN Reason: CIWA 12-15 Lorazepam (Lorazepam 1 Mg Tablet) 3 mg PO Q2H PRN PRN Reason: CIWA > 15, and call Magnesium Hydroxide (Milk Of Magnesia 30 Ml Oral.Susp) 30 ml PO DAILY PRN PRN Reason: Constipation Metformin HCl (Metformin Hcl 500 Mg Tablet) 500 mg PO BID [facility] Last Admin: 04/14/25 22:03 Dose: 500 mg Multivitamins/Vitamin C (Multivitamin Tablet) 1 tab PO DAILY [facility] Last Admin: 04/14/25 08:43 Dose: 1 tab Nicotine (Nicotine 21 Mg Patch.Td24) 21 mg TRANSDERMA DAILY [facility] Last Admin: 04/14/25 08:40 Dose: 21 mg Nicotine Polacrilex (Nicotine Polacrilex 2 Mg Gum) 4 mg BUCCAL Q2H PRN PRN Reason: Nicotine Cravings Last Admin: 04/14/25 15:49 Dose: 4 mg Paliperidone (Paliperidone Er 3 Mg Tab.Er.24) 3 mg PO BEDTIME [facility] Last Admin: 04/14/25 22:03 Dose: 3 mg Paliperidone Palmitate (Paliperidone Palmitate 156 Mg/Ml Syringe) 156 mg IM Q30D [facility] Pantoprazole Sodium (Pantoprazole Sodium 20 Mg Tablet.Dr) 40 mg PO DAILY [facility] Last Admin: 04/14/25 08:42 Dose: 40 mg Thiamine HCl (Thiamine Hcl 100 Mg Tablet) 100 mg PO DAILY [facility] Last Admin: 04/14/25 08:41 Dose: 100 mg Trazodone HCl (Trazodone Hcl 100 Mg Tablet) 100 mg PO BEDTIME [facility] Last Admin: 04/14/25 22:03 Dose: 100 mg Allergies Allergies Allergy/AdvReac Type Severity Reaction Status Date / Time No Known Allergies Allergy Verified 04/11/25 19:37 Assessment & Plan Assessment & Plan (1) Schizoaffective disorder: Status: Acute Code(s): F25.9 - Schizoaffective disorder, unspecified (2) Alcohol use disorder: Status: Acute Code(s): F10.90 - Alcohol use, unspecified, uncomplicated Plan Patient is a 49 year old male with hx of Schoizoaffective d/o and alcohol use d/o who presented to ER via ambulance d/t suicidal ideation with a plan to slip his wrist, secondary to increased depression. Plan: CV 15 minute safety checks obtain collateral CIWA protocol Restart home medications Referral to outpatient psychiatric providers Referral to substance abuse program Encourage groups Discharge planning 04/14: Active on unit. attending groups. Patient reports feeling okay today; he reports having a hard time sleeping last night d/t being the first night in here . Patient requesting to be transferred to [place] since they let you use your cell phone . Patient reports he is still interested in going to a substance abuse program. denies SI/HI/VH/AH. Continue tx plan. 04/15: Patient reports feeling better but having some depression ; denies SI/HI/VH/AH. Per marriage and family social worker, pt on wait list for [facility]. Active on unit. attending groups. DC CIWA; denies withdrawal symptoms. Continue tx plan. Patient educated on: diagnosis and medication risk/benefits Reason for continued inpatient stay Substantial Risk for: med/psych decompensation Time Spent With Patient Time: Total time managing care of this patient today _20___ minutes.
[2025-04-15 20:00] VITALS: BP 152/88; PULSE 89; RESP 16; TEMP 36.7; O2SAT 99
[2025-04-15 20:55] LABS: Glucose, Whole Blood 292 mg/dL (60-115)
[2025-04-15] MEDS: Insulin Glargine,Hum.rec.anlog 100 UNIT/ML 10 ML VIAL 20 UNIT SUBCUT (22:59)
[2025-04-15 23:00] VITALS: BP 132/78; PULSE 98; RESP 18
[2025-04-16 07:39] VITALS: BP 176/96; PULSE 90; RESP 20; TEMP 36.9; O2SAT 99
[2025-04-16 07:53] LABS: Glucose, Whole Blood 352 mg/dL (60-115)
[2025-04-16] MEDS: Nicotine 21 MG PATCH.TD24 TRANSDERMA (08:31)
--- NOTE | 2025-04-16 08:54 | P.PNPSI_ITS ---
Subjective Subjective Date of Service: 04/16/25 Reason For Visit: Crisis Subjective Notes: Conditional Voluntary Interim History: Patient reports he feels his mood improving. He reports sleeping well last night. attending groups. denies SI/HI/VH/AH. Patient continues focused on attending substance abuse program; pt stated, I'm trying to get my life back together . Continue tx plan. Medication Compliance: Yes Side effects from medications: No Attending Groups: Yes Mental Status Exam Mental Status Exam Narrative: Pt is alert and oriented; behavior is cooperative and calm; dressed in casual attire; mood is described as improving ; eye contact appropriate; Speech is normal rate, volume and not pressured; thought process is organized; Thought content is on tx/discharge; denies SI/HI/VH/AH. Diagnostics Vital Signs (24Hr): Vital Signs - 24 hr 04/15/25 20:00 04/15/25 23:00 04/16/25 07:39 Temperature 98.1 F 98.5 F Pulse Rate 89 98 90 Respiratory Rate 16 18 20 Blood Pressure 152/88 H 132/78 176/96 H Pulse Oximetry 99 99 Oxygen Delivery Method Room Air Room Air BMI result Body Mass Index 37.6 Labs 04/11/25 19:45 04/14/25 09:04 Labs: Laboratory Results - last 48 hr 04/14/25 04/14/25 04/15/25 09:04 21:51 07:24 Sodium 139 Potassium 3.9 Chloride 103 Carbon Dioxide 27 Anion Gap 13 BUN 11 Creatinine 0.88 Estim Creat Clear Calc 140.6 Estimated GFR > 60 POC Glucose 309 H 230 H Random Glucose 213 H Estimat Average Glucose 226 Hemoglobin A1c % 9.5 H Calcium 9.7 D Total Bilirubin 0.2 AST 26 ALT 25 Alkaline Phosphatase 42 Total Protein 7.3 Albumin 4.0 Triglycerides 141 Cholesterol 128 LDL Cholesterol, Calc 63 HDL Cholesterol 37 L 04/15/25 04/16/25 20:49 07:49 Sodium Potassium Chloride Carbon Dioxide Anion Gap BUN Creatinine Estim Creat Clear Calc Estimated GFR POC Glucose 292 H 352 H* Random Glucose Estimat Average Glucose Hemoglobin A1c % Calcium Total Bilirubin AST ALT Alkaline Phosphatase Total Protein Albumin Triglycerides Cholesterol LDL Cholesterol, Calc HDL Cholesterol Medications Medications Current Medications Acetaminophen (Acetaminophen 325 Mg Tablet) 650 mg PO Q6H PRN PRN Reason: Headache/Pain, Scale 1-10 Last Admin: 10/22/25 18:04 Dose: 650 mg Al Hydroxide/Mg Hydroxide (Magnesium Hydrox/Alum Hydrox 30 Ml Oral.Susp) 30 ml PO Q6H PRN PRN Reason: Heartburn/Nausea Amlodipine Besylate (Amlodipine Besylate 10 Mg Tablet) 10 mg PO DAILY [facility]; Protocol Last Admin: 04/16/25 08:30 Dose: 10 mg Atorvastatin Calcium (Atorvastatin Calcium 20 Mg Tablet) 20 mg PO DAILY [facility] Last Admin: 04/16/25 08:30 Dose: 20 mg Benzocaine (Throat Lozenge, Medicated Lozenge) 1 lozenge MUCOUS MEM Q2H PRN PRN Reason: Sore Throat Last Admin: 04/14/25 16:19 Dose: 1 lozenge Benztropine Mesylate (Benztropine Mesylate 0.5 Mg Tablet) 0.5 mg PO BID [facility] Last Admin: 04/16/25 08:30 Dose: 0.5 mg Calcium Carbonate (Calcium Carbonate 750 Mg Tab.Chew) 750 mg PO Q6H PRN PRN Reason: Heartburn Last Admin: 04/15/25 18:04 Dose: 750 mg Clonidine HCl (Clonidine Hcl 0.2 Mg Tablet) 0.2 mg PO BID [facility]; Protocol Last Admin: 04/16/25 08:29 Dose: 0.2 mg Divalproex Sodium (Divalproex Sodium Er 500 Mg Tab.Er.24h) 500 mg PO DAILY@0900 [facility] Last Admin: 04/16/25 08:30 Dose: 500 mg Divalproex Sodium (Divalproex Sodium Er 500 Mg Tab.Er.24h) 1,000 mg PO BEDTIME [facility] Last Admin: 04/15/25 22:58 Dose: 1,000 mg Fluticasone Propionate (Fluticasone Propionate Nasal 16 Gm [place]) 1 spray NOSTRIL-B BID PRN PRN Reason: Congestion Last Admin: 04/12/25 09:07 Dose: 1 spray Hydrochlorothiazide (Hydrochlorothiazide 25 Mg Tablet) 25 mg PO DAILY [facility]; Protocol Last Admin: 04/16/25 08:30 Dose: 25 mg Hydroxyzine HCl (Hydroxyzine Hcl 50 Mg Tablet) 50 mg PO Q4H PRN PRN Reason: Anxiety Last Admin: 04/15/25 03:09 Dose: 50 mg Insulin Glargine (Insulin Glargine,Hum.Rec.Anlog 100 Unit/Ml 10 Ml Vial) 20 unit SUBCUT BEDTIME [facility] Last Admin: 04/15/25 22:59 Dose: 20 unit Insulin Glargine (Insulin Glargine,Hum.Rec.Anlog 100 Unit/Ml 10 Ml Vial) 10 unit SUBCUT DAILY [facility] Insulin Human Lispro (Insulin Lispro 100 Unit/Ml 3 Ml Vial) 0 unit SUBCUT TID@0800,1200,1700 [facility]; Protocol Last Admin: 04/16/25 08:10 Dose: 10 unit Lisinopril (Lisinopril 10 Mg Tablet) 30 mg PO DAILY [facility]; Protocol Last Admin: 04/16/25 08:29 Dose: 30 mg Magnesium Hydroxide (Milk Of Magnesia 30 Ml Oral.Susp) 30 ml PO DAILY PRN PRN Reason: Constipation Metformin HCl (Metformin Hcl 500 Mg Tablet) 500 mg PO BID [facility] Last Admin: 04/16/25 08:30 Dose: 500 mg Nicotine (Nicotine 21 Mg Patch.Td24) 21 mg TRANSDERMA DAILY [facility] Last Admin: 04/16/25 08:31 Dose: 21 mg Nicotine Polacrilex (Nicotine Polacrilex 2 Mg Gum) 4 mg BUCCAL Q2H PRN PRN Reason: Nicotine Cravings Last Admin: 04/14/25 15:49 Dose: 4 mg Paliperidone (Paliperidone Er 3 Mg Tab.Er.24) 3 mg PO BEDTIME [facility] Last Admin: 04/15/25 22:59 Dose: 3 mg Paliperidone Palmitate (Paliperidone Palmitate 156 Mg/Ml Syringe) 156 mg IM Q30D [facility] Pantoprazole Sodium (Pantoprazole Sodium 20 Mg Tablet.Dr) 40 mg PO DAILY [facility] Last Admin: 04/16/25 08:29 Dose: 40 mg Trazodone HCl (Trazodone Hcl 100 Mg Tablet) 100 mg PO BEDTIME [facility] Last Admin: 04/15/25 22:59 Dose: 100 mg Allergies Allergies Allergy/AdvReac Type Severity Reaction Status Date / Time No Known Allergies Allergy Verified 04/11/25 19:37 Assessment & Plan Assessment & Plan (1) Schizoaffective disorder: Status: Acute Code(s): F25.9 - Schizoaffective disorder, unspecified (2) Alcohol use disorder: Status: Acute Code(s): F10.90 - Alcohol use, unspecified, uncomplicated Plan Patient is a 49 year old male with hx of Schoizoaffective d/o and alcohol use d/o who presented to ER via ambulance d/t suicidal ideation with a plan to slip his wrist, secondary to increased depression. Plan: CV 15 minute safety checks obtain collateral CIWA protocol Restart home medications Referral to outpatient psychiatric providers Referral to substance abuse program Encourage groups Discharge planning 04/14: Active on unit. attending groups. Patient reports feeling okay today; he reports having a hard time sleeping last night d/t being the first night in here . Patient requesting to be transferred to [place] since they let you use your cell phone . Patient reports he is still interested in going to a substance abuse program. denies SI/HI/VH/AH. Continue tx plan. 04/15: Patient reports feeling better but having some depression ; denies SI/HI/VH/AH. Per social media marketing specialist, pt on wait list for [facility]. Active on unit. attending groups. DC CIWA; denies withdrawal symptoms. Continue tx plan. 04/16:Patient reports he feels his mood improving. He reports sleeping well last night. attending groups. denies SI/HI/VH/AH. Patient continues focused on attending substance abuse program; pt stated, I'm trying to get my life back together . Continue tx plan Patient educated on: diagnosis, medication risk/benefits and therapeutic strategies Reason for continued inpatient stay Substantial Risk for: med/psych decompensation Time Spent With Patient Time: Total time managing care of this patient today 20____ minutes.
[2025-04-16] MEDS: Insulin Glargine,Hum.rec.anlog 100 UNIT/ML 10 ML VIAL 10 UNIT SUBCUT (08:59)
[2025-04-16 11:46] LABS: Glucose, Whole Blood 355 mg/dL (60-115)
[2025-04-16 15:22] LABS: Alanine Aminotransferase 13 U/L (0-40); Albumin Level 3.8 g/dL (3.5-5.0); Alkaline Phosphatase 42 U/L (39-117); Ammonia 37 umol/L (13-55); Aspartate Amino Transferase 24 U/L (5-37); Total Protein 7.1 g/dL (6.5-8.0)
[2025-04-16 16:44] LABS: Glucose, Whole Blood 271 mg/dL (60-115)
[2025-04-16 19:20] VITALS: BP 139/88; PULSE 93; RESP 16; TEMP 36.7; O2SAT 98
[2025-04-16] MEDS: Insulin Glargine,Hum.rec.anlog 100 UNIT/ML 10 ML VIAL 20 UNIT SUBCUT (23:18)
[2025-04-16 23:27] LABS: Glucose, Whole Blood 271 mg/dL (60-115)
[2025-04-17 07:24] VITALS: BP 182/109; PULSE 96; RESP 24; TEMP 36.7; O2SAT 99
[2025-04-17 07:33] LABS: Glucose, Whole Blood 235 mg/dL (60-115)
[2025-04-17] MEDS: Insulin Glargine,Hum.rec.anlog 100 UNIT/ML 10 ML VIAL 10 UNIT SUBCUT (08:17)
--- NOTE | 2025-04-17 09:24 | HO.PSYCHPN ---
Subjective Subjective Date of Service: 04/17/25 Reason For Visit: Crisis Subjective Notes: Conditional Voluntary Interim History: Patient reports feeling so-so today; per clinical social work therapist, had phone intake this morning with substance abuse program. Later notified, pt was accepted into program for Sunday. Valproic acid level 56.3 on 04/16/25. denies SI/HI/VH/AH. Continue tx plan. Medication Compliance: Yes Side effects from medications: No Attending Groups: Yes Mental Status Exam Mental Status Exam Narrative: Pt is alert and oriented; behavior is cooperative and calm; dressed in casual attire; mood is described as improving ; eye contact appropriate; Speech is normal rate, volume and not pressured; thought process is organized; Thought content is on discharge; denies SI/HI/VH/AH. Diagnostics Vital Signs (24Hr): Vital Signs - 24 hr 04/16/25 19:20 04/17/25 07:24 Temperature 98.1 F 98.1 F Pulse Rate 93 96 Respiratory Rate 16 24 H Blood Pressure 139/88 182/109 H Pulse Oximetry 98 99 Oxygen Delivery Method Room Air Room Air BMI result Body Mass Index 37.6 Labs 04/11/25 19:45 04/14/25 09:04 Labs: Laboratory Results - last 48 hr 04/15/25 04/16/25 04/16/25 20:49 07:49 11:42 POC Glucose 292 H 352 H* 355 H* Total Bilirubin Direct Bilirubin AST ALT Alkaline Phosphatase Ammonia Total Protein Albumin Valproic Acid 04/16/25 04/16/25 04/16/25 14:51 16:40 23:18 POC Glucose 271 H 271 H Total Bilirubin 0.1 Direct Bilirubin < 0.2 AST 24 ALT 13 Alkaline Phosphatase 42 Ammonia 37 Total Protein 7.1 Albumin 3.8 Valproic Acid 56.3 04/17/25 07:30 POC Glucose 235 H Total Bilirubin Direct Bilirubin AST ALT Alkaline Phosphatase Ammonia Total Protein Albumin Valproic Acid Medications Medications Current Medications Acetaminophen (Acetaminophen 325 Mg Tablet) 650 mg PO Q6H PRN PRN Reason: Headache/Pain, Scale 1-10 Last Admin: 04/17/25 00:35 Dose: 650 mg Al Hydroxide/Mg Hydroxide (Magnesium Hydrox/Alum Hydrox 30 Ml Oral.Susp) 30 ml PO Q6H PRN PRN Reason: Heartburn/Nausea Amlodipine Besylate (Amlodipine Besylate 10 Mg Tablet) 10 mg PO DAILY [facility]; Protocol Last Admin: 04/17/25 08:24 Dose: 10 mg Atorvastatin Calcium (Atorvastatin Calcium 20 Mg Tablet) 20 mg PO DAILY [facility] Last Admin: 04/17/25 08:23 Dose: 20 mg Benzocaine (Throat Lozenge, Medicated Lozenge) 1 lozenge MUCOUS MEM Q2H PRN PRN Reason: Sore Throat Last Admin: 04/14/25 16:19 Dose: 1 lozenge Benztropine Mesylate (Benztropine Mesylate 0.5 Mg Tablet) 0.5 mg PO BID [facility] Last Admin: 04/17/25 08:22 Dose: 0.5 mg Calcium Carbonate (Calcium Carbonate 750 Mg Tab.Chew) 750 mg PO Q6H PRN PRN Reason: Heartburn Last Admin: 04/15/25 18:04 Dose: 750 mg Clonidine HCl (Clonidine Hcl 0.2 Mg Tablet) 0.2 mg PO BID [facility]; Protocol Last Admin: 04/17/25 08:22 Dose: 0.2 mg Divalproex Sodium (Divalproex Sodium Er 500 Mg Tab.Er.24h) 500 mg PO DAILY@0900 [facility] Last Admin: 04/17/25 08:24 Dose: 500 mg Divalproex Sodium (Divalproex Sodium Er 500 Mg Tab.Er.24h) 1,000 mg PO BEDTIME [facility] Last Admin: 04/16/25 23:22 Dose: Not Given Fluticasone Propionate (Fluticasone Propionate Nasal 16 Gm [place]) 1 spray NOSTRIL-B BID PRN PRN Reason: Congestion Last Admin: 04/17/25 00:31 Dose: 1 spray Hydrochlorothiazide (Hydrochlorothiazide 25 Mg Tablet) 25 mg PO DAILY [facility]; Protocol Last Admin: 04/17/25 08:21 Dose: 25 mg Hydroxyzine HCl (Hydroxyzine Hcl 50 Mg Tablet) 50 mg PO Q4H PRN PRN Reason: Anxiety Last Admin: 04/15/25 03:09 Dose: 50 mg Insulin Glargine (Insulin Glargine,Hum.Rec.Anlog 100 Unit/Ml 10 Ml Vial) 20 unit SUBCUT BEDTIME [facility] Last Admin: 04/16/25 23:18 Dose: 20 unit Insulin Glargine (Insulin Glargine,Hum.Rec.Anlog 100 Unit/Ml 10 Ml Vial) 10 unit SUBCUT DAILY [facility] Last Admin: 04/17/25 08:17 Dose: 10 unit Insulin Human Lispro (Insulin Lispro 100 Unit/Ml 3 Ml Vial) 0 unit SUBCUT TID@0800,1200,1700 [facility]; Protocol Last Admin: 04/17/25 08:18 Dose: 4 unit Lisinopril (Lisinopril 10 Mg Tablet) 30 mg PO DAILY [facility]; Protocol Last Admin: 04/17/25 08:22 Dose: 30 mg Magnesium Hydroxide (Milk Of Magnesia 30 Ml Oral.Susp) 30 ml PO DAILY PRN PRN Reason: Constipation Metformin HCl (Metformin Hcl 500 Mg Tablet) 500 mg PO BID [facility] Last Admin: 04/17/25 08:23 Dose: 500 mg Nicotine (Nicotine 21 Mg Patch.Td24) 21 mg TRANSDERMA DAILY [facility] Last Admin: 04/17/25 08:26 Dose: Not Given Nicotine Polacrilex (Nicotine Polacrilex 2 Mg Gum) 4 mg BUCCAL Q2H PRN PRN Reason: Nicotine Cravings Last Admin: 04/14/25 15:49 Dose: 4 mg Paliperidone (Paliperidone Er 3 Mg Tab.Er.24) 3 mg PO BEDTIME [facility] Last Admin: 04/16/25 23:35 Dose: Not Given Paliperidone Palmitate (Paliperidone Palmitate 156 Mg/Ml Syringe) 156 mg IM Q30D [facility] Pantoprazole Sodium (Pantoprazole Sodium 20 Mg Tablet.Dr) 40 mg PO DAILY [facility] Last Admin: 04/17/25 08:20 Dose: 40 mg Trazodone HCl (Trazodone Hcl 100 Mg Tablet) 100 mg PO BEDTIME [facility] Last Admin: 04/16/25 23:35 Dose: Not Given Allergies Allergies Allergy/AdvReac Type Severity Reaction Status Date / Time No Known Allergies Allergy Verified 04/11/25 19:37 Assessment & Plan Assessment & Plan (1) Schizoaffective disorder: Status: Acute Code(s): F25.9 - Schizoaffective disorder, unspecified (2) Alcohol use disorder: Status: Acute Code(s): F10.90 - Alcohol use, unspecified, uncomplicated Plan Patient is a 49 year old male with hx of Schoizoaffective d/o and alcohol use d/o who presented to ER via ambulance d/t suicidal ideation with a plan to slip his wrist, secondary to increased depression. Plan: CV 15 minute safety checks obtain collateral CIWA protocol Restart home medications Referral to outpatient psychiatric providers Referral to substance abuse program Encourage groups Discharge planning 04/14: Active on unit. attending groups. Patient reports feeling okay today; he reports having a hard time sleeping last night d/t being the first night in here . Patient requesting to be transferred to [place] since they let you use your cell phone . Patient reports he is still interested in going to a substance abuse program. denies SI/HI/VH/AH. Continue tx plan. 04/15: Patient reports feeling better but having some depression ; denies SI/HI/VH/AH. Per clinical social work therapist, pt on wait list for [facility]. Active on unit. attending groups. DC CIWA; denies withdrawal symptoms. Continue tx plan. 04/16:Patient reports he feels his mood improving. He reports sleeping well last night. attending groups. denies SI/HI/VH/AH. Patient continues focused on attending substance abuse program; pt stated, I'm trying to get my life back together . Continue tx plan 04/17: Patient reports feeling so-so today; per clinical social work therapist, had phone intake this morning with substance abuse program. Later notified, pt was accepted into program for Sunday. Valproic acid level 56.3 on 04/16/25. denies SI/HI/VH/AH. Continue tx plan. Patient educated on: diagnosis and medication risk/benefits Reason for continued inpatient stay Substantial Risk for: med/psych decompensation Time Spent With Patient Time: Total time managing care of this patient today _20___ minutes.
[2025-04-17 09:45] VITALS: BP 146/92; PULSE 99; TEMP 36.9; O2SAT 96
[2025-04-17] MEDS: Magnesium Hydrox/Alum Hydrox 30 ML ORAL.SUSP PO (18:09)
[2025-04-17 19:25] VITALS: BP 155/94; PULSE 101; RESP 16; TEMP 37.1; O2SAT 98
[2025-04-17] MEDS: Insulin Glargine,Hum.rec.anlog 100 UNIT/ML 10 ML VIAL 20 UNIT SUBCUT (21:28)
[2025-04-18 07:33] LABS: Glucose, Whole Blood 223 mg/dL (60-115)
[2025-04-18] MEDS: Insulin Glargine,Hum.rec.anlog 100 UNIT/ML 10 ML VIAL 10 UNIT SUBCUT (08:31)
[2025-04-18 08:34] VITALS: BP 186/102; PULSE 98; RESP 18; TEMP 36.5; O2SAT 100
[2025-04-18 09:01] LABS: Creatinine Clr Calc Pharmacy 149.2; Estimated Glomerular Filt Rate > 60
[2025-04-18] MEDS: Nicotine 21 MG PATCH.TD24 TRANSDERMA (09:57)
[2025-04-18 11:54] LABS: Glucose, Whole Blood 395 mg/dL (60-115)
--- NOTE | 2025-04-18 12:12 | PC.NURSE ---
POC BS 395 at 1150, Tona Dugan, vanessa, notified and questioned whether additional sliding scale units needed. No additional units needed besides Admelog Insulin 10 units SC given per sliding scale at 1203.
[2025-04-18] MEDS: Throat Lozenge, Medicated LOZENGE 1 LOZENGE MUCOUS MEM (13:42)
[2025-04-18 14:12] VITALS: BP 137/91; PULSE 95
--- NOTE | 2025-04-18 14:24 | P.PNPSI_ITS ---
Subjective Subjective Date of Service: 04/18/25 Reason For Visit: Crisis Subjective Notes: Conditional Voluntary Interim History: Patient reports feeling good today; patient stated, I'm feeling ready to go. I'm waiting to leave for the program on Sunday . denies SI/HI/VH/AH. denies any issues at this time. Continue tx plan. Medication Compliance: Yes Side effects from medications: No Attending Groups: Yes Mental Status Exam Mental Status Exam Narrative: Pt is alert and oriented; behavior is cooperative and calm; dressed in casual attire; mood is described as good ; eye contact appropriate; Speech is normal rate, volume and not pressured; thought process is organized; Thought content is on discharge; denies SI/HI/VH/AH. Diagnostics Vital Signs (24Hr): Vital Signs - 24 hr 04/17/25 19:25 04/18/25 08:34 04/18/25 14:12 Temperature 98.8 F 97.7 F Pulse Rate 101 H 98 95 Respiratory Rate 16 18 Blood Pressure 155/94 H 186/102 H 137/91 H Pulse Oximetry 98 100 Oxygen Delivery Method Room Air Room Air BMI result Body Mass Index 37.6 Labs 04/11/25 19:45 04/18/25 08:27 Labs: Laboratory Results - last 48 hr 04/16/25 04/16/25 04/16/25 14:51 16:40 23:18 Creatinine Estim Creat Clear Calc Estimated GFR POC Glucose 271 H 271 H Total Bilirubin 0.1 Direct Bilirubin < 0.2 AST 24 ALT 13 Alkaline Phosphatase 42 Ammonia 37 Total Protein 7.1 Albumin 3.8 Valproic Acid 56.3 04/17/25 04/18/25 04/18/25 07:30 07:28 08:27 Creatinine 0.82 Estim Creat Clear Calc 149.2 Estimated GFR > 60 POC Glucose 235 H 223 H Total Bilirubin Direct Bilirubin AST ALT Alkaline Phosphatase Ammonia Total Protein Albumin Valproic Acid 04/18/25 11:50 Creatinine Estim Creat Clear Calc Estimated GFR POC Glucose 395 H* Total Bilirubin Direct Bilirubin AST ALT Alkaline Phosphatase Ammonia Total Protein Albumin Valproic Acid Medications Medications Current Medications Acetaminophen (Acetaminophen 325 Mg Tablet) 650 mg PO Q6H PRN PRN Reason: Headache/Pain, Scale 1-10 Last Admin: 04/18/25 08:43 Dose: 650 mg Al Hydroxide/Mg Hydroxide (Magnesium Hydrox/Alum Hydrox 30 Ml Oral.Susp) 30 ml PO Q6H PRN PRN Reason: Heartburn/Nausea Last Admin: 04/17/25 18:09 Dose: 30 ml Amlodipine Besylate (Amlodipine Besylate 10 Mg Tablet) 10 mg PO DAILY [facility]; Protocol Last Admin: 04/18/25 08:36 Dose: 10 mg Atorvastatin Calcium (Atorvastatin Calcium 20 Mg Tablet) 20 mg PO DAILY [facility] Last Admin: 04/18/25 08:33 Dose: 20 mg Benzocaine (Throat Lozenge, Medicated Lozenge) 1 lozenge MUCOUS MEM Q2H PRN PRN Reason: Sore Throat Last Admin: 04/18/25 13:42 Dose: 1 lozenge Benztropine Mesylate (Benztropine Mesylate 0.5 Mg Tablet) 0.5 mg PO BID [facility] Last Admin: 04/18/25 08:34 Dose: 0.5 mg Calcium Carbonate (Calcium Carbonate 750 Mg Tab.Chew) 750 mg PO Q6H PRN PRN Reason: Heartburn Last Admin: 04/17/25 13:13 Dose: 750 mg Clonidine HCl (Clonidine Hcl 0.2 Mg Tablet) 0.2 mg PO BID [facility]; Protocol Last Admin: 04/18/25 08:37 Dose: 0.2 mg Divalproex Sodium (Divalproex Sodium Er 500 Mg Tab.Er.24h) 500 mg PO DAILY@0900 [facility] Last Admin: 04/18/25 08:33 Dose: 500 mg Divalproex Sodium (Divalproex Sodium Er 500 Mg Tab.Er.24h) 1,000 mg PO BEDTIME [facility] Last Admin: 04/17/25 21:35 Dose: Not Given Fluticasone Propionate (Fluticasone Propionate Nasal 16 Gm [place]) 1 spray NOSTRIL-B BID PRN PRN Reason: Congestion Last Admin: 04/18/25 10:13 Dose: 1 spray Hydrochlorothiazide (Hydrochlorothiazide 25 Mg Tablet) 25 mg PO DAILY [facility]; Protocol Last Admin: 04/18/25 08:36 Dose: 25 mg Hydroxyzine HCl (Hydroxyzine Hcl 50 Mg Tablet) 50 mg PO Q4H PRN PRN Reason: Anxiety Last Admin: 04/15/25 03:09 Dose: 50 mg Insulin Glargine (Insulin Glargine,Hum.Rec.Anlog 100 Unit/Ml 10 Ml Vial) 20 unit SUBCUT BEDTIME [facility] Last Admin: 04/17/25 21:28 Dose: 20 unit Insulin Glargine (Insulin Glargine,Hum.Rec.Anlog 100 Unit/Ml 10 Ml Vial) 10 unit SUBCUT DAILY [facility] Last Admin: 04/18/25 08:31 Dose: 10 unit Insulin Human Lispro (Insulin Lispro 100 Unit/Ml 3 Ml Vial) 0 unit SUBCUT TID@0800,1200,1700 [facility]; Protocol Last Admin: 04/18/25 12:03 Dose: 10 unit Lisinopril (Lisinopril 10 Mg Tablet) 30 mg PO DAILY [facility]; Protocol Last Admin: 04/18/25 08:42 Dose: 30 mg Magnesium Hydroxide (Milk Of Magnesia 30 Ml Oral.Susp) 30 ml PO DAILY PRN PRN Reason: Constipation Metformin HCl (Metformin Hcl 500 Mg Tablet) 500 mg PO BID [facility] Last Admin: 04/18/25 08:33 Dose: 500 mg Nicotine (Nicotine 21 Mg Patch.Td24) 21 mg TRANSDERMA DAILY [facility] Last Admin: 04/18/25 09:57 Dose: 21 mg Nicotine Polacrilex (Nicotine Polacrilex 2 Mg Gum) 4 mg BUCCAL Q2H PRN PRN Reason: Nicotine Cravings Last Admin: 04/18/25 10:06 Dose: 4 mg Paliperidone (Paliperidone Er 3 Mg Tab.Er.24) 3 mg PO BEDTIME [facility] Last Admin: 04/17/25 21:36 Dose: Not Given Paliperidone Palmitate (Paliperidone Palmitate 156 Mg/Ml Syringe) 156 mg IM Q30D [facility] Pantoprazole Sodium (Pantoprazole Sodium 20 Mg Tablet.Dr) 40 mg PO DAILY [facility] Last Admin: 04/18/25 08:43 Dose: 40 mg Trazodone HCl (Trazodone Hcl 100 Mg Tablet) 100 mg PO BEDTIME [facility] Last Admin: 04/17/25 21:36 Dose: Not Given Allergies Allergies Allergy/AdvReac Type Severity Reaction Status Date / Time No Known Allergies Allergy Verified 04/11/25 19:37 Assessment & Plan Assessment & Plan (1) Schizoaffective disorder: Status: Acute Code(s): F25.9 - Schizoaffective disorder, unspecified (2) Alcohol use disorder: Status: Acute Code(s): F10.90 - Alcohol use, unspecified, uncomplicated Plan Patient is a 49 year old male with hx of Schoizoaffective d/o and alcohol use d/o who presented to ER via ambulance d/t suicidal ideation with a plan to slip his wrist, secondary to increased depression. Plan: CV 15 minute safety checks obtain collateral CIWA protocol Restart home medications Referral to outpatient psychiatric providers Referral to substance abuse program Encourage groups Discharge planning 04/14: Active on unit. attending groups. Patient reports feeling okay today; he reports having a hard time sleeping last night d/t being the first night in here . Patient requesting to be transferred to [place] since they let you use your cell phone . Patient reports he is still interested in going to a substance abuse program. denies SI/HI/VH/AH. Continue tx plan. 04/15: Patient reports feeling better but having some depression ; denies SI/HI/VH/AH. Per rn social work, pt on wait list for [facility]. Active on unit. attending groups. DC CIWA; denies withdrawal symptoms. Continue tx plan. 04/16:Patient reports he feels his mood improving. He reports sleeping well last night. attending groups. denies SI/HI/VH/AH. Patient continues focused on attending substance abuse program; pt stated, I'm trying to get my life back together . Continue tx plan 04/17: Patient reports feeling so-so today; per rn social work, had phone intake this morning with substance abuse program. Later notified, pt was accepted into program for Sunday. Valproic acid level 56.3 on 04/16/25. denies SI/HI/VH/AH. Continue tx plan. 04/18: Patient reports feeling good today; patient stated, I'm feeling ready to go. I'm waiting to leave for the program on Sunday . denies SI/HI/VH/AH. denies any issues at this time. Continue tx plan. Patient educated on: diagnosis and medication risk/benefits Reason for continued inpatient stay Substantial Risk for: med/psych decompensation Time Spent With Patient Time: Total time managing care of this patient today _20___ minutes.
[2025-04-18 17:00] LABS: Glucose, Whole Blood 284 mg/dL (60-115)
[2025-04-18] MEDS: Milk of Magnesia 30 ML ORAL.SUSP PO (17:12)
[2025-04-18 20:00] VITALS: BP 163/91; PULSE 93; RESP 16; TEMP 36.6; O2SAT 99
[2025-04-18] MEDS: Insulin Glargine,Hum.rec.anlog 100 UNIT/ML 10 ML VIAL 20 UNIT SUBCUT (20:54)
[2025-04-19] MEDS: Throat Lozenge, Medicated LOZENGE 1 LOZENGE MUCOUS MEM (02:18)
[2025-04-19 07:57] LABS: Glucose, Whole Blood 375 mg/dL (60-115)
[2025-04-19 08:00] VITALS: BP 142/80; PULSE 89; RESP 18; TEMP 36.2; O2SAT 99
[2025-04-19] MEDS: Nicotine 21 MG PATCH.TD24 TRANSDERMA (08:35)
[2025-04-19] MEDS: Insulin Glargine,Hum.rec.anlog 100 UNIT/ML 10 ML VIAL 10 UNIT SUBCUT (08:37)
[2025-04-19 11:49] LABS: Glucose, Whole Blood 277 mg/dL (60-115)
--- NOTE | 2025-04-19 12:13 | P.PNPSI_ITS ---
Subjective Subjective Date of Service: 04/19/25 Reason For Visit: Crisis Subjective Notes: Conditional Voluntary Interim History: Active on unit. social with peers. Patient continues to report feeling good today; patient reports he is just waiting to leave tomorrow . denies SI/HI/VH/AH. denies any issues at this time. Continue tx plan. Medication Compliance: Yes Side effects from medications: No Attending Groups: Yes Mental Status Exam Mental Status Exam Narrative: Pt is alert and oriented; behavior is cooperative and calm; dressed in casual attire; mood is described as good ; eye contact appropriate; Speech is normal rate, volume and not pressured; thought process is organized; Thought content is on discharge; denies SI/HI/VH/AH. Diagnostics Vital Signs (24Hr): Vital Signs - 24 hr 04/18/25 14:12 04/18/25 20:00 04/19/25 08:00 Temperature 97.8 F 97.1 F Pulse Rate 95 93 89 Respiratory Rate 16 18 Blood Pressure 137/91 H 163/91 H 142/80 H Pulse Oximetry 99 99 Oxygen Delivery Method Room Air Room Air BMI result Body Mass Index 37.6 Labs 04/11/25 19:45 04/18/25 08:27 Labs: Laboratory Results - last 48 hr 04/18/25 04/18/25 04/18/25 07:28 08:27 11:50 Creatinine 0.82 Estim Creat Clear Calc 149.2 Estimated GFR > 60 POC Glucose 223 H 395 H* 04/18/25 04/19/25 04/19/25 16:52 07:52 11:45 Creatinine Estim Creat Clear Calc Estimated GFR POC Glucose 284 H 375 H* 277 H Medications Medications Current Medications Acetaminophen (Acetaminophen 325 Mg Tablet) 650 mg PO Q6H PRN PRN Reason: Headache/Pain, Scale 1-10 Last Admin: 04/18/25 17:55 Dose: 650 mg Al Hydroxide/Mg Hydroxide (Magnesium Hydrox/Alum Hydrox 30 Ml Oral.Susp) 30 ml PO Q6H PRN PRN Reason: Heartburn/Nausea Last Admin: 04/17/25 18:09 Dose: 30 ml Amlodipine Besylate (Amlodipine Besylate 10 Mg Tablet) 10 mg PO DAILY [facility]; Protocol Last Admin: 04/19/25 08:37 Dose: 10 mg Atorvastatin Calcium (Atorvastatin Calcium 20 Mg Tablet) 20 mg PO DAILY [facility] Last Admin: 04/19/25 08:38 Dose: 20 mg Benzocaine (Throat Lozenge, Medicated Lozenge) 1 lozenge MUCOUS MEM Q2H PRN PRN Reason: Sore Throat Last Admin: 04/19/25 02:18 Dose: 1 lozenge Benztropine Mesylate (Benztropine Mesylate 0.5 Mg Tablet) 0.5 mg PO BID [facility] Last Admin: 04/19/25 08:37 Dose: 0.5 mg Calcium Carbonate (Calcium Carbonate 750 Mg Tab.Chew) 750 mg PO Q6H PRN PRN Reason: Heartburn Last Admin: 04/17/25 13:13 Dose: 750 mg Clonidine HCl (Clonidine Hcl 0.2 Mg Tablet) 0.2 mg PO BID [facility]; Protocol Last Admin: 04/19/25 08:38 Dose: 0.2 mg Divalproex Sodium (Divalproex Sodium Er 500 Mg Tab.Er.24h) 500 mg PO DAILY@0900 [facility] Last Admin: 04/19/25 08:38 Dose: 500 mg Divalproex Sodium (Divalproex Sodium Er 500 Mg Tab.Er.24h) 1,000 mg PO BEDTIME [facility] Last Admin: 04/18/25 20:51 Dose: 1,000 mg Fluticasone Propionate (Fluticasone Propionate Nasal 16 Gm [place]) 1 spray NOSTRIL-B BID PRN PRN Reason: Congestion Last Admin: 04/18/25 10:13 Dose: 1 spray Hydrochlorothiazide (Hydrochlorothiazide 25 Mg Tablet) 25 mg PO DAILY [facility]; Protocol Last Admin: 04/19/25 08:39 Dose: 25 mg Hydroxyzine HCl (Hydroxyzine Hcl 50 Mg Tablet) 50 mg PO Q4H PRN PRN Reason: Anxiety Last Admin: 04/15/25 03:09 Dose: 50 mg Insulin Glargine (Insulin Glargine,Hum.Rec.Anlog 100 Unit/Ml 10 Ml Vial) 20 unit SUBCUT BEDTIME [facility] Last Admin: 04/18/25 20:54 Dose: 20 unit Insulin Glargine (Insulin Glargine,Hum.Rec.Anlog 100 Unit/Ml 10 Ml Vial) 10 unit SUBCUT DAILY [facility] Last Admin: 04/19/25 08:37 Dose: 10 unit Insulin Human Lispro (Insulin Lispro 100 Unit/Ml 3 Ml Vial) 0 unit SUBCUT TID@0800,1200,1700 [facility]; Protocol Last Admin: 04/19/25 11:57 Dose: 6 unit Lisinopril (Lisinopril 10 Mg Tablet) 30 mg PO DAILY [facility]; Protocol Last Admin: 04/19/25 08:38 Dose: 30 mg Magnesium Hydroxide (Milk Of Magnesia 30 Ml Oral.Susp) 30 ml PO DAILY PRN PRN Reason: Constipation Last Admin: 04/18/25 17:12 Dose: 30 ml Melatonin (Melatonin 3 Mg Tablet) 9 mg PO BEDTIME [facility] Last Admin: 04/18/25 20:53 Dose: 9 mg Metformin HCl (Metformin Hcl 500 Mg Tablet) 500 mg PO BID [facility] Last Admin: 04/19/25 08:39 Dose: 500 mg Nicotine (Nicotine 21 Mg Patch.Td24) 21 mg TRANSDERMA DAILY [facility] Last Admin: 04/19/25 08:35 Dose: 21 mg Nicotine Polacrilex (Nicotine Polacrilex 2 Mg Gum) 4 mg BUCCAL Q2H PRN PRN Reason: Nicotine Cravings Last Admin: 04/19/25 03:46 Dose: 4 mg Paliperidone (Paliperidone Er 3 Mg Tab.Er.24) 3 mg PO BEDTIME [facility] Last Admin: 04/18/25 20:52 Dose: 3 mg Paliperidone Palmitate (Paliperidone Palmitate 156 Mg/Ml Syringe) 156 mg IM Q30D [facility] Pantoprazole Sodium (Pantoprazole Sodium 20 Mg Tablet.Dr) 40 mg PO DAILY [facility] Last Admin: 04/19/25 08:38 Dose: 40 mg Trazodone HCl (Trazodone Hcl 100 Mg Tablet) 100 mg PO BEDTIME [facility] Last Admin: 04/18/25 20:52 Dose: 100 mg Allergies Allergies Allergy/AdvReac Type Severity Reaction Status Date / Time No Known Allergies Allergy Verified 04/11/25 19:37 Assessment & Plan Assessment & Plan (1) Schizoaffective disorder: Status: Acute Code(s): F25.9 - Schizoaffective disorder, unspecified (2) Alcohol use disorder: Status: Acute Code(s): F10.90 - Alcohol use, unspecified, uncomplicated Plan Patient is a 49 year old male with hx of Schoizoaffective d/o and alcohol use d/o who presented to ER via ambulance d/t suicidal ideation with a plan to slip his wrist, secondary to increased depression. Plan: CV 15 minute safety checks obtain collateral CIWA protocol Restart home medications Referral to outpatient psychiatric providers Referral to substance abuse program Encourage groups Discharge planning 04/14: Active on unit. attending groups. Patient reports feeling okay today; he reports having a hard time sleeping last night d/t being the first night in here . Patient requesting to be transferred to [place] since they let you use your cell phone . Patient reports he is still interested in going to a substance abuse program. denies SI/HI/VH/AH. Continue tx plan. 04/15: Patient reports feeling better but having some depression ; denies SI/HI/VH/AH. Per social worker school, pt on wait list for [facility]. Active on unit. attending groups. DC CIWA; denies withdrawal symptoms. Continue tx plan. 04/16:Patient reports he feels his mood improving. He reports sleeping well last night. attending groups. denies SI/HI/VH/AH. Patient continues focused on attending substance abuse program; pt stated, I'm trying to get my life back together . Continue tx plan 04/17: Patient reports feeling so-so today; per social worker school, had phone intake this morning with substance abuse program. Later notified, pt was accepted into program for Sunday. Valproic acid level 56.3 on 04/16/25. denies SI/HI/VH/AH. Continue tx plan. 04/18: Patient reports feeling good today; patient stated, I'm feeling ready to go. I'm waiting to leave for the program on Sunday . denies SI/HI/VH/AH. denies any issues at this time. Continue tx plan. 04/19: Active on unit. social with peers. Patient continues to report feeling good today; patient reports he is just waiting to leave tomorrow . denies SI/HI/VH/AH. denies any issues at this time. Continue tx plan. Patient educated on: diagnosis and medication risk/benefits Reason for continued inpatient stay Substantial Risk for: stable for discharge Time Spent With Patient Time: Total time managing care of this patient today __20__ minutes.
[2025-04-19 16:54] LABS: Glucose, Whole Blood 297 mg/dL (60-115)
[2025-04-19] MEDS: Artificial Tears 15 ML DROPS 2 DROP EYE-BOTH (17:08)
[2025-04-19 20:00] VITALS: BP 175/93; PULSE 95; RESP 18; TEMP 36.6; O2SAT 99
[2025-04-19] MEDS: Insulin Glargine,Hum.rec.anlog 100 UNIT/ML 10 ML VIAL 20 UNIT SUBCUT (20:18)
[2025-04-19 20:19] VITALS: BP 175/93
--- NOTE | 2025-04-19 22:41 | PC.NURSE ---
refusing HS melatonin and trazodone at this time. fell asleep after BP recheck as he was sitting in chair in dayroom
[2025-04-19 22:42] VITALS: BP 132/73; PULSE 93
[2025-04-20] MEDS: Artificial Tears 15 ML DROPS 2 DROP EYE-BOTH (03:11)
[2025-04-20 07:45] LABS: Glucose, Whole Blood 261 mg/dL (60-115)
[2025-04-20 08:00] VITALS: BP 187/106; PULSE 89; RESP 20; TEMP 36.4; O2SAT 99
[2025-04-20] MEDS: Nicotine 21 MG PATCH.TD24 TRANSDERMA (08:39)
[2025-04-20] MEDS: Insulin Glargine,Hum.rec.anlog 100 UNIT/ML 10 ML VIAL 10 UNIT SUBCUT (08:57)
--- NOTE | 2025-04-20 09:59 | P.DS_ITS ---
DS: Providers Provider Date of Service: 04/20/25 Date of admission: 04/13/25 13:06 Date of discharge: 04/20/25 Primary care physician: Unknown Physician Admitting clinician: Tona Dugan Attending physician on admission: Alcon Lucas Consults: 04/13/25 16:59 Addiction Medicine Provider Routine Consulting Provider: Addiction Covering Reason for consultation: alcohol abuse Attending physician on discharge: Alcon Lucas Discharging clinician: Tona Dugan DS: Diagnosis Discharge Diagnosis (1) Schizoaffective disorder: Status: Acute (2) Alcohol use disorder: Status: Acute DS: Medications Discharge Medications Home Medications: Home Medications ?Medication ?Instructions ?Recorded ?Confirmed fluticasone propionate 50 2 spray intranasal BID Conge stion 03/31/25 04/13/25 mcg/actuation nasal spray,suspension paliperidone palmitate 156 mg/mL 156 mg IM QMONTH 03/2504/12/25 intramuscular syringe (Invega Sustenna) insulin glargine 100 unit/mL (3 2 - 8 unit subcut BEDT NIEVES 04/13/25 04/13/25 mL) subcutaneous pen (Basaglar KwikPen U-100 Insulin) Previous Rx's ?Medication ?Instructions ?Recorded amlodipine 10 mg tablet 10 mg PO DAILY 30 days #30 t abs 04/20/25 atorvastatin 20 mg tablet 20 mg PO DAILY 30 days #30 t abs 04/20/25 benztropine 0.5 mg tablet 0.5 mg PO BID 30 days #60 ta bs 04/20/25 clonidine HCl 0.2 mg tablet 0.2 mg PO BID 30 days #60 tabs 04/20/25 divalproex 500 mg tablet,extended 1,000 mg (2 x 500 mg ) PO BEDTIME 04/20/25 release 24 hr 30 days #60 tabs divalproex 500 mg tablet,extended 500 mg PO DAILY@0900 30 days #30 04/20/25 release 24 hr tabs hydrochlorothiazide 25 mg tablet 25 mg PO DAILY 30 day s #30 tabs 04/20/25 hydroxyzine pamoate 50 mg capsule 50 mg PO TID PRN anx iety 30 days 04/20/25 #90 caps insulin glargine 100 unit/mL 10 unit (0.1 mL) subcut D AILY 30 04/20/25 subcutaneous solution (Lantus days #3 mL U-100 Insulin) insulin glargine 100 unit/mL 20 unit (0.2 mL) subcut B EDTIME 30 04/20/25 subcutaneous solution (Lantus days #6 mL U-100 Insulin) lisinopril 30 mg tablet 30 mg PO DAILY 30 days #30 t abs 04/20/25 metformin 500 mg tablet 500 mg PO BID 30 days #60 ta bs 04/20/25 nicotine 21 mg/24 hr daily 21 mg transdermal DAILY 30 days 04/20/25 transdermal patch #30 ea paliperidone 3 mg tablet,extended 3 mg PO BEDTIME 30 d ays #30 tabs 04/20/25 release 24 hr pantoprazole 40 mg tablet,delayed 40 mg PO DAILY 30 da ys #30 tabs 04/20/25 release trazodone 100 mg tablet 100 mg PO BEDTIME 30 days #3 0 tabs 04/20/25 Mental Status Exam Mental Status Exam Narrative: Pt is alert and oriented; behavior is cooperative and calm; dressed in casual attire; mood is described as good ; eye contact appropriate; Speech is normal rate, volume and not pressured; thought process is organized; Thought content is on discharge; denies SI/HI/VH/AH. Data Data Completed and Pending Completed studies during hospitalization [Text1]: 04/13/25 04/14/25 04/14/25 22:21 07:40 09:04 Sodium 139 Potassium 3.9 Chloride 103 Carbon Dioxide 27 Anion Gap 13 BUN 11 Creatinine 0.88 Estim Creat Clear Calc 140.6 Estimated GFR > 60 POC Glucose 252 H 273 H Random Glucose 213 H Estimat Average Glucose 226 Hemoglobin A1c % 9.5 H Calcium 9.7 D Total Bilirubin 0.2 Direct Bilirubin AST 26 ALT 25 Alkaline Phosphatase 42 Ammonia Total Protein 7.3 Albumin 4.0 Triglycerides 141 Cholesterol 128 LDL Cholesterol, Calc 63 HDL Cholesterol 37 L Valproic Acid 04/14/25 04/15/25 04/15/25 21:51 07:24 20:49 Sodium Potassium Chloride Carbon Dioxide Anion Gap BUN Creatinine Estim Creat Clear Calc Estimated GFR POC Glucose 309 H 230 H 292 H Random Glucose Estimat Average Glucose Hemoglobin A1c % Calcium Total Bilirubin Direct Bilirubin AST ALT Alkaline Phosphatase Ammonia Total Protein Albumin Triglycerides Cholesterol LDL Cholesterol, Calc HDL Cholesterol Valproic Acid 04/16/25 04/16/25 04/16/25 07:49 11:42 14:51 Sodium Potassium Chloride Carbon Dioxide Anion Gap BUN Creatinine Estim Creat Clear Calc Estimated GFR POC Glucose 352 H* 355 H* Random Glucose Estimat Average Glucose Hemoglobin A1c % Calcium Total Bilirubin 0.1 Direct Bilirubin < 0.2 AST 24 ALT 13 Alkaline Phosphatase 42 Ammonia 37 Total Protein 7.1 Albumin 3.8 Triglycerides Cholesterol LDL Cholesterol, Calc HDL Cholesterol Valproic Acid 56.3 04/16/25 04/16/25 04/17/25 16:40 23:18 07:30 Sodium Potassium Chloride Carbon Dioxide Anion Gap BUN Creatinine Estim Creat Clear Calc Estimated GFR POC Glucose 271 H 271 H 235 H Random Glucose Estimat Average Glucose Hemoglobin A1c % Calcium Total Bilirubin Direct Bilirubin AST ALT Alkaline Phosphatase Ammonia Total Protein Albumin Triglycerides Cholesterol LDL Cholesterol, Calc HDL Cholesterol Valproic Acid 04/18/25 04/18/25 04/18/25 07:28 08:27 11:50 Sodium Potassium Chloride Carbon Dioxide Anion Gap BUN Creatinine 0.82 Estim Creat Clear Calc 149.2 Estimated GFR > 60 POC Glucose 223 H 395 H* Random Glucose Estimat Average Glucose Hemoglobin A1c % Calcium Total Bilirubin Direct Bilirubin AST ALT Alkaline Phosphatase Ammonia Total Protein Albumin Triglycerides Cholesterol LDL Cholesterol, Calc HDL Cholesterol Valproic Acid 04/18/25 04/19/25 04/19/25 16:52 07:52 11:45 Sodium Potassium Chloride Carbon Dioxide Anion Gap BUN Creatinine Estim Creat Clear Calc Estimated GFR POC Glucose 284 H 375 H* 277 H Random Glucose Estimat Average Glucose Hemoglobin A1c % Calcium Total Bilirubin Direct Bilirubin AST ALT Alkaline Phosphatase Ammonia Total Protein Albumin Triglycerides Cholesterol LDL Cholesterol, Calc HDL Cholesterol Valproic Acid 04/19/25 04/20/25 16:50 07:42 Sodium Potassium Chloride Carbon Dioxide Anion Gap BUN Creatinine Estim Creat Clear Calc Estimated GFR POC Glucose 297 H 261 H Random Glucose Estimat Average Glucose Hemoglobin A1c % Calcium Total Bilirubin Direct Bilirubin AST ALT Alkaline Phosphatase Ammonia Total Protein Albumin Triglycerides Cholesterol LDL Cholesterol, Calc HDL Cholesterol Valproic Acid DS: Summary Hospital Course Hospital Course: Patient is a 49 year old male with hx of Schoizoaffective d/o and alcohol use d/o who presented to ER via ambulance d/t suicidal ideation with a plan to slip his wrist, secondary to increased depression. Per crisis report, patient reported worsening depression. Patient reported the of his sister earlier this year has been impacting him and making him depressed. Patient denied HI/VH/AH. He did not appear to be responding to internal stimuli. History of multiple inpatient psychiatric hospitalizations. History of decompensation secondary to medication noncompliance. Denies history of SA/SIB. Pt was recently at [facility]. Does not have outpatient psychiatric providers at this time. Utox negative for all substances. During admission assessment, pt presents alert and oriented x3. calm and cooperative. Patient reports feeling depressed ; pt stated, life hasn't been treating me good. I want to go to the [facility]. I've been there before . Patient reports he has not been taking his psychiatric medications for the past week. He reports drinking a pint of alcohol every other day; started CIWA protocol. Patient reports using cocaine occasionally and smoking marijuana daily. utox was negative for all substances. denies HI/VH/AH. +SI. Patient reports he would like a referral to outpatient psychiatric providers. Plan: CV 15 minute safety checks obtain collateral CIWA protocol Restart home medications Referral to outpatient psychiatric providers Referral to substance abuse program Encourage groups Discharge planning Active on unit. attending groups. Patient reports feeling okay today; he reports having a hard time sleeping last night d/t being the first night in here . Patient requesting to be transferred to [facility] since they let you use your cell phone . Patient reports he is still interested in going to a substance abuse program. denies SI/HI/VH/AH. Continue tx plan. Patient reports feeling better but having some depression ; denies SI/HI/VH/AH. Per social studies department chair, pt on wait list for [facility]. Active on unit. attending groups. [facility]; denies withdrawal symptoms. Continue tx plan. Patient reports he feels his mood improving. He reports sleeping well last night. attending groups. denies SI/HI/VH/AH. Patient continues focused on attending substance abuse program; pt stated, I'm trying to get my life back t ogether . Continue tx plan Patient reports feeling so-so today; per social studies department chair, had phone intake this morning with substance abuse program. Later notified, pt was accepted into program for Sunday. Valproic acid level 56.3 on 04/16/25. denies SI/HI/VH/AH. Continue tx plan. Patient reports feeling good today; patient stated, I'm feeling ready to go. I'm waiting to leave for the program on Sunday . denies SI/HI/VH/AH. denies any issues at this time. Continue tx plan. Active on unit. social with peers. Patient continues to report feeling good today; patient reports he is just waiting to leave tomorrow . denies SI/HI/VH/AH. denies any issues at this time. Continue tx plan. Patient continues to report feeling good ; he reports feeling ready to leave . denies SI/HI/VH/AH. Patient reports he plans on following up with his outpatient providers. Status at Discharge Cognitive/behavioral status at discharge: Patient has insight and demonstrates good judgment in terms of wanting to pursue treatment. Patient has a safety plan that includes presenting to the closest ER or calling 911 if feeling unsafe. Functional status at discharge: independent ambulation Overall status at discharge: patient is back to baseline Time Spent with Patient Time attestation: Total time managing care of this patient today _20___ minutes. Time spent: Less than 30 minutes Discharge Plan Discharge Anticipated Discharge Date/Time: 04/19/25 11:00 Patient Disposition: Home, Self-Care Discharge Diagnosis: Schizoaffective d/o, Alcohol use d/o Referrals: [facility] [Provider Group] - 1 Week Referral Note: 04-20-25 [facility] was added to patients chart. Please call [phone] to schedule your follow up appt within 7-10 days of discharge. No release of PCP on file. Discharge Medications: New insulin glargine [Lantus U-100 Insulin] 100 unit/mL Solution 20 unit subcut BEDTIME 30 Days Qty: 6 0RF insulin glargine [Lantus U-100 Insulin] 100 unit/mL Solution 10 unit subcut DAILY 30 Days Qty: 3 0RF Continued Invega Sustenna 156 mg/mL syringe 156 mg IM QMONTH Patient Comments: 04/13/25: Patient reports his last dose was in the month of March. insulin glargine [Basaglar KwikPen U-100 Insulin] 100 unit/mL (3 mL) insulin pen 2 - 8 unit subcut BEDTIME metformin 500 mg tablet 500 mg PO BID 30 Days Qty: 60 0RF atorvastatin 20 mg tablet 20 mg PO DAILY 30 Days Qty: 30 0RF benztropine 0.5 mg tablet 0.5 mg PO BID 30 Days Qty: 60 0RF clonidine HCl 0.2 mg tablet 0.2 mg PO BID 30 Days Qty: 60 0RF trazodone 100 mg tablet 100 mg PO BEDTIME 30 Days Qty: 30 0RF amlodipine 10 mg tablet 10 mg PO DAILY 30 Days Qty: 30 0RF pantoprazole 40 mg tablet,delayed release (DR/EC) 40 mg PO DAILY 30 Days Qty: 30 0RF divalproex 500 mg tablet extended release 24 hr 1,000 mg PO BEDTIME 30 Days Qty: 60 0RF divalproex 500 mg tablet extended release 24 hr 500 mg PO DAILY@0900 30 Days Qty: 30 0RF nicotine 21 mg/24 hr Patch 24 Hour 21 mg transdermal DAILY 30 Days Qty: 30 0RF lisinopril 30 mg tablet 30 mg PO DAILY 30 Days Qty: 30 0RF hydrochlorothiazide 25 mg tablet 25 mg PO DAILY 30 Days Qty: 30 0RF paliperidone 3 mg tablet extended release 24hr 3 mg PO BEDTIME 30 Days Qty: 30 0RF fluticasone propionate 50 mcg/actuation spray,suspension 2 spray intranasal BID Changed hydroxyzine pamoate 50 mg capsule 50 mg PO TID PRN (Reason: anxiety) 30 Days Qty: 90 0RF Discontinued acetaminophen 325 mg tablet 650 mg PO TID PRN (Reason: pain) multivitamin [Daily-Roxanne] Tablet 1 tab PO DAILY Qty: 30 0RF folic acid 1 mg Tablet 1 mg PO DAILY Qty: 30 0RF Discharge Orders: Discharge Order (Routine); Ordered 04/20/25 Ordered By: Tona Dugan Diet: Regular diet Activity on Discharge: As tolerated Stand Alone Forms: Patient Portal Discharge page, Community Support Print Language: Citizen [place] Care Plan Goals: Maintain mood and safe behaviors Take medications as prescribed Continue to pursue sobriety Practice coping skills Continue with outpatient providers and reach out to them as needed Health Concerns: Mood stability and behaviors Sobriety Plan of Treatment: Follow up with your PCP, psychiatric provider and other outpatient providers regarding above concerns Take medications as prescribed Assessment: Patient has insight and demonstrates good judgment in terms of wanting to pursue treatment. Patient has a safety plan that includes presenting to the closest ER or calling 911 if feeling unsafe.
[2025-04-20 10:09] VITALS: BP 137/82; PULSE 96
[2025-04-20 12:03] LABS: Glucose, Whole Blood 266 mg/dL (60-115)
--- NOTE | 2025-04-20 15:02 | PC.NURSE ---
Caryl engages easily. Reports feeling ready for discharge. States he is going to program. Denies depression or sadness. Denies SI/HI plan or intent. Denies perceptual disturbances, denies A/V hallucinations, denies paranoia or suspiciousness. Discharge information reviewed with patient, reports understanding. Discharge medications reviewed with patient reports understanding. Home medications returned to patient. Discharge medications provided to [place] [facility]. All belongings taken with patient on discharge. Information provided regarding walk in clinic at [facility]. Additionally information provided regarding obtaining PCP through [facility]. Crisis numbers and resource book provided to patient.
== END 2025-04-20 13:03 | disposition home or self-care (01) | DRG 885 ==
LOC: HO.ED 04-13 13:04 → HO.PADLT16 04-13 13:07
PROVIDERS: Physician Assistant Medical; Admitting Provider Registered Nurse; Emergency Provider Student in an Organized Health Care Education/Training Program; Responsible Provider Registered Nurse; Visit Provider Psychiatry & Neurology Psychiatry
DX: F25.9 Schizoaffective disorder, unspecified (principal); R45.851 Suicidal ideations; F10.90 Alcohol use, unspecified, uncomplicated; E11.9 Type 2 diabetes mellitus without complications; I10 Essential (primary) hypertension; E78.5 Hyperlipidemia, unspecified; Z20.822 Contact with and (suspected) exposure to COVID-19; Z23 Encounter for immunization; Z63.4 Disappearance and death of family member; Z79.4 Long term (current) use of insulin; Z79.84 Long term (current) use of oral hypoglycemic drugs; Z79.899 Other long term (current) drug therapy
CPT/HCPCS: 36415; 80053; 80061; 80076; 80143; 80164; 80179; 80307; 81001; 82140; 82565; 82947; 83036; 85025; 87635; 90656; 93005; 99285; S9485

== ENCOUNTER → 2025-04-11 19:25 | Outpatient (BNV) | payer OTHER, SELFPAY | PROVIDERS: Emergency Provider Student in an Organized Health Care Education/Training Program; Visit Provider Internal Medicine Cardiovascular Disease | DX: F19.90 Other psychoactive substance use, unspecified, uncomplicated (principal) | CPT/HCPCS: 93010 ==

== ENCOUNTER → 2025-04-13 08:29 | Outpatient (BNV) | payer OTHER, SELFPAY | PROVIDERS: Admitting Provider Registered Nurse; Emergency Provider Student in an Organized Health Care Education/Training Program; Responsible Provider Registered Nurse; Visit Provider Internal Medicine Cardiovascular Disease | DX: R94.31 Abnormal electrocardiogram [ECG] [EKG] (principal); Z13.6 Encounter for screening for cardiovascular disorders | CPT/HCPCS: 93010 ==

== ENCOUNTER → 2025-04-13 13:06 | Outpatient (BNV) | payer OTHER, SELFPAY | PROVIDERS: Admitting Provider Registered Nurse; Emergency Provider Student in an Organized Health Care Education/Training Program; Responsible Provider Registered Nurse; Visit Provider Registered Nurse | DX: F25.9 Schizoaffective disorder, unspecified (principal); F10.90 Alcohol use, unspecified, uncomplicated | CPT/HCPCS: 90792; 99231; 99232 ==

== ENCOUNTER → 2025-04-13 13:06 | Outpatient (BNV) | payer OTHER, SELFPAY | PROVIDERS: Admitting Provider Registered Nurse; Emergency Provider Student in an Organized Health Care Education/Training Program; Responsible Provider Registered Nurse; Visit Provider Nurse Practitioner Family | DX: I10 Essential (primary) hypertension (principal) | CPT/HCPCS: 99221 ==